=== PATIENT | female | born 1935 | race Caucasian/White ===

== ENCOUNTER → 2018-01-26 14:17 | Outpatient (CLI) | payer MEDICARE, SELFPAY ==
[2018-01-26 15:56] LABS: Absolute Lymphocyte Count 1.21 X10^3/ul (0.83-4.51); Absolute Neutrophil Count 6.6 X10^3/uL (2.0-7.7); Basophil# 0.01 X10^3/uL; Basophil% 0.1 % (0-1); Eosinophil# 0.02 X10^3/uL; Eosinophils% 0.2 % (0-5); Hematocrit 36.7 % (37-47); Hemoglobin 11.7 g/dl (12.0-15.0); Lymphocyte # 1.21 X10^3/ul (4.0); Mean Corp Hgb Conc 31.9 g/gl (32-36); Mean Corpuscular Hgb 29.4 pg (27.0-32.0); Mean Corpuscular Volume 92.2 fL (81-99); Mean Platelet Vol. 10.3 fl (6.2-12.0); Monocyte# 0.74 X10^3/uL; Monocyte% 8.6 % (0-10); Neutrophil # 6.63 X10^3/uL (2.7-7.7); Platelet Count 291 K/mm3 (150-450); RBC Distribution Width CV 13.8 % (11.6-14.6); RBC Distribution Width SD 46.2 fl (35.1-43.9); Red Blood Count 3.98 M/mm3 (4.2-5.4); White Blood Count 8.6 K/mm3 (4.4-11.0)
[2018-01-26 15:58] LABS: POSITIVE COUNT NO; POSITIVE DIFFERENTIAL NO; POSITIVE MORPHOLOGY NO
[2018-01-26 16:18] LABS: Erythrocyte Sedimentation Rate 49 mm/hr (0-30)
[2018-01-26 16:23] LABS: Ferritin 195 ng/mL (8-252); Iron 18 ug/dL (50-170); Thyroid Stim Hormone (TSH) 1.46 uIU/mL (0.358-3.74)
[2018-01-27 08:32] LABS: Vitamin B12 414 pg/mL (211-911); Vitamin D,25 Hydroxy 24.6 ng/mL (29.95-100.01)
[2018-01-28 12:09] LABS: ANTINUCLEAR ANTIBODIES DIRECT Positive (Negative); Anti-Centromere B Ab <0.2 AI (0.0-0.9); Anti-Chromatin 0.2 AI (0.0-0.9); Anti-Jo <0.2 AI (0.0-0.9); Anti-Scleroderma-70 AB <0.2 AI (0.0-0.9); RNP Ab <0.2 AI (0.0-0.9); SJOGREN'S Anti-SS-A test > 8.0 AI (0.0-0.9); SJOGREN'S Anti-SS-B test < 0.2 AI (0.0-0.9); Smith Ab <0.2 AI (0.0-0.9)
[2018-01-28 15:00] LABS: Anti-dsDNA Ab <1 IU/mL (0-9)
== END ==
PROVIDERS: Family Provider Family Medicine; PCP Family Medicine; Visit Provider Family Medicine
DX: D64.9 Anemia, unspecified (principal); E03.9 Hypothyroidism, unspecified; E55.9 Vitamin D deficiency, unspecified; E78.5 Hyperlipidemia, unspecified; R53.83 Other fatigue
CPT/HCPCS: 36415; 82306; 82607; 82728; 83540; 84443; 85025; 85652; 86038; 86140; 86225; 86235

== ENCOUNTER → 2018-02-17 | Outpatient (CLI) | payer MEDICARE, SELFPAY ==
[2018-02-17 14:34] LABS: Bacteria 0 SEEN /hpf (None Seen); Mucous, Urine 0 SEEN /hpf (<or=2+); Red Blood Cells-Urine 0 SEEN /hpf (0-5)
[2018-02-17 15:56] LABS: Absolute Lymphocyte Count 1.19 X10^3/ul (0.83-4.51); Absolute Neutrophil Count 2.5 X10^3/uL (2.0-7.7); Basophil# 0.02 X10^3/uL; Basophil% 0.5 % (0-1); Eosinophil# 0.06 X10^3/uL; Eosinophils% 1.4 % (0-5); Hematocrit 36.2 % (37-47); Hemoglobin 11.8 g/dl (12.0-15.0); Lymphocyte # 1.19 X10^3/ul (4.0); Lymphocyte % 27.8 % (19-41); Mean Corp Hgb Conc 32.6 g/gl (32-36); Mean Corpuscular Hgb 30.1 pg (27.0-32.0); Mean Corpuscular Volume 92.3 fL (81-99); Mean Platelet Vol. 10.9 fl (6.2-12.0); Monocyte% 11.7 % (0-10); Neutrophil # 2.51 X10^3/uL (2.7-7.7); Neutrophil % 58.6 % (47-70); Platelet Count 234 K/mm3 (150-450); RBC Distribution Width CV 13.9 % (11.6-14.6); RBC Distribution Width SD 46.1 fl (35.1-43.9); Red Blood Count 3.92 M/mm3 (4.2-5.4); White Blood Count 4.3 K/mm3 (4.4-11.0)
[2018-02-17 15:57] LABS: POSITIVE COUNT NO; POSITIVE DIFFERENTIAL NO; POSITIVE MORPHOLOGY NO
[2018-02-17 16:05] LABS: Erythrocyte Sedimentation Rate 27 mm/hr (0-30)
[2018-02-17 16:17] LABS: AST(SGOT) 32 U/L (15-37); Alanine Aminotransfer ALT/SGPT 24 U/L (13-56); Albumin, Serum 3.7 g/dL (3.2-5.0); Alkaline Phosphatase 60 U/L (45-117); Bilirubin, Direct 0.11 mg/dL (0.00-0.30); CRP < 2.90 mg/L (0.0-3.0); Globulin 3.6 g/dL (2.2-4.2); Protein, Total 7.3 g/dL (6.4-8.2)
[2018-02-17 17:10] LABS: Color, Urine Yellow (Yellow); Glucose, Dipstick Normal (Normal); Ketone-Dipstick Negative (Negative); Leukocyte Esterase-Dipstick 500 /ul (Negative); Nitrite-Dipstick Negative (Negative); Occult Blood-Urine Negative /ul (Negative); Protein-Dipstick Negative (Negative); Urine Bilirubin Dipstick Negative (Negative); Urine Clarity Clear (Clear); Urine Urobilinogen Normal (Normal)
[2018-02-17 17:39] LABS: Squamous Epithelial Cells - UA 0-5 SEEN /hpf (5-10); White Blood Cells 0-5 SEEN /hpf (0-5)
[2018-02-19 14:09] LABS: ANTINUCLEAR ANTIBODIES DIRECT Positive (Negative); Anti-Centromere B Ab <0.2 AI (0.0-0.9); Anti-Chromatin 0.2 AI (0.0-0.9); Anti-Jo <0.2 AI (0.0-0.9); Anti-Scleroderma-70 AB <0.2 AI (0.0-0.9); RNP Ab <0.2 AI (0.0-0.9); SJOGREN'S Anti-SS-A test > 8.0 AI (0.0-0.9); SJOGREN'S Anti-SS-B test < 0.2 AI (0.0-0.9); Smith Ab <0.2 AI (0.0-0.9)
[2018-02-20 08:40] LABS: Anti-dsDNA Ab <1 IU/mL (0-9)
== END | disposition home or self-care (01) ==
PROVIDERS: Family Provider Family Medicine; PCP Family Medicine; Visit Provider Family Medicine
DX: R53.83 Other fatigue (principal); R70.0 Elevated erythrocyte sedimentation rate; R50.9 Fever, unspecified; Z79.899 Other long term (current) drug therapy
CPT/HCPCS: 36415; 80076; 81001; 85025; 85652; 86038; 86140; 86225; 86235; 87040; 87086

== ENCOUNTER 2018-03-10 10:35 | Inpatient (IN) | payer MEDICARE, SELFPAY ==
[2018-02-25 15:21] VITALS: BP 119/60; PULSE 82; RESP 16; TEMP 37.2; O2SAT 98; BMI 28.8
[2018-02-25 17:54] LABS: Anion Gap 5 (5-15); BUN 26 mg/dL (7-18); BUN/Creat Ratio 32.3 RATIO (10-20); Calcium,Total 8.7 mg/dL (8.5-10.1); Chloride 108 mmol/L (98-107); EST Glomerular Filtration Rate 73 mL/min (>60); Est Glom Filt Rate - Afr Amer 88 mL/min (>60); Estimated Creatinine Clearance 45.62 ml/min; Glucose 86 mg/dL (74-106); Sodium Level 143 mmol/L (136-145); Thyroid Stim Hormone (TSH) 1.56 uIU/mL (0.358-3.74)
--- NOTE | 2018-03-05 15:44 | CASEMGMT ---
RN CM called and and attempted to speak with patient regarding discharge needs after upcoming surgery. No answer and voice message left with return contact information. Per preadmission assessment patient has a walker and would like to return home. RN CM will follow up with patient after surgery and will assist with discharge needs.
--- NOTE | 2018-03-08 10:20 | CASEMGMT ---
Social Work Note RN VANESSA Martinez informed this worker that pt is having left total hip surgery on Thursday03/10/2018 and that pt is interested in either inpatient rehab or TCU. SW placed call to Sarah with inpatient rehab to provide referral. Per Sarah, pt's insurance won't approve for pt to go to inpatient rehab and pt will have to go to TCU. This worker will update pt of this when she arrives to floor for surgery. Plan: TCU pending pre-cert Tangela Fernandez TILE GRADER, BUCKLE INSPECTOR
[2018-03-10] VITALS (9 sets, daily range): BP systolic 111–155; BP diastolic 54–88; PULSE 73–100; RESP 16–20; TEMP 36–36.9; O2SAT 84–100; BMI 28.8
[2018-03-10] MEDS: oxyCODONE HCl Cr 10 MG Tablet PO (11:25)
[2018-03-10] MEDS: Acetaminophen 500 MG Tablet 1000 MG PO ×2 (11:25→18:11)
[2018-03-10] MEDS: Lactated Ringers 1,000 ML 999 ML IV (11:47)
--- NOTE | 2018-03-10 12:45 | RAD_ITS ---
STUDY: X-RAY - PELVIS AND LEFT HIP REASON FOR EXAM: Female, 82 years old. Left anterior total hip. TECHNIQUE: Fluoroscopic assistance was provided to Dr. Raymond. A frontal view of the low pelvis/bilateral hips as well as an additional film centered over the left hip are submitted. COMPARISON: None. FINDINGS: There is a non-specific bowel gas pattern. There are calcified phleboliths in the pelvic soft tissues. Normal bilateral superior and inferior pubic rami. Normal pubic symphysis. Normal bilateral ischial tuberosities. There is an indwelling right bipolar metal hip prosthesis. The patient has undergone left total hip arthroplasty. The left femoral head and neck have been resected. A metal bipolar hip prosthesis appears well seated, and in anatomic alignment. There is no demonstrated acute fracture. Lateral soft tissue lucency consistent with an open surgical wound. RAD/Hip 1 view with Pelvis IMPRESSION: Intraprocedural images demonstrate left total hip arthroplasty. Electronically Signed: Mundo Sweeney MD at 17:01 EDT , Service support ,
[2018-03-10] MEDS: Cefazolin 2 GM in 0.9% Normal Saline 100 ML IV (14:58)
--- NOTE | 2018-03-10 16:11 | PCM.IMDPSTOP ---
Immediate Post-Op Note Date of Procedure: 03/10/18 Primary Surgeon/Physician: Ritchie Child M.D. health education director: Rivas Raymond health education director: Tawanda Merida Pre-Operative Diagnosis: OA left hip Post-Operative Diagnosis: same Surgery/Procedure Performed:: Left THR--Anterior approach Description of Surgical Findings:: see dictation Estimated Blood Loss: 150cc Specimen's removed: none Type of Anesthesia:: General ASA Class: ASA3 Severe Disease - Admit VTE Documentation VTE Present on Admission: No VTE Mechan Device Prophylaxis: SCD's, Thigh High NERI Hose VTE Pharm Prophylaxis ordered?: Yes
--- NOTE | 2018-03-10 16:14 | OP.PN_ITS ---
Immediate Post-Op Note Date of Procedure: 03/10/18 Primary Surgeon/Physician: Ritchie Child M.D. setter automatic spinning lathe: Rivas Raymond setter automatic spinning lathe: Tawanda Merida Pre-Operative Diagnosis: OA left hip Post-Operative Diagnosis: same Surgery/Procedure Performed:: Left THR--Anterior approach Description of Surgical Findings:: see dictation Estimated Blood Loss: 150cc Specimen's removed: none Type of Anesthesia:: General ASA Class: ASA3 Severe Disease - Admit VTE Documentation VTE Present on Admission: No VTE Mechan Device Prophylaxis: SCD's, Thigh High NERI Hose VTE Pharm Prophylaxis ordered?: Yes
--- NOTE | 2018-03-10 16:16 | PCM.OPRPT ---
Report of Operation Date of Procedure: 03/10/18 Pre-Operative Diagnosis: OA left hip Post-Operative Diagnosis: same Surgery/Procedure Performed:: Left THR--Anterior approach Description of Surgical Findings:: Stable hip with equal leg lengths detective bureau chief: Rivas Raymond detective bureau chief: Tawanda Merida Type of Anesthesia:: General Anesthesiologist: Gama Mitchell Special Medications: 2 g Ancef, 1 g TXA at incision, 1 g TXA closure, 10 mg Decadron, joint cocktail (5 mg Duramorph, 30 mL of 0.5% Ropivicaine, 1000 units of epinephrine, 30 mg of Toradol) Specimen's removed: none Estimated Blood Loss (mL): 150cc Fluids Replaced: 1500 ml Description of Procedure: Components used: 1. Accolade 2 Marcie femoral stem size 3 132? 2. [place] trident acetabular shell size 48 mm 3. Marcie X3 polyethylene d 4. [place] Biolox delta 36mm, -5mm femoral head Brief history operative indications: 82 yo F who failed conservative measures for their hip osteoarthritis. X-rays were consistent with osteoarthritis including joint space narrowing, osteophyte formation and subchondral cysts. Total hip replacement was discussed with the patient with risks and benefits including but not limited to blood loss, DVTs, PEs, neurovascular damage, dislocation, general risks of anesthesia including loss of life. Patient demonstrated an understanding medical clearance is obtained the patient was consented for surgery. Procedure: On the date of procedure the patient's L hip was marked in the preoperative area. Patient was then taken back to the operating room where anesthesia assumed control of the C-spine and airway and administered anesthetic. Patient was transferred to the operating table and placed in the supine position. The hips were placed at the break of the bed and a sacral bump was placed. The L lower extremity was then prepped out in a sterile fashion using chlorhexidine while the surgeon scrubbed. The PA was vital in the positioning of the patient. Upon reentering the room the L lower extremity was draped in the standard orthopedic fashion and the incision was marked. A timeout was called and everyone agreed upon the side, the site, the procedure be performed, antibody given, and patient's identity. At this time incision was made through skin, subcutaneous tissue, and fat down to fascia. The fascia was then incised and the TFL was retracted laterally. A retractor was placed on the lateral border of the femoral neck. Attention was directed to the inferior portion of the approach and all crossing vessels were identified and appropriately coagulated. A retractor was then placed on the medial portion of the femoral neck. The anterior capsule was then cleared of all soft tissue and then H shaped capsulotomy was made. The retractors were then placed inside the capsule. The femoral neck was identified and a cleanup cut was made. At this time a power corkscrew was used to remove the femoral head. Attention was then turned toward the acetabulum where the soft tissues were appropriately retracted and the acetabulum was sequentially reamed to 47 mm. A 48 mm cup was then selected and impacted into place. Acetabular liner was impacted into place and locking mechanism was verified. The position of the acetabular cup was then verified under live fluoroscopy. Attention was then turned to the femur. Soft tissue releases on the medial and lateral femoral neck were appropriately done, the leg was externally rotated and lateralized. A Vasquez retractor was placed medially and proximally to the greater trochanter this allowed appropriate visualization and exposure of the femoral canal. Rongeour was then used to remove excess lateral bone. A canal finder and entry broach were used to open the proximal canal. Once we verified we were down the femoral canal we subsequently broached up to a size 3 femur. The appropriate neck was placed in the previously selected head was trialed with a -5 mm neck. Traction was pulled and the hip was reduced with internal rotation. Once it was appropriately reduced and stability was checked. There was minimal shuck, equal leg lengths and appropriate stability with hyperextension and external rotation as well as with 90? flexion and internal rotation. Fluoroscopy was then also used to verify the position of the components and leg lengths using the contralateral side for comparison. The trial components were then dislocated the proximal femur was again exposed and the components were removed from the wound. The final components were verified and opened. The wound was copiously irrigated out with normal saline. The acetabulum was checked for any residual debris. The final components were placed and impacted. Traction and internal rotation were again used to reduce the hip. After adequate reduction the hip remained stable with appropriate leg lengths. The final components were once again checked with live fluoroscopy and were found to be satisfactory. The wound was then copiously irrigated with normal saline once more, and hemostasis was obtained. Closure was then done using #1 Vicryl runner to close the fascia. A 2-0 vicryl interuppted sutures were used to close the subcutaneous skin. A 3-0 Monocryl and Steri-Strips were used for final skin closure. A Silverlon dressing was placed. Patient was awakened by anesthesia and transferred to the [facility]. Patient was then transferred to the PACU for recovery. Postoperative plan: Patient will get 24 hours postop antibiotics. Patient will get in-house physical therapy and will be weight-bear as tolerated. Patient will follow up in office in 2 weeks for a wound check and x-rays. During the course of the procedure the Dr. Raymond played a vital role in assisting. His intimate knowledge of my steps in the procedure aided in safe and expedient completion of the procedure. The community program assistant played a vital rolls in positioning particularly in obtaining the appropriate positioning of the sacral bump. The community program assistant was also vital in the retraction of soft tissues during the exposure and especially the femoral work as this is a vital part of the procedure to prevent complications and fractures. The community program assistant was also vital and protecting soft tissues during times of bony cuts and reaming. The community program assistant was also important during reduction and dislocation of the joint and trials intraoperatively. Grafts/Implants Used: Marcie - Complications None - Admit VTE Documentation VTE Present on Admission: No VTE Mechan Device Prophylaxis: SCD's, Thigh High NERI Hose VTE Pharm Prophylaxis ordered?: Yes
--- NOTE | 2018-03-10 16:20 | OP.PCM_ITS ---
Report of Operation Date of Procedure: 03/10/18 Pre-Operative Diagnosis: OA left hip Post-Operative Diagnosis: same Surgery/Procedure Performed:: Left THR--Anterior approach Description of Surgical Findings:: Stable hip with equal leg lengths phlebotomy lab assistant: Rivas Raymond phlebotomy lab assistant: Tawanda Merida Type of Anesthesia:: General Anesthesiologist: Gama Mitcehll Special Medications: 2 g Ancef, 1 g TXA at incision, 1 g TXA closure, 10 mg Decadron, joint cocktail (5 mg Duramorph, 30 mL of 0.5% Ropivicaine, 1000 units of epinephrine, 30 mg of Toradol) Specimen's removed: none Estimated Blood Loss (mL): 150cc Fluids Replaced: 1500 ml Description of Procedure: Components used: 1. Accolade 2 Marcie femoral stem size 3 132? 2. [place] trident acetabular shell size 48 mm 3. Marcie X3 polyethylene d 4. [place] Biolox delta 36mm, -5mm femoral head Brief history operative indications: 82 yo F who failed conservative measures for their hip osteoarthritis. X-rays were consistent with osteoarthritis including joint space narrowing, osteophyte formation and subchondral cysts. Total hip replacement was discussed with the patient with risks and benefits including but not limited to blood loss, DVTs, PEs, neurovascular damage, dislocation, general risks of anesthesia including loss of life. Patient demonstrated an understanding medical clearance is obtained the patient was consented for surgery. Procedure: On the date of procedure the patient's L hip was marked in the preoperative area. Patient was then taken back to the operating room where anesthesia assumed control of the C-spine and airway and administered anesthetic. Patient was transferred to the operating table and placed in the supine position. The hips were placed at the break of the bed and a sacral bump was placed. The L lower extremity was then prepped out in a sterile fashion using chlorhexidine while the surgeon scrubbed. The PA was vital in the positioning of the patient. Upon reentering the room the L lower extremity was draped in the standard orthopedic fashion and the incision was marked. A timeout was called and everyone agreed upon the side, the site, the procedure be performed, antibody given, and patient's identity. At this time incision was made through skin, subcutaneous tissue, and fat down to fascia. The fascia was then incised and the TFL was retracted laterally. A retractor was placed on the lateral border of the femoral neck. Attention was directed to the inferior portion of the approach and all crossing vessels were identified and appropriately coagulated. A retractor was then placed on the medial portion of the femoral neck. The anterior capsule was then cleared of all soft tissue and then H shaped capsulotomy was made. The retractors were then placed inside the capsule. The femoral neck was identified and a cleanup cut was made. At this time a power corkscrew was used to remove the femoral head. Attention was then turned toward the acetabulum where the soft tissues were appropriately retracted and the acetabulum was sequentially reamed to 47 mm. A 48 mm cup was then selected and impacted into place. Acetabular liner was impacted into place and locking mechanism was verified. The position of the acetabular cup was then verified under live fluoroscopy. Attention was then turned to the femur. Soft tissue releases on the medial and lateral femoral neck were appropriately done, the leg was externally rotated and lateralized. A Vasquez retractor was placed medially and proximally to the greater trochanter this allowed appropriate visualization and exposure of the femoral canal. Rongeour was then used to remove excess lateral bone. A canal finder and entry broach were used to open the proximal canal. Once we verified we were down the femoral canal we subsequently broached up to a size 3 femur. The appropriate neck was placed in the previously selected head was trialed with a -5 mm neck. Traction was pulled and the hip was reduced with internal rotation. Once it was appropriately reduced and stability was checked. There was minimal shuck, equal leg lengths and appropriate stability with hyperextension and external rotation as well as with 90? flexion and internal rotation. Fluoroscopy was then also used to verify the position of the components and leg lengths using the contralateral side for comparison. The trial components were then dislocated the proximal femur was again exposed and the components were removed from the wound. The final components were verified and opened. The wound was copiously irrigated out with normal saline. The acetabulum was checked for any residual debris. The final components were placed and impacted. Traction and internal rotation were again used to reduce the hip. After adequate reduction the hip remained stable with appropriate leg lengths. The final components were once again checked with live fluoroscopy and were found to be satisfactory. The wound was then copiously irrigated with normal saline once more, and hemostasis was obtained. Closure was then done using #1 Vicryl runner to close the fascia. A 2-0 vicryl interuppted sutures were used to close the subcutaneous skin. A 3-0 Monocryl and Steri-Strips were used for final skin closure. A Silverlon dressing was placed. Patient was awakened by anesthesia and transferred to the [facility]. Patient was then transferred to the PACU for recovery. Postoperative plan: Patient will get 24 hours postop antibiotics. Patient will get in-house physical therapy and will be weight-bear as tolerated. Patient will follow up in office in 2 weeks for a wound check and x-rays. During the course of the procedure the Dr. Raymond played a vital role in assisting. His intimate knowledge of my steps in the procedure aided in safe and expedient completion of the procedure. The head start assistant teacher played a vital rolls in positioning particularly in obtaining the appropriate positioning of the sacral bump. The head start assistant teacher was also vital in the retraction of soft tissues during the exposure and especially the femoral work as this is a vital part of the procedure to prevent complications and fractures. The head start assistant teacher was also vital and protecting soft tissues during times of bony cuts and reaming. The head start assistant teacher was also important during reduction and dislocation of the joint and trials intraoperatively. Grafts/Implants Used: Marcie - Complications None - Admit VTE Documentation VTE Present on Admission: No VTE Mechan Device Prophylaxis: SCD's, Thigh High NERI Hose VTE Pharm Prophylaxis ordered?: Yes
--- NOTE | 2018-03-10 16:55 | RAD_ITS ---
STUDY: X-RAY - PELVIS AND LEFT HIP REASON FOR EXAM: Female, 82 years old. Postop left hip. TECHNIQUE: Radiological exam, hip, unilateral, with pelvis when performed; 2 or 3 views. COMPARISON: None. FINDINGS: There is a non-specific bowel gas pattern. There are multiple calcified phleboliths in the pelvic soft tissues. There is narrowing with cortical sclerosis of the bilateral sacroiliac joints, consistent with degenerative osteoarthritic changes. Normal bilateral superior and inferior pubic rami. Normal pubic symphysis. Normal bilateral ischial tuberosities. There is an indwelling right bipolar metal hip prosthesis. Patient has undergone left total hip arthroplasty. Phone resection of the femoral head and neck, a metal bipolar hip prosthesis was placed. The acetabular and femoral components appear well seated, and in anatomic alignment. Gas lucencies in the tissue surrounding the hip are consistent with recent surgery. There is no demonstrated acute fracture. RAD/Hip Min 2 Views (Portable) IMPRESSION: 1. Status post left total hip arthroplasty. 2. Indwelling metal bipolar right hip prosthesis. 3. 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 Electronically Signed: Mundo Sweeney MD at 17:33 EDT , Service support ,
[2018-03-10 17:21] LABS: Hematocrit 31.8 % (37-47); Hemoglobin 10.4 g/dl (12.0-15.0); Mean Corp Hgb Conc 32.7 g/gl (32-36); Mean Corpuscular Volume 91.6 fL (81-99); Mean Platelet Vol. 10.1 fl (6.2-12.0); Platelet Count 209 K/mm3 (150-450); RBC Distribution Width CV 13.9 % (11.6-14.6); RBC Distribution Width SD 45.9 fl (35.1-43.9); Red Blood Count 3.47 M/mm3 (4.2-5.4); White Blood Count 12.7 K/mm3 (4.4-11.0)
[2018-03-10 17:22] LABS: Scan Indicated on CBC? Y/N NO
--- NOTE | 2018-03-10 17:55 | NURSING ---
PT PLACED ON O2 2L VIA NC
[2018-03-10] MEDS: Aspirin 325 MG Tablet PO (18:11)
[2018-03-10] MEDS: Atorvastatin Calcium 20 MG Tablet PO (21:10)
[2018-03-10] MEDS: oxyCODONE 5 MG Tablet PO (22:24)
[2018-03-10] MEDS: Cefazolin 1 GM/50 ML BAG IV (22:25)
[2018-03-10] MEDS: Zolpidem Tartrate 5 MG Tablet PO (23:38)
[2018-03-11 04:52] VITALS: BP 148/62; PULSE 75; RESP 18; TEMP 36.7; O2SAT 99
[2018-03-11] MEDS: Levothyroxine 100 MCG Tablet PO (05:01)
[2018-03-11] MEDS: Acetaminophen 500 MG Tablet 1000 MG PO ×3 (05:01→21:58)
--- NOTE | 2018-03-11 05:59 | NURSING ---
tavo here to start iv.
[2018-03-11] MEDS: Cefazolin 1 GM/50 ML BAG IV (06:06)
[2018-03-11 07:01] LABS: Hematocrit 32.9 % (37-47); Mean Corp Hgb Conc 33.4 g/gl (32-36); Mean Corpuscular Hgb 30.6 pg (27.0-32.0); Mean Corpuscular Volume 91.4 fL (81-99); Mean Platelet Vol. 10.7 fl (6.2-12.0); Platelet Count 191 K/mm3 (150-450); RBC Distribution Width CV 13.5 % (11.6-14.6); White Blood Count 9.2 K/mm3 (4.4-11.0)
[2018-03-11 07:04] LABS: Scan Indicated on CBC? Y/N NO
[2018-03-11 07:12] LABS: Anion Gap 7 (5-15); BUN 11 mg/dL (7-18); BUN/Creat Ratio 18.4 RATIO (10-20); Calcium,Total 8.8 mg/dL (8.5-10.1); Chloride 100 mmol/L (98-107); EST Glomerular Filtration Rate 102 mL/min (>60); Est Glom Filt Rate - Afr Amer 124 mL/min (>60); Glucose 105 mg/dL (74-106); Potassium 3.7 mmol/L (3.5-5.1); Sodium Level 136 mmol/L (136-145)
[2018-03-11 08:47] VITALS: O2SAT 99
--- NOTE | 2018-03-11 08:57 | PN.ORTHO_ITS ---
Subjective: Patient doing well. Rates pain at 0/10 when resting, 4/10 when up. Denies N/T/ P. Plans an going to TCU tomorrow. - Physical Exam General: Alert, Oriented x3, No apparent distress Extremities: No clubbing, No cyanosis, Capillary Refill Less than 3 Seconds Skin: Incision - stable Neurological: Motor Exam 5/5 strength throughout, Sensory exam intact to light touch and pain Vital Signs Temp Pulse Resp BP Pulse Ox 98.1 F 75 18 148/62 H 99 03/11/18 04:52 03/11/18 04:52 03/11/18 04:52 03/11/18 04:52 03/11/18 08:47 Oxygen Flow Rate (L/min) 2 Oxygen Delivery Method Room Air Weight: 164 lb 14.492 oz Body Mass Index (BMI) 28.8 Intake and Output for Last 24 Hours 03/09/18 03/10/18 03/11/18 23:59 23:59 23:59 Intake Total 2674 / 2674 244 / 244 Output Total 300 / 300 650 / 650 Balance 2374 / 2374 -406 / -406 Laboratory Tests Past 24 Hrs 03/10/18 03/11/18 03/11/18 17:10 06:24 06:24 WBC 12.7 H 9.2 RBC 3.47 L 3.60 L Hgb 10.4 L 11.0 L Hct 31.8 L 32.9 L MCV 91.6 91.4 MCH 30.0 30.6 MCHC 32.7 33.4 RDW 13.9 13.5 RDW Differential 45.9 H 44.0 H Plt Count 209 191 MPV 10.1 10.7 Sodium 136 Potassium 3.7 Chloride 100 Carbon Dioxide 29.0 Anion Gap 7 BUN 11 Creatinine 0.60 Estim Creat Clear Calc 36.50 Est GFR (MDRD) Af Amer 124 Est GFR (MDRD) Non-Af 102 BUN/Creatinine Ratio 18.4 Glucose 105 Calcium 8.8 Medical Necessity - Tobacco Use Smoking Status: Never smoker Tobacco Use: Non-smoker Assessment/Plan s/p Left THR PT today, TCU tomorrow
[2018-03-11] MEDS: Iron Polysaccharide Complex 150 MG CAPSULE PO (09:09)
[2018-03-11] MEDS: Aspirin 325 MG Tablet PO ×2 (09:09→17:49)
[2018-03-11] MEDS: Hydroxychloroquine 200 MG Tablet PO (09:10)
--- NOTE | 2018-03-11 09:12 | CASEMGMT ---
Social Work Note SW met with pt to confirm discharge plans. Pt confirms that her plan is to go to TCU at discharge. SW informed pt that she will need pre-cert from her insurance and explained pre-cert process. PT states understanding. STEPHANIE received message from [place]on, typing secretary, that pt's friend Noemí Gutierrez called asking for this worker to call her back. Pt gave this worker permission to call Noemí. Pt denied additional needs or concerns at this time. SW placed a call to Noemí Gutierrez. Per Noemí she is wanting an update on pt and on discharge plan and to set up a meeting with this worker and pt to confirm discharge plans. SW informed her that this worker just met with pt to confirm discharge plans and that this worker can provide a verbal update to her if she would like. Noemí was receptive and agreeable to this. SW informed Noemí that the plan is for the pt to discharge to TCU when medically cleared and when pre-cert is obtained. SW informed Noemí that the pt is agreeable to this plan and that pt has been updated of this. STEPHANIE explained to Noemí the pre-cert process and Noemí states understanding. Noemí denied any other questions or concerns at this time and denied wanting a meeting with this SW after update was provided. SW encouraged Noemí to call this worker back if any other questions or concerns arise or if she would like a meeting set up at a later time to call this worker back or to let staff know if she comes into the hospital. Noemí states understanding and thanked this worker for the update. SW informed Noemí that this worker will keep her updated. Noemí thanked this worker for the call. Plan: TCU pending pre-cert Tangela Fernandez MSW, [employer]
[2018-03-11 10:00] VITALS: BP 111/54; PULSE 81; RESP 16; TEMP 36.6; O2SAT 99
--- NOTE | 2018-03-11 10:03 | CASEMGMT ---
Addendum entered by Tangela Fernandez 03/11/18 14:57: SW received call from Sarah with TCU stating that she submitted pre-cert to [facility] and that she is waiting to hear back from nurse reviewer for her to submit clinicals. Sarah states that she is leaving at 3:00 but if she were to receive the call from the nurse reviewer she has someone who will fax the clinical information to [facility]. Sarah states that she is hoping to get pre-cert back tomorrow. Original Note: Addendum entered by Tangela Fernandez 03/11/18 10:59: SW received call from Sarah that she will submit pre-cert today. Original Note: Social Work Note SW placed call to Sarah with inpatient rehab/TCU and left her a message to inform her that pt is still agreeable to go to TCU and that PT/OT have evaluated pt and to go ahead and start pre-cert. Plan: TCU pending pre-cert Tangela Fernandez WATCH CRYSTAL EDGE GRINDER, CREDIT ASSESSMENT ANALYST
[2018-03-11] MEDS: amLODIPine 10 MG Tablet PO (10:19)
[2018-03-11] MEDS: Fluticasone 0.05% 1 SPRAY NASAL.SRY 2 SPRAY NASAL (10:19)
[2018-03-11] MEDS: Calcium Carb/Vitamin D 1 TABLET Tablet PO (10:20)
[2018-03-11] MEDS: Pantoprazole Sodium 40 MG Tablet PO (10:20)
[2018-03-11] MEDS: oxyCODONE 5 MG Tablet PO ×2 (10:22→16:12)
[2018-03-11 17:50] VITALS: BP 106/88; PULSE 96; RESP 18; TEMP 36.7; O2SAT 95
[2018-03-11 21:50] VITALS: BP 127/60; PULSE 89; RESP 20; TEMP 36.9; O2SAT 97
[2018-03-11] MEDS: Atorvastatin Calcium 20 MG Tablet PO (22:10)
[2018-03-11] MEDS: Zolpidem Tartrate 5 MG Tablet PO (23:37)
[2018-03-12 06:15] VITALS: BP 146/70; PULSE 102; RESP 18; TEMP 37; O2SAT 97
--- NOTE | 2018-03-12 06:30 | PCM.PN.ORT ---
Subjective: The patient was resting in bed upon examination. Patient denies any chest pain, shortness of breath, dizziness, lightheadedness, nausea or vomiting, or calf pain. Pain is controlled on medications. No adverse overnight events. Overall doing well. We are waiting on precertification for patient to go to transitional care unit possibly today. Objective: Vital signs stable and afebrile. Patient is able to plantarflex and dorsiflex actively. Sensation is intact to light touch to saphenous, sural, superficial and deep peroneal, and tibial distribution. Dressing is clean dry and intact. Negative Homans bilaterally, negative signs and symptoms of DVT. - Physical Exam Vital Signs Temp Pulse Resp BP Pulse Ox 98.4 F 89 20 H 127/60 H 97 03/11/18 21:50 03/11/18 21:50 03/11/18 21:50 03/11/18 21:50 03/11/18 21:50 Oxygen Flow Rate (L/min) 2 Oxygen Delivery Method Room Air Weight: 74.8 kg Body Mass Index (BMI) 28.8 Intake and Output for Last 24 Hours 03/10/18 03/11/18 03/12/18 23:59 23:59 23:59 Intake Total 2674 / 2674 974 / 974 Output Total 300 / 300 1750 / 1750 500 / 500 Balance 2374 / 2374 -776 / -776 -500 / -500 Laboratory Tests Past 24 Hrs 03/11/18 03/11/18 06:24 06:24 WBC 9.2 RBC 3.60 L Hgb 11.0 L Hct 32.9 L MCV 91.4 MCH 30.6 MCHC 33.4 RDW 13.5 RDW Differential 44.0 H Plt Count 191 MPV 10.7 Sodium 136 Potassium 3.7 Chloride 100 Carbon Dioxide 29.0 Anion Gap 7 BUN 11 Creatinine 0.60 Estim Creat Clear Calc 36.50 Est GFR (MDRD) Af Amer 124 Est GFR (MDRD) Non-Af 102 BUN/Creatinine Ratio 18.4 Glucose 105 Calcium 8.8 Medical Necessity - Tobacco Use Smoking Status: Never smoker Tobacco Use: Non-smoker Assessment/Plan 1. S/P left direct anterior total hip arthroplasty POD #1 2. Continue Pain Medications: Tylenol and OxyIR 3. DVT Prophylaxis: Aspirin 325 mg twice daily 4. PT/OT: Weightbearing as tolerated 5. Encouraged Incentive Spirometry 6. Disposition: Orthopedically stable, plan is for possible discharge to the transitional care unit at [facility] today pending precertification. Patient will follow-up per postop instructions. Prescriptions are attached to chart.
[2018-03-12] MEDS: oxyCODONE 5 MG Tablet PO ×3 (06:39→18:09)
[2018-03-12] MEDS: Acetaminophen 500 MG Tablet 1000 MG PO ×2 (06:40→13:19)
[2018-03-12] MEDS: Levothyroxine 100 MCG Tablet PO (06:40)
--- NOTE | 2018-03-12 06:41 | PCM.DC.THR ---
Discharge Diet: No Restrictions Discharge Activity: May Not Drive - while taking narcotic pain medications. May shower in (days): 1 - only if incision is dry and without drainage. Do NOT soak/submerge in tub/pool/cortes/stream/hot tub. Ice area for (Minutes): 20 - Every 1-2 hours while awake Weight Bearing Status: Weight bearing as tolerated Additional Activity Instructions:: Wear elastic stockings for 2 weeks. DO NOT use alcohol with narcotic pain medication. DO NOT make important decisions while taking narcotic medication. If you have problems with taking your medication (rash, itching, nausea, etc.) call the office at once. Call your doctor if your incision/area has: Increased Pain/ Swelling, Increased Redness, Foul Smelling Discharge Call your doctor if you observe: Fever of 101 or Higher Remove Dressing in (days):: 3 - Okay to remove on March 15, 2018 Additional Instructions: Follow [facility] postop instructions Allergies/Adverse Reactions: Allergies Sulfa (Sulfonamide Antibiotics) Allergy (Verified 02/25/18 15:10) Hives tape Adverse Reaction (Uncoded 09/14/17 14:29) Other removes skin, needs paper tape Medications to take at Discharge Cholecalciferol (VIT D3) [Vitamin D3] 1,000 unit PO DAILY 02/09/15 Citalopram [Celexa] 20 mg PO DAILY 02/09/15 Hydroxychloroquine Sulfate [Plaquenil] 200 mg PO DAILY 02/09/15 Levothyroxine [Synthroid] 100 mcg PO DAILY 02/09/15 Pantoprazole Sodium [Protonix] 40 mg PO DAILY 02/09/15 Ropinirole HCl [Requip] 1 mg PO PRN PRN 02/09/15 Simvastatin 40 mg PO QHS 02/09/15 Zaleplon [Sonata] 10 mg PO QHS PRN PRN 02/09/15 Vit C/E/Zn/Coppr/Lutein/Zeaxan [Preservision Areds 2 Softgel] 1 each PO BID 08/17/15 Amlodipine [Norvasc] 10 mg PO DAILY 04/24/16 Calcium Carbonate/Vitamin D3 [Calcium 600-Vit D3 800 Caplet] 1 each PO DAILY 04/24/16 Triamcinolone Acetonide [Nasacort Aq Nasal [place]] 1 spray NASAL BID 10/17/16 Ubidecarenone [Co Q-10] 100 mg PO DAILY 10/17/16 Uniretic 1 tab PO DAILY 10/17/16 Senna/Docusate Sodium [Senokot-S] 2 tablet PO BID PRN #20 tablet 10/29/16 B,C/Folic/Zinc/Copper Ox/Vit E [Stress B-Complex Tablet] 1 each PO DAILY 02/25/18 Iron Polysaccharide Complex [Ferrex 150] 150 mg PO DAILYCM 02/25/18 Acetaminophen [Tylenol] 1,000 mg PO Q8 14 Days tablet 03/12/18 Aspirin 325 mg PO BIDCM 30 Days tablet 03/12/18 Atorvastatin Calcium [Lipitor] 20 mg PO QHS tablet 03/12/18 Oxycodone [Oxyir] 5 - 10 mg PO Q4H PRN PRN 5 Days #60 tab 03/12/18 The following prescriptions were given: Oxycodone [Oxyir] 5 - 10 mg PO Q4H PRN PRN 5 Days #60 tab PRN Reason: Mod-Severe Pain (-08/18) Primary Care Physician: Nikki Abbott DO [Primary Care Provider] - Please Follow Up With: [facility]: Tiffany Olivo When: 03/22/18 @ 2:00 pm
[2018-03-12 06:58] VITALS: O2SAT 97
[2018-03-12] MEDS: Calcium Carb/Vitamin D 1 TABLET Tablet PO (09:14)
[2018-03-12] MEDS: Aspirin 325 MG Tablet PO ×2 (09:14→18:07)
[2018-03-12] MEDS: Iron Polysaccharide Complex 150 MG CAPSULE PO (09:14)
[2018-03-12] MEDS: Hydroxychloroquine 200 MG Tablet PO (09:15)
[2018-03-12] MEDS: Fluticasone 0.05% 1 SPRAY NASAL.SRY 2 SPRAY NASAL (09:15)
[2018-03-12] MEDS: amLODIPine 10 MG Tablet PO (09:15)
[2018-03-12] MEDS: Pantoprazole Sodium 40 MG Tablet PO (09:15)
[2018-03-12 09:30] VITALS: BP 183/111; PULSE 111; RESP 20; TEMP 37.5; O2SAT 98
--- NOTE | 2018-03-12 09:34 | NURSING ---
Vital Signs taken after pt ambulating from sink to bed. Gave approx 2 min rest. This will recheck Vitals this morning after done with therapy.
--- NOTE | 2018-03-12 10:13 | CASEMGMT ---
Addendum entered by Tangela Fernandez 03/12/18 13:38: Correction: [employer] not [employer]ir Original Note: Social Work Note SW received call from Sarah that she hasn't heard from [employer] yet but will let this worker know as soon as she does. SW will continue to follow to assist with discharge planning. Plan: TCU pending pre-cert Tangela Fernandez GEOSPATIAL EXTRACTOR ANALYSIS, FERMENTATION OPERATOR
[2018-03-12 13:28] VITALS: BP 101/50; PULSE 93; RESP 16; TEMP 36.9; O2SAT 96
--- NOTE | 2018-03-12 15:10 | CASEMGMT ---
Addendum entered by Tangela Fernandez 03/12/18 15:49: SW placed note on pt's green sheet to have staff call pt's friend Noemí Gutierrez [phone] if pt discharges to TCU. STEPHANIE also updated Charge Nurse Jessy of this as well. Original Note: Social Work Note SW received call from Sarah with TCU stating that she just heard from [facility] to submit clinicals. Sarah states that she submitted clinicals to [facility] and how it has to go to [facility] with [facility]na. Sarah states that she told [employer] that pt is ready for discharge and that Sarah will be available till 8:00 tonight if they get authorization. Sarah states that she will call the floor if authorization is obtained tonight. STEPHANIE updated Charge Nurse Jessy of this. Plan: TCU when pre-cert is obtained Tangela Fernandez COMMERCIAL REAL ESTATE ASSISTANT, WIRELESS TEAM MEMBER
[2018-03-12] MEDS: 0.9% NaCl Peripheral Flush Adult/Peds IV (18:09)
--- NOTE | 2018-03-12 19:55 | NURSING ---
Report given to arpit in TCU at this time. okay to send over.
--- NOTE | 2018-03-15 08:39 | CASEMGMT ---
Social Work Note SW placed call to pt's friend Noemí Gutierrez to confirm that she knew that pt discharged to TCU on Thursday. Per Noemí she was aware of this. Noemí thanked this worker for calling her to update her of this. Tangela Fernandez MICA PARTS SPRAYER, RESOURCE ANALYST
== END 2018-03-12 20:15 | DRG 470 ==
LOC: ACINP 10:37 → MS3 12:21
PROVIDERS: Admitting Provider Specialist; Family Provider Family Medicine; PCP Family Medicine; Visit Provider Orthopaedic Surgery
PROC: (CPT 27284; principal; 2018-03-10 12:20)
DX: M16.12 Unilateral primary osteoarthritis, left hip (principal); I10 Essential (primary) hypertension; G25.81 Restless legs syndrome; K21.9 Gastro-esophageal reflux disease without esophagitis; E78.00 Pure hypercholesterolemia, unspecified; E06.9 Thyroiditis, unspecified; L93.0 Discoid lupus erythematosus; Z86.73 Personal history of transient ischemic attack (TIA), and cerebral infarction without residual deficits; Z96.641 Presence of right artificial hip joint; Z79.82 Long term (current) use of aspirin; Z79.899 Other long term (current) drug therapy
CPT/HCPCS: 36415; 73501; 73502; 76000; 80048; 84443; 85027; 87081; 97110; 97162; 97166; 97530; 97535; C1776; J7120; A4216

== ENCOUNTER 2018-03-12 20:21 | Inpatient (IN) | payer MEDICARE, SELFPAY ==
--- NOTE | 2018-03-12 20:24 | NURSING ---
Patient arrived on this unit from [facility] via Bed at 2014. Patient acclimated to room and call light.
[2018-03-12 20:25] VITALS: BP 111/47; PULSE 89; RESP 18; TEMP 37.2; O2SAT 95
--- NOTE | 2018-03-12 21:10 | PCM.HP.STD ---
Problem List (1) Osteoarthritis of left hip Status: Chronic (2) Allergic rhinitis Status: Chronic (3) Iron deficiency anemia Status: Chronic (4) GERD (gastroesophageal reflux disease) Status: Chronic (5) Restless legs syndrome Status: Chronic (6) Insomnia Status: Chronic (7) Stroke Status: Chronic (8) Hypertension Status: Chronic (9) Discoid lupus Status: Chronic (10) Kidney stones Status: Chronic (11) Hypothyroidism Status: Chronic (12) Hyperlipidemia Status: Chronic History of Present Illness Date of Admission: 03/12/18 Chief Complaint: Here for rehabilitation, strengthening, prior to discharge home alone. The patient is a 82 year old Female with below past medical history hospitalized for left total hip arthroplasty 03/10/[address] Silas Child, admitted to TCU for rehabilitation, strengthening, prior to discharge home alone. Past Medical History Past Medical History (Chronic Problems): Chronic Problems Osteoarthritis of left hip (Chronic) Allergic rhinitis (Chronic) Iron deficiency anemia (Chronic) GERD (gastroesophageal reflux disease) (Chronic) Restless legs syndrome (Chronic) Insomnia (Chronic) Stroke (Chronic) Hypertension (Chronic) Discoid lupus (Chronic) Kidney stones (Chronic) Hypothyroidism (Chronic) Hyperlipidemia (Chronic) Osteoarthritis of right hip (Chronic) Allergies Sulfa (Sulfonamide Antibiotics) Allergy (Verified 02/25/18 15:10) Hives tape Adverse Reaction (Uncoded 09/14/17 14:29) Other removes skin, needs paper tape Home Medications: Ambulatory Orders Medication Instructions Recorded Cholecalciferol (VIT D3) [Vitamin 1,000 unit PO DAILY 02/09/15 D3] Citalopram [Celexa] 20 mg PO DAILY 02/09/15 Hydroxychloroquine Sulfate 200 mg PO DAILY 02/09/15 [Plaquenil] Levothyroxine [Synthroid] 100 mcg PO DAILY 02/09/15 Pantoprazole Sodium [Protonix] 40 mg PO DAILY 02/09/15 Ropinirole HCl [Requip] 1 mg PO PRN PRN 02/09/15 Simvastatin 40 mg PO QHS 02/09/15 Zaleplon [Sonata] 10 mg PO QHS PRN PRN 02/09/15 Vit C/E/Zn/Coppr/Lutein/Zeaxan 1 each PO BID 08/17/15 [Preservision Areds 2 Softgel] Amlodipine [Norvasc] 10 mg PO DAILY 04/24/16 Calcium Carbonate/Vitamin D3 1 each PO DAILY 04/24/16 [Calcium 600-Vit D3 800 Caplet] Triamcinolone Acetonide [Nasacort 1 spray NASAL BID 10/17/16 Aq Nasal [place]] Ubidecarenone [Co Q-10] 100 mg PO DAILY 10/17/16 Uniretic 1 tab PO DAILY 10/17/16 B,C/Folic/Zinc/Copper Ox/Vit E 1 each PO DAILY 02/25/18 [Stress B-Complex Tablet] Iron Polysaccharide Complex 150 mg PO DAILYCM 02/25/18 [Ferrex 150] Acetaminophen [Tylenol] 1,000 mg PO Q8 03/12/18 Aspirin 325 mg PO BIDCM 03/12/18 Atorvastatin Calcium [Lipitor] 20 mg PO QHS 03/12/18 Oxycodone [Oxyir] 5 - 10 mg PO Q4H PRN PRN 5 Days 03/12/18 #60 tab Senna/Docusate Sodium [Senokot-S] 2 tablet PO BID PRN 03/12/18 Trospium Chloride [Sanctura Xr] 60 mg PO DAILY 03/12/18 Surgical History: cholecystectomy, herniorrhaphy, hysterectomy, total knee arthroplasty - Right, - - Foot, hand, carpal tunnel release, right total reverse shoulder replacement. Psychiatric History: No pertinent psych hx ATTENDING PSYCHIATRIST History: No pertinent ATTENDING PSYCHIATRIST history Lives: Alone Smoking Status: Never smoker Tobacco Use: Non-smoker, Pipe Alcohol: None Drugs: None - *Family History Maternal History Items: No pertinent history Paternal History Items: No pertinent history Review of Systems Constitutional: Denies: Chills, Fever, Weight Change HEENT: Denies: Head Aches, Sinus Congestion, Sinus Drainage Cardiovascular: Denies: Chest Pain, Palpitations Respiratory: Denies: Cough, Shortness of breath at rest, Sputum production Gastrointestinal: Denies: Abdominal Pain, Nausea, Vomiting Genitourinary: Denies: Dysuria Musculoskeletal: Denies: Joint Pain, Joint Tenderness Skin: Denies: Rash, Wounds Neurological: Denies: Numbness, Tingling, Focal weakness Psychiatric: Denies: Anxiety, Depression, Homicidal Ideations, Suicidal Ideations Hematologic/ Lymphatic: Denies: Easy Bruising, Easy Bleeding VTE Information - Inpt Only VTE Present on Admission: No VTE Mechan Device Prophylaxis: Knee High NERI Kelly VTE Pharm Prophylaxis ordered?: Yes - Physical Exam General: Alert, Oriented x3, Cooperative HEENT: Atraumatic, PERRLA, EOMI, Normocephalic Neck: Supple, No JVD, Negative Carotid Bruits Lungs: Clear to auscultation, Normal air movement Cardiovascular: Regular rate, No murmurs Abdomen: Bowel Sounds Present, Soft, Non Tender Extremities: No edema, Capillary Refill Less than 3 Seconds Skin: No rashes, No breakdown Musculoskeletal: No Tenderness to Palpation of Joints or Extremities Neurological: Cranial nerves II-XII grossly intact Psych/Mental Status: Normal Affect, Appropriate Vital Signs Temp Pulse Resp BP Pulse Ox 98.9 F 89 18 111/47 L 95 03/12/18 20:25 03/12/18 20:25 03/12/18 20:25 03/12/18 20:25 03/12/18 20:25 Oxygen Delivery Method Room Air Weight: 72.2 kg Assessment/Plan 82 year old female with below past medical history underwent left total hip arthroplasty 03/10/[address] Silas Child, admitted to TCU for rehabilitation, strengthening, prior to discharge home alone. Debility - PT/OT. Pain - Tylenol 1000MG Q8H, Oxycodone 5-10MG Q4H PRN. Bowel - Miralax 17GM daily, Senna/colace 2 tablets BID, Dulcolax 10MG PO daily PRN. Pneumonia vaccination - Administer Prevnar 13 and/or Pneumovax 23 as necessary. DVT prophylaxis - Aspirin 325MG BID. Hypertension - Lisinopril 20MG daily, HCTZ 25MG daily, Amlodipine 10MG daily. Hyperlipidemia - Atorvastatin 20MG QHS. Vitamin D deficiency - D3 1000IU daily. Allergic Rhinitis - Flonase 2 spray daily. Discoid Lupus - Plaquenil 200MG daily. Iron Deficiency Anemia - Ferrex 150MG daily. Hypothyroidism - Levothyroxine 100MCG daily. GERD - Pantoprazole 40MG daily. Insomnia - Zolpidem 5MG QHS PRN (Beer's List Drug due to chronic skilled nursing use). OAB - Tolterodine 4MG daily. Depression - Celexa 20MG daily.
--- NOTE | 2018-03-12 21:17 | HP.PCM_ITS ---
Problem List (1) Osteoarthritis of left hip Status: Chronic (2) Allergic rhinitis Status: Chronic (3) Iron deficiency anemia Status: Chronic (4) GERD (gastroesophageal reflux disease) Status: Chronic (5) Restless legs syndrome Status: Chronic (6) Insomnia Status: Chronic (7) Stroke Status: Chronic (8) Hypertension Status: Chronic (9) Discoid lupus Status: Chronic (10) Kidney stones Status: Chronic (11) Hypothyroidism Status: Chronic (12) Hyperlipidemia Status: Chronic History of Present Illness Date of Admission: 03/12/18 Chief Complaint: Here for rehabilitation, strengthening, prior to discharge home alone. The patient is a 82 year old Female with below past medical history hospitalized for left total hip arthroplasty 03/10/[address] Silas Child, admitted to TCU for rehabilitation, strengthening, prior to discharge home alone. Past Medical History Past Medical History (Chronic Problems): Chronic Problems Osteoarthritis of left hip (Chronic) Allergic rhinitis (Chronic) Iron deficiency anemia (Chronic) GERD (gastroesophageal reflux disease) (Chronic) Restless legs syndrome (Chronic) Insomnia (Chronic) Stroke (Chronic) Hypertension (Chronic) Discoid lupus (Chronic) Kidney stones (Chronic) Hypothyroidism (Chronic) Hyperlipidemia (Chronic) Osteoarthritis of right hip (Chronic) Allergies Sulfa (Sulfonamide Antibiotics) Allergy (Verified 02/25/18 15:10) Hives tape Adverse Reaction (Uncoded 09/14/17 14:29) Other removes skin, needs paper tape Home Medications: Ambulatory Orders Medication Instructions Recorded Cholecalciferol (VIT D3) [Vitamin 1,000 unit PO DAILY 02/09/15 D3] Citalopram [Celexa] 20 mg PO DAILY 02/09/15 Hydroxychloroquine Sulfate 200 mg PO DAILY 02/09/15 [Plaquenil] Levothyroxine [Synthroid] 100 mcg PO DAILY 02/09/15 Pantoprazole Sodium [Protonix] 40 mg PO DAILY 02/09/15 Ropinirole HCl [Requip] 1 mg PO PRN PRN 02/09/15 Simvastatin 40 mg PO QHS 02/09/15 Zaleplon [Sonata] 10 mg PO QHS PRN PRN 02/09/15 Vit C/E/Zn/Coppr/Lutein/Zeaxan 1 each PO BID 08/17/15 [Preservision Areds 2 Softgel] Amlodipine [Norvasc] 10 mg PO DAILY 04/24/16 Calcium Carbonate/Vitamin D3 1 each PO DAILY 04/24/16 [Calcium 600-Vit D3 800 Caplet] Triamcinolone Acetonide [Nasacort 1 spray NASAL BID 10/17/16 Aq Nasal [place]] Ubidecarenone [Co Q-10] 100 mg PO DAILY 10/17/16 Uniretic 1 tab PO DAILY 10/17/16 B,C/Folic/Zinc/Copper Ox/Vit E 1 each PO DAILY 02/25/18 [Stress B-Complex Tablet] Iron Polysaccharide Complex 150 mg PO DAILYCM 02/25/18 [Ferrex 150] Acetaminophen [Tylenol] 1,000 mg PO Q8 03/12/18 Aspirin 325 mg PO BIDCM 03/12/18 Atorvastatin Calcium [Lipitor] 20 mg PO QHS 03/12/18 Oxycodone [Oxyir] 5 - 10 mg PO Q4H PRN PRN 5 Days 03/12/18 #60 tab Senna/Docusate Sodium [Senokot-S] 2 tablet PO BID PRN 03/12/18 Trospium Chloride [Sanctura Xr] 60 mg PO DAILY 03/12/18 Surgical History: cholecystectomy, herniorrhaphy, hysterectomy, total knee arthroplasty - Right, - - Foot, hand, carpal tunnel release, right total reverse shoulder replacement. Psychiatric History: No pertinent psych hx OPERA SINGER History: No pertinent OPERA SINGER history Lives: Alone Smoking Status: Never smoker Tobacco Use: Non-smoker, Pipe Alcohol: None Drugs: None - *Family History Maternal History Items: No pertinent history Paternal History Items: No pertinent history Review of Systems Constitutional: Denies: Chills, Fever, Weight Change HEENT: Denies: Head Aches, Sinus Congestion, Sinus Drainage Cardiovascular: Denies: Chest Pain, Palpitations Respiratory: Denies: Cough, Shortness of breath at rest, Sputum production Gastrointestinal: Denies: Abdominal Pain, Nausea, Vomiting Genitourinary: Denies: Dysuria Musculoskeletal: Denies: Joint Pain, Joint Tenderness Skin: Denies: Rash, Wounds Neurological: Denies: Numbness, Tingling, Focal weakness Psychiatric: Denies: Anxiety, Depression, Homicidal Ideations, Suicidal Ideations Hematologic/ Lymphatic: Denies: Easy Bruising, Easy Bleeding VTE Information - Inpt Only VTE Present on Admission: No VTE Mechan Device Prophylaxis: Knee High NERI Kelly VTE Pharm Prophylaxis ordered?: Yes - Physical Exam General: Alert, Oriented x3, Cooperative HEENT: Atraumatic, PERRLA, EOMI, Normocephalic Neck: Supple, No JVD, Negative Carotid Bruits Lungs: Clear to auscultation, Normal air movement Cardiovascular: Regular rate, No murmurs Abdomen: Bowel Sounds Present, Soft, Non Tender Extremities: No edema, Capillary Refill Less than 3 Seconds Skin: No rashes, No breakdown Musculoskeletal: No Tenderness to Palpation of Joints or Extremities Neurological: Cranial nerves II-XII grossly intact Psych/Mental Status: Normal Affect, Appropriate Vital Signs Temp Pulse Resp BP Pulse Ox 98.9 F 89 18 111/47 L 95 03/12/18 20:25 03/12/18 20:25 03/12/18 20:25 03/12/18 20:25 03/12/18 20:25 Oxygen Delivery Method Room Air Weight: 72.2 kg Assessment/Plan 82 year old female with below past medical history underwent left total hip arthroplasty 03/10/[address] Silas Child, admitted to TCU for rehabilitation, strengthening, prior to discharge home alone. * Debility - PT/OT. * Pain - Tylenol 1000MG Q8H, Oxycodone 5-10MG Q4H PRN. * Bowel - Miralax 17GM daily, Senna/colace 2 tablets BID, Dulcolax 10MG PO daily PRN. * Pneumonia vaccination - Administer Prevnar 13 and/or Pneumovax 23 as necessary. * DVT prophylaxis - Aspirin 325MG BID. * Hypertension - Lisinopril 20MG daily, HCTZ 25MG daily, Amlodipine 10MG daily. * Hyperlipidemia - Atorvastatin 20MG QHS. * Vitamin D deficiency - D3 1000IU daily. * Allergic Rhinitis - Flonase 2 spray daily. * Discoid Lupus - Plaquenil 200MG daily. * Iron Deficiency Anemia - Ferrex 150MG daily. * Hypothyroidism - Levothyroxine 100MCG daily. * GERD - Pantoprazole 40MG daily. * Insomnia - Zolpidem 5MG QHS PRN (Beer's List Drug due to chronic [facility] use ). * OAB - Tolterodine 4MG daily. * Depression - Celexa 20MG daily.
[2018-03-12] MEDS: Atorvastatin Calcium 20 MG Tablet PO (22:33)
[2018-03-12] MEDS: Acetaminophen 500 MG Tablet 1000 MG PO (22:33)
[2018-03-12] MEDS: oxyCODONE 5 MG Tablet PO (22:36)
[2018-03-12 22:48] VITALS: BMI 28.2
[2018-03-12 22:51] VITALS: BMI 28.2
--- NOTE | 2018-03-12 23:26 | NURSING ---
Discussed code status with patient, patient wishes to be a full code.
[2018-03-13] MEDS: Pantoprazole Sodium 40 MG Tablet PO (04:50)
[2018-03-13] MEDS: Senna/Docusate Sodium 1 Tablet 2 TABLET PO ×2 (04:50→16:21)
[2018-03-13] MEDS: Polyethylene Glycol 3350 17 GM PACKET PO (04:50)
[2018-03-13] MEDS: Levothyroxine 100 MCG Tablet PO (04:51)
[2018-03-13] MEDS: Acetaminophen 500 MG Tablet 1000 MG PO ×3 (04:51→21:16)
[2018-03-13] MEDS: hydroCHLOROthiazide 25 MG Tablet PO (04:51)
[2018-03-13] MEDS: Tolterodine Tartrate 4 MG CAP.SA PO (04:51)
[2018-03-13] MEDS: Lisinopril 20 MG Tablet PO (04:52)
[2018-03-13] MEDS: amLODIPine 10 MG Tablet PO (04:52)
[2018-03-13] MEDS: Citalopram 20 MG Tablet PO (04:53)
[2018-03-13] MEDS: Hydroxychloroquine 200 MG Tablet PO (04:53)
[2018-03-13] MEDS: Fluticasone 0.05% 1 SPRAY NASAL.SRY NASAL ×2 (04:53→16:21)
[2018-03-13] MEDS: oxyCODONE 5 MG Tablet PO (04:56)
[2018-03-13 05:00] VITALS: BP 125/66; PULSE 91
[2018-03-13 08:18] LABS: Absolute Lymphocyte Count 0.76 X10^3/ul (0.83-4.51); Absolute Neutrophil Count 5.1 X10^3/uL (2.0-7.7); Basophil# 0.01 X10^3/uL; Basophil% 0.1 % (0-1); Eosinophil# 0.05 X10^3/uL; Eosinophils% 0.7 % (0-5); Hematocrit 30.5 % (37-47); Lymphocyte # 0.76 X10^3/ul (4.0); Lymphocyte % 11.4 % (19-41); Mean Corp Hgb Conc 32.8 g/gl (32-36); Mean Corpuscular Volume 91.6 fL (81-99); Mean Platelet Vol. 10.2 fl (6.2-12.0); Neutrophil # 5.05 X10^3/uL (2.7-7.7); Neutrophil % 75.7 % (47-70); Platelet Count 178 K/mm3 (150-450); RBC Distribution Width CV 14.2 % (11.6-14.6); RBC Distribution Width SD 47.9 fl (35.1-43.9); Red Blood Count 3.33 M/mm3 (4.2-5.4); White Blood Count 6.7 K/mm3 (4.4-11.0)
[2018-03-13 08:19] LABS: POSITIVE COUNT NO; POSITIVE DIFFERENTIAL NO; POSITIVE MORPHOLOGY NO
[2018-03-13] MEDS: Aspirin 325 MG Tablet PO ×2 (08:30→16:21)
[2018-03-13] MEDS: Iron Polysaccharide Complex 150 MG CAPSULE PO (08:30)
[2018-03-13 08:58] LABS: Anion Gap 7 (5-15); BUN 21 mg/dL (7-18); BUN/Creat Ratio 27.6 RATIO (10-20); Calcium,Total 8.6 mg/dL (8.5-10.1); Chloride 105 mmol/L (98-107); Creatinine, Serum 0.76 mg/dL (0.55-1.02); EST Glomerular Filtration Rate 77 mL/min (>60); Est Glom Filt Rate - Afr Amer 94 mL/min (>60); Glucose 109 mg/dL (74-106); Potassium 3.7 mmol/L (3.5-5.1); Sodium Level 141 mmol/L (136-145)
[2018-03-13] MEDS: Tuberculin,Purif.prot.deriv. 50 TU/ML Vial 5 ML ID (11:24)
--- NOTE | 2018-03-13 13:57 | NURSING ---
Patient c/o difficulty having BM, has not had BM since surgery, NO for 300mL mag citrate x1 now.
[2018-03-13 14:05] VITALS: BP 127/49; PULSE 70; RESP 16; TEMP 36.6; O2SAT 98
[2018-03-13] MEDS: Magnesium Citrate 300 ML PO (16:17)
[2018-03-13] MEDS: Atorvastatin Calcium 20 MG Tablet PO (21:16)
[2018-03-13] MEDS: Zolpidem Tartrate 5 MG Tablet PO (21:31)
[2018-03-14] MEDS: Pantoprazole Sodium 40 MG Tablet PO (05:02)
[2018-03-14] MEDS: Hydroxychloroquine 200 MG Tablet PO (05:02)
[2018-03-14] MEDS: hydroCHLOROthiazide 25 MG Tablet PO (05:02)
[2018-03-14] MEDS: Levothyroxine 100 MCG Tablet PO (05:02)
[2018-03-14] MEDS: amLODIPine 10 MG Tablet PO (05:02)
[2018-03-14] MEDS: Acetaminophen 500 MG Tablet 1000 MG PO ×3 (05:03→20:41)
[2018-03-14] MEDS: Citalopram 20 MG Tablet PO (05:03)
[2018-03-14] MEDS: Lisinopril 20 MG Tablet PO (05:03)
[2018-03-14] MEDS: Tolterodine Tartrate 4 MG CAP.SA PO (05:03)
[2018-03-14] MEDS: Fluticasone 0.05% 1 SPRAY NASAL.SRY NASAL ×2 (05:06→16:14)
[2018-03-14] MEDS: Aspirin 325 MG Tablet PO ×2 (07:55→16:14)
[2018-03-14] MEDS: Iron Polysaccharide Complex 150 MG CAPSULE PO (07:55)
[2018-03-14 10:00] VITALS: PULSE 70; RESP 16
[2018-03-14 15:26] VITALS: BP 103/50; PULSE 89; RESP 18; TEMP 36.6; O2SAT 93
--- NOTE | 2018-03-14 19:00 | NURSING ---
Dressing to patient's left hip fell off during care. Area cleansed with NS and covered with CDD. Incision well approximated with steri strips intact, slight redness around incision with SSRS DEVELOPER edema. Small amount of dried blood noted. Will continue to monitor.
[2018-03-14] MEDS: Pramipexole Di-HCl 0.5 MG Tablet PO (20:41)
[2018-03-14] MEDS: Atorvastatin Calcium 20 MG Tablet PO (20:42)
[2018-03-14] MEDS: Zolpidem Tartrate 5 MG Tablet PO (21:58)
[2018-03-15] MEDS: Polyethylene Glycol 3350 17 GM PACKET PO (05:27)
[2018-03-15] MEDS: Senna/Docusate Sodium 1 Tablet 2 TABLET PO ×2 (05:28→16:22)
[2018-03-15] MEDS: Citalopram 20 MG Tablet PO (05:28)
[2018-03-15] MEDS: Hydroxychloroquine 200 MG Tablet PO (05:28)
[2018-03-15] MEDS: Pantoprazole Sodium 40 MG Tablet PO (05:28)
[2018-03-15] MEDS: hydroCHLOROthiazide 25 MG Tablet PO (05:28)
[2018-03-15] MEDS: Tolterodine Tartrate 4 MG CAP.SA PO (05:28)
[2018-03-15] MEDS: Levothyroxine 100 MCG Tablet PO (05:28)
[2018-03-15] MEDS: Acetaminophen 500 MG Tablet 1000 MG PO ×3 (05:28→21:42)
[2018-03-15] MEDS: amLODIPine 10 MG Tablet PO (05:28)
[2018-03-15] MEDS: Lisinopril 20 MG Tablet PO (05:28)
[2018-03-15] MEDS: Fluticasone 0.05% 1 SPRAY NASAL.SRY NASAL ×2 (05:29→16:22)
--- NOTE | 2018-03-15 08:12 | RAD_ITS ---
STUDY: X-RAY - LUMBAR SPINE REASON FOR EXAM: Female, 82 years old. Low back pain TECHNIQUE: 3 view(s) of the lumbar spine were obtained. COMPARISON: None FINDINGS: Normal lumbar lordosis. There is a levoscoliosis of the lumbar spine. There is a normal alignment of the vertebrae. There is multilevel endplate spondylosis of the lumbar vertebrae. There is multi-level degenerative disc disease with multi-level disc space narrowing. There is no demonstrated fracture. There is atherosclerotic calcification of the abdominal aorta without a demonstrated aneurysm. Bilateral hip arthroplasty RAD/Lumbar Spine 2 or 3 Views IMPRESSION: Levoscoliosis with degenerative changes. No acute findings Electronically Signed: Gabriel Srinivasan DO at 9:11 EDT Tel , Service support ,
[2018-03-15] MEDS: Iron Polysaccharide Complex 150 MG CAPSULE PO (08:13)
[2018-03-15] MEDS: Aspirin 325 MG Tablet PO ×2 (08:13→16:22)
[2018-03-15] MEDS: oxyCODONE 5 MG Tablet PO (08:15)
--- NOTE | 2018-03-15 08:31 | NURSING ---
Addendum entered by Renay Subramanian 03/15/18 13:02: Dr byrd updated on lumbar xray. no new orders. Original Note: Addendum entered by Renay Subramanian 03/15/18 08:55: medicated with oxyir Original Note: pt c/o back pain, DR Byrd was in room rating 8. new order for lumbar xray.
[2018-03-15 10:00] VITALS: PULSE 74; RESP 16
--- NOTE | 2018-03-15 13:13 | PCM.PN.RX ---
Progress Note - Pharmacy Subjective: [] Objective: Allergies Sulfa (Sulfonamide Antibiotics) Allergy (Verified 02/25/18 15:10) Hives tape Adverse Reaction (Uncoded 09/14/17 14:29) Other removes skin, needs paper tape Home Medications Medication Instructions Recorded Cholecalciferol (VIT D3) [Vitamin 1,000 unit PO DAILY 02/09/15 D3] Citalopram [Celexa] 20 mg PO DAILY 02/09/15 Hydroxychloroquine Sulfate 200 mg PO DAILY 02/09/15 [Plaquenil] Levothyroxine [Synthroid] 100 mcg PO DAILY 02/09/15 Pantoprazole Sodium [Protonix] 40 mg PO DAILY 02/09/15 Ropinirole HCl [Requip] 1 mg PO PRN PRN 02/09/15 Simvastatin 40 mg PO QHS 02/09/15 Zaleplon [Sonata] 10 mg PO QHS PRN PRN 02/09/15 Vit C/E/Zn/Coppr/Lutein/Zeaxan 1 each PO BID 08/17/15 [Preservision Areds 2 Softgel] Amlodipine [Norvasc] 10 mg PO DAILY 04/24/16 Calcium Carbonate/Vitamin D3 1 each PO DAILY 04/24/16 [Calcium 600-Vit D3 800 Caplet] Triamcinolone Acetonide [Nasacort 1 spray NASAL BID 10/17/16 Aq Nasal [place]] Ubidecarenone [Co Q-10] 100 mg PO DAILY 10/17/16 Uniretic 1 tab PO DAILY 10/17/16 B,C/Folic/Zinc/Copper Ox/Vit E 1 each PO DAILY 02/25/18 [Stress B-Complex Tablet] Iron Polysaccharide Complex 150 mg PO DAILYCM 02/25/18 [Ferrex 150] Acetaminophen [Tylenol] 1,000 mg PO Q8 03/12/18 Aspirin 325 mg PO BIDCM 03/12/18 Atorvastatin Calcium [Lipitor] 20 mg PO QHS 03/12/18 Oxycodone [Oxyir] 5 - 10 mg PO Q4H PRN PRN 5 Days 03/12/18 #60 tab Senna/Docusate Sodium [Senokot-S] 2 tablet PO BID PRN 03/12/18 Trospium Chloride [Sanctura Xr] 60 mg PO DAILY 03/12/18 Current Medications Generic Name Dose Route Start Last Admin Trade Name Freq PRN Reason Stop Dose Admin Acetaminophen 1,000 mg 03/12/18 22:00 03/15/18 12:37 Tylenol PO 1,000 mg Q8 [facility] Administration Amlodipine Besylate 10 mg 03/13/18 06:00 03/15/18 05:28 Norvasc PO 10 mg DAILY [facility] Administration Aspirin 325 mg 03/13/18 08:00 03/15/18 08:13 Aspirin PO 325 mg BIDCM [facility] Administration Atorvastatin Calcium 20 mg 03/12/18 22:00 03/14/18 20:42 Lipitor PO 20 mg QHS [facility] Administration Bisacodyl 10 mg 03/12/18 21:24 Dulcolax PO DAILY PRN Constipation Cholecalciferol 1,000 unit 03/13/18 06:00 03/15/18 05:28 Vitamin D PO 1,000 unit DAILY [facility] Administration Citalopram Hydrobromide 20 mg 03/13/18 06:00 03/15/18 05:28 Celexa PO 20 mg DAILY [facility] Administration Fluticasone Propionate 1 spray 03/13/18 06:00 03/15/18 05:29 Flonase Nasal [place] NASAL 1 spray BID [facility] Administration Hydrochlorothiazide 25 mg 03/13/18 06:00 03/15/18 05:28 Hctz PO 25 mg DAILY [facility] Administration Hydroxychloroquine Sulfate 200 mg 03/13/18 06:00 03/15/18 05:28 Plaquenil PO 200 mg DAILY [facility] Administration Levothyroxine Sodium 100 mcg 03/13/18 06:00 03/15/18 05:28 Synthroid PO 100 mcg DAILY [facility] Administration Lisinopril 20 mg 03/13/18 06:00 03/15/18 05:28 Zestril PO 20 mg DAILY [facility] Administration Oxycodone HCl 5 - 10 mg 03/12/18 20:42 03/15/18 08:15 Oxyir PO 10 mg Q4H PRN PRN Administration MOD-SEVERE PAIN (4-10/10) Pantoprazole Sodium 40 mg 03/13/18 06:00 03/15/18 05:28 Protonix PO 40 mg DAILY [facility] Administration Polyethylene Glycol 17 gm 03/13/18 06:00 03/15/18 05:27 Miralax PO 17 gm DAILY [facility] Administration Polysaccharide Iron Complex 150 mg 03/13/18 08:00 03/15/18 08:13 Ferrex 150 PO 150 mg DAILYCM [facility] Administration Pramipexole Dihydrochloride 0.5 mg 03/14/18 22:00 03/14/18 20:41 Mirapex PO 0.5 mg QHS [facility] Administration Senna/Docusate Sodium 2 tablet 03/13/18 06:00 03/15/18 05:28 Senokot-S, Maribell-Colace PO 2 tablet BID [facility] Administration Tolterodine Tartrate 4 mg 03/13/18 06:00 03/15/18 05:28 Detrol La PO 4 mg DAILY [facility] Administration Tuberculin PPD 5 tu 03/20/18 10:00 Tubersol, Aplisol, Ppd ID 03/20/18 10:01 X1 ONE Zolpidem Tartrate 5 mg 03/12/18 20:49 03/14/18 21:58 Ambien (Generic) PO 5 mg QHS PRN Administration SLEEP Problem List Osteoarthritis of left hip (Chronic) Allergic rhinitis (Chronic) Iron deficiency anemia (Chronic) GERD (gastroesophageal reflux disease) (Chronic) Restless legs syndrome (Chronic) Insomnia (Chronic) Vital Signs Temp Pulse Resp BP Pulse Ox 97.9 F 89 18 103/50 L 93 03/14/18 15:26 03/14/18 15:26 03/14/18 15:26 03/14/18 15:26 03/14/18 15:26 Oxygen Delivery Method Room Air Weight: 72.2 kg Body Mass Index (BMI) 28.2 Sodium 141 mmol/L (136-145) 03/13/18 07:50 Potassium 3.7 mmol/L (3.5-5.1) 03/13/18 07:50 Chloride 105 mmol/L (98-107) 03/13/18 07:50 Carbon Dioxide 29.0 mmol/L (21.0-32.0) 03/13/18 07:50 Anion Gap 7 (5-15) 03/13/18 07:50 BUN 21 mg/dL (7-18) H 03/13/18 07:50 Creatinine 0.76 mg/dL (0.55-1.02) 03/13/18 07:50 Est GFR (MDRD) Af Amer 94 mL/min (>60) 03/13/18 07:50 Est GFR (MDRD) Non-Af 77 mL/min (>60) 03/13/18 07:50 BUN/Creatinine Ratio 27.6 RATIO (10-20) H 03/13/18 07:50 Glucose 109 mg/dL (74-106) H 03/13/18 07:50 Assessment/Plan: Psychotropic Medications: Unnecessary Medications: Bowel Regimen: - Provider Comments Provider responsibility: Provider responsible to enter orders to implement recommendations
--- NOTE | 2018-03-15 13:16 | PCM.PN.RX ---
<David Domínguez D - Last Filed: 03/15/18 13:16> Progress Note - Pharmacy Subjective: [facility] Admission Objective: Allergies Sulfa (Sulfonamide Antibiotics) Allergy (Verified 02/25/18 15:10) Hives tape Adverse Reaction (Uncoded 09/14/17 14:29) Other removes skin, needs paper tape Home Medications Medication Instructions Recorded Cholecalciferol (VIT D3) [Vitamin 1,000 unit PO DAILY 02/09/15 D3] Citalopram [Celexa] 20 mg PO DAILY 02/09/15 Hydroxychloroquine Sulfate 200 mg PO DAILY 02/09/15 [Plaquenil] Levothyroxine [Synthroid] 100 mcg PO DAILY 02/09/15 Pantoprazole Sodium [Protonix] 40 mg PO DAILY 02/09/15 Ropinirole HCl [Requip] 1 mg PO PRN PRN 02/09/15 Simvastatin 40 mg PO QHS 02/09/15 Zaleplon [Sonata] 10 mg PO QHS PRN PRN 02/09/15 Vit C/E/Zn/Coppr/Lutein/Zeaxan 1 each PO BID 08/17/15 [Preservision Areds 2 Softgel] Amlodipine [Norvasc] 10 mg PO DAILY 04/24/16 Calcium Carbonate/Vitamin D3 1 each PO DAILY 04/24/16 [Calcium 600-Vit D3 800 Caplet] Triamcinolone Acetonide [Nasacort 1 spray NASAL BID 10/17/16 Aq Nasal [place]] Ubidecarenone [Co Q-10] 100 mg PO DAILY 10/17/16 Uniretic 1 tab PO DAILY 10/17/16 B,C/Folic/Zinc/Copper Ox/Vit E 1 each PO DAILY 02/25/18 [Stress B-Complex Tablet] Iron Polysaccharide Complex 150 mg PO DAILYCM 02/25/18 [Ferrex 150] Acetaminophen [Tylenol] 1,000 mg PO Q8 03/12/18 Aspirin 325 mg PO BIDCM 03/12/18 Atorvastatin Calcium [Lipitor] 20 mg PO QHS 03/12/18 Oxycodone [Oxyir] 5 - 10 mg PO Q4H PRN PRN 5 Days 03/12/18 #60 tab Senna/Docusate Sodium [Senokot-S] 2 tablet PO BID PRN 03/12/18 Trospium Chloride [Sanctura Xr] 60 mg PO DAILY 03/12/18 Current Medications Generic Name Dose Route Start Last Admin Trade Name Freq PRN Reason Stop Dose Admin Acetaminophen 1,000 mg 03/12/18 22:00 03/15/18 12:37 Tylenol PO 1,000 mg Q8 [facility] Administration Amlodipine Besylate 10 mg 03/13/18 06:00 03/15/18 05:28 Norvasc PO 10 mg DAILY [facility] Administration Aspirin 325 mg 03/13/18 08:00 03/15/18 08:13 Aspirin PO 325 mg BIDCM [facility] Administration Atorvastatin Calcium 20 mg 03/12/18 22:00 03/14/18 20:42 Lipitor PO 20 mg QHS [facility] Administration Bisacodyl 10 mg 03/12/18 21:24 Dulcolax PO DAILY PRN Constipation Cholecalciferol 1,000 unit 03/13/18 06:00 03/15/18 05:28 Vitamin D PO 1,000 unit DAILY [facility] Administration Citalopram Hydrobromide 20 mg 03/13/18 06:00 03/15/18 05:28 Celexa PO 20 mg DAILY [facility] Administration Fluticasone Propionate 1 spray 03/13/18 06:00 03/15/18 05:29 Flonase Nasal [place] NASAL 1 spray BID [facility] Administration Hydrochlorothiazide 25 mg 03/13/18 06:00 03/15/18 05:28 Hctz PO 25 mg DAILY [facility] Administration Hydroxychloroquine Sulfate 200 mg 03/13/18 06:00 03/15/18 05:28 Plaquenil PO 200 mg DAILY [facility] Administration Levothyroxine Sodium 100 mcg 03/13/18 06:00 03/15/18 05:28 Synthroid PO 100 mcg DAILY [facility] Administration Lisinopril 20 mg 03/13/18 06:00 03/15/18 05:28 Zestril PO 20 mg DAILY [facility] Administration Oxycodone HCl 5 - 10 mg 03/12/18 20:42 03/15/18 08:15 Oxyir PO 10 mg Q4H PRN PRN Administration MOD-SEVERE PAIN (4-10/10) Pantoprazole Sodium 40 mg 03/13/18 06:00 03/15/18 05:28 Protonix PO 40 mg DAILY [facility] Administration Polyethylene Glycol 17 gm 03/13/18 06:00 03/15/18 05:27 Miralax PO 17 gm DAILY [facility] Administration Polysaccharide Iron Complex 150 mg 03/13/18 08:00 03/15/18 08:13 Ferrex 150 PO 150 mg DAILYCM [facility] Administration Pramipexole Dihydrochloride 0.5 mg 03/14/18 22:00 03/14/18 20:41 Mirapex PO 0.5 mg QHS [facility] Administration Senna/Docusate Sodium 2 tablet 03/13/18 06:00 03/15/18 05:28 Senokot-S, Maribell-Colace PO 2 tablet BID [facility] Administration Tolterodine Tartrate 4 mg 03/13/18 06:00 03/15/18 05:28 Detrol La PO 4 mg DAILY [facility] Administration Tuberculin PPD 5 tu 03/20/18 10:00 Tubersol, Aplisol, Ppd ID 03/20/18 10:01 X1 ONE Zolpidem Tartrate 5 mg 03/12/18 20:49 03/14/18 21:58 Ambien (Generic) PO 5 mg QHS PRN Administration SLEEP Problem List Osteoarthritis of left hip (Chronic) Allergic rhinitis (Chronic) Iron deficiency anemia (Chronic) GERD (gastroesophageal reflux disease) (Chronic) Restless legs syndrome (Chronic) Insomnia (Chronic) Vital Signs Temp Pulse Resp BP Pulse Ox 97.9 F 89 18 103/50 L 93 03/14/18 15:26 03/14/18 15:26 03/14/18 15:26 03/14/18 15:26 03/14/18 15:26 Oxygen Delivery Method Room Air Weight: 72.2 kg Body Mass Index (BMI) 28.2 Sodium 141 mmol/L (136-145) 03/13/18 07:50 Potassium 3.7 mmol/L (3.5-5.1) 03/13/18 07:50 Chloride 105 mmol/L (98-107) 03/13/18 07:50 Carbon Dioxide 29.0 mmol/L (21.0-32.0) 03/13/18 07:50 Anion Gap 7 (5-15) 03/13/18 07:50 BUN 21 mg/dL (7-18) H 03/13/18 07:50 Creatinine 0.76 mg/dL (0.55-1.02) 03/13/18 07:50 Est GFR (MDRD) Af Amer 94 mL/min (>60) 03/13/18 07:50 Est GFR (MDRD) Non-Af 77 mL/min (>60) 03/13/18 07:50 BUN/Creatinine Ratio 27.6 RATIO (10-20) H 03/13/18 07:50 Glucose 109 mg/dL (74-106) H 03/13/18 07:50 Assessment/Plan: 1) Pain APAP scheduled, oxycodone prn for pain, hydroxychloroquine. Continue to monitor daily pain scores. 2) HTN Amlodipine, HCTZ, lisinopril. BUN/SCt at baseline, K wnl, avg BP/HR within goal ranges. Continue to monitor BP/HR, renal function, electrolytes. 3) DVT PPx ASA twice daily. Continue to monitor s/s bleeding/clot. 4) HLD Atorvastatin at HS. Continue to monitor lipids, enzymes. 5) Hypothyroidism Levothyroxine daily. Continue to monitor s/s hyper/hypothyroidism. 6) Depression Citalopram daily. Continue to monitor s/s depression/anxiety. 7) GI Pantoprazole daily. Continue to monitor s/s GI distress. 8) Tolterodine daily. Continue to monitor symptoms. 9) RLS Pramipexole at HS. Continue to monitor RLS. 10) Nutrition D, Fe. Continue to monitor clinically. Psychotropic Medications: 11) Insomnia Zolpidem at HS as needed. Continue to monitor prn medication use, prn medication use. Unnecessary Medications: None Bowel Regimen: 12) Senna/s, PEG, prn bisacodyl. Continue to monitor prn medication use, for constipation/diarrhea. Date of Note:: 03/15/18 - Provider Comments Provider responsibility: Provider responsible to enter orders to implement recommendations <Jimmy Byrd Chi - Last Filed: 03/15/18 17:40> Progress Note - Pharmacy Subjective: [] Objective: Allergies Sulfa (Sulfonamide Antibiotics) Allergy (Verified 02/25/18 15:10) Hives tape Adverse Reaction (Uncoded 09/14/17 14:29) Other removes skin, needs paper tape Home Medications Medication Instructions Recorded Cholecalciferol (VIT D3) [Vitamin 1,000 unit PO DAILY 02/09/15 D3] Citalopram [Celexa] 20 mg PO DAILY 02/09/15 Hydroxychloroquine Sulfate 200 mg PO DAILY 02/09/15 [Plaquenil] Levothyroxine [Synthroid] 100 mcg PO DAILY 02/09/15 Pantoprazole Sodium [Protonix] 40 mg PO DAILY 02/09/15 Ropinirole HCl [Requip] 1 mg PO PRN PRN 02/09/15 Simvastatin 40 mg PO QHS 02/09/15 Zaleplon [Sonata] 10 mg PO QHS PRN PRN 02/09/15 Vit C/E/Zn/Coppr/Lutein/Zeaxan 1 each PO BID 08/17/15 [Preservision Areds 2 Softgel] Amlodipine [Norvasc] 10 mg PO DAILY 04/24/16 Calcium Carbonate/Vitamin D3 1 each PO DAILY 04/24/16 [Calcium 600-Vit D3 800 Caplet] Triamcinolone Acetonide [Nasacort 1 spray NASAL BID 10/17/16 Aq Nasal [place]] Ubidecarenone [Co Q-10] 100 mg PO DAILY 10/17/16 Uniretic 1 tab PO DAILY 10/17/16 B,C/Folic/Zinc/Copper Ox/Vit E 1 each PO DAILY 02/25/18 [Stress B-Complex Tablet] Iron Polysaccharide Complex 150 mg PO DAILYCM 02/25/18 [Ferrex 150] Acetaminophen [Tylenol] 1,000 mg PO Q8 03/12/18 Aspirin 325 mg PO BIDCM 03/12/18 Atorvastatin Calcium [Lipitor] 20 mg PO QHS 03/12/18 Oxycodone [Oxyir] 5 - 10 mg PO Q4H PRN PRN 5 Days 03/12/18 #60 tab Senna/Docusate Sodium [Senokot-S] 2 tablet PO BID PRN 03/12/18 Trospium Chloride [Sanctura Xr] 60 mg PO DAILY 03/12/18 Current Medications Generic Name Dose Route Start Last Admin Trade Name Freq PRN Reason Stop Dose Admin Acetaminophen 1,000 mg 03/12/18 22:00 03/15/18 12:37 Tylenol PO 1,000 mg Q8 [facility] Administration Amlodipine Besylate 10 mg 03/13/18 06:00 03/15/18 05:28 Norvasc PO 10 mg DAILY [facility] Administration Aspirin 325 mg 03/13/18 08:00 03/15/18 16:22 Aspirin PO 325 mg BIDCM [facility] Administration Atorvastatin Calcium 20 mg 03/12/18 22:00 03/14/18 20:42 Lipitor PO 20 mg QHS [facility] Administration Bisacodyl 10 mg 03/12/18 21:24 Dulcolax PO DAILY PRN Constipation Cholecalciferol 1,000 unit 03/13/18 06:00 03/15/18 05:28 Vitamin D PO 1,000 unit DAILY [facility] Administration Citalopram Hydrobromide 20 mg 03/13/18 06:00 03/15/18 05:28 Celexa PO 20 mg DAILY [facility] Administration Fluticasone Propionate 1 spray 03/13/18 06:00 03/15/18 16:22 Flonase Nasal [place] NASAL 1 spray BID [facility] Administration Hydrochlorothiazide 25 mg 03/13/18 06:00 03/15/18 05:28 Hctz PO 25 mg DAILY [facility] Administration Hydroxychloroquine Sulfate 200 mg 03/13/18 06:00 03/15/18 05:28 Plaquenil PO 200 mg DAILY [facility] Administration Levothyroxine Sodium 100 mcg 03/13/18 06:00 03/15/18 05:28 Synthroid PO 100 mcg DAILY [facility] Administration Lisinopril 20 mg 03/13/18 06:00 03/15/18 05:28 Zestril PO 20 mg DAILY [facility] Administration Oxycodone HCl 5 - 10 mg 03/12/18 20:42 03/15/18 08:15 Oxyir PO 10 mg Q4H PRN PRN Administration MOD-SEVERE PAIN (4-10/10) Pantoprazole Sodium 40 mg 03/13/18 06:00 03/15/18 05:28 Protonix PO 40 mg DAILY [facility] Administration Polyethylene Glycol 17 gm 03/13/18 06:00 03/15/18 05:27 Miralax PO 17 gm DAILY [facility] Administration Polysaccharide Iron Complex 150 mg 03/13/18 08:00 03/15/18 08:13 [facility] Pramipexole Dihydrochloride 0.5 mg 03/14/18 22:00 03/14/18 20:41 Mirapex PO 0.5 mg QHS [facility] Administration Senna/Docusate Sodium 2 tablet 03/13/18 06:00 03/15/18 16:22 Senokot-S, Maribell-Colace PO 1 tablet BID [facility] Administration Tolterodine Tartrate 4 mg 03/13/18 06:00 03/15/18 05:28 Detrol La PO 4 mg DAILY [facility] Administration Tuberculin PPD 5 tu 03/20/18 10:00 Tubersol, Aplisol, Ppd ID 03/20/18 10:01 X1 ONE Zolpidem Tartrate 5 mg 03/12/18 20:49 03/14/18 21:58 Ambien (Generic) PO 5 mg QHS PRN Administration SLEEP Problem List Osteoarthritis of left hip (Chronic) Allergic rhinitis (Chronic) Iron deficiency anemia (Chronic) GERD (gastroesophageal reflux disease) (Chronic) Restless legs syndrome (Chronic) Insomnia (Chronic) Vital Signs Temp Pulse Resp BP Pulse Ox 98.2 F 74 18 116/60 97 03/15/18 15:56 03/15/18 15:56 03/15/18 15:56 03/15/18 15:56 03/15/18 15:56 Oxygen Delivery Method Room Air Weight: 72.2 kg Body Mass Index (BMI) 28.2 Sodium 141 mmol/L (136-145) 03/13/18 07:50 Potassium 3.7 mmol/L (3.5-5.1) 03/13/18 07:50 Chloride 105 mmol/L (98-107) 03/13/18 07:50 Carbon Dioxide 29.0 mmol/L (21.0-32.0) 03/13/18 07:50 Anion Gap 7 (5-15) 03/13/18 07:50 BUN 21 mg/dL (7-18) H 03/13/18 07:50 Creatinine 0.76 mg/dL (0.55-1.02) 03/13/18 07:50 Est GFR (MDRD) Af Amer 94 mL/min (>60) 03/13/18 07:50 Est GFR (MDRD) Non-Af 77 mL/min (>60) 03/13/18 07:50 BUN/Creatinine Ratio 27.6 RATIO (10-20) H 03/13/18 07:50 Glucose 109 mg/dL (74-106) H 03/13/18 07:50 Assessment/Plan: Psychotropic Medications: Unnecessary Medications: Bowel Regimen: - Provider Comments Provider responsibility: Provider responsible to enter orders to implement recommendations Provider Comments to Recommendations by Pharmacy: Agree
--- NOTE | 2018-03-15 13:29 | PHA.CONS_ITS ---
Progress Note - Pharmacy Subjective: [] Objective: Allergies Sulfa (Sulfonamide Antibiotics) Allergy (Verified 02/25/18 15:10) Hives tape Adverse Reaction (Uncoded 09/14/17 14:29) Other removes skin, needs paper tape Home Medications Medication Instructions Recorded Cholecalciferol (VIT D3) [Vitamin 1,000 unit PO DAILY 02/09/15 D3] Citalopram [Celexa] 20 mg PO DAILY 02/09/15 Hydroxychloroquine Sulfate 200 mg PO DAILY 02/09/15 [Plaquenil] Levothyroxine [Synthroid] 100 mcg PO DAILY 02/09/15 Pantoprazole Sodium [Protonix] 40 mg PO DAILY 02/09/15 Ropinirole HCl [Requip] 1 mg PO PRN PRN 02/09/15 Simvastatin 40 mg PO QHS 02/09/15 Zaleplon [Sonata] 10 mg PO QHS PRN PRN 02/09/15 Vit C/E/Zn/Coppr/Lutein/Zeaxan 1 each PO BID 08/17/15 [Preservision Areds 2 Softgel] Amlodipine [Norvasc] 10 mg PO DAILY 04/24/16 Calcium Carbonate/Vitamin D3 1 each PO DAILY 04/24/16 [Calcium 600-Vit D3 800 Caplet] Triamcinolone Acetonide [Nasacort 1 spray NASAL BID 10/17/16 Aq Nasal [place]] Ubidecarenone [Co Q-10] 100 mg PO DAILY 10/17/16 Uniretic 1 tab PO DAILY 10/17/16 B,C/Folic/Zinc/Copper Ox/Vit E 1 each PO DAILY 02/25/18 [Stress B-Complex Tablet] Iron Polysaccharide Complex 150 mg PO DAILYCM 02/25/18 [Ferrex 150] Acetaminophen [Tylenol] 1,000 mg PO Q8 03/12/18 Aspirin 325 mg PO BIDCM 03/12/18 Atorvastatin Calcium [Lipitor] 20 mg PO QHS 03/12/18 Oxycodone [Oxyir] 5 - 10 mg PO Q4H PRN PRN 5 Days 03/12/18 #60 tab Senna/Docusate Sodium [Senokot-S] 2 tablet PO BID PRN 03/12/18 Trospium Chloride [Sanctura Xr] 60 mg PO DAILY 03/12/18 Current Medications Generic Name Dose Route Start Last Admin Trade Name Freq PRN Reason Stop Dose Admin Acetaminophen 1,000 mg 03/12/18 22:00 03/15/18 12:37 Tylenol PO 1,000 mg Q8 [facility] Administration Amlodipine Besylate 10 mg 03/13/18 06:00 03/15/18 05:28 Norvasc PO 10 mg DAILY [facility] Administration Aspirin 325 mg 03/13/18 08:00 03/15/18 08:13 Aspirin PO 325 mg BIDCM [facility] Administration Atorvastatin Calcium 20 mg 03/12/18 22:00 03/14/18 20:42 Lipitor PO 20 mg QHS [facility] Administration Bisacodyl 10 mg 03/12/18 21:24 Dulcolax PO DAILY PRN Constipation Cholecalciferol 1,000 unit 03/13/18 06:00 03/15/18 05:28 Vitamin D PO 1,000 unit DAILY [facility] Administration Citalopram Hydrobromide 20 mg 03/13/18 06:00 03/15/18 05:28 Celexa PO 20 mg DAILY [facility] Administration Fluticasone Propionate 1 spray 03/13/18 06:00 03/15/18 05:29 Flonase Nasal [place] NASAL 1 spray BID [facility] Administration Hydrochlorothiazide 25 mg 03/13/18 06:00 03/15/18 05:28 Hctz PO 25 mg DAILY [facility] Administration Hydroxychloroquine Sulfate 200 mg 03/13/18 06:00 03/15/18 05:28 Plaquenil PO 200 mg DAILY [facility] Administration Levothyroxine Sodium 100 mcg 03/13/18 06:00 03/15/18 05:28 Synthroid PO 100 mcg DAILY [facility] Administration Lisinopril 20 mg 03/13/18 06:00 03/15/18 05:28 Zestril PO 20 mg DAILY [facility] Administration Oxycodone HCl 5 - 10 mg 03/12/18 20:42 03/15/18 08:15 Oxyir PO 10 mg Q4H PRN PRN Administration MOD-SEVERE PAIN (4-10/10) Pantoprazole Sodium 40 mg 03/13/18 06:00 03/15/18 05:28 Protonix PO 40 mg DAILY [facility] Administration Polyethylene Glycol 17 gm 03/13/18 06:00 03/15/18 05:27 Miralax PO 17 gm DAILY [facility] Administration Polysaccharide Iron Complex 150 mg 03/13/18 08:00 03/15/18 08:13 Ferrex 150 PO 150 mg DAILYCM [facility] Administration Pramipexole Dihydrochloride 0.5 mg 03/14/18 22:00 03/14/18 20:41 Mirapex PO 0.5 mg QHS [facility] Administration Senna/Docusate Sodium 2 tablet 03/13/18 06:00 03/15/18 05:28 Senokot-S, Maribell-Colace PO 2 tablet BID [facility] Administration Tolterodine Tartrate 4 mg 03/13/18 06:00 03/15/18 05:28 Detrol La PO 4 mg DAILY [facility] Administration Tuberculin PPD 5 tu 03/20/18 10:00 Tubersol, Aplisol, Ppd ID 03/20/18 10:01 X1 ONE Zolpidem Tartrate 5 mg 03/12/18 20:49 03/14/18 21:58 Ambien (Generic) PO 5 mg QHS PRN Administration SLEEP Problem List Osteoarthritis of left hip (Chronic) Allergic rhinitis (Chronic) Iron deficiency anemia (Chronic) GERD (gastroesophageal reflux disease) (Chronic) Restless legs syndrome (Chronic) Insomnia (Chronic) Vital Signs Temp Pulse Resp BP Pulse Ox 97.9 F 89 18 103/50 L 93 03/14/18 15:26 03/14/18 15:26 03/14/18 15:26 03/14/18 15:26 03/14/18 15:26 Oxygen Delivery Method Room Air Weight: 72.2 kg Body Mass Index (BMI) 28.2 Sodium 141 mmol/L (136-145) 03/13/18 07:50 Potassium 3.7 mmol/L (3.5-5.1) 03/13/18 07:50 Chloride 105 mmol/L (98-107) 03/13/18 07:50 Carbon Dioxide 29.0 mmol/L (21.0-32.0) 03/13/18 07:50 Anion Gap 7 (5-15) 03/13/18 07:50 BUN 21 mg/dL (7-18) H 03/13/18 07:50 Creatinine 0.76 mg/dL (0.55-1.02) 03/13/18 07:50 Est GFR (MDRD) Af Amer 94 mL/min (>60) 03/13/18 07:50 Est GFR (MDRD) Non-Af 77 mL/min (>60) 03/13/18 07:50 BUN/Creatinine Ratio 27.6 RATIO (10-20) H 03/13/18 07:50 Glucose 109 mg/dL (74-106) H 03/13/18 07:50 Assessment/Plan: Psychotropic Medications: Unnecessary Medications: Bowel Regimen: - Provider Comments Provider responsibility: Provider responsible to enter orders to implement recommendations
--- NOTE | 2018-03-15 13:31 | PHA.CONS_ITS ---
<David Domínguez D - Last Filed: 03/15/18 13:16> Progress Note - Pharmacy Subjective: TCU Admission Objective: Allergies Sulfa (Sulfonamide Antibiotics) Allergy (Verified 02/25/18 15:10) Hives tape Adverse Reaction (Uncoded 09/14/17 14:29) Other removes skin, needs paper tape Home Medications Medication Instructions Recorded Cholecalciferol (VIT D3) [Vitamin 1,000 unit PO DAILY 02/09/15 D3] Citalopram [Celexa] 20 mg PO DAILY 02/09/15 Hydroxychloroquine Sulfate 200 mg PO DAILY 02/09/15 [Plaquenil] Levothyroxine [Synthroid] 100 mcg PO DAILY 02/09/15 Pantoprazole Sodium [Protonix] 40 mg PO DAILY 02/09/15 Ropinirole HCl [Requip] 1 mg PO PRN PRN 02/09/15 Simvastatin 40 mg PO QHS 02/09/15 Zaleplon [Sonata] 10 mg PO QHS PRN PRN 02/09/15 Vit C/E/Zn/Coppr/Lutein/Zeaxan 1 each PO BID 08/17/15 [Preservision Areds 2 Softgel] Amlodipine [Norvasc] 10 mg PO DAILY 04/24/16 Calcium Carbonate/Vitamin D3 1 each PO DAILY 04/24/16 [Calcium 600-Vit D3 800 Caplet] Triamcinolone Acetonide [Nasacort 1 spray NASAL BID 10/17/16 Aq Nasal [place]] Ubidecarenone [Co Q-10] 100 mg PO DAILY 10/17/16 Uniretic 1 tab PO DAILY 10/17/16 B,C/Folic/Zinc/Copper Ox/Vit E 1 each PO DAILY 02/25/18 [Stress B-Complex Tablet] Iron Polysaccharide Complex 150 mg PO DAILYCM 02/25/18 [Ferrex 150] Acetaminophen [Tylenol] 1,000 mg PO Q8 03/12/18 Aspirin 325 mg PO BIDCM 03/12/18 Atorvastatin Calcium [Lipitor] 20 mg PO QHS 03/12/18 Oxycodone [Oxyir] 5 - 10 mg PO Q4H PRN PRN 5 Days 03/12/18 #60 tab Senna/Docusate Sodium [Senokot-S] 2 tablet PO BID PRN 03/12/18 Trospium Chloride [Sanctura Xr] 60 mg PO DAILY 03/12/18 Current Medications Generic Name Dose Route Start Last Admin Trade Name Freq PRN Reason Stop Dose Admin Acetaminophen 1,000 mg 03/12/18 22:00 03/15/18 12:37 Tylenol PO 1,000 mg Q8 DAMEON Administration Amlodipine Besylate 10 mg 03/13/18 06:00 03/15/18 05:28 Norvasc PO 10 mg DAILY DAMEON Administration Aspirin 325 mg 03/13/18 08:00 03/15/18 08:13 Aspirin PO 325 mg BIDCM [facility] Administration Atorvastatin Calcium 20 mg 03/12/18 22:00 03/14/18 20:42 Lipitor PO 20 mg QHS DAMEON Administration Bisacodyl 10 mg 03/12/18 21:24 Dulcolax PO DAILY PRN Constipation Cholecalciferol 1,000 unit 03/13/18 06:00 03/15/18 05:28 Vitamin D PO 1,000 unit DAILY DAMEON Administration Citalopram Hydrobromide 20 mg 03/13/18 06:00 03/15/18 05:28 Celexa PO 20 mg DAILY [facility] Administration Fluticasone Propionate 1 spray 03/13/18 06:00 03/15/18 05:29 Flonase Nasal [place] NASAL 1 spray BID [facility] Administration Hydrochlorothiazide 25 mg 03/13/18 06:00 03/15/18 05:28 Hctz PO 25 mg DAILY [facility] Administration Hydroxychloroquine Sulfate 200 mg 03/13/18 06:00 03/15/18 05:28 Plaquenil PO 200 mg DAILY [facility] Administration Levothyroxine Sodium 100 mcg 03/13/18 06:00 03/15/18 05:28 Synthroid PO 100 mcg DAILY [facility] Administration Lisinopril 20 mg 03/13/18 06:00 03/15/18 05:28 Zestril PO 20 mg DAILY [facility] Administration Oxycodone HCl 5 - 10 mg 03/12/18 20:42 03/15/18 08:15 Oxyir PO 10 mg Q4H PRN PRN Administration MOD-SEVERE PAIN (4-10/10) Pantoprazole Sodium 40 mg 03/13/18 06:00 03/15/18 05:28 Protonix PO 40 mg DAILY [facility] Administration Polyethylene Glycol 17 gm 03/13/18 06:00 03/15/18 05:27 Miralax PO 17 gm DAILY [facility] Administration Polysaccharide Iron Complex 150 mg 03/13/18 08:00 03/15/18 08:13 Ferrex 150 PO 150 mg DAILYCM [facility] Administration Pramipexole Dihydrochloride 0.5 mg 03/14/18 22:00 03/14/18 20:41 Mirapex PO 0.5 mg QHS [facility] Administration Senna/Docusate Sodium 2 tablet 03/13/18 06:00 03/15/18 05:28 Senokot-S, Maribell-Colace PO 2 tablet BID [facility] Administration Tolterodine Tartrate 4 mg 03/13/18 06:00 03/15/18 05:28 Detrol La PO 4 mg DAILY [facility] Administration Tuberculin PPD 5 tu 03/20/18 10:00 Tubersol, Aplisol, Ppd ID 03/20/18 10:01 X1 ONE Zolpidem Tartrate 5 mg 03/12/18 20:49 03/14/18 21:58 Ambien (Generic) PO 5 mg QHS PRN Administration SLEEP Problem List Osteoarthritis of left hip (Chronic) Allergic rhinitis (Chronic) Iron deficiency anemia (Chronic) GERD (gastroesophageal reflux disease) (Chronic) Restless legs syndrome (Chronic) Insomnia (Chronic) Vital Signs Temp Pulse Resp BP Pulse Ox 97.9 F 89 18 103/50 L 93 03/14/18 15:26 03/14/18 15:26 03/14/18 15:26 03/14/18 15:26 03/14/18 15:26 Oxygen Delivery Method Room Air Weight: 72.2 kg Body Mass Index (BMI) 28.2 Sodium 141 mmol/L (136-145) 03/13/18 07:50 Potassium 3.7 mmol/L (3.5-5.1) 03/13/18 07:50 Chloride 105 mmol/L (98-107) 03/13/18 07:50 Carbon Dioxide 29.0 mmol/L (21.0-32.0) 03/13/18 07:50 Anion Gap 7 (5-15) 03/13/18 07:50 BUN 21 mg/dL (7-18) H 03/13/18 07:50 Creatinine 0.76 mg/dL (0.55-1.02) 03/13/18 07:50 Est GFR (MDRD) Af Amer 94 mL/min (>60) 03/13/18 07:50 Est GFR (MDRD) Non-Af 77 mL/min (>60) 03/13/18 07:50 BUN/Creatinine Ratio 27.6 RATIO (10-20) H 03/13/18 07:50 Glucose 109 mg/dL (74-106) H 03/13/18 07:50 Assessment/Plan: 1) Pain APAP scheduled, oxycodone prn for pain, hydroxychloroquine. Continue to monitor daily pain scores. 2) HTN Amlodipine, HCTZ, lisinopril. BUN/SCt at baseline, K wnl, avg BP/HR within goal ranges. Continue to monitor BP/HR, renal function, electrolytes. 3) DVT PPx ASA twice daily. Continue to monitor s/s bleeding/clot. 4) HLD Atorvastatin at HS. Continue to monitor lipids, enzymes. 5) Hypothyroidism Levothyroxine daily. Continue to monitor s/s hyper/hypothyroidism. 6) Depression Citalopram daily. Continue to monitor s/s depression/anxiety. 7) GI Pantoprazole daily. Continue to monitor s/s GI distress. 8) Tolterodine daily. Continue to monitor symptoms. 9) RLS Pramipexole at HS. Continue to monitor RLS. 10) Nutrition D, Fe. Continue to monitor clinically. Psychotropic Medications: 11) Insomnia Zolpidem at HS as needed. Continue to monitor prn medication use, prn medication use. Unnecessary Medications: None Bowel Regimen: 12) Senna/s, PEG, prn bisacodyl. Continue to monitor prn medication use, for constipation/diarrhea. Date of Note:: 03/15/18 - Provider Comments Provider responsibility: Provider responsible to enter orders to implement recommendations <Jimmy Byrd Chi - Last Filed: 03/15/18 17:40> Progress Note - Pharmacy Subjective: [] Objective: Allergies Sulfa (Sulfonamide Antibiotics) Allergy (Verified 02/25/18 15:10) Hives tape Adverse Reaction (Uncoded 09/14/17 14:29) Other removes skin, needs paper tape Home Medications Medication Instructions Recorded Cholecalciferol (VIT D3) [Vitamin 1,000 unit PO DAILY 02/09/15 D3] Citalopram [Celexa] 20 mg PO DAILY 02/09/15 Hydroxychloroquine Sulfate 200 mg PO DAILY 02/09/15 [Plaquenil] Levothyroxine [Synthroid] 100 mcg PO DAILY 02/09/15 Pantoprazole Sodium [Protonix] 40 mg PO DAILY 02/09/15 Ropinirole HCl [Requip] 1 mg PO PRN PRN 02/09/15 Simvastatin 40 mg PO QHS 02/09/15 Zaleplon [Sonata] 10 mg PO QHS PRN PRN 02/09/15 Vit C/E/Zn/Coppr/Lutein/Zeaxan 1 each PO BID 08/17/15 [Preservision Areds 2 Softgel] Amlodipine [Norvasc] 10 mg PO DAILY 04/24/16 Calcium Carbonate/Vitamin D3 1 each PO DAILY 04/24/16 [Calcium 600-Vit D3 800 Caplet] Triamcinolone Acetonide [Nasacort 1 spray NASAL BID 10/17/16 Aq Nasal [place]] Ubidecarenone [Co Q-10] 100 mg PO DAILY 10/17/16 Uniretic 1 tab PO DAILY 10/17/16 B,C/Folic/Zinc/Copper Ox/Vit E 1 each PO DAILY 02/25/18 [Stress B-Complex Tablet] Iron Polysaccharide Complex 150 mg PO DAILYCM 02/25/18 [Ferrex 150] Acetaminophen [Tylenol] 1,000 mg PO Q8 03/12/18 Aspirin 325 mg PO BIDCM 03/12/18 Atorvastatin Calcium [Lipitor] 20 mg PO QHS 03/12/18 Oxycodone [Oxyir] 5 - 10 mg PO Q4H PRN PRN 5 Days 03/12/18 #60 tab Senna/Docusate Sodium [Senokot-S] 2 tablet PO BID PRN 03/12/18 Trospium Chloride [Sanctura Xr] 60 mg PO DAILY 03/12/18 Current Medications Generic Name Dose Route Start Last Admin Trade Name Freq PRN Reason Stop Dose Admin Acetaminophen 1,000 mg 03/12/18 22:00 03/15/18 12:37 Tylenol PO 1,000 mg Q8 DAMEON Administration Amlodipine Besylate 10 mg 03/13/18 06:00 03/15/18 05:28 Norvasc PO 10 mg DAILY [facility] Administration Aspirin 325 mg 03/13/18 08:00 03/15/18 16:22 Aspirin PO 325 mg BIDCM [facility] Administration Atorvastatin Calcium 20 mg 03/12/18 22:00 03/14/18 20:42 Lipitor PO 20 mg QHS [facility] Administration Bisacodyl 10 mg 03/12/18 21:24 Dulcolax PO DAILY PRN Constipation Cholecalciferol 1,000 unit 03/13/18 06:00 03/15/18 05:28 Vitamin D PO 1,000 unit DAILY [facility] Administration Citalopram Hydrobromide 20 mg 03/13/18 06:00 03/15/18 05:28 Celexa PO 20 mg DAILY [facility] Administration Fluticasone Propionate 1 spray 03/13/18 06:00 03/15/18 16:22 Flonase Nasal [place] NASAL 1 spray BID [facility] Administration Hydrochlorothiazide 25 mg 03/13/18 06:00 03/15/18 05:28 Hctz PO 25 mg DAILY [facility] Administration Hydroxychloroquine Sulfate 200 mg 03/13/18 06:00 03/15/18 05:28 Plaquenil PO 200 mg DAILY [facility] Administration Levothyroxine Sodium 100 mcg 03/13/18 06:00 03/15/18 05:28 Synthroid PO 100 mcg DAILY [facility] Administration Lisinopril 20 mg 03/13/18 06:00 03/15/18 05:28 Zestril PO 20 mg DAILY [facility] Administration Oxycodone HCl 5 - 10 mg 03/12/18 20:42 03/15/18 08:15 Oxyir PO 10 mg Q4H PRN PRN Administration MOD-SEVERE PAIN (4-10/10) Pantoprazole Sodium 40 mg 03/13/18 06:00 03/15/18 05:28 Protonix PO 40 mg DAILY [facility] Administration Polyethylene Glycol 17 gm 03/13/18 06:00 03/15/18 05:27 Miralax PO 17 gm DAILY [facility] Administration Polysaccharide Iron Complex 150 mg 03/13/18 08:00 03/15/18 08:13 [facility] Pramipexole Dihydrochloride 0.5 mg 03/14/18 22:00 03/14/18 20:41 Mirapex PO 0.5 mg QHS [facility] Administration Senna/Docusate Sodium 2 tablet 03/13/18 06:00 03/15/18 16:22 Senokot-S, Maribell-Colace PO 1 tablet BID [facility] Administration Tolterodine Tartrate 4 mg 03/13/18 06:00 03/15/18 05:28 Detrol La PO 4 mg DAILY [facility] Administration Tuberculin PPD 5 tu 03/20/18 10:00 Tubersol, Aplisol, Ppd ID 03/20/18 10:01 X1 ONE Zolpidem Tartrate 5 mg 03/12/18 20:49 03/14/18 21:58 Ambien (Generic) PO 5 mg QHS PRN Administration SLEEP Problem List Osteoarthritis of left hip (Chronic) Allergic rhinitis (Chronic) Iron deficiency anemia (Chronic) GERD (gastroesophageal reflux disease) (Chronic) Restless legs syndrome (Chronic) Insomnia (Chronic) Vital Signs Temp Pulse Resp BP Pulse Ox 98.2 F 74 18 116/60 97 03/15/18 15:56 03/15/18 15:56 03/15/18 15:56 03/15/18 15:56 03/15/18 15:56 Oxygen Delivery Method Room Air Weight: 72.2 kg Body Mass Index (BMI) 28.2 Sodium 141 mmol/L (136-145) 03/13/18 07:50 Potassium 3.7 mmol/L (3.5-5.1) 03/13/18 07:50 Chloride 105 mmol/L (98-107) 03/13/18 07:50 Carbon Dioxide 29.0 mmol/L (21.0-32.0) 03/13/18 07:50 Anion Gap 7 (5-15) 03/13/18 07:50 BUN 21 mg/dL (7-18) H 03/13/18 07:50 Creatinine 0.76 mg/dL (0.55-1.02) 03/13/18 07:50 Est GFR (MDRD) Af Amer 94 mL/min (>60) 03/13/18 07:50 Est GFR (MDRD) Non-Af 77 mL/min (>60) 03/13/18 07:50 BUN/Creatinine Ratio 27.6 RATIO (10-20) H 03/13/18 07:50 Glucose 109 mg/dL (74-106) H 03/13/18 07:50 Assessment/Plan: Psychotropic Medications: Unnecessary Medications: Bowel Regimen: - Provider Comments Provider responsibility: Provider responsible to enter orders to implement recommendations Provider Comments to Recommendations by Pharmacy: Agree
--- NOTE | 2018-03-15 15:21 | CHAPLAIN ---
Type of Pastoral Visit _x__ Initial Visit ___ Follow-up Visit ___ On-call Visit ___ General Patient Visit ___ Spiritual Assessment ___ Family Conference ___ Bereavement ___ Rapid Response ___ Code Blue ___ Other (describe below) Pastoral Care Referral From _x__ Patient ___ Family ___ Nurse ___ Physician ___ Supervisor Fusing Room ___ Wood Cabinetmaker ___ Other (describe below) Sacrament/Intervention _x__ Active listening ___ Anointing ___ Restorationist ___ Bereavement ___ Communion ___ Natasha exploration ___ ___ Life review _x__ Prayer ___ Reconciliation ___ Sacrament of Sick ___ Supportive presence ___ Wedding ___ Other (describe below) Pastoral Comments
[2018-03-15 15:56] VITALS: BP 116/60; PULSE 74; RESP 18; TEMP 36.8; O2SAT 97
[2018-03-15] MEDS: Atorvastatin Calcium 20 MG Tablet PO (21:42)
[2018-03-15] MEDS: Pramipexole Di-HCl 0.5 MG Tablet PO (21:42)
[2018-03-16] MEDS: Fluticasone 0.05% 1 SPRAY NASAL.SRY NASAL ×2 (04:58→17:01)
[2018-03-16] MEDS: Levothyroxine 100 MCG Tablet PO (04:59)
[2018-03-16] MEDS: Lisinopril 20 MG Tablet PO (04:59)
[2018-03-16] MEDS: Acetaminophen 500 MG Tablet 1000 MG PO ×2 (04:59→21:55)
[2018-03-16] MEDS: Senna/Docusate Sodium 1 Tablet 2 TABLET PO (04:59)
[2018-03-16] MEDS: Tolterodine Tartrate 4 MG CAP.SA PO (05:00)
[2018-03-16] MEDS: Hydroxychloroquine 200 MG Tablet PO (05:00)
[2018-03-16] MEDS: Citalopram 20 MG Tablet PO (05:00)
[2018-03-16] MEDS: Polyethylene Glycol 3350 17 GM PACKET PO (05:00)
[2018-03-16] MEDS: amLODIPine 10 MG Tablet PO (05:00)
[2018-03-16] MEDS: Pantoprazole Sodium 40 MG Tablet PO (05:00)
[2018-03-16] MEDS: hydroCHLOROthiazide 25 MG Tablet PO (05:02)
[2018-03-16] MEDS: Iron Polysaccharide Complex 150 MG CAPSULE PO (08:06)
[2018-03-16] MEDS: Aspirin 325 MG Tablet PO ×2 (08:06→17:01)
[2018-03-16 14:23] VITALS: BP 136/63; PULSE 85; RESP 18; TEMP 36.9; O2SAT 97
[2018-03-16] MEDS: Pramipexole Di-HCl 0.5 MG Tablet PO (21:55)
[2018-03-16] MEDS: Atorvastatin Calcium 20 MG Tablet PO (21:55)
[2018-03-17] MEDS: Polyethylene Glycol 3350 17 GM PACKET PO (05:20)
[2018-03-17] MEDS: Levothyroxine 100 MCG Tablet PO (05:23)
[2018-03-17] MEDS: Tolterodine Tartrate 4 MG CAP.SA PO (05:23)
[2018-03-17] MEDS: Citalopram 20 MG Tablet PO (05:23)
[2018-03-17] MEDS: hydroCHLOROthiazide 25 MG Tablet PO (05:23)
[2018-03-17] MEDS: Hydroxychloroquine 200 MG Tablet PO (05:23)
[2018-03-17] MEDS: Senna/Docusate Sodium 1 Tablet 2 TABLET PO ×2 (05:23→17:23)
[2018-03-17] MEDS: Pantoprazole Sodium 40 MG Tablet PO (05:23)
[2018-03-17] MEDS: amLODIPine 10 MG Tablet PO (05:23)
[2018-03-17] MEDS: Lisinopril 20 MG Tablet PO (05:24)
[2018-03-17] MEDS: Acetaminophen 500 MG Tablet 1000 MG PO ×3 (05:24→20:59)
[2018-03-17] MEDS: Fluticasone 0.05% 1 SPRAY NASAL.SRY NASAL ×2 (05:24→17:23)
[2018-03-17] MEDS: Aspirin 325 MG Tablet PO ×2 (07:55→17:23)
[2018-03-17] MEDS: Iron Polysaccharide Complex 150 MG CAPSULE PO (07:55)
--- NOTE | 2018-03-17 09:24 | CASEMGMT ---
Plan of care meeting held. Resident present as well as resident friend. Resident plans to discharge home alone at time of discharge with friends for support. Resident does not have a discharge date set at this time and plan is to continue with further care and treatment on the Transitional Care Unit. Resident does have an insurance update due on 03/18/18 and is aware that continued stay is not guaranteed. Support given. Will continue to follow. Laury BARROS, SIGN INSTALLER
--- NOTE | 2018-03-17 15:03 | CASEMGMT ---
Brief interview for mental status (BIMS) and resident mood interview (PHQ-9) completed on this day. BIMS score 15. PHQ-9 score 12/05
[2018-03-17 16:00] VITALS: BP 105/55; PULSE 72; RESP 18; TEMP 36.3; O2SAT 96
[2018-03-17] MEDS: Atorvastatin Calcium 20 MG Tablet PO (20:59)
[2018-03-17] MEDS: Pramipexole Di-HCl 0.5 MG Tablet PO (20:59)
[2018-03-18 05:18] VITALS: BP 151/79; PULSE 92
[2018-03-18] MEDS: Tolterodine Tartrate 4 MG CAP.SA PO (05:20)
[2018-03-18] MEDS: Senna/Docusate Sodium 1 Tablet 2 TABLET PO (05:20)
[2018-03-18] MEDS: Pantoprazole Sodium 40 MG Tablet PO (05:20)
[2018-03-18] MEDS: Hydroxychloroquine 200 MG Tablet PO (05:20)
[2018-03-18] MEDS: Levothyroxine 100 MCG Tablet PO (05:21)
[2018-03-18] MEDS: Lisinopril 20 MG Tablet PO (05:21)
[2018-03-18] MEDS: amLODIPine 10 MG Tablet PO (05:21)
[2018-03-18] MEDS: hydroCHLOROthiazide 25 MG Tablet PO (05:21)
[2018-03-18] MEDS: Citalopram 20 MG Tablet PO (05:21)
[2018-03-18] MEDS: Polyethylene Glycol 3350 17 GM PACKET PO (05:21)
[2018-03-18] MEDS: Acetaminophen 500 MG Tablet 1000 MG PO ×3 (05:22→21:04)
[2018-03-18] MEDS: Fluticasone 0.05% 1 SPRAY NASAL.SRY NASAL ×2 (05:25→17:00)
[2018-03-18] MEDS: Aspirin 325 MG Tablet PO ×2 (08:03→17:01)
[2018-03-18] MEDS: Iron Polysaccharide Complex 150 MG CAPSULE PO (08:03)
--- NOTE | 2018-03-18 13:51 | MDS.RN ---
Pain interview for dennis 03/19/18 completed.
[2018-03-18 15:15] VITALS: BP 109/56; PULSE 56; RESP 18; TEMP 36.7; O2SAT 96
--- NOTE | 2018-03-18 15:22 | CASEMGMT ---
Insurance Clinical information faxed. Pending continued stay approval at this time. Auth#[id number] Laury BARROS, FLAT SCREEN WORKER
[2018-03-18] MEDS: Pramipexole Di-HCl 0.5 MG Tablet PO (21:04)
[2018-03-18] MEDS: Atorvastatin Calcium 20 MG Tablet PO (21:04)
[2018-03-18] MEDS: Zolpidem Tartrate 5 MG Tablet PO (22:15)
[2018-03-19 04:35] VITALS: BP 136/52; PULSE 84
[2018-03-19] MEDS: Hydroxychloroquine 200 MG Tablet PO (04:41)
[2018-03-19] MEDS: Citalopram 20 MG Tablet PO (04:41)
[2018-03-19] MEDS: Tolterodine Tartrate 4 MG CAP.SA PO (04:41)
[2018-03-19] MEDS: Lisinopril 20 MG Tablet PO (04:42)
[2018-03-19] MEDS: Acetaminophen 500 MG Tablet 1000 MG PO ×3 (04:42→20:56)
[2018-03-19] MEDS: amLODIPine 10 MG Tablet PO (04:42)
[2018-03-19] MEDS: hydroCHLOROthiazide 25 MG Tablet PO (04:42)
[2018-03-19] MEDS: Pantoprazole Sodium 40 MG Tablet PO (04:43)
[2018-03-19] MEDS: Levothyroxine 100 MCG Tablet PO (04:43)
[2018-03-19] MEDS: Fluticasone 0.05% 1 SPRAY NASAL.SRY NASAL ×2 (04:45→17:06)
[2018-03-19] MEDS: Iron Polysaccharide Complex 150 MG CAPSULE PO (08:18)
[2018-03-19] MEDS: Aspirin 325 MG Tablet PO ×2 (08:18→17:05)
--- NOTE | 2018-03-19 15:08 | PCM.DC.SUM ---
Discharge Date and Diagnosis Date of Admission: 03/12/18 Date of Discharge: 03/22/18 - Secondary Discharge Diagnosis Chronic Problems Osteoarthritis of left hip (Chronic) Allergic rhinitis (Chronic) Iron deficiency anemia (Chronic) GERD (gastroesophageal reflux disease) (Chronic) Restless legs syndrome (Chronic) Insomnia (Chronic) Stroke (Chronic) Hypertension (Chronic) Discoid lupus (Chronic) Kidney stones (Chronic) Hypothyroidism (Chronic) Hyperlipidemia (Chronic) Osteoarthritis of right hip (Chronic) Hospital Course and Treatment Operations: None Procedures: None Summary of Care Provided: The patient is a 82 year old Female with below past medical history underwent left total hip arthroplasty 03/10/[address] Silas Child, admitted to TCU for rehabilitation, strengthening, prior to discharge home alone. Discharge home alone, with outpatient physical therapy. Discharge Diet: No Restrictions Discharge Activity: Return to Normal Activity, May Shower, Use Walker Weight Bearing Status: Weight bearing as tolerated Call your doctor if you observe: Fever of 101 or Higher, Inability to urinate, Inability to have a bowel movement, Shortness of breath, Chest pain, Uncontrolled pain Home Medications: Medications to take at Discharge Cholecalciferol (VIT D3) [Vitamin D3] 1,000 unit PO DAILY 02/09/15 Citalopram [Celexa] 20 mg PO DAILY 02/09/15 Hydroxychloroquine Sulfate [Plaquenil] 200 mg PO DAILY 02/09/15 Levothyroxine [Synthroid] 100 mcg PO DAILY 02/09/15 Pantoprazole Sodium [Protonix] 40 mg PO DAILY 02/09/15 Ropinirole HCl [Requip] 1 mg PO PRN PRN 02/09/15 Simvastatin 40 mg PO QHS 02/09/15 Zaleplon [Sonata] 10 mg PO QHS PRN PRN 02/09/15 Vit C/E/Zn/Coppr/Lutein/Zeaxan [Preservision Areds 2 Softgel] 1 each PO BID 08/17/15 Amlodipine [Norvasc] 10 mg PO DAILY 04/24/16 Calcium Carbonate/Vitamin D3 [Calcium 600-Vit D3 800 Caplet] 1 each PO DAILY 04/24/16 Triamcinolone Acetonide [Nasacort Aq Nasal [place]] 1 spray NASAL BID 10/17/16 Ubidecarenone [Co Q-10] 100 mg PO DAILY 10/17/16 Uniretic 1 tab PO DAILY 10/17/16 B,C/Folic/Zinc/Copper Ox/Vit E [Stress B-Complex Tablet] 1 each PO DAILY 02/25/18 Iron Polysaccharide Complex [Ferrex 150] 150 mg PO DAILYCM 02/25/18 Acetaminophen [Tylenol] 1,000 mg PO Q8 03/12/18 Senna/Docusate Sodium [Senokot-S] 2 tablet PO BID PRN 03/12/18 Trospium Chloride [Sanctura Xr] 60 mg PO DAILY 03/12/18 Aspirin 325 mg PO BIDCM #36 tab 03/19/18 Polyethylene Glycol 3350 [Miralax] 17 gm PO DAILY packet 03/19/18 Following Prescrptions Were Given to Patient: Aspirin 325 mg PO BIDCM #36 tab Primary Care Physician: Nikki Abbott DO [Primary Care Provider] - Please follow up with your Primary Care Physician in: 1 week. Please Follow Up With: Tiffany Olivo When: 2 weeks. Please Follow Up With: Rivas Raymond DO When: 2 weeks. Disposition: Home Minutes spent on discharge:: 30 Patient Condition:: Good Medical Necessity - Tobacco Use Smoking Status: Never smoker Tobacco Use: Non-smoker, Pipe Meaningful Use Info Meaningful Use Diagnoses (Choose all that apply): None applicable
--- NOTE | 2018-03-19 15:09 | DCINST_ITS ---
- Discharge Diagnoses Current Active Problems: Current Active and Chronic Problems Osteoarthritis of left hip (Chronic) Allergic rhinitis (Chronic) Iron deficiency anemia (Chronic) GERD (gastroesophageal reflux disease) (Chronic) Restless legs syndrome (Chronic) Insomnia (Chronic) You will use the following diet at home:: No restrictions, Regular Your food should be the consistency of: Regular Your liquids should be the consistency of: Regular/Thin Discharge Activity: Return to Normal Activity, May Shower, Use Walker Weight Bearing Status: Weight bearing as tolerated Call your doctor if you observe: Fever of 101 or Higher, Inability to urinate, Inability to have a bowel movement, Shortness of breath, Chest pain, Uncontrolled pain Allergies/Adverse Reactions: Allergies Sulfa (Sulfonamide Antibiotics) Allergy (Verified 02/25/18 15:10) Hives tape Adverse Reaction (Uncoded 09/14/17 14:29) Other removes skin, needs paper tape Medications to take at Discharge Cholecalciferol (VIT D3) [Vitamin D3] 1,000 unit PO DAILY 02/09/15 Citalopram [Celexa] 20 mg PO DAILY 02/09/15 Hydroxychloroquine Sulfate [Plaquenil] 200 mg PO DAILY 02/09/15 Levothyroxine [Synthroid] 100 mcg PO DAILY 02/09/15 Pantoprazole Sodium [Protonix] 40 mg PO DAILY 02/09/15 Ropinirole HCl [Requip] 1 mg PO PRN PRN 02/09/15 Simvastatin 40 mg PO QHS 02/09/15 Zaleplon [Sonata] 10 mg PO QHS PRN PRN 02/09/15 Vit C/E/Zn/Coppr/Lutein/Zeaxan [Preservision Areds 2 Softgel] 1 each PO BID 07/24 Amlodipine [Norvasc] 10 mg PO DAILY 04/24/16 Calcium Carbonate/Vitamin D3 [Calcium 600-Vit D3 800 Caplet] 1 each PO DAILY Triamcinolone Acetonide [Nasacort Aq Nasal [place]] 1 spray NASAL BID 10/17/16 Ubidecarenone [Co Q-10] 100 mg PO DAILY 10/17/16 Uniretic 1 tab PO DAILY 10/17/16 B,C/Folic/Zinc/Copper Ox/Vit E [Stress B-Complex Tablet] 1 each PO DAILY Iron Polysaccharide Complex [Ferrex 150] 150 mg PO DAILYCM 02/25/18 Acetaminophen [Tylenol] 1,000 mg PO Q8 03/12/18 Senna/Docusate Sodium [Senokot-S] 2 tablet PO BID PRN 03/12/18 Trospium Chloride [Sanctura Xr] 60 mg PO DAILY 03/12/18 Aspirin 325 mg PO BIDCM #36 tab 03/19/18 Polyethylene Glycol 3350 [Miralax] 17 gm PO DAILY packet 03/19/18 The following prescriptions were given: Aspirin 325 mg PO BIDCM #36 tab Primary Care Physician: Nikki Abbott DO [Primary Care Provider] - Please follow up with your Primary Care Physician in: 1 week. Please Follow Up With: Tiffany Olivo When: 2 weeks. Please Follow Up With: Rivas Raymond DO When: 2 weeks. Proposed Discharge Date: 03/22/18
--- NOTE | 2018-03-19 15:31 | CASEMGMT ---
Insurance Continued stay denied with last cover day being 03/21/18 and resident to discharge or financial responsibility to begin on 03/22/18. Auth#[id number] Laury BARROS, VISUALIZER
--- NOTE | 2018-03-19 15:31 | CASEMGMT ---
Social Work Spoke with resident in room. This delinquency prevention social worker communicating that continued stay has been denied with last cover day being 03/21/18 and resident to discharge or financial responsibility to begin on 03/22/18. Resident planning to discharge home alone on 03/22/18. Resident has a friend for support and assistance with transportation. Resident reporting to have needed durable medical equipment already set up within the home. Physical therapy recommending for resident to have outpatient physical therapy, resident is agreeable to recommendation and requesting for outpatient therapy to be set up through [facility]. Resident friend to provide transportation home for resident at time of discharge. Resident declining for this delinquency prevention social worker to contact resident friend in regards to discharge. Support given. Telephone call to [facility] Roldan, Outpatient physica therapy appointment set up for 03/24/18 @ 3:30. Elba reporting to already have an order. Proposed discharge date: 03/22/18 PLAN: Discharge home alone with outpatient physical therapy. Laury BARROS, GRAVE DIGGER
[2018-03-19 15:40] VITALS: BP 114/62; PULSE 75; RESP 18; TEMP 36.6; O2SAT 96
[2018-03-19] MEDS: Senna/Docusate Sodium 1 Tablet 2 TABLET PO (17:05)
[2018-03-19] MEDS: Pramipexole Di-HCl 0.5 MG Tablet PO (20:56)
[2018-03-19] MEDS: Atorvastatin Calcium 20 MG Tablet PO (20:56)
--- NOTE | 2018-03-20 03:54 | NURSING ---
pt asst to bathroom. pt said she needs help getting legs into bed. pt said she is just not stronng enough. asst given
[2018-03-20] MEDS: Hydroxychloroquine 200 MG Tablet PO ×2 (05:40→05:41)
[2018-03-20] MEDS: Tolterodine Tartrate 4 MG CAP.SA PO (05:40)
[2018-03-20] MEDS: Acetaminophen 500 MG Tablet 1000 MG PO ×3 (05:40→21:18)
[2018-03-20] MEDS: Pantoprazole Sodium 40 MG Tablet PO (05:41)
[2018-03-20] MEDS: Lisinopril 20 MG Tablet PO (05:41)
[2018-03-20] MEDS: Levothyroxine 100 MCG Tablet PO (05:41)
[2018-03-20] MEDS: amLODIPine 10 MG Tablet PO (05:41)
[2018-03-20] MEDS: Citalopram 20 MG Tablet PO (05:41)
[2018-03-20] MEDS: Fluticasone 0.05% 1 SPRAY NASAL.SRY NASAL ×2 (05:43→16:33)
[2018-03-20] MEDS: hydroCHLOROthiazide 25 MG Tablet PO (05:44)
[2018-03-20 07:00] LABS: Absolute Lymphocyte Count 1.34 X10^3/ul (0.83-4.51); Basophil# 0.02 X10^3/uL; Basophil% 0.3 % (0-1); Eosinophil# 0.18 X10^3/uL; Eosinophils% 2.9 % (0-5); Hematocrit 30.4 % (37-47); Hemoglobin 9.8 g/dl (12.0-15.0); Lymphocyte # 1.34 X10^3/ul (4.0); Lymphocyte % 21.4 % (19-41); Mean Corp Hgb Conc 32.2 g/gl (32-36); Mean Corpuscular Hgb 29.7 pg (27.0-32.0); Mean Corpuscular Volume 92.1 fL (81-99); Mean Platelet Vol. 8.7 fl (6.2-12.0); Monocyte# 0.71 X10^3/uL; Monocyte% 11.3 % (0-10); Neutrophil # 3.99 X10^3/uL (2.7-7.7); Neutrophil % 63.8 % (47-70); Platelet Count 360 K/mm3 (150-450); RBC Distribution Width SD 46.6 fl (35.1-43.9); White Blood Count 6.3 K/mm3 (4.4-11.0)
[2018-03-20 07:30] LABS: Anion Gap 6 (5-15); BUN 18 mg/dL (7-18); BUN/Creat Ratio 25.1 RATIO (10-20); Calcium,Total 8.8 mg/dL (8.5-10.1); Chloride 104 mmol/L (98-107); Creatinine, Serum 0.72 mg/dL (0.55-1.02); EST Glomerular Filtration Rate 83 mL/min (>60); Est Glom Filt Rate - Afr Amer 100 mL/min (>60); Glucose 91 mg/dL (74-106); Potassium 4.2 mmol/L (3.5-5.1); Sodium Level 139 mmol/L (136-145)
[2018-03-20 07:32] LABS: POSITIVE COUNT NO; POSITIVE DIFFERENTIAL NO; POSITIVE MORPHOLOGY NO
[2018-03-20] MEDS: Aspirin 325 MG Tablet PO ×2 (08:00→16:33)
[2018-03-20] MEDS: Iron Polysaccharide Complex 150 MG CAPSULE PO (08:00)
[2018-03-20] MEDS: Tuberculin,Purif.prot.deriv. 50 TU/ML Vial 5 ML ID (11:19)
--- NOTE | 2018-03-20 13:51 | CASEMGMT ---
Social Work Resident now wanting to appeal decision by insurance. Resident initiating appeal a this time. Proposed discharge date: 03/22/18 pending appeal. PLAN: Discharge home alone with outpatient physical therapy pending appeal. Laury BARROS, DRY CELL BATTERY ASSEMBLER
[2018-03-20 15:27] VITALS: BP 104/51; PULSE 78; RESP 16; TEMP 36.7; O2SAT 97
[2018-03-20] MEDS: Pramipexole Di-HCl 0.5 MG Tablet PO (21:18)
[2018-03-20] MEDS: Atorvastatin Calcium 20 MG Tablet PO (21:18)
[2018-03-20] MEDS: Zolpidem Tartrate 5 MG Tablet PO (23:58)
[2018-03-21] MEDS: amLODIPine 10 MG Tablet PO (06:36)
[2018-03-21] MEDS: Levothyroxine 100 MCG Tablet PO (06:36)
[2018-03-21] MEDS: Fluticasone 0.05% 1 SPRAY NASAL.SRY NASAL ×2 (06:36→16:42)
[2018-03-21] MEDS: Pantoprazole Sodium 40 MG Tablet PO (06:36)
[2018-03-21] MEDS: Tolterodine Tartrate 4 MG CAP.SA PO (06:36)
[2018-03-21] MEDS: hydroCHLOROthiazide 25 MG Tablet PO (06:36)
[2018-03-21] MEDS: Acetaminophen 500 MG Tablet 1000 MG PO ×3 (06:36→21:24)
[2018-03-21] MEDS: Senna/Docusate Sodium 1 Tablet 2 TABLET PO (06:36)
[2018-03-21] MEDS: Citalopram 20 MG Tablet PO (06:36)
[2018-03-21] MEDS: Lisinopril 20 MG Tablet PO (06:36)
[2018-03-21] MEDS: Iron Polysaccharide Complex 150 MG CAPSULE PO (08:25)
[2018-03-21] MEDS: Aspirin 325 MG Tablet PO ×2 (08:25→16:42)
[2018-03-21 15:04] VITALS: BP 107/44; PULSE 65; RESP 16; TEMP 37; O2SAT 96
[2018-03-21] MEDS: Atorvastatin Calcium 20 MG Tablet PO (21:24)
[2018-03-21] MEDS: Pramipexole Di-HCl 0.5 MG Tablet PO (21:24)
[2018-03-22] MEDS: Fluticasone 0.05% 1 SPRAY NASAL.SRY NASAL (06:15)
[2018-03-22] MEDS: Tolterodine Tartrate 4 MG CAP.SA PO (06:15)
[2018-03-22] MEDS: Lisinopril 20 MG Tablet PO (06:15)
[2018-03-22] MEDS: Levothyroxine 100 MCG Tablet PO (06:15)
[2018-03-22] MEDS: Acetaminophen 500 MG Tablet 1000 MG PO (06:15)
[2018-03-22] MEDS: Pantoprazole Sodium 40 MG Tablet PO (06:15)
[2018-03-22] MEDS: hydroCHLOROthiazide 25 MG Tablet PO (06:15)
[2018-03-22] MEDS: amLODIPine 10 MG Tablet PO (06:15)
[2018-03-22] MEDS: Hydroxychloroquine 200 MG Tablet PO (06:15)
[2018-03-22] MEDS: Citalopram 20 MG Tablet PO (06:15)
[2018-03-22 06:20] VITALS: O2SAT 99
[2018-03-22] MEDS: Aspirin 325 MG Tablet PO (07:56)
[2018-03-22] MEDS: Iron Polysaccharide Complex 150 MG CAPSULE PO (07:56)
--- NOTE | 2018-03-22 10:43 | CASEMGMT ---
Social Work Telephone call from [employer]. Resident lost appeal. Resident with continues with last cover day being 03/21/18 and resident to discharge on or private pay begin on 03/22/18. Resident planning to discharge home 03/22/18. Resident friend to provide transportation home for resident at time of discharge. Support given. Proposed discharge date: 03/22/18 PLAN: Discharge home alone with outpatient physical therapy. Laury BARROS, INDUSTRIAL GREEN SYSTEMS DESIGNER
[2018-03-22 12:35] VITALS: BP 117/95; PULSE 88; RESP 16; TEMP 37.2; O2SAT 96
[2018-03-22 12:36] VITALS: BP 117/95; PULSE 88; RESP 16; TEMP 37.2; O2SAT 96
--- NOTE | 2018-03-22 14:46 | CASEMGMT ---
Insurance Notified insurance of resident discharge on 03/22/18 to home alone with outpatient physical therapy. Auth#[id number] Laury BARROS, BATTERY WRECKER OPERATOR
--- NOTE | 2018-03-25 13:16 | MDS.RN ---
Information for the mds was obtained from review of the clinical record, interview of resident, staff, and direct observation of resident's care.
== END 2018-03-22 12:37 | disposition home or self-care (01) | DRG 561 ==
PROVIDERS: Admitting Provider Family Medicine Geriatric Medicine; Family Provider Family Medicine; PCP Family Medicine; Visit Provider Family Medicine Geriatric Medicine
DX: Z47.1 Aftercare following joint replacement surgery (principal); Z96.642 Presence of left artificial hip joint; E78.5 Hyperlipidemia, unspecified; F32.9 Major depressive disorder, single episode, unspecified; K21.9 Gastro-esophageal reflux disease without esophagitis; E03.9 Hypothyroidism, unspecified; D50.9 Iron deficiency anemia, unspecified; L93.0 Discoid lupus erythematosus; N32.81 Overactive bladder; E55.9 Vitamin D deficiency, unspecified; I10 Essential (primary) hypertension; Z79.899 Other long term (current) drug therapy; G25.81 Restless legs syndrome; Z23 Encounter for immunization; G47.00 Insomnia, unspecified; J30.9 Allergic rhinitis, unspecified
CPT/HCPCS: 36415; 72100; 80048; 85025; 97110; 97116; 97162; 97166; 97530; 97535; 97802; 90670

== ENCOUNTER → 2018-04-21 15:10 | Outpatient (CLI) | payer MEDICARE, SELFPAY ==
[2018-04-21 17:30] LABS: Absolute Lymphocyte Count 1.84 X10^3/ul (0.83-4.51); Absolute Neutrophil Count 4.2 X10^3/uL (2.0-7.7); Basophil# 0.02 X10^3/uL; Basophil% 0.3 % (0-1); Eosinophil# 0.11 X10^3/uL; Eosinophils% 1.7 % (0-5); Hematocrit 34.8 % (37-47); Hemoglobin 11.1 g/dl (12.0-15.0); Lymphocyte # 1.84 X10^3/ul (4.0); Mean Corp Hgb Conc 31.9 g/gl (32-36); Mean Corpuscular Hgb 29.9 pg (27.0-32.0); Mean Corpuscular Volume 93.8 fL (81-99); Mean Platelet Vol. 10.1 fl (6.2-12.0); Monocyte# 0.35 X10^3/uL; Monocyte% 5.3 % (0-10); Neutrophil # 4.24 X10^3/uL (2.7-7.7); Neutrophil % 64.7 % (47-70); Platelet Count 333 K/mm3 (150-450); RBC Distribution Width CV 14.2 % (11.6-14.6); RBC Distribution Width SD 48.8 fl (35.1-43.9); Red Blood Count 3.71 M/mm3 (4.2-5.4); White Blood Count 6.6 K/mm3 (4.4-11.0)
[2018-04-21 17:33] LABS: POSITIVE COUNT NO; POSITIVE DIFFERENTIAL NO; POSITIVE MORPHOLOGY NO
[2018-04-21 18:16] LABS: ALB/GLOB Ratio 0.9 RATIO (0.9-2.4); AST(SGOT) 19 U/L (15-37); Alanine Aminotransfer ALT/SGPT 24 U/L (13-56); Albumin, Serum 3.6 g/dL (3.2-5.0); Alkaline Phosphatase 76 U/L (45-117); Anion Gap 10 (5-15); BUN 19 mg/dL (7-18); BUN/Creat Ratio 28.5 RATIO (10-20); Calcium,Total 9.4 mg/dL (8.5-10.1); Chloride 102 mmol/L (98-107); Creatinine, Serum 0.67 mg/dL (0.55-1.02); EST Glomerular Filtration Rate 90 mL/min (>60); Est Glom Filt Rate - Afr Amer 109 mL/min (>60); Glucose 74 mg/dL (74-106); Potassium 3.9 mmol/L (3.5-5.1); Protein, Total 7.6 g/dL (6.4-8.2); Sodium Level 140 mmol/L (136-145); T4 Free Direct 1.42 ng/dL (0.76-1.46); Thyroid Stim Hormone (TSH) 2.95 uIU/mL (0.358-3.74)
== END ==
PROVIDERS: Family Provider Family Medicine; PCP Family Medicine; Visit Provider Family Medicine
DX: E03.9 Hypothyroidism, unspecified (principal); D64.9 Anemia, unspecified; R53.83 Other fatigue
CPT/HCPCS: 36415; 80053; 84439; 84443; 85025

== ENCOUNTER → 2018-05-05 14:47 | Outpatient (CLI) | payer MEDICARE, SELFPAY ==
--- NOTE | 2018-05-05 14:53 | CT_ITS ---
STUDY: CT BRAIN WITH AND WITHOUT CONTRAST REASON FOR EXAM: Female, 82 years old. Infusion. Memory loss. History of TIA. RADIATION DOSAGE (If Supplied By Facility): CTDIvol = ( 44.99 ) mGy, DLP = ( 1490.98 ) mGycm TECHNIQUE: Transaxial CT imaging of the brain was performed pre and post contrast administration. The examination was performed with intravenous administration of 50ML ml of Isovue 370 contrast material. Individualized dose optimization techniques were used for this CT. COMPARISON: None. FINDINGS: Normal soft tissue structures. Normal calvarium. There is mild cerebral atrophy with widening of the extra-axial spaces and ventricular dilatation. There are areas of decreased attenuation within the white matter tracts of the supratentorial brain, consistent with microvascular disease changes. Normal basal ganglia and thalami. Normal brainstem. Normal cerebellum. There is no intracranial hemorrhage. There are no findings of an acute ischemic infarction. There is no evidence of abnormal contrast enhancement. The visualized vasculature appears grossly normal. Normal visualized paranasal sinuses. CT/Brain/Head W/WO Contrast IMPRESSION: Mild chronic evolutionary changes. There is no evidence of acute intracranial or calvarial abnormality or evidence of abnormal contrast enhancement. Electronically Signed: Blaise Early DO at 15:41 EDT Tel [phone], Service support ,
== END ==
PROVIDERS: Family Provider Family Medicine; PCP Family Medicine; Visit Provider Family Medicine
DX: R41.0 Disorientation, unspecified (principal)
CPT/HCPCS: 70470; Q9967

== ENCOUNTER → 2018-08-06 10:29 | Outpatient (CLI) | payer MEDICARE, SELFPAY ==
[2018-08-06 12:10] LABS: Absolute Lymphocyte Count 1.15 X10^3/ul (0.83-4.51); Absolute Neutrophil Count 3.4 X10^3/uL (2.0-7.7); Basophil# 0.01 X10^3/uL; Basophil% 0.2 % (0-1); Eosinophil# 0.05 X10^3/uL; Hematocrit 37.9 % (37-47); Hemoglobin 12.4 g/dl (12.0-15.0); Lymphocyte # 1.15 X10^3/ul (4.0); Lymphocyte % 22.1 % (19-41); Mean Corp Hgb Conc 32.7 g/gl (32-36); Mean Corpuscular Volume 91.8 fL (81-99); Mean Platelet Vol. 10.9 fl (6.2-12.0); Monocyte# 0.59 X10^3/uL; Monocyte% 11.3 % (0-10); Neutrophil % 65.4 % (47-70); Platelet Count 236 K/mm3 (150-450); RBC Distribution Width CV 13.6 % (11.6-14.6); RBC Distribution Width SD 45.2 fl (35.1-43.9); Red Blood Count 4.13 M/mm3 (4.2-5.4); White Blood Count 5.2 K/mm3 (4.4-11.0)
[2018-08-06 12:22] LABS: POSITIVE COUNT NO; POSITIVE DIFFERENTIAL NO; POSITIVE MORPHOLOGY NO
[2018-08-06 12:37] LABS: AST(SGOT) 16 U/L (15-37); Alanine Aminotransfer ALT/SGPT 22 U/L (13-56); Albumin, Serum 3.8 g/dL (3.2-5.0); Alkaline Phosphatase 59 U/L (45-117); Anion Gap 6 (5-15); BUN 20 mg/dL (7-18); BUN/Creat Ratio 26.4 RATIO (10-20); Calcium,Total 9.1 mg/dL (8.5-10.1); Chloride 105 mmol/L (98-107); Creatinine, Serum 0.76 mg/dL (0.55-1.02); EST Glomerular Filtration Rate 78 mL/min (>60); Est Glom Filt Rate - Afr Amer 94 mL/min (>60); Globulin 3.8 g/dL (2.2-4.2); Glucose 89 mg/dL (74-106); Potassium 4.2 mmol/L (3.5-5.1); Protein, Total 7.6 g/dL (6.4-8.2); Sodium Level 139 mmol/L (136-145)
== END ==
PROVIDERS: Family Provider Family Medicine; PCP Family Medicine; Visit Provider Family Medicine
DX: R42 Dizziness and giddiness (principal)
CPT/HCPCS: 36415; 80053; 85025

== ENCOUNTER → 2019-06-21 10:47 | Outpatient (CLI) | payer MEDICARE, SELFPAY ==
[2019-05-05 12:28] VITALS: BMI 28.2
[2019-06-21 12:23] LABS: Absolute Lymphocyte Count 1.24 X10^3/uL (0.83-4.51); Basophil# 0.03 X10^3/uL; Basophil% 0.4 % (0-1); Eosinophil# 0.05 X10^3/uL; Eosinophils% 0.7 % (0-5); Hematocrit 37.5 % (37-47); Hemoglobin 12.1 g/dL (12.0-15.0); Lymphocyte # 1.24 X10^3/ul (4.0); Lymphocyte % 17.5 % (19-41); Mean Corp Hgb Conc 32.3 g/dL (32-36); Mean Corpuscular Hgb 30.1 pg (27.0-32.0); Mean Corpuscular Volume 93.3 fL (81-99); Monocyte# 0.76 X10^3/uL; Monocyte% 10.7 % (0-10); NRBC Flagged by Analyzer 0 % (0-5); Neutrophil # 5.01 X10^3/uL (2.7-7.7); Neutrophil % 70.6 % (47-70); Platelet Count 211 K/mm3 (150-450); RBC Distribution Width CV 13.4 % (11.6-14.6); RBC Distribution Width SD 45.7 fl (35.1-43.9); Red Blood Count 4.02 M/mm3 (4.2-5.4); White Blood Count 7.1 K/mm3 (4.4-11.0)
[2019-06-21 12:36] LABS: AST(SGOT) 13 U/L (15-37); Alanine Aminotransfer ALT/SGPT 20 U/L (13-56); Albumin, Serum 3.5 g/dL (3.2-5.0); Alkaline Phosphatase 61 U/L (45-117); Bilirubin, Direct 0.07 mg/dL (0.00-0.30); Globulin 3.5 g/dL (2.2-4.2)
== END ==
PROVIDERS: Family Provider Family Medicine; PCP Family Medicine; Visit Provider Family Medicine
DX: Z79.899 Other long term (current) drug therapy (principal); D69.2 Other nonthrombocytopenic purpura; T49.0X5A Adverse effect of local antifungal, anti-infective and anti-inflammatory drugs, initial encounter; L93.1 Subacute cutaneous lupus erythematosus; L71.8 Other rosacea
CPT/HCPCS: 36415; 80076; 85025

== ENCOUNTER → 2019-07-13 11:54 | Outpatient (CLI) | payer MEDICARE, SELFPAY ==
[2019-05-05 12:28] VITALS: BMI 28.2
[2019-07-13 16:01] LABS: Vitamin B12 419 pg/mL (211-911); Vitamin D,25 Hydroxy 22.8 ng/mL (29.95-100.01)
[2019-07-13 16:08] LABS: ALB/GLOB Ratio 0.9 RATIO (0.9-2.4); AST(SGOT) 18 U/L (15-37); Alanine Aminotransfer ALT/SGPT 22 U/L (13-56); Albumin, Serum 3.7 g/dL (3.2-5.0); Alkaline Phosphatase 59 U/L (45-117); Anion Gap 8 (5-15); BUN 21 mg/dL (7-18); BUN/Creat Ratio 28.1 RATIO (10-20); Chloride 106 mmol/L (98-107); Creatinine, Serum 0.75 mg/dL (0.55-1.02); EST Glomerular Filtration Rate 79 mL/min (>60); Est Glom Filt Rate - Afr Amer 95 mL/min (>60); Glucose 79 mg/dL (74-106); Iron 30 ug/dL (50-170); Protein, Total 7.7 g/dL (6.4-8.2); Sodium Level 141 mmol/L (136-145); T4 Free Direct 1.11 ng/dL (0.76-1.46); Thyroid Stim Hormone (TSH) 1.82 uIU/mL (0.358-3.74)
== END ==
PROVIDERS: Family Provider Family Medicine; PCP Family Medicine; Visit Provider Family Medicine
DX: E03.9 Hypothyroidism, unspecified (principal); R53.83 Other fatigue; E53.8 Deficiency of other specified B group vitamins; D64.9 Anemia, unspecified; E55.9 Vitamin D deficiency, unspecified
CPT/HCPCS: 36415; 80053; 82306; 82607; 83540; 84439; 84443; 84481

== ENCOUNTER → 2019-08-27 11:21 | Outpatient (CLI) | payer MEDICARE, SELFPAY ==
[2019-05-05 12:28] VITALS: BMI 28.2
== END ==
PROVIDERS: Family Provider Family Medicine; PCP Family Medicine; Referring Provider Otolaryngology Otolaryngology/Facial Plastic Surgery; Visit Provider Otolaryngology Otolaryngology/Facial Plastic Surgery
DX: J32.9 Chronic sinusitis, unspecified (principal)
CPT/HCPCS: 87070; 87205

== ENCOUNTER → 2019-09-08 15:38 | Outpatient (CLI) | payer MEDICARE, SELFPAY ==
[2019-05-05 12:28] VITALS: BMI 28.2
[2019-09-08 17:56] LABS: Vitamin D,25 Hydroxy 30.5 ng/mL (29.95-100.01)
== END ==
PROVIDERS: Family Provider Family Medicine; PCP Family Medicine; Visit Provider Family Medicine
DX: E55.9 Vitamin D deficiency, unspecified (principal)
CPT/HCPCS: 36415; 82306

== ENCOUNTER → 2019-10-04 13:13 | Outpatient (CLI) | payer MEDICARE, SELFPAY ==
[2019-05-05 12:28] VITALS: BMI 28.2
== END ==
PROVIDERS: Family Provider Family Medicine; PCP Family Medicine; Referring Provider Dermatology; Visit Provider Dermatology
DX: L30.9 Dermatitis, unspecified (principal)
CPT/HCPCS: 87070; 87205

== ENCOUNTER → 2019-11-04 16:29 | Outpatient (CLI) | payer MEDICARE, SELFPAY ==
[2019-05-05 12:28] VITALS: BMI 28.2
--- NOTE | 2019-11-04 16:33 | CT_ITS ---
STUDY: CT BRAIN WITH AND WITHOUT CONTRAST REASON FOR EXAM: Female, 84 years old. TIA x several different times. HTN-rx controlled. No hx cancer or diabetes. RADIATION DOSAGE (If Supplied By Facility): CTDIvol = ( 44.99 ) mGy, DLP = ( 1468.48 ) mGycm TECHNIQUE: Transaxial CT imaging of the brain was performed pre and post contrast administration. The examination was performed with intravenous administration of Isovue 300 75ml. Individualized dose optimization techniques were used for this CT. COMPARISON: 05/05/2018 FINDINGS: Normal soft tissue structures. Normal calvarium. There is mild cerebral atrophy with widening of the extra-axial spaces and ventricular dilatation. There are areas of decreased attenuation within the white matter tracts of the supratentorial brain, consistent with microvascular disease changes. Normal basal ganglia and thalami. Normal brainstem. Normal cerebellum. There is no intracranial hemorrhage. There are no findings of an acute ischemic infarction. No abnormal contrast enhancement. Normal visualized paranasal sinuses. CT/Brain/Head W/WO Contrast IMPRESSION: 1. No intracranial hemorrhage or enhancing abnormality. No mass effect. 2. Central parenchymal volume loss. White matter changes that are nonspecific but most commonly associated with chronic small vessel ischemic disease. Electronically Signed: Eusebio Beltrán MD (Brooks) at 17:04 EST , Service support ,
[2019-11-04 16:45] LABS: CREATININE FINGERSTICK 0.7 mg/dL (0.55-1.02); EGFR FINGERSTICK > 60.0000 mL/min (>60)
== END ==
PROVIDERS: Family Provider Family Medicine; PCP Family Medicine; Referring Provider Family Medicine; Visit Provider Family Medicine
DX: Z86.73 Personal history of transient ischemic attack (TIA), and cerebral infarction without residual deficits (principal)
CPT/HCPCS: 70470; Q9967

== ENCOUNTER → 2020-01-17 10:20 | Outpatient (CLI) | payer MEDICARE, SELFPAY ==
[2019-05-05 12:28] VITALS: BMI 28.2
[2020-01-17 12:22] LABS: Absolute Lymphocyte Count 1.98 X10^3/uL (0.83-4.51); Absolute Neutrophil Count 3.8 X10^3/uL (2.0-7.7); Basophil# 0.03 X10^3/uL; Basophil% 0.5 % (0-1); Eosinophil# 0.07 X10^3/uL; Eosinophils% 1.1 % (0-5); Hematocrit 37.1 % (37-47); Lymphocyte # 1.98 X10^3/ul (4.0); Lymphocyte % 30.9 % (19-41); Mean Corp Hgb Conc 32.3 g/dL (32-36); Mean Corpuscular Hgb 30.1 pg (27.0-32.0); Mean Platelet Vol. 10.2 fl (6.2-12.0); Monocyte# 0.48 X10^3/uL; Monocyte% 7.5 % (0-10); NRBC Flagged by Analyzer 0 % (0-5); Neutrophil # 3.82 X10^3/uL (2.7-7.7); Neutrophil % 59.5 % (47-70); Platelet Count 306 K/mm3 (150-450); RBC Distribution Width CV 12.5 % (11.6-14.6); RBC Distribution Width SD 42.8 fl (35.1-43.9); Red Blood Count 3.99 M/mm3 (4.2-5.4); White Blood Count 6.4 K/mm3 (4.4-11.0)
[2020-01-17 12:30] LABS: Vitamin B12 529 pg/mL (211-911); Vitamin D,25 Hydroxy 41.5 ng/mL
[2020-01-17 12:43] LABS: ALB/GLOB Ratio 0.9 RATIO (0.9-2.4); AST(SGOT) 14 U/L (15-37); Alanine Aminotransfer ALT/SGPT 27 U/L (13-56); Albumin, Serum 3.3 g/dL (3.2-5.0); Alkaline Phosphatase 46 U/L (45-117); Anion Gap 6 (5-15); BUN 15 mg/dL (7-18); BUN/Creat Ratio 17.7 RATIO (10-20); Calcium,Total 8.8 mg/dL (8.5-10.1); Chloride 106 mmol/L (98-107); Cholesterol 129 mg/dL (200); Creatinine, Serum 0.85 mg/dL (0.55-1.02); EST Glomerular Filtration Rate 68 mL/min (>60); Est Glom Filt Rate - Afr Amer 83 mL/min (>60); Free T3 2.7 pg/mL (2.18-3.98); Globulin 3.8 g/dL (2.2-4.2); Glucose 86 mg/dL (74-106); High Density Lipoprotein 55 mg/dL; Iron 104 ug/dL (50-170); Potassium 3.6 mmol/L (3.5-5.1); Protein, Total 7.1 g/dL (6.4-8.2); Sodium Level 141 mmol/L (136-145); Triglycerides 87 mg/dL; Very Low Density Lipoprotein 17 mg/dL (5-40)
== END ==
PROVIDERS: Family Provider Family Medicine; PCP Family Medicine; Visit Provider Family Medicine
DX: E03.9 Hypothyroidism, unspecified (principal); E53.8 Deficiency of other specified B group vitamins; E55.9 Vitamin D deficiency, unspecified; E61.1 Iron deficiency; I10 Essential (primary) hypertension; D64.9 Anemia, unspecified; R53.83 Other fatigue; Z51.81 Encounter for therapeutic drug level monitoring
CPT/HCPCS: 36415; 80053; 80061; 82306; 82607; 83540; 84439; 84443; 84481; 85025

== ENCOUNTER → 2020-05-21 15:06 | Outpatient (CLI) | payer MEDICARE, SELFPAY ==
[2019-05-05 12:28] VITALS: BMI 28.2
== END ==
PROVIDERS: PCP Family Medicine; Visit Provider Family Medicine
DX: R30.0 Dysuria (principal)
CPT/HCPCS: 87086; 87088

== ENCOUNTER → 2020-05-25 14:01 | Outpatient (CLI) | payer MEDICARE, SELFPAY ==
[2019-05-05 12:28] VITALS: BMI 28.2
[2020-05-25 17:41] LABS: Absolute Lymphocyte Count 1.37 X10^3/uL (0.83-4.51); Absolute Neutrophil Count 3.1 X10^3/uL (2.0-7.7); Basophil# 0.02 X10^3/uL; Basophil% 0.4 % (0-1); Eosinophil# 0.07 X10^3/uL; Eosinophils% 1.4 % (0-5); Hematocrit 38.9 % (37-47); Hemoglobin 12.4 g/dL (12.0-15.0); Lymphocyte # 1.37 X10^3/ul (4.0); Mean Corp Hgb Conc 31.9 g/dL (32-36); Mean Corpuscular Hgb 30.8 pg (27.0-32.0); Mean Corpuscular Volume 96.5 fL (81-99); Monocyte# 0.52 X10^3/uL; Monocyte% 10.3 % (0-10); NRBC Flagged by Analyzer 0 % (0-5); Neutrophil # 3.08 X10^3/uL (2.7-7.7); Neutrophil % 60.7 % (47-70); Platelet Count 227 K/mm3 (150-450); RBC Distribution Width CV 12.8 % (11.6-14.6); RBC Distribution Width SD 45.6 fl (35.1-43.9); Red Blood Count 4.03 M/mm3 (4.2-5.4); White Blood Count 5.1 K/mm3 (4.4-11.0)
[2020-05-25 17:50] LABS: Erythrocyte Sedimentation Rate 11 mm/hr (0-30)
[2020-05-25 18:10] LABS: ALB/GLOB Ratio 1.1 RATIO (0.9-2.4); AST(SGOT) 13 U/L (15-37); Alanine Aminotransfer ALT/SGPT 19 U/L (13-56); Albumin, Serum 3.6 g/dL (3.2-5.0); Alkaline Phosphatase 50 U/L (45-117); Anion Gap 4 (5-15); BUN 20 mg/dL (7-18); BUN/Creat Ratio 27.6 RATIO (10-20); Calcium,Total 8.9 mg/dL (8.5-10.1); Chloride 109 mmol/L (98-107); Creatinine, Serum 0.72 mg/dL (0.55-1.02); EST Glomerular Filtration Rate 81 mL/min (>60); Est Glom Filt Rate - Afr Amer 99 mL/min (>60); Globulin 3.4 g/dL (2.2-4.2); Glucose 99 mg/dL (74-106); Potassium 3.9 mmol/L (3.5-5.1); Sodium Level 143 mmol/L (136-145); T4 Free Direct 1.08 ng/dL (0.76-1.46); Thyroid Stim Hormone (TSH) 2.18 uIU/mL (0.358-3.74)
[2020-05-30 09:33] LABS: Immunoglobulin A 304 mg/dL (64-422); Immunoglobulin G 951 mg/dL (586-1602); PROEL- A/G Ratio 1.2 (0.7-1.7); PROEL- Albumin 3.4 g/dL (2.9-4.4); PROEL- Alpha-1 Globulin 0.2 g/dL (0.0-0.4); PROEL- Alpha-2 Globulin 0.8 g/dL (0.4-1.0); PROEL- Beta Globulin 0.9 g/dL (0.7-1.3); PROEL- Gamma Globulin 0.9 g/dL (0.4-1.8); PROEL- Globulin, Total 2.8 g/dL (2.2-3.9); PROEL- TOTAL PROTEIN 6.2 g/dL (6.0-8.5)
[2020-05-30 09:34] LABS: Immunoglobulin E 38 IU/mL (6-495); Immunoglobulin M 16 mg/dL (26-217)
== END ==
PROVIDERS: PCP Family Medicine; Referring Provider Dermatology Pediatric Dermatology; Visit Provider Dermatology Pediatric Dermatology
DX: L40.8 Other psoriasis (principal); L29.8 Other pruritus; L20.89 Other atopic dermatitis; Z79.899 Other long term (current) drug therapy
CPT/HCPCS: 36415; 80053; 82784; 82785; 84165; 84439; 84443; 84480; 85025; 85652

== ENCOUNTER → 2020-11-16 17:30 | Outpatient (CLI) | payer MEDICARE, SELFPAY ==
[2019-05-05 12:28] VITALS: BMI 28.2
== END ==
PROVIDERS: PCP Family Medicine; Referring Provider Family Medicine; Visit Provider Family Medicine
DX: Z20.828 Contact with and (suspected) exposure to other viral communicable diseases (principal)
CPT/HCPCS: 87635; C9803; U0005; U0003

== ENCOUNTER 2020-12-06 08:54 | Outpatient (RCR) | payer MEDICARE, SELFPAY ==
[2020-12-05 10:51] VITALS: BMI 31.4
== END 2020-12-06 23:59 ==
LOC: IMMUN 08:54
PROVIDERS: PCP Family Medicine; Visit Provider Family Medicine
DX: Z23 Encounter for immunization (principal)
CPT/HCPCS: 0011A; 0012A; 91301

== ENCOUNTER → 2020-12-13 13:16 | Outpatient (CLI) | payer MEDICARE, SELFPAY ==
[2020-12-05 10:51] VITALS: BMI 31.4
--- NOTE | 2020-12-13 13:19 | CT_ITS ---
STUDY: CT CHEST WITH CONTRAST REASON FOR EXAM: Female, 85 years old. NEW DX TCELL LYMPHOMA -- RADIATION DOSAGE (If Supplied By Facility): CTDIvol = ( 17.59 ) mGy, DLP = ( 1427.87 ) mGycm TECHNIQUE: Transaxial imaging was performed following intravenous administration of Oral and amp; IV Readi-CAT and amp; 100mL Isovue-300. Individualized dose optimization techniques were used for this CT. COMPARISON: None. FINDINGS: The lungs demonstrate minimal groundglass opacities which may be secondary to hypoventilation. There is a 2 mm nodule within the left lower lobe series 6 image 56 and a 3 mm pleurally based nodule within the right lower lobe series 6 image 46. There is no demonstrated pleural abnormality. There are calcifications of the coronary arteries. Scattered small mediastinal lymph nodes are identified measuring less than a centimeter in short axis dimension, nonspecific. Normal hilar regions. Normal enhanced pulmonary arteries. Normal aorta arch and descending thoracic aorta. Normal osseous structures. Please see same day CT abdomen report for details regarding that anatomy. CT/Chest WITH Contrast IMPRESSION: Small less than 4 mm pulmonary nodules as described above as well as subcentimeter mediastinal lymph nodes are nonspecific however given recent malignancy diagnosis further evaluation may be considered with PET/CT or close interval follow-up. Electronically Signed: Jose Scott MD at 19:00 EST Tel , Service support ,
--- NOTE | 2020-12-13 13:19 | CT_ITS ---
STUDY: CT ABDOMEN AND PELVIS WITH CONTRAST REASON FOR EXAM: Female, 85 years old. Abdominal pain, nausea, history of lymphoma RADIATION DOSAGE (If Supplied By Facility): CTDIvol = ( 17.59 ) mGy, DLP = ( 1427.87 ) mGycm TECHNIQUE: Transaxial images were obtained from the dome of the diaphragm to the symphysis pubis with oral contrast. Oral and amp; IV Read i-CAT and amp; 100mL Isovue-300 was administered. Sagittal and coronal images were reconstructed. Individualized dose optimization techniques were used for this CT. COMPARISON: 2014 FINDINGS: There are chronic interstitial fibrotic changes of the lung bases. The visualized portions of the heart are within normal limits. Normal liver. There are surgical clips in the gallbladder fossa consistent with a prior cholecystectomy. Normal spleen. Normal pancreas. Normal bilateral adrenal glands. Normal right kidney. Normal left kidney. There is a small hiatal hernia. There are nondistended fluid-filled small bowel loops throughout all 4 quadrants of the abdomen consistent with ileus. This is likely due to retained stool noted throughout the entirety of the colon which may be impacted. Scattered diverticulosis, particularly in the sigmoid colon noted without CT evidence of acute diverticulitis. There is non-visualization of the appendix. There is diffuse atherosclerotic calcification of the abdominal aorta, without a demonstrated aneurysm. Normal inferior vena cava. Normal retroperitoneum. Normal urinary bladder. There is absence of the uterus consistent with a prior hysterectomy. Normal abdominal wall. There are diffuse degenerative changes of the visualized lumbar spine, and pelvis. 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 Bilateral hip replacements are free of complication CT/Abdomen/Pelvis WITH Contrast IMPRESSION: No suspicious solid organ abnormality Retained stool noted throughout the colon which may be impacted. Scattered diverticulosis, particularly in the sigmoid colon also noted. No CT evidence of acute diverticulitis. Small bowel ileus, likely due to the retained stool in the colon Degenerative bony changes with rotatory scoliosis Bilateral hip replacements free of complication Electronically Signed: Mundo Culp MD at 16:46 EST , Service support ,
== END ==
PROVIDERS: PCP Family Medicine; Referring Provider Internal Medicine Medical Oncology; Visit Provider Internal Medicine Medical Oncology
DX: C84.A0 Cutaneous T-cell lymphoma, unspecified, unspecified site (principal)
CPT/HCPCS: 71260; 74177; Q9967

== ENCOUNTER 2022-02-03 12:56 | Outpatient (CLI) | payer MEDICARE, SELFPAY ==
--- NOTE | 2022-02-03 13:00 | CT_ITS ---
STUDY: CT Chest W/ Contrast Injection 02/03/2022 5:25 PM REASON FOR EXAM: Female, 86 years old. SURVEILLANCE OF T-CELL LYMPHOMA/LUNG NODULES History: SURVEILLANCE OF T-CELL LYMPHOMA/LUNG NODULES LUNG NODULES, HTN Individualized dose optimization techniques were used for this CT. TECHNIQUE: Transaxial imaging was performed withoutIV contrast material. COMPARISON: 2.4 FINDINGS: There are degenerative changes of the shoulders. There is no pneumothorax. There is no demonstrated pleural abnormality. Stable 2.6 mm nodule in the right lower lobe subpleural space. Series 2 image 40. Prior left lower lobe nodule has resolved. There are calcifications of the coronary arteries. Normal mediastinum. Normal hilar regions. Normal pulmonary arteries. There is atherosclerotic calcification of the aortic arch with tortuosity and elongation of the aortic arch and descending thoracic aorta. There are multi-level degenerative changes of the thoracic spine. There is scoliosis of the thoracic spine. There are no acute findings of the upper abdomen. CT/Chest WITH Contrast IMPRESSION: Stable 2.6 mm nodule in the right lower lobe subpleural space. Series 2 image 40. Prior left lower lobe nodule has resolved. Electronically Signed: Truman Mendez MD at 17:29 EDT ,
[2022-02-03 13:20] LABS: CREATININE FINGERSTICK 0.6 mg/dL (0.55-1.02); EGFR FINGERSTICK > 60.0000 mL/min (>60)
== END 2022-02-03 23:59 | disposition home or self-care (01) ==
LOC: CT 12:58
PROVIDERS: PCP Family Medicine; Referring Provider Internal Medicine Medical Oncology; Visit Provider Internal Medicine Medical Oncology
DX: C84.00 Mycosis fungoides, unspecified site (principal)
CPT/HCPCS: 71260; Q9967

== ENCOUNTER 2022-03-21 22:58 | Emergency (ER) | payer MEDICARE, SELFPAY ==
[2022-03-21 22:59] VITALS: BP 168/106; PULSE 81; RESP 16; TEMP 36.8; O2SAT 93; BMI 29.2
--- NOTE | 2022-03-21 23:08 | CT_ITS ---
STUDY: CT BRAIN WITHOUT CONTRAST REASON FOR EXAM: Female, 86 years old. Fall tonight, pain RADIATION DOSAGE (If Supplied By Facility): CTDIvol = ( 44.99 ) mGy, DLP = ( 779.24 ) mGycm TECHNIQUE: Transaxial CT imaging of the brain was performed without administration of intravenous contrast material. Individualized dose optimization techniques were used for this CT. COMPARISON: 11/04/2019 FINDINGS: Normal soft tissue structures. Normal calvarium. There is mild cerebral atrophy with widening of the extra-axial spaces and ventricular dilatation. There are areas of decreased attenuation within the white matter tracts of the supratentorial brain, consistent with microvascular disease changes. Normal basal ganglia and thalami. Normal brainstem. 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 There is no intracranial hemorrhage. There are no findings of an acute ischemic infarction. Normal visualized paranasal sinuses. CT/Brain/Head without Contrast IMPRESSION: 1. No acute intracranial hemorrhage or mass effect. 2. Central parenchymal volume loss. White matter changes that are nonspecific but most commonly associated with chronic small vessel ischemic disease. 3. Stable cerebellar lacunar infarctions. Electronically Signed: Eusebio Beltárn MD (Bro[facility]) at 23:40 EDT Reading Location ID and State: [facility] / [place] , Service support ,
--- NOTE | 2022-03-21 23:08 | CT_ITS ---
We are attempting to reach an attending provider to discuss findings. An addendum with communication details will be sent when the communication is complete. STUDY: CT CERVICAL SPINE WITHOUT CONTRAST REASON FOR EXAM: Female, 86 years old. neck pain RADIATION DOSAGE (If Supplied By Facility): CTDIvol = ( 17.08 ) mGy, DLP = ( 278.26 ) mGycm TECHNIQUE: High resolution transaxial imaging was performed without contrast material. Sagittal and coronal images were reconstructed. Individualized dose optimization techniques were used for this CT. COMPARISON: None FINDINGS: Fractures: C4: Fracture at the tip of the spinous process. Subtle more focal decreased attenuation along the superior vertebral body is likely osteopenia, difficult to exclude horizontal fracture. C5: Bilateral laminar fractures, on the right extends to the superior articulating facet. Not significantly displaced. C3: Right lamina linear defect nondisplaced fracture versus vascular channel. ALIGNMENT: Anterior subluxation C3 on C4 of 3 mm. Straightening of the normal curvature. MINERALIZATION: Osteopenic. VERTEBRAL BODIES: Fusion C4, C5 and C6 vertebral bodies. DISC SPACES: Marked narrowing with osteophytes especially at C6-7 and C7-T1, more mild at C3-4. POSTERIOR ELEMENTS: Mild facet arthropathy at multiple levels. SPINAL CANAL: Maintained. PARASPINAL SOFT TISSUES: Unremarkable. OTHER: None. CT/Spine Cervical without Contras IMPRESSION: Acute fractures C5 bilateral laminar fractures, C4 spinous process fracture. Difficult to exclude C4 vertebral body fracture although this is more likely due to the marked osteopenia. Questionable C3 right lamina fracture. Minimal anterolisthesis at C3-4. Potentially unstable fractures. MRI may be helpful for further evaluation. Electronically Signed: Cha Hunter MD at 23:53 EDT ,
--- NOTE | 2022-03-21 23:09 | CT_ITS ---
INDICATION: fall EXAMINATION: CT CHEST WITHOUT CONTRAST - CT Chest W/O Contrast Injection TECHNIQUE: Helically acquired images were obtained of the chest. A radiation dose optimization technique was used for this scan. IV Contrast dosage and agent: None. COMPARISON: None. FINDINGS: LUNGS, PLEURA AND LARGE AIRWAYS: No masses, consolidation, or edema. No pleural effusion or thickening. No pneumothorax. Granuloma in the right lower lobe. Lungs are underexpanded with patchy areas of peribronchial and basilar atelectasis. THYROID: No thyroid lesions. HEART AND PERICARDIUM: Heart size is mildly enlarged. No pericardial effusion. Small pericardial recess is noted, normal variant. CORONARY ARTERIES: Coronary artery calcification is seen. VESSELS: Atherosclerosis of the thoracic aorta and great vessel origins. MEDIASTINUM AND LESLIE: No mediastinal or hilar adenopathy. Esophagus is unremarkable. No hiatal hernia. UPPER ABDOMEN: No acute pathology. BONES: No suspicious lytic or blastic abnormality. Bilateral shoulder replacement. CT/Chest without Contrast IMPRESSION: 1. No pneumothorax or demonstrated rib fracture. 2. Hypoinflation with bibasilar peribronchial atelectasis. 3. Cardiomegaly. Electronically Signed: Eusebio Beltrán MD (Brooks) at 23:42 EDT Reading Location ID and State: [facility] / [place] , Service support ,
--- NOTE | 2022-03-21 23:10 | EDS_ITS ---
HPI HPI - Fall History of Present Illness Chief Complaint: Fall Narrative Narrative: 86-year-old female presenting with upper back pain. She also complains of neck pain and mild headache. She states she was reaching for a pajama top above her head and she had a mechanical fall backwards landing mostly on her shoulders. She complains of bilateral shoulder pain. She states his neck is mildly sore after the fall. She states she thinks she might of lost consciousness. Currently she has no complaint of dizziness, nausea, vomiting, unsteady gait. She states he is not on blood thinners. No paresthesias. [facility] Medical History Arthritis HTN (hypertension) Incontinence Stroke Thyroid disease Home Medications hydroxychloroquine 200 mg PO DAILY 02/09/15 [History Last Taken 03/12/18 09:15] levothyroxine 100 mcg PO DAILY 02/09/15 [History Last Taken 03/11/18 05:01] ropinirole 1 mg PO PRN PRN 02/09/15 [History Last Taken 10/28/16 06:00] simvastatin 40 mg PO QHS 02/09/15 [History Last Taken 05/01/16 22:35] coenzyme Q10 100 mg PO DAILY 10/17/16 [History Last Taken 10/15/16] acetaminophen 1,000 mg PO Q8 PRN 03/12/18 [History Last Taken 03/12/18 13:19] amlodipine 10 mg tablet 10 mg PO DAILY 05/05/19 [History Last Taken Unknown] mirabegron 25 mg tablet,extended release 24 hr 25 mg PO DAILY 05/05/19 [History Last Taken Unknown] moexipril 15 mg-hydrochlorothiazide 25 mg tablet 1 tab PO DAILY #90 tab 05/05/19 [History Last Taken Unknown] pantoprazole 40 mg tablet,delayed release 40 mg PO DAILY 05/05/19 [History Last Taken Unknown] clotrimazole-betamethasone 1 applic TOPICAL BID 10 Days #1 tube 12/05/20 [Rx Last Taken Unknown] fluoxetine 20 mg PO DAILY 12/05/20 [History Last Taken Unknown] vit B,S-MS-tevv-copper oxide-E 1 ea PO DAILY 12/05/20 [History Last Taken Unknown] Allergy/AdvReac Type Severity Reaction Status Date / Time Sulfa (Sulfonamide Allergy Hives Verified 03/21/22 22:59 Antibiotics) tape AdvReac Other Uncoded 03/21/22 22:59 Family History Father Cancer of Lung Cancer Mother Cancer type unknown Brother Dementia Surgical History History of hand surgery History of hip replacement History of hysterectomy History of inguinal hernia repair History of knee surgery Hx of shoulder surgery Social History Smoking Status: Never smoker second hand exposure: No alcohol intake: never substance use type: does not use ROS ROS ED Constitutional Constitutional ED: Denies chills or fever(s) Eyes Eyes: Denies blurry vision or change in vision ENT ENT ED: Denies rhinorrhea or sore throat Cardiovascular Cardiovascular: Reports other; Denies chest pain or palpitations Respiratory/Chest Respiratory/Chest: Denies cough or dyspnea Gastrointestinal Gastrointestinal: Denies abdominal pain, nausea or vomiting Genitourinary Genitourinary ED: Denies dysuria or hematuria Musculoskeletal Musculoskeletal: Reports back pain and neck pain Integumentary Denies rash Neurologic Neurologic: Reports headache(s); Denies paresthesias or weakness Psychiatric Psychiatric: Denies anxiety or depression Endocrine Endocrinology: Denies polydipsia or polyuria EXAM Physical Exam Const Vital Signs: 03/21/22 22:59 03/21/22 23:27 03/22/22 00:17 Temperature 98.2 F Temperature Source Oral Pulse Rate 81 90 Respiratory Rate 16 15 Respiratory Effort Normal Non-Labored Respiratory Depth Normal Respiratory Pattern Normal Blood Pressure 168/106 H 161/99 H Blood Pressure Mean 126 119 Pulse Ox 93 95 Oxygen Delivery Method Room Air Room Air Room Air 03/22/22 00:42 Temperature 98.2 F Temperature Source Pulse Rate 90 Respiratory Rate 15 Respiratory Effort Respiratory Depth Respiratory Pattern Blood Pressure 161/99 H Blood Pressure Mean 119 Pulse Ox 95 Oxygen Delivery Method Positive well nourished General Appearance ED: NAD HEENT Reports normocephalic and TM's clear atraumatic Tympanic Membrane ED: Yes TM's clear Eyes PERRL and EOMs intact bilaterally Neck full ROM Neck Narrative: Mild diffuse tenderness of the cervical spine. No obvious midline deformities or step-off. Resp normal respiratory effort and clear to auscultation bilaterally Cardio regular rate and regular rhythm Back/Spine Thoracic Spine / Upper Back: Negative for thoracic spinal tenderness Lumbar Spine / Lower Back: Negative for lumbar spinal tenderness Extremity Extremity Narrative: Tenderness palpation of the bilateral shoulder blades. No obvious deformities. Equal symmetric breath sounds and chest wall rise. Patient has full range of motion of the bilateral shoulders. Neuro oriented x3, CN's II-XII intact bilaterally, moves all extremities, no focal motor deficits and no sensory deficits noted Sensorium / Orientation: alert Psych mental status grossly normal and thought process normal Skin Lesions: no lesions Rashes: no rashes MDM MDM MDM Narrative Medical decision making narrative: Patient presenting after mechanical fall. She complains of mild headache, mild neck pain, upper back pain which she really describes as bilateral shoulder blades. There is no obvious midline deformities of the cervical or thoracic spine. I offered the patient something for pain and she requested to drink water. I obtained CT of the brain, cervical spine, chest CT given her symptoms. The CT brain showed no acute findings. There are stable cerebellar lacunar infarcts. CT of the chest did not show any pneumothorax or rib fracture. There were no noted thoracic fractures. The cervical spine shows acute C5 bilateral laminar fractures, C4 spinous process fracture. The radiologist did call me to discuss the questionable C3 right laminar fracture as well as a C4 vertebral body fracture and had concerned that this was unstable given some anterior listhesis. Patient counseled on findings and she is placed in a c-collar. I discussed the patient's case with Dr. Dunlap at [facility]. He accepted transfer ER to ER to be evaluated by trauma. Patient was transported in stabilized condition. Impression: 1. Mechanical fall 2. Bilateral C5 laminar fractures 3. C4 spinous process fracture 4. C4 vertebral body fracture 5. C3 right laminar fracture 6. C3 on C4 anterolisthesis 7. Closed head injury Lab Data Attestation: I reviewed the patient's lab results. Radiography Diagnostic Testing: Clinical Impression(s) from Imaging Studies Brain CT 03/21/22 23:08 IMPRESSION: 1. No acute intracranial hemorrhage or mass effect. 2. Central parenchymal volume loss. White matter changes that are nonspecific but most commonly associated with chronic small vessel ischemic disease. 3. Stable cerebellar lacunar infarctions. Electronically Signed: Eusebio Beltrán MD (Brooks) at 23:40 EDT , Cervical Spine CT 03/21/22 23:08 IMPRESSION: Acute fractures C5 bilateral laminar fractures, C4 spinous process fracture. Difficult to exclude C4 vertebral body fracture although this is more likely due to the marked osteopenia. Questionable C3 right lamina fracture. Minimal anterolisthesis at C3-4. Potentially unstable fractures. MRI may be helpful for further evaluation. Electronically Signed: Cha Hunter MD at 23:53 EDT , ADDENDUM: 03/22/22 0003 IMPRESSION: Acute fractures C5 bilateral laminar fractures, C4 spinous process fracture. Difficult to exclude C4 vertebral body fracture although this is more likely due to the marked osteopenia. Questionable C3 right lamina fracture. Minimal anterolisthesis at C3-4. Potentially unstable fractures. MRI may be helpful for further evaluation. N.B. : The above Results were Read Back by Cha Hunter MD to Saúl Basilio DO, and understanding confirmed on 03/21/2022 23:55:56 (ET). Electronically Signed: Cha Hunter MD at 23:53 EDT , Chest CT 03/21/22 23:09 IMPRESSION: 1. No pneumothorax or demonstrated rib fracture. 2. Hypoinflation with bibasilar peribronchial atelectasis. 3. Cardiomegaly. Electronically Signed: Eusebio Beltrán MD (Brooks) at 23:42 EDT , Discharge Plan Triage Chief Complaint: Fall ED Provider: Saúl Basilio Dx/Rx/DC Orders Prescriptions: No Action moexipril 15 mg-hydrochlorothiazide 25 mg tablet 15-25 mg tablet 1 tab PO DAILY Qty: 90 RF: 0 Myrbetriq 25 mg tablet extended release 24 hr 25 mg PO DAILY RF: 0 ropinirole 1 mg concentrate 1 mg PO PRN PRN (Reason: RESTLESS LEGS) RF: 0 simvastatin 40 mg concentrate 40 mg PO QHS RF: 0 levothyroxine 100 MCG tablet 100 mcg PO DAILY RF: 0 hydroxychloroquine 200 mg concentrate 200 mg PO DAILY RF: 0 pantoprazole 40 mg tablet,delayed release (DR/EC) 40 mg PO DAILY RF: 0 amlodipine 10 mg tablet 10 mg PO DAILY RF: 0 coenzyme Q10 100 MG capsule 100 mg PO DAILY RF: 0 acetaminophen 500 MG tablet 1,000 mg PO Q8 PRN (Reason: Pain 1-10 Or Fever) RF: 0 fluoxetine 20 MG capsule 20 mg PO DAILY RF: 0 vit B,E-XZ-jtjk-copper oxide-E 1 EACH tablet 1 ea PO DAILY RF: 0 clotrimazole-betamethasone 1 APPLIC cream 1 applic TOPICAL BID 10 Days Qty: 1 RF: 1 Primary Care Provider: Nikki Abbott Referrals: Nikki Abbott DO [Primary Care Provider] - Disposition Discharge Date/Time: 03/22/22 01:00
[2022-03-22 00:17] VITALS: BP 161/99; PULSE 90; RESP 15; O2SAT 95
--- NOTE | 2022-03-22 00:17 | ED.RN ---
Patients queenie Leon called per patient request to update on patients condition and pending transfer to [facility].
[2022-03-22 00:42] VITALS: BP 161/99; PULSE 90; RESP 15; TEMP 36.8; O2SAT 95
== END 2022-03-22 01:00 | disposition home or self-care (01) ==
LOC: ED 23:42
PROVIDERS: Emergency Provider Student in an Organized Health Care Education/Training Program; PCP Family Medicine; Visit Provider Student in an Organized Health Care Education/Training Program
DX: S12.200A Unspecified displaced fracture of third cervical vertebra, initial encounter for closed fracture (principal); S12.300A Unspecified displaced fracture of fourth cervical vertebra, initial encounter for closed fracture; S12.400A Unspecified displaced fracture of fifth cervical vertebra, initial encounter for closed fracture; S09.90XA Unspecified injury of head, initial encounter; W19.XXXA Unspecified fall, initial encounter; Z86.73 Personal history of transient ischemic attack (TIA), and cerebral infarction without residual deficits
CPT/HCPCS: 70450; 71250; 72125; 99285

== ENCOUNTER → 2022-03-26 | Outpatient (REF) | payer MEDICARE, SELFPAY ==
[2022-03-26 09:22] LABS: Hematocrit 36.5 % (37-47); Mean Corp Hgb Conc 32.9 g/dL (32-36); Mean Corpuscular Hgb 30.3 pg (27.0-32.0); Mean Corpuscular Volume 92.2 fL (81-99); Mean Platelet Vol. 11.7 fl (6.2-12.0); Platelet Count 194 K/mm3 (150-450); RBC Distribution Width CV 13.6 % (11.6-14.6); RBC Distribution Width SD 46.5 fl (35.1-43.9); Red Blood Count 3.96 M/mm3 (4.2-5.4); White Blood Count 4.7 K/mm3 (4.4-11.0)
[2022-03-26 09:27] LABS: Anion Gap 4 (5-15); BUN 17 mg/dL (7-18); BUN/Creat Ratio 23.8 RATIO (10-20); Calcium,Total 8.8 mg/dL (8.5-10.1); Chloride 104 mmol/L (98-107); Creatinine, Serum 0.71 mg/dL (0.55-1.02); EST Glomerular Filtration Rate 83 mL/min (>60); Est Glom Filt Rate - Afr Amer 100 mL/min (>60); Glucose 99 mg/dL (74-106); Potassium 3.8 mmol/L (3.5-5.1); Sodium Level 136 mmol/L (136-145)
== END | disposition home or self-care (01) ==
LOC: OLS.SW300 05:00
PROVIDERS: PCP Family Medicine; Visit Provider Internal Medicine
DX: I10 Essential (primary) hypertension (principal)
CPT/HCPCS: 36415; 80048; 85027

== ENCOUNTER → 2022-04-01 | Outpatient (REF) | payer MEDICARE, SELFPAY ==
[2022-04-01 07:34] LABS: Absolute Neutrophil Count 3.1 X10^3/uL (2.0-7.7); Basophil# 0.02 X10^3/uL; Basophil% 0.4 % (0-1); Eosinophil# 0.04 X10^3/uL; Eosinophils% 0.8 % (0-5); Hemoglobin 12.2 g/dL (12.0-15.0); Lymphocyte % 28.4 % (19-41); Mean Corpuscular Hgb 30.2 pg (27.0-32.0); Mean Corpuscular Volume 91.6 fL (81-99); Mean Platelet Vol. 11.1 fl (6.2-12.0); Monocyte# 0.64 X10^3/uL; Monocyte% 12.1 % (0-10); NRBC Flagged by Analyzer 0 % (0-5); Neutrophil # 3.06 X10^3/uL (2.7-7.7); Neutrophil % 57.9 % (47-70); Platelet Count 230 K/mm3 (150-450); RBC Distribution Width SD 43.6 fl (35.1-43.9); Red Blood Count 4.04 M/mm3 (4.2-5.4); White Blood Count 5.3 K/mm3 (4.4-11.0)
[2022-04-01 07:51] LABS: Anion Gap 5 (5-15); BUN 22 mg/dL (7-18); Chloride 102 mmol/L (98-107); Creatinine, Serum 0.92 mg/dL (0.55-1.02); EST Glomerular Filtration Rate 62 mL/min (>60); Est Glom Filt Rate - Afr Amer 75 mL/min (>60); Glucose 98 mg/dL (74-106); Magnesium 2.1 mg/dL (1.6-2.6); Potassium 4.4 mmol/L (3.5-5.1); Sodium Level 136 mmol/L (136-145); Thyroid Stim Hormone (TSH) 1.29 uIU/mL (0.358-3.74)
[2022-04-01 09:34] LABS: Vitamin B12 342 pg/mL (211-911); Vitamin D,25 Hydroxy 35.6 ng/mL
== END | disposition home or self-care (01) ==
LOC: OLS.SW300 05:00
PROVIDERS: PCP Family Medicine; Visit Provider Internal Medicine
DX: I10 Essential (primary) hypertension (principal); E03.9 Hypothyroidism, unspecified
CPT/HCPCS: 36415; 80048; 82306; 82607; 83735; 84443; 85025

== ENCOUNTER 2023-01-14 17:08 | Emergency (ER) | payer MEDICARE, SELFPAY ==
[2023-01-14 17:09] VITALS: BP 153/65; PULSE 116; RESP 18; TEMP 36.6; O2SAT 98; BMI 29.7
--- NOTE | 2023-01-14 17:18 | EDS_ITS ---
HPI History of Present Illness Chief Complaint: Dizziness Narrative Narrative: 87-year-old female presenting with dizziness. She states its been very bad for about 1 week but notes it started about 2 weeks ago. She is from assisted living. She supposed to have a follow-up with her primary care doctor tomorrow as well as hematology secondary to a history of lupus. Patient states her dizziness feels like lightheadedness sometimes and other times it feels like spinning. She states it can happen when she is sitting but is definitely worse when she stands and she feels off balance. She denies any recent falls. He does not have a headache or visual complaints. She does not have nausea or vomiting. No fevers or chills. Patient does report that she only like to drink about 1 glass of water a day because he only likes flavored water. She does deny chest pain and shortness of breath to me. [facility] Medical History Anxiety Arthritis Cellulitis of left ankle HTN (hypertension) Incontinence Major depressive disorder Stroke Thyroid disease Home Medications hydroxychloroquine 200 mg tablet 200 mg PO DAILY 02/09/15 [History Last Taken 03/12/18 09:15] levothyroxine 100 mcg tablet 100 mcg PO DAILY THYROID 02/09/15 [History Last Taken 03/11/18 05:01] ropinirole 1 mg tablet 1 mg PO PRN PRN RESTLESS LEGS 02/09/15 [History Last Taken 10/28/16 06:00] simvastatin 40 mg tablet 40 mg PO QHS CHOLESTEROL 02/09/15 [History Last Taken 05/01/16 22:35] coenzyme Q10 100 mg capsule 100 mg PO DAILY SUPPLEMENT 10/17/16 [History Last Taken 10/15/16] acetaminophen 500 mg tablet 1,000 mg PO Q8 PRN Pain 1-10 Or Fever 03/12/18 [History Last Taken 03/12/18 13:19] amlodipine 10 mg tablet 10 mg PO DAILY BP 05/05/19 [History Last Taken Unknown] mirabegron 25 mg tablet,extended release 24 hr (Myrbetriq) 50 mg PO DAILY 05/05/19 [History Last Taken Unknown] moexipril 15 mg-hydrochlorothiazide 25 mg tablet 1 tab PO DAILY #90 tabs 05/05/19 [History Last Taken Unknown] pantoprazole 40 mg tablet,delayed release 40 mg PO DAILY [facility] 05/05/19 [History Last Taken Unknown] B complex-C 500 mg-folic 400 mcg-zinc 23.9 mg-copper 3 mg-vit E tablet 1 ea PO DAILY 12/05/20 [History Last Taken Unknown] fluoxetine 20 mg capsule 20 mg PO DAILY 12/05/20 [History Last Taken Unknown] clotrimazole-betamethasone 1 %-0.05 % topical cream 1 applic topical BID 10 days #1 tube 07/03/22 [Rx Last Taken Unknown] citalopram 20 mg tablet 20 mg PO DAILY 01/14/23 [History Last Taken Unknown] cyanocobalamin (vitamin B-12) 1,000 mcg tablet 1,000 mcg PO DAILY 01/14/23 [History Last Taken Unknown] diclofenac potassium 50 mg tablet 50 mg PO Q8H PRN PRN Pain 01/14/23 [History Last Taken Unknown] donepezil 10 mg tablet 10 mg PO DAILY 01/14/23 [History Last Taken Unknown] ferrous sulfate 325 mg (65 mg iron) tablet 325 mg PO DAILY 01/14/23 [History Last Taken Unknown] melatonin 3 mg tablet 3 mg PO QHS 01/14/23 [History Last Taken Unknown] mv-mn-folic 200 mcg-vit K 15 mcg-lutein 5 mg-zeaxanthin 1 mg capsule (PreserVision AREDS 2 Plus Multivit) 1 cap PO BID 01/14/23 [History Last Taken Unknown] Allergy/AdvReac Type Severity Reaction Status Date / Time Sulfa (Sulfonamide Allergy Hives Verified 01/14/23 17:14 Antibiotics) adhesive tape [tape] AdvReac TEARS SKIN Verified 01/14/23 17:14 Family History Father Cancer of Lung Cancer Mother Cancer type unknown Brother Dementia Surgical History History of hand surgery History of hip replacement History of hysterectomy History of inguinal hernia repair History of knee surgery Hx of shoulder surgery Social History Smoking Status: Never smoker second hand exposure: No alcohol intake: never substance use type: does not use ROS ROS ED Constitutional Constitutional ED: Denies chills or fever(s) Eyes Eyes: Denies change in vision or diplopia ENT ENT ED: Denies rhinorrhea or sore throat Cardiovascular Cardiovascular: Denies chest pain or palpitations Respiratory/Chest Respiratory/Chest: Denies cough or dyspnea Gastrointestinal Gastrointestinal: Denies abdominal pain, melena or nausea Genitourinary Genitourinary ED: Denies dysuria or hematuria Musculoskeletal Musculoskeletal: Denies arthralgias Integumentary Denies Abrasions or rash Neurologic Neurologic: Denies headache(s) or paresthesias Psychiatric Psychiatric: Denies anxiety or depression EXAM Physical Exam Const Vital Signs: 01/14/23 17:09 01/14/23 17:12 01/14/23 18:15 Temperature 97.9 F Temperature Source Oral Pulse Rate 116 H Pulse Rate [Lying] 75 Pulse Rate [Sitting (for 1 minute prior to obtaining)] 82 Pulse Rate [Standing (for 1 minute prior to obtaining)] 88 Respiratory Rate 18 Respiratory Effort Normal Respiratory Pattern Normal Blood Pressure 153/65 H Blood Pressure [Lying] 104/70 Blood Pressure [Sitting (for 1 minute prior to obtaining)] 146/75 H Blood Pressure [Standing (for 1 minute prior to obtaining)] 149/73 H Blood Pressure Mean 94 Blood Pressure Mean [Lying] 81 Blood Pressure Mean [Sitting (for 1 minute prior to obtaining)] 98 Blood Pressure Mean [Standing (for 1 minute prior to obtaining)] 98 Pulse Ox 98 Oxygen Delivery Method Room Air 01/14/23 19:59 01/14/23 22:11 Temperature Temperature Source Pulse Rate 74 80 Pulse Rate [Lying] Pulse Rate [Sitting (for 1 minute prior to obtaining)] Pulse Rate [Standing (for 1 minute prior to obtaining)] Respiratory Rate 19 H 20 H Respiratory Effort Respiratory Pattern Blood Pressure 138/76 H 148/82 H Blood Pressure [Lying] Blood Pressure [Sitting (for 1 minute prior to obtaining)] Blood Pressure [Standing (for 1 minute prior to obtaining)] Blood Pressure Mean 96 Blood Pressure Mean [Lying] Blood Pressure Mean [Sitting (for 1 minute prior to obtaining)] Blood Pressure Mean [Standing (for 1 minute prior to obtaining)] Pulse Ox 95 92 Oxygen Delivery Method Room Air Positive well nourished General Appearance ED: NAD; Negative for pallor HEENT Reports moist mucous membranes and dry mucous membranes HEENT Narrative: Negative [place]-Hallpike Mouth ED: Yes dry mucous membranes Mouth: dry mucous membranes Eyes PERRL and EOMs intact bilaterally General Eye ED: Negative for pale conjunctiva or scleral icterus Chest Wall inspection of chest normal Resp normal respiratory effort and clear to auscultation bilaterally Auscultation: Negative for rales, rhonchi or wheezes Cardio regular rate and regular rhythm GI normal to inspection, nondistended, normoactive bowel sounds Extremity normal to inspection General Extremety ED: Yes edema General Extremity: edema Neuro oriented x3 and CN's II-XII intact bilaterally Psych mental status grossly normal Skin no rashes or lesions noted and no wounds General Skin Exam: Negative for jaundice or pallor MDM MDM MDM Narrative Medical decision making narrative: Patient presenting with lightheadedness/dizziness. This is worse when standing and ambulating. She reports no falls. On examination she has no focal neurologic deficits. She has no lateralizing signs or symptoms. She does have a negative [place]-Hallpike. Will obtain orthostatics as she reports a history of not drinking very much fluids throughout the day. She is a little tachycardic so after I obtain these I will give her some IV fluids. CBC to assess white blood cell count, hemoglobin, differential. CMP to assess liver function, renal function, glucose, anion gap. EKG to assess for dysrhythmia. High-sensitivity phone will also be added as well as a chest x-ray. Urinalysis to assess for urinary tract infection. CBC shows white blood cell count of 4.7. Hemoglobin 11.3, platelets 355. Renal function, electrolytes are normal. Slightly dehydrated with the patient with azotemia. She was given a liter of IV fluids. High-sensitivity troponin is 10. EKG on my interpretation shows sinus rhythm 75 bpm without sign ischemic change or dysrhythmia. Left bundle branch block pattern noted. Chest x-ray my interpretation shows no acute process. Radiologist are present and agrees. After IV fluids were given the patient appears to be doing much better. States her dizziness is improved. I recommended she increase her water intake. I do not believe she needs further work-up or imaging at this time. She was discharged back to her retirement. Impression: 1. Dizziness 2. Dehydration Lab Data Attestation: I reviewed the patient's lab results. Labs: Laboratory Results - last 24 hr 01/14/23 01/14/23 01/14/23 17:14 17:14 18:30 WBC 4.7 RBC 3.76 L Hgb 11.3 L Hct 34.7 L MCV 92.3 MCH 30.1 MCHC 32.6 RDW Std Deviation 40.9 RDW Coeff of Jos 12.1 Plt Count 355 MPV 9.4 Immature Gran % (Auto) 0.400 Neut % (Auto) 58.8 Lymph % (Auto) 28.1 [place] % (Auto) 10.6 H Eos % (Auto) 1.7 Baso % (Auto) 0.4 Absolute Neuts (auto) 2.8 Absolute Lymphs (auto) 1.32 Nucleated RBC % 0 Sodium 139 Potassium 4.3 Chloride 106 Carbon Dioxide 28.0 Anion Gap 5 BUN 21 H Creatinine 0.92 Estim Creat Clear Calc 36.31 Est GFR (MDRD) Af Amer 74 Est GFR (MDRD) Non-Af 61 BUN/Creatinine Ratio 22.8 H Glucose 104 Calcium 8.8 Total Bilirubin 0.40 AST 20 ALT 23 Alkaline Phosphatase 61 Troponin I High Sens 10 Total Protein 7.1 Albumin 3.1 L Globulin 4.0 Albumin/Globulin Ratio 0.8 L Urine Color Yellow Urine Clarity Clear Urine pH 6.5 Ur Specific [place] 1.010 Urine Protein Negative Urine Glucose (UA) Normal Urine Ketones Negative Urine Occult Blood Negative Urine Nitrite Negative Urine Bilirubin Negative Urine Urobilinogen Normal Ur Leukocyte Esterase Negative Urine RBC 0 SEEN Urine WBC 0 SEEN Ur Squamous Epith Cells 0 SEEN Urine Bacteria 0 SEEN Urine Mucus 0 SEEN Radiography Diagnostic Testing: Clinical Impression(s) from Imaging Studies Chest X-Ray 01/14/23 17:36 IMPRESSION: No acute cardiopulmonary disease. Electronically Signed: Blaise Early DO at 17:55 EST Reading Location ID and State: [address] [place] [address] Tel [phone], Service support , Discharge Plan Triage Chief Complaint: Dizziness ED Provider: Saúl Basilio Dx/Rx/DC Orders Instructions: ED Dizziness, Uncertain Cause Prescriptions: No Action moexipril 15 mg-hydrochlorothiazide 25 mg tablet 15-25 mg tablet 1 tab PO DAILY Qty: 90 Myrbetriq 25 mg tablet extended release 24 hr 50 mg PO DAILY clotrimazole-betamethasone 1-0.05 % cream 1 applic TOPICAL BID 10 Days Qty: 1 5RF ropinirole 1 mg concentrate 1 mg PO PRN PRN (Reason: RESTLESS LEGS) Label Comments: RESTLESS LEG SYNDROME simvastatin 40 mg concentrate 40 mg PO QHS Label Comments: CHOLESTEROL levothyroxine 100 MCG tablet 100 mcg PO DAILY Label Comments: THYROID hydroxychloroquine 200 mg concentrate 200 mg PO DAILY Label Comments: ARTHRITIS pantoprazole 40 mg tablet,delayed release (DR/EC) 40 mg PO DAILY Label Comments: ACID REFLUX amlodipine 10 mg tablet 10 mg PO DAILY Label Comments: BLOOD PRESSURE coenzyme Q10 100 MG capsule 100 mg PO DAILY acetaminophen 500 MG tablet 1,000 mg PO Q8 PRN (Reason: Pain 1-10 Or Fever) Label Comments: Pain fluoxetine 20 MG capsule 20 mg PO DAILY B [id number]-[id number]-[id number] 1 EACH tablet 1 ea PO DAILY donepezil 10 mg tablet 10 mg PO DAILY cyanocobalamin (vitamin B-12) 1,000 mcg Tablet 1,000 mcg PO DAILY melatonin 3 mg Tablet 3 mg PO QHS citalopram 20 mg tablet 20 mg PO DAILY ferrous sulfate 325 mg (65 mg iron) Tablet 325 mg PO DAILY diclofenac potassium 50 mg tablet 50 mg PO Q8H PRN PRN (Reason: Pain) PreserVision AREDS 2 Plus MV 200 mcg-15 mcg- 5 mg-1 mg Capsule 1 cap PO BID Primary Care Provider: Nikki Abbott Referrals: Nikki Abbott DO [Primary Care Provider] - Disposition Disposition: Home, Self Care Discharge Date/Time: 01/14/23 22:17
[2023-01-14 17:26] LABS: Absolute Lymphocyte Count 1.32 X10^3/uL (0.83-4.51); Absolute Neutrophil Count 2.8 X10^3/uL (2.0-7.7); Basophil# 0.02 X10^3/uL; Basophil% 0.4 % (0-1); Eosinophil# 0.08 X10^3/uL; Eosinophils% 1.7 % (0-5); Hematocrit 34.7 % (37-47); Hemoglobin 11.3 g/dL (12.0-15.0); Lymphocyte # 1.32 X10^3/ul (0.83-4.51); Lymphocyte % 28.1 % (19-41); Mean Corp Hgb Conc 32.6 g/dL (32-36); Mean Corpuscular Hgb 30.1 pg (27.0-32.0); Mean Corpuscular Volume 92.3 fL (81-99); Mean Platelet Vol. 9.4 fl (6.2-12.0); Monocyte% 10.6 % (0-10); NRBC Flagged by Analyzer 0 % (0-5); Neutrophil # 2.76 X10^3/uL (2.7-7.7); Neutrophil % 58.8 % (47-70); Platelet Count 355 K/mm3 (150-450); RBC Distribution Width CV 12.1 % (11.6-14.6); RBC Distribution Width SD 40.9 fl (35.1-43.9); Red Blood Count 3.76 M/mm3 (4.2-5.4); White Blood Count 4.7 K/mm3 (4.4-11.0)
--- NOTE | 2023-01-14 17:36 | RAD_ITS ---
STUDY: X-RAY CHEST REASON FOR EXAM: Female, 87 years old. Dizziness. TECHNIQUE: Single AP portable view of the chest. COMPARISON: CT of the chest, March 21, 2022. FINDINGS: The lungs are clear and expanded. There is no demonstrated pleural abnormality. Normal size heart. Normal mediastinum and agustín. Normal visualized pulmonary arteries. There is atherosclerotic calcification of the aortic arch with tortuosity. Dextroscoliosis and degenerative changes of the thoracic spine. Bilateral shoulder replacements. There is no demonstrated abnormality of the visualized soft tissue structures of the upper abdomen. RAD/Chest 1 View (Portable) IMPRESSION: No acute cardiopulmonary disease. Electronically Signed: Blaise Early DO at 17:55 EST ,
[2023-01-14 17:49] LABS: ALB/GLOB Ratio 0.8 RATIO (0.9-2.4); AST(SGOT) 20 U/L (15-37); Alanine Aminotransfer ALT/SGPT 23 U/L (13-56); Albumin, Serum 3.1 g/dL (3.2-5.0); Alkaline Phosphatase 61 U/L (45-117); Anion Gap 5 (5-15); BUN 21 mg/dL (7-18); BUN/Creat Ratio 22.8 RATIO (10-20); Calcium,Total 8.8 mg/dL (8.5-10.1); Chloride 106 mmol/L (98-107); Creatinine, Serum 0.92 mg/dL (0.55-1.02); EST Glomerular Filtration Rate 61 mL/min (>60); Est Glom Filt Rate - Afr Amer 74 mL/min (>60); Estimated Creatinine Clearance 36.31 ml/min; Glucose 104 mg/dL (74-106); Potassium 4.3 mmol/L (3.5-5.1); Protein, Total 7.1 g/dL (6.4-8.2); Sodium Level 139 mmol/L (136-145); Troponin-I HS 10 pg/mL (3.0-54.0)
[2023-01-14 18:15] VITALS: BP 104/70; BP 146/75; BP 149/73; PULSE 75; PULSE 82; PULSE 88
[2023-01-14 18:35] LABS: Bacteria 0 SEEN /hpf (None Seen); Mucous, Urine 0 SEEN /hpf (<or=2+); Red Blood Cells-Urine 0 SEEN /hpf (0-5); Squamous Epithelial Cells - UA 0 SEEN /hpf (5-10); White Blood Cells 0 SEEN /hpf (0-5)
[2023-01-14 19:13] LABS: Color, Urine Yellow (Yellow); Glucose, Dipstick Normal (Normal); Ketone-Dipstick Negative (Negative); Leukocyte Esterase-Dipstick Negative /ul (Negative); Nitrite-Dipstick Negative (Negative); Occult Blood-Urine Negative /ul (Negative); Protein-Dipstick Negative (Negative); Urine Bilirubin Dipstick Negative (Negative); Urine Clarity Clear (Clear); Urine Urobilinogen Normal (Normal); Urine pH 6.5 (5.0 - 8.0)
[2023-01-14 19:59] VITALS: BP 138/76; PULSE 74; RESP 19; O2SAT 95
[2023-01-14] MEDS: 0.9% Normal Saline 1,000 ML 999 ML IV (19:59)
[2023-01-14 22:11] VITALS: BP 148/82; PULSE 80; RESP 20; O2SAT 92
== END 2023-01-14 22:17 | disposition home or self-care (01) ==
PROVIDERS: Emergency Provider Student in an Organized Health Care Education/Training Program; PCP Family Medicine; Visit Provider Student in an Organized Health Care Education/Training Program
DX: R42 Dizziness and giddiness (principal); E86.0 Dehydration; E07.9 Disorder of thyroid, unspecified; Z86.73 Personal history of transient ischemic attack (TIA), and cerebral infarction without residual deficits; Z79.899 Other long term (current) drug therapy
CPT/HCPCS: 71045; 80053; 81001; 84484; 85025; 93005; 99285; J7030; A4216

== ENCOUNTER → 2023-01-28 | Outpatient (CLI) | payer MEDICARE, SELFPAY ==
--- NOTE | 2023-01-28 08:12 | CDU_ITS ---
Reason For Study: Dizziness Rt. Velocities/BP Lt. Velocities/BP Prox CCA 31.6/5.6 cm/sec. Prox CCA 77.7/16.3 cm/sec. Mid CCA 56.4/12.3 cm/sec. Mid CCA 87.6/15.1 cm/sec. Dist CCA 50.0/10.9 cm/sec. Dist CCA 86.3/13.9 cm/sec. Prox ICA 47.5/11.6 cm/sec. Prox ICA 75.3/15.1 cm/sec. Mid ICA 70.2/14.5 cm/sec. Mid ICA 81.4/21.2 cm/sec. Dist ICA 106.0/22.5 cm/sec. Dist ICA 66.7/20.0 cm/sec. Rt. ICA/CCA = 1.9. Lt. ICA/CCA = 0.9. Prox ECA 178.5/13.8 cm/sec. Prox ECA 102.3/7.7 cm/sec. Rt. Vert. 35.8/8.8 cm/sec. Lt. Vert. 37.9/9.7 cm/sec. Right Extracranial There is heterogeneous, irregular atherosclerotic plaque noted in the right common carotid artery. There is heterogeneous, irregular atherosclerotic plaque noted in the right internal carotid artery. The atherosclerotic plaque causes acoustic shadowing. The right internal carotid artery is very tortuous. There is heterogeneous, irregular atherosclerotic plaque noted in the right external carotid artery. Antegrade flow is noted in the right vertebral artery. Left Extracranial There is heterogeneous, irregular atherosclerotic plaque noted in the left common carotid artery. There is heterogeneous, irregular atherosclerotic plaque noted in the left internal carotid artery. The atherosclerotic plaque causes acoustic shadowing. The left internal carotid artery is very tortuous. There is heterogeneous, irregular atherosclerotic plaque noted in the left external carotid artery. Antegrade flow is noted in the left vertebral artery. Procedure Carotid Duplex [id number]. This is a Carotid Duplex examination using B-mode, color flow and specral Doppler. The exam was diagnostic. Exam performed in department. VL/Carotid Duplex Ultrasound Interpretation Summary Calcific plaque with shadowing at the proximal right internal carotid artery wi th less than 50% stenosis Less than 50% stenosis right external carotid artery Calcific plaque with shadowing at the proximal left internal carotid artery wit h less than 50% stenosis Less than 50% stenosis left external carotid artery Patent and antegrade vertebral arteries bilaterally Bilateral internal carotid arteries are noted to be very tortuous. Ordering Physician: Bernard Vazquez Referring Physician: Nikki Abbott Performed By: Romeo Bo RVT
--- NOTE | 2023-01-28 08:12 | ECHOD_ITS ---
Reason For Study: MURMUR Procedure This was a 2D Doppler, Color Flow transthoracic echocardiogram. Technically difficult study due to uncooperative patient. Bubble study declined due to pt feeling dizzy. Exam performed in department. Left Ventricle Normal size and thickness. The left ventricular ejection fraction is 45 %. Diastolic function is indeterminate. Moderate septal hypokinesis. Right Ventricle Normal right ventricle. Atria Normal left atrium. Prominent eustachian valve. Lipomatous hypertrophy of the atrial septum. Cannot rule out tiny PFO. Mitral Valve Moderate focal mitral valve calcification. Mild (1+) mitral valve insufficiency. Tricuspid Valve Mild tricuspid valve insufficiency. Pulmonary artery systolic pressure is 47 mmHg. Moderate pulmonary hypertension. Aortic Valve The aortic valve is not well visualized in the short axis view. Mild focal aortic valve calcification. Mild aortic stenosis. Mild-Moderate (1-2+) aortic valve insufficiency. Pulmonic Valve The pulmonic valve is not well visualized. Mild (1+) pulmonic valve insufficiency. Great Vessels Normal sized aortic root. Pericardium/Pleural No pericardial effusion. MMode/2D Measurements & Calculations RVDd: 4.0 cm LVOT diam: 2.1 cm Ao root diam: 3.2 cm LVOT area: 3.6 cm2 LAV(MOD-bp): 46.8 ml SV(MOD-sp4): 25.9 ml LVAd ap4: 23.8 cm2 LAV(MOD-bp) Indexed: 26.4 ml/m2 LVLd ap4: 7.7 cm LAV(MOD-sp2): 37.0 ml EDV(MOD-sp4): 62.3 ml LAV(MOD-sp4): 53.9 ml EDV(sp4-el): 62.6 ml LVAs ap4: 17.3 cm2 LVLs ap4: 6.9 cm ESV(MOD-sp4): 36.4 ml ESV(sp4-el): 36.6 ml EF(MOD-sp4): 41.6 % EF(sp4-el): 41.4 % SV(sp4-el): 25.9 ml LA A4 area: 21.8 cm2 LA dimension(2D): 4.1 cm RA A4 area: 17.7 cm2 Time Measurements MV dec time: 0.27 sec Doppler Measurements & Calculations MV E max orestes: 83.0 cm/sec Lat Peak E' Orestes: 5.2 cm/sec Med Peak E' Orestes: 5.0 cm/sec MV A max orestes: 131.5 cm/sec E/E' lat: 16.0 E/E' med: 16.7 MV E/A: 0.63 MV V2 max: 154.0 cm/sec MV dec slope: 303.7 cm/sec2 Ao V2 max: 176.8 cm/sec MV max P.5 mmHg Ao max P.5 mmHg MV V2 mean: 79.3 cm/sec Ao V2 mean: 135.2 cm/sec MV mean P.2 mmHg Ao mean P.9 mmHg MV V2 VTI: 28.7 cm Ao V2 VTI: 35.0 cm MVA(VTI): 3.3 cm2 AV (velocity ratio): 0.75 JOCELYN(I,D): 2.7 cm2 JOCELYN(V,D): 2.7 cm2 AI max orestes: 434.6 cm/sec LV V1 max: 134.1 cm/sec MR max orestes: 538.7 cm/sec AI max P.6 mmHg LV V1 max P.2 mmHg MR max P.1 mmHg AI dec slope: 405.0 cm/sec2 LV V1 mean P.4 mmHg AI P1/2t: 314.3 msec LV V1 mean: 97.7 cm/sec LV V1 VTI: 26.4 cm SV(LVOT): 95.7 ml PA V2 max: 110.0 cm/sec TR max orestes: 324.1 cm/sec PA V2 mean: 80.9 cm/sec TR max P.0 mmHg ECHO/Echo Complete Interpretation Summary The left ventricular ejection fraction is 45 %. Diastolic function is indeterminate. Moderate septal hypokinesis Cannot rule out tiny PFO. Lipomatous hypertrophy of the atrial septum. Moderate focal mitral valve calcification. Mild (1+) mitral valve insufficiency. Mild tricuspid valve insufficiency. Moderate pulmonary hypertension. Mild-Moderate (1-2+) aortic valve insufficiency. Mild aortic stenosis. Ordering Physician: Bernard Vazquez Physician: Bernard Vazquez Performed By: Merry Vang RCS
== END | disposition home or self-care (01) ==
LOC: CVS 08:11
PROVIDERS: PCP Family Medicine; Referring Provider Family Medicine; Visit Provider Family Medicine
DX: R42 Dizziness and giddiness (principal); R01.1 Cardiac murmur, unspecified
CPT/HCPCS: 93306; 93880

== ENCOUNTER → 2024-07-06 22:30 | Outpatient (REF) | payer MEDICARE, SELFPAY ==
[2024-07-07 08:03] LABS: Bacteria 0 SEEN /hpf (None Seen); Mucous, Urine 0 SEEN /hpf (<or=2+); Red Blood Cells-Urine 0 SEEN /hpf (0-5); Squamous Epithelial Cells - UA 0 SEEN /hpf (5-10); White Blood Cells 0 SEEN /hpf (0-5)
[2024-07-07 08:31] LABS: Color, Urine Yellow (Yellow); Glucose, Dipstick Normal (Normal); Ketone-Dipstick Negative (Negative); Leukocyte Esterase-Dipstick Negative /ul (Negative); Nitrite-Dipstick Negative (Negative); Occult Blood-Urine Negative /ul (Negative); Protein-Dipstick Negative (Negative); Urine Bilirubin Dipstick Negative (Negative); Urine Clarity Clear (Clear); Urine Urobilinogen Normal (Normal); Urine pH 6.5 (5.0 - 8.0)
== END ==
LOC: OLS.SWAL 22:30
PROVIDERS: PCP Family Medicine; Visit Provider Family Medicine
DX: N39.0 Urinary tract infection, site not specified (principal); R30.0 Dysuria
CPT/HCPCS: 81001; 87086

== ENCOUNTER 2025-01-21 10:45 | Inpatient (IN) | payer MEDICARE, SELFPAY ==
[2025-01-21] VITALS (9 sets, daily range): BP systolic 120–149; BP diastolic 60–87; PULSE 80–105; RESP 16–24; TEMP 36.6–37.2; O2SAT 87–98; BMI 28.7; BMI 27.6
--- NOTE | 2025-01-21 11:02 | RAD_ITS ---
PROCEDURE: Chest radiograph REASON FOR EXAM: SHORTNESS OF BREATH, HYPOXIA TECHNIQUE: Frontal view of the chest. COMPARISON: 01/14/2023 FINDINGS: Mild cardiomegaly. Mild patchy bilateral interstitial and alveolar opacities, slightly greater on the right. No sizable pleural effusion or pneumothorax. Bilateral shoulder prostheses. Degenerative changes of the spine. Dextroscoliosis. RAD/Chest 1 View (Portable) IMPRESSION: Bilateral perihilar interstitial/alveolar opacities which may relate to an infe ctious/inflammatory process and/or edema. Reading Location: [facility]
--- NOTE | 2025-01-21 11:02 | EKG12_ITS ---
Test Reason : Blood Pressure : */* mmHG Vent. Rate : 86 BPM Atrial Rate : 86 BPM P-R Int : 144 ms QRS Dur : 144 ms QT Int : 416 ms P-R-T Axes : -11 -9 121 degrees QTcB Int : 497 ms Sinus rhythm with Premature atrial complexes Left bundle branch block Abnormal ECG Confirmed by RENÉ SANCHEZ, JOY ([id number]), research editor HENRY MONTANO ([id number]) on 01/23/2025 8:16:23 AM Referred By: OSIEL Confirmed By: JOY MERRITT MD
--- NOTE | 2025-01-21 11:03 | EDS_ITS ---
HPI History of Present Illness Chief Complaint: Shortness of Breath Narrative Narrative: 89-year-old female past medical history of hypertension hypothyroid presents via EMS with shortness of breath and hypoxia. She relates history that she is felt fatigued and mildly short of breath over the last few days. She lives in assisted living at [facility] and has been there for 3 years. Her niece who is at the bedside states that last evening, patient became hypoxic. She required oxygen. Per EMS, every time oxygen is removed, patient will desaturate. She denies any fevers or chills but states she has had a cough that is nonproductive for the last few days. No leg swelling. No chest pain, nausea, vomiting, or other symptoms. [facility] Medical History Anxiety Major depressive disorder Cellulitis of left ankle Incontinence Thyroid disease Stroke HTN (hypertension) Arthritis Home Medications ?Medication ?Instructions ?Recorded ?Last Taken ?Type hydroxychloroquine 200 mg tablet 200 mg PO DAILY 02/0903/12/18 09:15 History levothyroxine 100 mcg tablet 100 mcg PO DAILY THYROID 02/09/15 03/11/18 05:01 History ropinirole 1 mg tablet 1 mg PO PRN PRN RESTLESS LEG S 02/09/15 10/28/16 06:00 History simvastatin 40 mg tablet 40 mg PO QHS CHOLESTEROL 01/2105/01/16 22:35 History coenzyme Q10 100 mg capsule 100 mg PO DAILY SUPPLEMENT 10/17/16 10/15/16 History acetaminophen 500 mg tablet 1,000 mg PO Q8 PRN Pain 1- 10 Or 03/12/18 03/12/18 13:19 History Fever amlodipine 10 mg tablet 10 mg PO DAILY BP 05/05/19 U nknown History mirabegron 25 mg tablet,extended 50 mg PO DAILY Unknown History release 24 hr (Myrbetriq) moexipril 15 1 tab PO DAILY #90 tabs 04/10 05/27 Unknown History mg-hydrochlorothiazide 25 mg tablet pantoprazole 40 mg tablet,delayed 40 mg PO DAILY [employer] 05/05/19 Unknown History release B complex-C 500 mg-folic 400 1 ea PO DAILY 12/05/20 Un known History mcg-zinc 23.9 mg-copper 3 mg-vit E tablet fluoxetine 20 mg capsule 20 mg PO DAILY 12/05/20 Unkn own History citalopram 20 mg tablet 20 mg PO DAILY 01/14/23 Unkn own History cyanocobalamin (vitamin B-12) 1,000 mcg PO DAILY 01/14 Unknown History 1,000 mcg tablet diclofenac potassium 50 mg tablet 50 mg PO Q8H PRN PRN Pain 01/14/23 Unknown History donepezil 10 mg tablet 10 mg PO DAILY 01/14/23 Unkn own History ferrous sulfate 325 mg (65 mg 325 mg PO DAILY 01/14/23 Unknown History iron) tablet melatonin 3 mg tablet 3 mg PO QHS 01/14/23 Unknown History mv-mn-folic 200 mcg-vit K 15 1 cap PO BID 01/14/23 Unk nown History mcg-lutein 5 mg-zeaxanthin 1 mg capsule (PreserVision AREDS 2 Plus Multivit) clotrimazole-betamethasone 1 1 applic topical BID 10 d ays #1 05/26/23 Unknown Rx %-0.05 % topical cream tube Allergy/AdvReac Type Severity Reaction Status Date / Time Sulfa (Sulfonamide Allergy Hives Verified 02/04/24 11:21 Antibiotics) adhesive tape (tape) AdvReac TEARS SKIN Verified 02/04/24 11:21 Family History Father Cancer of Lung Cancer Mother Cancer type unknown Brother Dementia Surgical History History of hand surgery History of inguinal hernia repair History of hysterectomy History of hip replacement Hx of shoulder surgery History of knee surgery Social History Smoking Status: Never smoker second hand exposure: No alcohol intake: never substance use type: does not use ROS ROS ED ROS Narrative Review of systems positive for nonproductive cough, shortness of breath, and fatigue. No fevers or chills, no nausea or vomiting, no chest pain. No abdominal pain, no other symptoms. No increased leg swelling. EXAM Physical Exam Narrative Exam Narrative: Afebrile. Vital signs noted. Nontoxic-appearing. Speaking in full sentences. No accessory muscle use. Cardiovascular examination reveals a regular rate and rhythm. On auscultation, positive rhonchi throughout bilateral lung navarrete e specially at the bases. Abdomen is soft and nontender with normoactive bowel sounds. No appreciable pedal edema. Neurological examination is nonfocal and nonlateralizing. Const Vital Signs: 01/21/25 10:46 01/21/25 10:46 01/21/25 11:02 Temperature 98.2 F Temperature Source Oral Pulse Rate 84 Respiratory Rate 16 Respiratory Effort Normal Non-Labored Respiratory Depth Normal Respiratory Pattern Normal Blood Pressure 140/65 H Blood Pressure Mean 90 Pulse Ox 87 96 Oxygen Delivery Method Room Air Nasal Cannula Nasal Cannula Oxygen Flow Rate (L/min) 2 2 01/21/25 11:15 01/21/25 11:46 01/21/25 12:00 Temperature Temperature Source Pulse Rate 82 80 82 Respiratory Rate 20 H 24 H 18 Respiratory Effort Respiratory Depth Respiratory Pattern Normal Blood Pressure 124/60 H 120/70 Blood Pressure Mean 81 86 Pulse Ox 96 96 Oxygen Delivery Method Nasal Cannula Room Air Oxygen Flow Rate (L/min) 01/21/25 12:41 Temperature 98.9 F Temperature Source Pulse Rate 82 Respiratory Rate 18 Respiratory Effort Respiratory Depth Respiratory Pattern Blood Pressure 120/70 Blood Pressure Mean 86 Pulse Ox 96 Oxygen Delivery Method Oxygen Flow Rate (L/min) MDM MDM MDM Narrative Medical decision making narrative: Differential diagnosis includes but not limited to bronchitis versus CHF versus pneumonia. I have low suspicion for pulmonary embolism. Patient is hypoxic here currently. She will be given a DuoNeb aerosolized treatment. Comp rehensive workup was pursued. EKG was obtained and interpreted by myself independently as normal sinus rhythm with PACs at 86 bpm. There is a left bundle branch block. No acute ST changes. No STEMI. I reviewed her laboratory work and she has a normal white count of 5.8 with hemoglobin stable at 9.5, hematocrit 28.8, platelet count normal at 273. Electrolyte panel is significant for a slightly elevated BUN of 22 who with a creatinine of 0.79. BNP is elevated at 1236. Chest x-ray interpreted by myself independently shows bilateral interstitial opacities which could be pneumonia versus edema. I did review her last echocardiogram which was from 2022 and she had an EF of 45%. There was moderate septal hypokinesis and they could not rule out tiny PFO. I tend to favor CHF as a cause of her rhonchi over pneumonia as she does not have a white count or fever here. Additionally, her COVID, influenza, and RSV swabs are negative. As she was hypoxic at 87%, I will discuss patient with the hospitalist for admission. She was given Lasix 40 mg intravenously. I discussed patient with Dr. Montiel. Disposition is admit to the PCU in stable condition. History & Record Review Discussion w/independent historian: Patient and Family Lab Data Attestation: I reviewed the patient's lab results. Labs: Laboratory Results - last 24 hr 01/21/25 11:05 WBC 5.8 RBC 3.13 L Hgb 9.5 L Hct 28.8 L MCV 92.0 MCH 30.4 MCHC 33.0 RDW Std Deviation 44.7 H RDW Coeff of Jos 13.3 Plt Count 273 MPV 9.8 Immature Gran % (Auto) 0.200 Neut % (Auto) 72.8 H Lymph % (Auto) 14.1 L Rains % (Auto) 9.6 Eos % (Auto) 2.6 Baso % (Auto) 0.7 Absolute Neuts (auto) 4.3 Absolute Lymphs (auto) 0.82 L Nucleated RBC % 0 Sodium 143 Potassium 3.3 Chloride 104 Carbon Dioxide 24.3 Anion Gap 14 BUN 22 H Creatinine 0.79 Estim Creat Clear Calc 45.63 L Est GFR (MDRD) Non-Af 72 BUN/Creatinine Ratio 27.6 H Glucose 92 Calcium 7.5 L NT pro BNP II 1236 Radiography Diagnostic Testing: Clinical Impression(s) from Imaging Studies Chest X-Ray 01/21/25 11:02 IMPRESSION: Bilateral perihilar interstitial/alveolar opacities which may relate to an infectious/inflammatory process and/or edema. Reading Location: [facility] Discharge Plan Dx/Rx/DC Orders Clinical Impression: SOB (shortness of breath), Hypoxemia, Congestive heart failure Disposition Disposition: Acute Care Hospital [facility]
[2025-01-21 11:16] LABS: Absolute Lymphocyte Count 0.82 X10^3/uL (0.83-4.51); Absolute Neutrophil Count 4.3 X10^3/uL (2.0-7.7); Basophil# 0.04 X10^3/uL; Basophil% 0.7 % (0-1); Eosinophil# 0.15 X10^3/uL; Eosinophils% 2.6 % (0-5); Hematocrit 28.8 % (37-47); Hemoglobin 9.5 g/dL (12.0-15.0); Lymphocyte # 0.82 X10^3/ul (0.83-4.51); Lymphocyte % 14.1 % (19-41); Mean Corpuscular Hgb 30.4 pg (27.0-32.0); Mean Platelet Vol. 9.8 fl (6.2-12.0); Monocyte# 0.56 X10^3/uL; Monocyte% 9.6 % (0-10); NRBC Flagged by Analyzer 0 % (0-5); Neutrophil # 4.25 X10^3/uL (2.7-7.7); Neutrophil % 72.8 % (47-70); Platelet Count 273 K/mm3 (150-450); RBC Distribution Width CV 13.3 % (11.6-14.6); RBC Distribution Width SD 44.7 fl (35.1-43.9); Red Blood Count 3.13 M/mm3 (4.2-5.4); White Blood Count 5.8 K/mm3 (4.4-11.0)
[2025-01-21] MEDS: Ipratropium/Albuterol Sulfate 3 ML AMPUL.NEB INHALATION (11:24)
[2025-01-21 11:45] LABS: Anion Gap 14 (5-15); BUN 22 mg/dL (4-19); BUN/Creat Ratio 27.6 RATIO (10-20); Calcium,Total 7.5 mg/dL (7.6-11.0); Carbon Dioxide 24.3 mmol/L (21.0-32.0); Chloride 104 mmol/L (98-108); Creatinine, Serum 0.79 mg/dL (0.70-1.20); EST Glomerular Filtration Rate 72 (>60); Estimated Creatinine Clearance 45.63 ml/min (50-250); Glucose 92 mg/dL (70-99); Potassium 3.3 mmol/L (3.3-5.1); Pro- Brain NATRIURETIC PEPTIDE 1236 pg/mL (<=1800); Sodium Level 143 mmol/L (133-145)
[2025-01-21] MEDS: Furosemide 40 MG/4 ML Vial IV (12:50)
--- NOTE | 2025-01-21 13:23 | PCM.HP.STD ---
HPI - General General Date of Admission: 01/21/25 HPI Narrative LILIANA CRUZ, is a 89 F who presents to the hospital with increased shortness of breath. She was found to be hypoxic last evening so she was brought into the hospital today and she was found to be 87% on room air in the ER and placed on 2 L nasal cannula with good response. She states that she has noticed some fatigue and shortness of breath over the last couple of days, she lives at the assisted living at the [facility]. She does have a history of reduced EF to 45% on echo a few years ago and chest x-ray is consistent with edema. She denies any fevers or chills, and there is no leukocytosis on lab work. Her proBNP is not elevated, and she was given a dose of Lasix in the ER. Viral panel in the ER was also negative. [facility] Medical History Anxiety Major depressive disorder Cellulitis of left ankle Incontinence Thyroid disease Stroke HTN (hypertension) Arthritis Home Medications ?Medication ?Instructions ?Recorded ?Last Taken ?Type levothyroxine 100 mcg tablet 100 mcg PO DAILY THYROID 02/09/15 03/11/18 05:01 History ropinirole 1 mg tablet 1 mg PO QHS PRN RESTLESS LEGS 02/09/15 10/28/16 06:00 History simvastatin 40 mg tablet 40 mg PO QHS CHOLESTEROL 02/09/15 05/01/16 22:35 History coenzyme Q10 100 mg capsule 100 mg PO DAILY SUPPLEMENT 10/17/16 10/15/16 History moexipril 15 1 tab PO DAILY #90 tabs 05/05/19 Unknown History mg-hydrochlorothiazide 25 mg tablet pantoprazole 40 mg tablet,delayed 40 mg PO DAILY [employer] 05/05/19 Unknown History release cyanocobalamin (vitamin B-12) 1,000 mcg PO DAILY 01/14/23 Unknown History 1,000 mcg tablet diclofenac potassium 50 mg tablet 50 mg PO Q8H PRN Pain 01/14/23 Unknown History ferrous sulfate 325 mg (65 mg 325 mg PO DAILY 01/14/23 Unknown History iron) tablet melatonin 3 mg tablet 3 mg PO QHS 01/14/23 Unknown History mv-mn-folic 200 mcg-vit K 15 1 cap PO BID 01/14/23 Unknown History mcg-lutein 5 mg-zeaxanthin 1 mg capsule (PreserVision AREDS 2 Plus Multivit) acetaminophen 325 mg tablet 650 mg PO Q4H PRN fever or pain 01/21/25 Unknown History amlodipine 5 mg tablet 5 mg PO DAILY 01/21/25 Unknown History benzonatate 100 mg capsule 100 mg PO TID PRN cough 01/21/25 Unknown History cholecalciferol (vitamin D3) 50 50 mcg PO DAILY 01/21/25 Unknown History mcg (2,000 unit) tablet (D3 DOTS) dibucaine 1 % topical ointment 1 applic topical TID PRN 01/21/25 Unknown History hemorrhoids doxylamine-dextromethorphan 3.125 20 ml PO Q6H PRN cough 01/21/25 Unknown History mg-7.5 mg/5 mL oral liquid (Robitussin Nighttime Cough DM) hydrocortisone 0.5 % topical cream 1 applic topical Q8H PRN rash 01/21/25 Unknown History hydrocortisone 1 %-pramoxine 1 % 1 applic ND TID PRN hemorrhoids 01/21/25 Unknown History rectal foam (Proctofoam HC) loratadine 10 mg tablet 10 mg PO DAILY 01/21/25 Unknown History (Allerclear) meclizine 25 mg tablet 25 mg PO TID PRN dizziness 01/21/25 Unknown History memantine 28 mg capsule 28 mg PO DAILY 01/21/25 Unknown History sprinkle,extended release 24hr mirabegron 50 mg tablet,extended 50 mg PO DAILY 01/21/25 Unknown History release 24 hr (Myrbetriq) nystatin 100,000 unit/gram topical 1 applic topical Q12H PRN skin 01/21/25 Unknown History powder irritation ofloxacin 0.3 % eye drops 1 drp ophthalmic (eye) Q2H 01/21/25 Unknown History triamcinolone acetonide 0.1 % 1 applic topical DAILY PRN rash 01/21/25 Unknown History topical cream triamcinolone acetonide 55 mcg 2 spray intranasal DAILY 01/21/25 Unknown History nasal spray aerosol (24 Hour Nasal Allergy) Allergy/AdvReac Type Severity Reaction Status Date / Time Sulfa (Sulfonamide Allergy Hives Verified 02/04/24 11:21 Antibiotics) adhesive tape (tape) AdvReac TEARS SKIN Verified 02/04/24 11:21 Family History Father Cancer of Lung Cancer Mother Cancer type unknown Brother Dementia Surgical History History of hand surgery History of inguinal hernia repair History of hysterectomy History of hip replacement Hx of shoulder surgery History of knee surgery Social History Smoking Status: Never smoker second hand exposure: No alcohol intake: never substance use type: does not use ROS Constitutional Constitutional: Denies chills, fatigue, fever(s) or malaise Eyes Eyes: Denies blurry vision ENT HEENT: Denies headache(s) or nasal discharge Cardiovascular Cardiovascular: Reports dyspnea on exertion; Denies chest pain or syncope Respiratory/Chest Respiratory/Chest: Reports shortness of breath at rest; Denies cough or shortness of breath with exertion Gastrointestinal Gastrointestinal: Denies constipation, diarrhea, nausea or vomiting Genitourinary Genitourinary: Denies dysuria Neurologic Neurologic: Denies focal weakness, numbness or tremor(s) Psychiatric Psychiatric: Denies anxiety or depression Vital Signs Vital Signs Vital Signs: 01/21/25 10:46 01/21/25 10:46 01/21/25 11:02 Temperature 98.2 F Temperature Source Oral Pulse Rate 84 Respiratory Rate 16 Respiratory Effort Normal Non-Labored Respiratory Depth Normal Respiratory Pattern Normal Blood Pressure 140/65 H Blood Pressure Mean 90 Pulse Ox 87 96 Oxygen Delivery Method Room Air Nasal Cannula Nasal Cannula Oxygen Flow Rate (L/min) 2 2 01/21/25 11:15 01/21/25 11:46 01/21/25 12:00 Temperature Temperature Source Pulse Rate 82 80 82 Respiratory Rate 20 H 24 H 18 Respiratory Effort Respiratory Depth Respiratory Pattern Normal Blood Pressure 124/60 H 120/70 Blood Pressure Mean 81 86 Pulse Ox 96 96 Oxygen Delivery Method Nasal Cannula Room Air Oxygen Flow Rate (L/min) 01/21/25 12:41 01/21/25 13:00 Temperature 98.9 F Temperature Source Pulse Rate 82 84 Respiratory Rate 18 24 H Respiratory Effort Respiratory Depth Respiratory Pattern Blood Pressure 120/70 140/80 H Blood Pressure Mean 86 100 Pulse Ox 96 98 Oxygen Delivery Method Oxygen Flow Rate (L/min) Weight Weight: 162 lb 0.636 oz Body Mass Index (BMI) 28.7 Physical Exam Narrative General: Alert, Oriented x3, Cooperative, No apparent distress HEENT: Atraumatic, PERRLA, EOMI, Normocephalic Oral: Moist Mucosa Neck: Supple, No JVD Lungs: Diminished, Normal air movement, No rhonchi, No wheeze, No rales Cardiovascular: Tachycardic, Regular Rhythm, Normal S1, Normal S2, No murmurs Abdomen: Soft, Non Tender, Non-Distended, No Hepato-splenomegaly Extremities: Trace edema, Capillary Refill Less than 3 Seconds Skin: No rashes, No breakdown Musculoskeletal: No Tenderness to Palpation of Joints or Extremities Neurological: No focal neurological deficits, moves all extremities Psych/Mental Status: Normal Affect, Appropriate Results Lab / Micro Data 01/21/25 11:05 01/21/25 11:05 Labs: Laboratory Results - last 24 hr 01/21/25 11:05: WBC 5.8, RBC 3.13 L, Hgb 9.5 L, Hct 28.8 L, MCV 92.0, MCH 30.4, MCHC 33.0, RDW Std Deviation 44.7 H, RDW Coeff of Jos 13.3, Plt Count 273, MPV 9.8, Immature Gran % (Auto) 0.200, Neut % (Auto) 72.8 H, Lymph % (Auto) 14.1 L, Lyman % (Auto) 9.6, Eos % (Auto) 2.6, Baso % (Auto) 0.7, Absolute Neuts (auto) 4.3, Absolute Lymphs (auto) 0.82 L, Nucleated RBC % 0, Sodium 143, Potassium 3.3, Chloride 104, Carbon Dioxide 24.3, Anion Gap 14, BUN 22 H, Creatinine 0.79, Estim Creat Clear Calc 45.63 L, Est GFR (MDRD) Non-Af 72, BUN/Creatinine Ratio 27.6 H, Glucose 92, Calcium 7.5 L, NT pro BNP II 1236 Micro: Microbiology 01/21/25 11:12 Mucosa - Nose SARS-CoV-2, Influenza & RSV (PCR) - Final Imaging Radiology Impression Chest X-Ray 01/21/25 11:02 IMPRESSION: Bilateral perihilar interstitial/alveolar opacities which may relate to an infectious/inflammatory process and/or edema. Reading Location: [facility] Assessment & Plan Assessment/Plan (1) Congestive heart failure: (2) Hypoxemia: PLAN: Plan 1. Acute hypoxic respiratory insufficiency secondary to acute on chronic systolic CHF/essential HTN/HLD ? Continue with IV Lasix 40 mg daily ? Will recheck an echo ? Can resume her home blood pressure medications ? 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 Continue with Plaquenil ? 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 Hypothyroidism ? Stable ? Continue with Synthroid ? Will check a TSH 4. GERD ? Stable ? Continue with PPI 5. Anxiety/depression/dementia ? Stable ? Continue with her home medications DVT: Lovenox 75 minutes was spent on direct patient care, including documentation as well as chart review and collaboration with colleagues Charges/Coding Visit Charges Inpatient E&M: 09968 Init Hosp L3
--- NOTE | 2025-01-21 13:38 | ECHOD_ITS ---
Reason For Study Reason For Study: CHF Procedure This was a 2D Doppler, Color Flow transthoracic echocardiogram. Exam performed portable in patient room. Left Ventricle Normal LV size. Moderate eccentric left ventricular hypertrophy. Stage 1 diastolic dysfunction. The left ventricular ejection fraction is 30 %. There is moderate to severe global hypokinesis of the left ventricle. Right Ventricle Normal RV size. Normal systolic function. Atria The left atrium is moderately enlarged. Prominent eustachian valve. Mitral Valve There is moderate mitral annular calcification. Bileaflet diffuse mitral valve thickening. Mild (1+) eccentric mitral valve insufficiency. Tricuspid Valve Normal tricuspid valve. Aortic Valve Trisinus/trileaflet aortic valve. Mild (1+) aortic valve insufficiency. Pulmonic Valve Normal pulmonic valve. Great Vessels Normal aortic root. The pulmonary artery is normal size. Inferior vena cava collapse with respiration. Pericardium/Pleural No pericardial effusion. MMode/2D Measurements & Calculations LVIDd: 4.0 cm IVSd: 1.7 cm LVOT diam: 2.0 cm LVIDs: 3.6 cm LVPWd: 1.2 cm LVOT area: 3.3 cm2 RVDd: 3.9 cm FS: 10.2 % Ao root diam: 3.7 cm LAV(MOD-sp2): 28.7 ml LVAd ap4: 30.7 cm2 LVLd ap4: 8.5 cm EDV(MOD-sp4): 90.7 ml EDV(sp4-el): 94.6 ml LVAs ap4: 23.4 cm2 LVLs ap4: 6.9 cm ESV(MOD-sp4): 65.6 ml ESV(sp4-el): 67.3 ml EF(MOD-sp4): 27.6 % EF(sp4-el): 28.8 % LVAd ap2: 24.9 cm2 SV(MOD-sp4): 25.1 ml SV(sp4-el): 27.3 ml LVLd ap2: 6.3 cm SI(MOD-sp4): 14.8 ml/m2 EDV(MOD-sp2): 76.1 ml EDV(sp2-el): 83.5 ml LA A4 area: 24.8 cm2 RA A4 area: 9.8 cm2 Time Measurements MV dec time: 0.14 sec Doppler Measurements & Calculations MV E max orestes: 62.0 cm/sec Lat Peak E' Orestes: 3.5 cm/sec Med Peak E' Orestes: 3.9 cm/sec MV A max orestes: 134.2 cm/sec E/E' lat: 17.5 E/E' med: 16.0 MV E/A: 0.46 MV V2 max: 131.2 cm/sec Ao V2 max: 184.0 cm/sec MV max P.9 mmHg MV dec slope: 436.7 cm/sec2 Ao max P.5 mmHg MV V2 mean: 77.8 cm/sec Ao V2 mean: 134.2 cm/sec MV mean P.7 mmHg Ao mean P.2 mmHg MV V2 VTI: 33.7 cm Ao V2 VTI: 41.4 cm AV (velocity ratio): 0.84 MVA(VTI): 3.4 cm2 JOCELYN(I,D): 2.7 cm2 JOCELYN(V,D): 2.9 cm2 LV V1 max: 162.5 cm/sec SV(LVOT): 113.2 ml PA V2 max: 82.9 cm/sec LV V1 max P.6 mmHg PA V2 mean: 57.2 cm/sec LV V1 mean P.1 mmHg LV V1 mean: 127.4 cm/sec LV V1 VTI: 34.8 cm ECHO/Echo Complete Interpretation Summary Normal LV size. Moderate eccentric left ventricular hypertrophy. The left atrium is moderately enlarged. Stage 1 diastolic dysfunction. The left ventricular ejection fraction is 30 %. There is moderate to severe global hypokinesis of the left ventricle. Ordering Physician: Jose Alejandro Montiel Referring Physician: [facility] PCP Performed By: Merry Vang RCS
[2025-01-21 15:04] LABS: Ferritin 576 ng/mL (22-378); Iron 37 ug/dL (50-170); Iron Binding Capacity,Unsat 137 ug/dL (228-428)
[2025-01-21 15:05] LABS: Iron Binding Capacity,Total 174 ug/dL (250-450); PERCENT IRON SATURATION 21.3 % (13-59)
[2025-01-21] MEDS: Atorvastatin Calcium 20 MG Tablet PO (21:00)
[2025-01-22] VITALS (10 sets, daily range): BP systolic 101–139; BP diastolic 51–61; PULSE 73–84; RESP 16–18; TEMP 36.4–37.4; O2SAT 89–98; BMI 26.8
[2025-01-22 04:19] LABS: Absolute Neutrophil Count 3.3 X10^3/uL (2.0-7.7); Basophil# 0.03 X10^3/uL; Basophil% 0.6 % (0-1); Eosinophil# 0.26 X10^3/uL; Hematocrit 29.7 % (37-47); Hemoglobin 9.9 g/dL (12.0-15.0); Lymphocyte % 17.3 % (19-41); Mean Corp Hgb Conc 33.3 g/dL (32-36); Mean Corpuscular Volume 93.1 fL (81-99); Monocyte# 0.68 X10^3/uL; Monocyte% 13.1 % (0-10); NRBC Flagged by Analyzer 0 % (0-5); Neutrophil % 63.6 % (47-70); Platelet Count 267 K/mm3 (150-450); RBC Distribution Width CV 13.1 % (11.6-14.6); Red Blood Count 3.19 M/mm3 (4.2-5.4); White Blood Count 5.2 K/mm3 (4.4-11.0)
[2025-01-22 04:43] LABS: Anion Gap 14 (5-15); BUN 20 mg/dL (4-19); BUN/Creat Ratio 23.7 RATIO (10-20); Calcium,Total 7.4 mg/dL (7.6-11.0); Carbon Dioxide 27.3 mmol/L (21.0-32.0); Chloride 102 mmol/L (98-108); Creatinine, Serum 0.83 mg/dL (0.70-1.20); EST Glomerular Filtration Rate 68 (>60); Estimated Creatinine Clearance 43.58 ml/min (50-250); Glucose 86 mg/dL (70-99); Potassium 2.8 mmol/L (3.3-5.1); Sodium Level 143 mmol/L (133-145)
[2025-01-22] MEDS: Potassium Chloride Oral Tablet 20 MEQ 60 MEQ PO (05:43)
[2025-01-22] MEDS: Levothyroxine 100 MCG Tablet PO (05:44)
[2025-01-22] MEDS: Cyanocobalamin 500 MCG Tablet 1000 MCG PO (08:27)
[2025-01-22] MEDS: Lisinopril 20 MG Tablet PO (08:28)
[2025-01-22] MEDS: Ferrous Sulfate 325 MG Tablet PO (08:28)
[2025-01-22] MEDS: amLODIPine 5 MG Tablet PO (08:28)
[2025-01-22] MEDS: Memantine Hydrochloride 10 MG Tablet PO ×2 (08:28→21:00)
[2025-01-22] MEDS: Pantoprazole Sodium 40 MG Tablet PO (08:28)
[2025-01-22] MEDS: hydroCHLOROthiazide 25 MG Tablet PO (08:28)
--- NOTE | 2025-01-22 08:34 | PCM.PN.HOSP ---
Reason for Visit Reason for Visit: Diagnoses Heart failure, unspecified (01/21/25) Hypoxemia (01/21/25) Subjective Subjective Still little bit short of breath and swollen but overall improving Objective Data Objective Data Vital Signs: Vital Signs Temp Pulse Resp BP Pulse Ox O2 Del Method O2 Flow Rate 98.1 F 73 16 128/55 H 95 Room Air 2 01/22/25 08:23 01/22/25 08:23 01/22/25 08:23 01/22/25 08:23 01/22/25 08:24 01/22/25 08:24 01/22/25 08:23 Oxygen Flow Rate (L/min) 2 Oxygen Delivery Method Room Air Weight: 68.7 kg Body Mass Index (BMI) 26.8 Intake & Output: Intake and Output for Last 24 Hours 01/20/25 01/21/25 01/22/25 23:59 23:59 23:59 Intake Total 240 / 360 360 / 360 Output Total 700 / 900 200 / 200 Balance -460 / -540 160 / 160 Lab / Micro Data 01/22/25 03:52 01/22/25 11:40 Labs: Laboratory Results - last 24 hr 01/21/25 11:05: WBC 5.8, RBC 3.13 L, Hgb 9.5 L, Hct 28.8 L, MCV 92.0, MCH 30.4, MCHC 33.0, RDW Std Deviation 44.7 H, RDW Coeff of Jos 13.3, Plt Count 273, MPV 9.8, Immature Gran % (Auto) 0.200, Neut % (Auto) 72.8 H, Lymph % (Auto) 14.1 L, [place] % (Auto) 9.6, Eos % (Auto) 2.6, Baso % (Auto) 0.7, Absolute Neuts (auto) 4.3, Absolute Lymphs (auto) 0.82 L, Nucleated RBC % 0, Sodium 143, Potassium 3.3, Chloride 104, Carbon Dioxide 24.3, Anion Gap 14, BUN 22 H, Creatinine 0.79, Estim Creat Clear Calc 45.63 L, Est GFR (MDRD) Non-Af 72, BUN/Creatinine Ratio 27.6 H, Glucose 92, Calcium 7.5 L, Iron 37 L, TIBC 174 L, Iron Saturation 21.3, Unsaturated IBC 137 L, Ferritin 576 H, NT pro BNP II 1236, TSH 1.600 01/22/25 03:52: WBC 5.2, RBC 3.19 L, Hgb 9.9 L, Hct 29.7 L, MCV 93.1, MCH 31.0, MCHC 33.3, RDW Std Deviation 44.0 H, RDW Coeff of Jos 13.1, Plt Count 267, MPV 10.0, Immature Gran % (Auto) 0.400, Neut % (Auto) 63.6, Lymph % (Auto) 17.3 L, [place] % (Auto) 13.1 H, Eos % (Auto) 5.0, Baso % (Auto) 0.6, Absolute Neuts (auto) 3.3, Absolute Lymphs (auto) 0.90, Nucleated RBC % 0, Sodium 143, Potassium 2.8 L, Chloride 102, Carbon Dioxide 27.3, Anion Gap 14, BUN 20 H, Creatinine 0.83, Estim Creat Clear Calc 43.58 L, Est GFR (MDRD) Non-Af 68, BUN/Creatinine Ratio 23.7 H, Glucose 86, Calcium 7.4 L Micro: Microbiology 01/21/25 11:12 Mucosa - Nose SARS-CoV-2, Influenza & RSV (PCR) - Final Radiography Diagnostic Testing: Radiology Impression Chest X-Ray 01/21/25 11:02 IMPRESSION: Bilateral perihilar interstitial/alveolar opacities which may relate to an infectious/inflammatory process and/or edema. Reading Location: [facility] Physical Exam Narrative General: Alert, no acute distress HEENT: Atraumatic, normocephalic Eyes: Anicteric, normal conjunctiva, extraocular movements grossly intact Neck: Supple Respiratory: Somewhat diminished at the bases, normal respiratory effort Cardiovascular: Regular rate and rhythm GI: Soft, nontender, nondistended Extremities: Mild edema in lower extremities Musculoskeletal: Moving all extremities Neuro: No overt focal neurological deficits Skin: No rashes appreciated Psych: Cooperative Assessment & Plan Assessment/Plan (1) Congestive heart failure: (2) Hypoxemia: PLAN: Plan #Acute hypoxic respiratory insufficiency secondary to acute on chronic systolic CHF/essential HTN/HLD ? Continue with IV Lasix 40 mg daily ? Will recheck an echo ? Can resume her home blood pressure medications ? Will monitor her blood pressure and make adjustments as necessary -01/22: CXR:Bilateral perihilar interstitial/alveolar opacities which may relate to an infectious/inflammatory process and/or edema. Given pts presentation and history deemed to be most consistent w/ CHF and fluid overload. Patient 95% on room air this a.m. and seems to be responding well to lasix, improving overall, continue IV Lasix daily, awaiting echocardiogram, last echo 01/28/2023 with EF of 45%, indeterminant diastolic function and moderate septal hypokinesis, Daily weights, I's and O's. Blood pressure also fairly well-controlled, continue losartan and amlodipine, adjust as needed/indicated. Patient continued on IV diuresis, slowly improving n #Hypokalemia -01/22: Replace. 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 Continue with Plaquenil ? 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 Stable ? Continue with Synthroid #GERD ? Stable ? Continue with PPI #Anxiety/depression/dementia ? Stable ? Continue with her home medications DVT: Lovenox Time spent in the patient's overall evaluation,decision-making process, review of diagnostic data, adjustment of management, discussion with other providers, nursing nursing and ancillary staff involved in patient's care documentation, 35 Minutes Charges/Coding Visit Charges Inpatient E&M: 99843 Subs Hosp L2
[2025-01-22] MEDS: 0.9% Saline Lock 10 ML Syringe IV (08:38)
[2025-01-22] MEDS: Enoxaparin 40 MG/0.4 ML Syringe SC (08:39)
[2025-01-22] MEDS: Potassium Chloride Oral Tablet 20 MEQ 40 MEQ PO (08:39)
[2025-01-22] MEDS: Furosemide 40 MG/4 ML Vial IV (08:39)
[2025-01-22 12:29] LABS: Anion Gap 11 (5-15); BUN 19 mg/dL (4-19); BUN/Creat Ratio 21.3 RATIO (10-20); Calcium,Total 7.5 mg/dL (7.6-11.0); Carbon Dioxide 27.7 mmol/L (21.0-32.0); Chloride 101 mmol/L (98-108); Creatinine, Serum 0.89 mg/dL (0.70-1.20); EST Glomerular Filtration Rate 62 (>60); Estimated Creatinine Clearance 40.64 ml/min (50-250); Glucose 84 mg/dL (70-99); Potassium 3.9 mmol/L (3.3-5.1); Sodium Level 140 mmol/L (133-145)
[2025-01-22] MEDS: Atorvastatin Calcium 20 MG Tablet PO (21:00)
[2025-01-23] VITALS (10 sets, daily range): BP systolic 116–138; BP diastolic 58–82; PULSE 82–94; RESP 16–20; TEMP 36.6–37.2; O2SAT 88–98; BMI 26.4
[2025-01-23] MEDS: Levothyroxine 100 MCG Tablet PO (05:00)
[2025-01-23 06:07] LABS: Hematocrit 31.1 % (37-47); Mean Corp Hgb Conc 32.2 g/dL (32-36); Mean Corpuscular Hgb 30.3 pg (27.0-32.0); Mean Corpuscular Volume 94.2 fL (81-99); Mean Platelet Vol. 10.2 fl (6.2-12.0); Platelet Count 293 K/mm3 (150-450); RBC Distribution Width CV 13.1 % (11.6-14.6); RBC Distribution Width SD 44.8 fl (35.1-43.9); White Blood Count 6.2 K/mm3 (4.4-11.0)
[2025-01-23 06:32] LABS: Anion Gap 10 (5-15); BUN 18 mg/dL (4-19); BUN/Creat Ratio 21.2 RATIO (10-20); Calcium,Total 7.4 mg/dL (7.6-11.0); Chloride 103 mmol/L (98-108); Creatinine, Serum 0.84 mg/dL (0.70-1.20); EST Glomerular Filtration Rate 66 (>60); Glucose 88 mg/dL (70-99); Potassium 3.6 mmol/L (3.3-5.1); Sodium Level 142 mmol/L (133-145)
[2025-01-23 06:44] LABS: Scan Indicated on CBC? Y/N NO
--- NOTE | 2025-01-23 07:35 | PCM.PN.HOSP ---
Reason for Visit Reason for Visit: Diagnoses Heart failure, unspecified (01/21/25) Hypoxemia (01/21/25) Objective Data Objective Data Vital Signs: Vital Signs Temp Pulse Resp BP Pulse Ox O2 Del Method O2 Flow Rate 98.4 F 82 18 127/59 H 96 Nasal Cannula 2 01/23/25 03:00 01/23/25 03:00 01/23/25 03:00 01/23/25 03:00 01/23/25 03:00 01/23/25 03:00 01/23/25 03:00 Oxygen Flow Rate (L/min) 2 Oxygen Delivery Method Nasal Cannula Weight: 149 lb 7.574 oz Body Mass Index (BMI) 26.4 Intake & Output: Intake and Output for Last 24 Hours 01/21/25 01/22/25 01/23/25 23:59 23:59 23:59 Intake Total 240 / 360 360 / 480 180 / 180 Output Total 700 / 900 1300 / 1300 400 / 400 Balance -460 / -540 -940 / -820 -220 / -220 Lab / Micro Data 01/23/25 05:18 01/23/25 05:18 Labs: Laboratory Results - last 24 hr 01/22/25 11:40: Sodium 140, Potassium 3.9, Chloride 101, Carbon Dioxide 27.7, Anion Gap 11, BUN 19, Creatinine 0.89, Estim Creat Clear Calc 40.64 L, Est GFR (MDRD) Non-Af 62, BUN/Creatinine Ratio 21.3 H, Glucose 84, Calcium 7.5 L 01/23/25 05:18: WBC 6.2, RBC 3.30 L, Hgb 10.0 L, Hct 31.1 L, MCV 94.2, MCH 30.3, MCHC 32.2, RDW Std Deviation 44.8 H, RDW Coeff of Jos 13.1, Plt Count 293, MPV 10.2, Sodium 142, Potassium 3.6, Chloride 103, Carbon Dioxide 29.0, Anion Gap 10, BUN 18, Creatinine 0.84, Estim Creat Clear Calc 42.80 L, Est GFR (MDRD) Non-Af 66, BUN/Creatinine Ratio 21.2 H, Glucose 88, Calcium 7.4 L Micro: Microbiology 01/21/25 11:12 Mucosa - Nose SARS-CoV-2, Influenza & RSV (PCR) - Final Physical Exam Narrative Seen and examined. No fever. Mild occasional cough. Shortness of breath has gotten better Physical exam General: Alert, Oriented x3, Cooperative. BMI 26.5 kg/m? HEENT: Atraumatic, PERRLA, EOMI, Normocephalic Oral: No Gingival or Mucosal Lesions/ Ulcerations Neck: Supple, No JVD, Negative Carotid Bruits Chest wall/Lungs: Air entry diminished in bilateral lung bases. No crepitation/rhonchi Cardiovascular: Regular rate, Regular Rhythm, Normal S1, Normal S2, systolic murmur Abdomen: Bowel Sounds Present, Soft, Non Tender, Non-Distended : No dysuria. No renal angle tenderness. No suprapubic tenderness. Extremities: Subtle pedal edema, Capillary Refill Less than 3 Seconds Skin: No rashes, No breakdown Musculoskeletal: No Tenderness to Palpation of Joints or Extremities Neurological: Cranial nerves II-XII grossly intact, DTR 2+/4. No acute focal neurological deficit. Psych/Mental Status: Normal Affect, Appropriate. Assessment & Plan Assessment/Plan (1) Congestive heart failure: (2) Hypoxemia: PLAN: Plan #Acute hypoxic respiratory insufficiency secondary to acute on chronic systolic and diastolic CHF/essential HTN/HLD ? Continue with IV Lasix 40 mg daily ? Will recheck an echo ? Can resume her home blood pressure medications ? Will monitor her blood pressure and make adjustments as necessary -01/22: CXR:Bilateral perihilar interstitial/alveolar opacities which may relate to an infectious/inflammatory process and/or edema. Given pts presentation and history deemed to be most consistent w/ CHF and fluid overload. Patient 95% on room air this a.m. and seems to be responding well to lasix, improving overall, continue IV Lasix daily, awaiting echocardiogram, last echo 01/28/2023 with EF of 45%, indeterminant diastolic function and moderate septal hypokinesis, Daily weights, I's and O's. Blood pressure also fairly well-controlled, continue losartan and amlodipine, adjust as needed/indicated. Patient continued on IV diuresis, slowly improving n 01/23: 2D echo reviewed and discussed with the patient. 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 Will add low-dose spironolactone and discontinue potassium supplement #Hypokalemia -01/22: Replace. Repeat BMP at noon within normal limits 01/23: K3.6. 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 Continue with Plaquenil ? 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 Continue with Synthroid #GERD ? Stable ? Continue with PPI #Anxiety/depression/dementia ? Stable ? Continue with her home medications DVT: Lovenox Clinical Impression(s) from Imaging Studies Chest X-Ray 01/21/25 11:02 IMPRESSION: Bilateral perihilar interstitial/alveolar opacities which may relate to an infectious/inflammatory process and/or edema. Reading Location: [facility] Echocardiogram 01/21/25 13:38 Interpretation Summary Normal LV size. Moderate eccentric left ventricular hypertrophy. The left atrium is moderately enlarged. Stage 1 diastolic dysfunction. The left ventricular ejection fraction is 30 %. There is moderate to severe global hypokinesis of the left ventricle. Ordering Physician: Jose Alejandro Montiel Referring Physician: KENNEY PCP Performed By: Merry Vang RCS Charges/Coding Visit Charges Inpatient E&M: 01507 Subs Hosp L2
--- NOTE | 2025-01-23 08:46 | DCINST_ITS ---
Discharge Instructions Follow Up Care Test Results: Test results from this visit will be discussed in further detail at your follow- up appointment, if applicable. Discharge Plan Admission Admit Date/Time: 01/21/25 12:54 Attending Provider: Adrian Sy Consulting Providers: Jose Alejandro Montiel; Jayne Lunsford Discharge Orders/Prescriptions Prescriptions: No Action moexipril-hydrochlorothiazide 15-25 mg tablet 1 tab PO DAILY Qty: 90 ropinirole 1 mg concentrate 1 mg PO QHS PRN (Reason: RESTLESS LEGS) simvastatin 40 mg concentrate 40 mg PO QHS levothyroxine 100 MCG tablet 100 mcg PO DAILY pantoprazole 40 mg tablet,delayed release (DR/EC) 40 mg PO DAILY Patient Comments: ACID REFLUX coenzyme Q10 100 MG capsule 100 mg PO DAILY cyanocobalamin (vitamin B-12) 1,000 mcg Tablet 1,000 mcg PO DAILY melatonin 3 mg Tablet 3 mg PO QHS ferrous sulfate 325 mg (65 mg iron) Tablet 325 mg PO DAILY diclofenac potassium 50 mg tablet 50 mg PO Q8H PRN (Reason: Pain) PreserVision AREDS 2 Plus MV 200 mcg-15 mcg- 5 mg-1 mg Capsule 1 cap PO BID acetaminophen 325 mg tablet 650 mg PO Q4H PRN (Reason: fever or pain) ofloxacin 0.3 % drops 1 drp ophthalmic (eye) Q2H Rx Instructions: INSTILL INTO LEFT EYE EVERY 2 HOURS WHILE AWAKE dibucaine 1 % ointment 1 applic topical TID PRN (Reason: hemorrhoids) Robitussin Nighttime Cough DM 3.125-7.5 mg/5 mL liquid 20 ml PO Q6H PRN (Reason: cough) triamcinolone acetonide 0.1 % cream 1 applic topical DAILY PRN (Reason: rash) benzonatate 100 mg capsule 100 mg PO TID PRN (Reason: cough) amlodipine 5 mg tablet 5 mg PO DAILY meclizine 25 mg tablet 25 mg PO TID PRN (Reason: dizziness) hydrocortisone 0.5 % cream 1 applic topical Q8H PRN (Reason: rash) loratadine [Allerclear] 10 mg tablet 10 mg PO DAILY triamcinolone acetonide [24 Hour Nasal Allergy] 55 mcg aerosol,spray 2 spray intranasal DAILY Rx Instructions: administer into each nostril nystatin 100,000 unit/gram powder 1 applic topical Q12H PRN (Reason: skin irritation) memantine 28 mg capsule,sprinkle,ER 24hr 28 mg PO DAILY Proctofoam HC 1-1 % foam 1 applic GA TID PRN (Reason: hemorrhoids) mirabegron [Myrbetriq] 50 mg tablet extended release 24 hr 50 mg PO DAILY cholecalciferol (vitamin D3) [D3 DOTS] 50 mcg (2,000 unit) tablet 50 mcg PO DAILY Referrals / Follow Up: Nikki Abbott DO [Med Staff - Active Staff] -
--- NOTE | 2025-01-23 10:17 | CASEMGMT ---
Patient is from [facility]. SW met with patient. Introduced self and role at [facility]. Patient said her plan is to return to [facility] at discharge. Patient was unsure if family will be able to transport her back or not. SW will continue to follow and assist with d/c planning. Taylor Griffin TERRAZZO GRINDER HARVEY
[2025-01-23] MEDS: amLODIPine 5 MG Tablet PO (10:21)
[2025-01-23] MEDS: Enoxaparin 40 MG/0.4 ML Syringe SC (10:21)
[2025-01-23] MEDS: Cyanocobalamin 500 MCG Tablet 1000 MCG PO (10:21)
[2025-01-23] MEDS: Furosemide 40 MG/4 ML Vial IV (10:21)
[2025-01-23] MEDS: Memantine Hydrochloride 10 MG Tablet PO ×2 (10:21→21:26)
[2025-01-23] MEDS: Pantoprazole Sodium 40 MG Tablet PO (10:21)
[2025-01-23] MEDS: Ferrous Sulfate 325 MG Tablet PO (10:21)
[2025-01-23] MEDS: 0.9% Saline Lock 10 ML Syringe IV (10:28)
--- NOTE | 2025-01-23 13:38 | CASEMGMT ---
Discharge Planning Updates sent to Ervin Sears with note to reach out with any concerns with pt returning to [place]. Monica Boudreaux DC Planning Asst.
--- NOTE | 2025-01-23 13:45 | CASEMGMT ---
Physician wanted to discharge patient back to [facility] today. However, patient did not do well with therapy and she is on O2. SW spoke with patient and asked how she felt about returning to [place]. Patient said she thinks she is too weak. SW spoke with patient about going somewhere for rehab. Patient said she has a friend at [facility] SW told patient SW can check with [facility] and let her know. SW spoke with Monica who said [facility] full. SW will take patient a list of facilities. Taylor Griffin MSW HARVEY
[2025-01-23] MEDS: Fluticasone 0.05% 1 SPRAY NASAL.SRY NASAL ×2 (13:49→21:27)
[2025-01-23] MEDS: guaiFENesin/D-Methorphan TAB.SR.12H 2 TABLET PO ×2 (13:50→21:27)
--- NOTE | 2025-01-23 13:54 | CASEMGMT ---
Discharge Planning A list of?SNF providers including quality and resource use data and consistent with the patient's preferred geographic region, medical needs, and insurance network was created in [facility] Guide.? This list was provided to the SW. Monica Boudreaux Discharge Planning Asst.
--- NOTE | 2025-01-23 14:02 | CASEMGMT ---
STEPHANIE met with patient again and let her know [facility] is full. STEPHANIE provided patient with a list of facilities that take her insurance. Patient said she will want to talk with her niece about which facility. Patient's visitors looked at the list and thought [facility] be good. Patient was open to STEPHANIE sending a referral to [facility]. STEPHANIE sent a referral to Jen. Taylor GABRIEL
[2025-01-23] MEDS: Acetaminophen 325 MG Tablet 650 MG PO (14:05)
[2025-01-23] MEDS: Spironolactone 25 MG Tablet PO (14:17)
[2025-01-23] MEDS: Atorvastatin Calcium 20 MG Tablet PO (21:27)
[2025-01-24 03:00] VITALS: BP 120/96; PULSE 88; RESP 17; TEMP 36.4; O2SAT 96
[2025-01-24 04:10] VITALS: BMI 25.7
[2025-01-24] MEDS: Levothyroxine 100 MCG Tablet PO (05:14)
--- NOTE | 2025-01-24 07:28 | TREXTCAR_ITS ---
Diet Diet Order/Speech Therapy: 01/21/25 13:38 Diet: Cardiac - Heart Healthy Food consistency:: Regular Liquid Consistency:: Regular/Thin Routine Orders/Code Status Suppository Type: Dulcolax 10mg Suppository Frequency: Daily PRN DC O2, CPAP, BIPAP needs Home O2 Discharge instructions: Yes Type of respiratory needs?: Oxygen Oxygen frequency: Continuous Continuous oxygen liters per minute: 2 Therapies Extremity Affected:: Bilateral Lower Physical Therapy: Eval and Treat Occupational Therapy: Eval and Treat Speech Therapy: Eval and Treat Problem/Diagnosis (1) Congestive heart failure: Status: Acute Code(s): I50.9 - Heart failure, unspecified (2) Hypoxemia: Status: Acute Code(s): R09.02 - Hypoxemia Plan #Acute hypoxic respiratory insufficiency secondary to acute on chronic systolic and diastolic CHF/essential HTN/HLD ? Continue with IV Lasix 40 mg daily ? Will recheck an echo ? Can resume her home blood pressure medications ? Will monitor her blood pressure and make adjustments as necessary -01/22: CXR:Bilateral perihilar interstitial/alveolar opacities which may relate to an infectious/inflammatory process and/or edema. Given pts presentation and history deemed to be most consistent w/ CHF and fluid overload. Patient 95% on room air this a.m. and seems to be responding well to lasix, improving overall, continue IV Lasix daily, awaiting echocardiogram, last echo 01/28/2023 with EF of 45%, indeterminant diastolic function and moderate septal hypokinesis, Daily weights, I's and O's. Blood pressure also fairly well-controlled, continue losartan and amlodipine, adjust as needed/indicated. Patient continued on IV diuresis, slowly improving n 01/23: 2D echo reviewed and discussed with the patient. 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 Will add low-dose spironolactone and discontinue potassium supplement #Hypokalemia -01/22: Replace. Repeat BMP at noon within normal limits 01/23: K3.6. 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 Continue with Plaquenil ? 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 Continue with Synthroid #GERD ? Stable ? Continue with PPI #Anxiety/depression/dementia ? Stable ? Continue with her home medications DVT: Lovenox Clinical Impression(s) from Imaging Studies Chest X-Ray 01/21/25 11:02 IMPRESSION: Bilateral perihilar interstitial/alveolar opacities which may relate to an infectious/inflammatory process and/or edema. Reading Location: [facility] Echocardiogram 01/21/25 13:38 Interpretation Summary Normal LV size. Moderate eccentric left ventricular hypertrophy. The left atrium is moderately enlarged. Stage 1 diastolic dysfunction. The left ventricular ejection fraction is 30 %. There is moderate to severe global hypokinesis of the left ventricle. Ordering Physician: Jose Alejandro Montiel Referring Physician: KENNEY PCP Performed By: Merry Vang RCS Allergies/Procedures Done in Hospital Allergies Sulfa (Sulfonamide Antibiotics) Allergy (Verified 02/04/24 11:21) Hives adhesive tape (tape) Adverse Reaction (Verified 02/04/24 11:21) TEARS SKIN CAN USE PAPER TAPE Type of Care/Length of Stay Estimated LOS: Convalescent Care Less Than 30 days Type of Care Needed: Skilled Rehab Potential: Good Prognosis: Good Additional Orders/Day of Discharge Day of Discharge: 01/24/25 Dietary and Speech Recommendations Dietitian Recommendations/Changes: Continue cardiac diet. Will monitor weight trends. Discharge Plan Admission Admit Date/Time: 01/21/25 12:54 Primary Reason for Your Visit: Acute on chronic HFrEF and HFpEF Attending Provider: Adrian Sy Consulting Providers: Jose Alejandro Montiel; Jayne Lunsford Discharge Orders/Prescriptions Prescriptions: New spironolactone 25 mg Tablet 25 mg PO DAILY 30 Days Qty: 0 0RF Rx Instructions: Hold for serum potassium more than 5.0 furosemide [Lasix] 40 mg tablet 40 mg PO BID Qty: 60 0RF Rx Instructions: Hold for SBP less than 110 mmHg lisinopril 2.5 mg tablet 2.5 mg PO DAILY 30 Days Qty: 30 2RF metoprolol succinate 25 mg tablet extended release 24 hr 25 mg PO DAILY 30 Days Qty: 30 3RF Continued ropinirole 1 mg concentrate 1 mg PO QHS PRN (Reason: RESTLESS LEGS) simvastatin 40 mg concentrate 40 mg PO QHS levothyroxine 100 MCG tablet 100 mcg PO DAILY pantoprazole 40 mg tablet,delayed release (DR/EC) 40 mg PO DAILY Patient Comments: ACID REFLUX coenzyme Q10 100 MG capsule 100 mg PO DAILY cyanocobalamin (vitamin B-12) 1,000 mcg Tablet 1,000 mcg PO DAILY melatonin 3 mg Tablet 3 mg PO QHS ferrous sulfate 325 mg (65 mg iron) Tablet 325 mg PO DAILY PreserVision AREDS 2 Plus MV 200 mcg-15 mcg- 5 mg-1 mg Capsule 1 cap PO BID acetaminophen 325 mg tablet 650 mg PO Q4H PRN (Reason: fever or pain) ofloxacin 0.3 % drops 1 drp ophthalmic (eye) Q2H Rx Instructions: INSTILL INTO LEFT EYE EVERY 2 HOURS WHILE AWAKE dibucaine 1 % ointment 1 applic topical TID PRN (Reason: hemorrhoids) Robitussin Nighttime Cough DM 3.125-7.5 mg/5 mL liquid 20 ml PO Q6H PRN (Reason: cough) triamcinolone acetonide 0.1 % cream 1 applic topical DAILY PRN (Reason: rash) benzonatate 100 mg capsule 100 mg PO TID PRN (Reason: cough) hydrocortisone 0.5 % cream 1 applic topical Q8H PRN (Reason: rash) loratadine [Allerclear] 10 mg tablet 10 mg PO DAILY triamcinolone acetonide [24 Hour Nasal Allergy] 55 mcg aerosol,spray 2 spray intranasal DAILY Rx Instructions: administer into each nostril nystatin 100,000 unit/gram powder 1 applic topical Q12H PRN (Reason: skin irritation) memantine 28 mg capsule,sprinkle,ER 24hr 28 mg PO DAILY Proctofoam HC 1-1 % foam 1 applic UT TID PRN (Reason: hemorrhoids) mirabegron [Myrbetriq] 50 mg tablet extended release 24 hr 50 mg PO DAILY cholecalciferol (vitamin D3) [D3 DOTS] 50 mcg (2,000 unit) tablet 50 mcg PO DAILY Changed diclofenac potassium 50 mg tablet 50 mg PO BID PRN (Reason: Pain) 30 Days Qty: 0 0RF Discontinued moexipril-hydrochlorothiazide 15-25 mg tablet 1 tab PO DAILY Qty: 90 amlodipine 5 mg tablet 5 mg PO DAILY meclizine 25 mg tablet 25 mg PO TID PRN (Reason: dizziness) Referrals / Follow Up: Nikki Abbott DO [Med Staff - Active Staff] - Rivas Frey MD [Med Staff - Active Staff] - Within 2 Weeks (EF 30% acute on chronic combined heart failure) Disposition Disposition (needs filled in before D/C Order can be placed): Detention Facility
[2025-01-24 07:37] LABS: Hemoglobin 10.1 g/dL (12.0-15.0); Mean Corp Hgb Conc 32.6 g/dL (32-36); Mean Corpuscular Hgb 30.6 pg (27.0-32.0); Mean Corpuscular Volume 93.9 fL (81-99); Mean Platelet Vol. 10.2 fl (6.2-12.0); Platelet Count 285 K/mm3 (150-450); RBC Distribution Width CV 12.8 % (11.6-14.6); RBC Distribution Width SD 44.1 fl (35.1-43.9); White Blood Count 5.7 K/mm3 (4.4-11.0)
[2025-01-24 08:08] LABS: Anion Gap 14 (5-15); BUN 22 mg/dL (4-19); BUN/Creat Ratio 25.7 RATIO (10-20); Calcium,Total 7.3 mg/dL (7.6-11.0); Carbon Dioxide 26.8 mmol/L (21.0-32.0); Chloride 102 mmol/L (98-108); Creatinine, Serum 0.84 mg/dL (0.70-1.20); EST Glomerular Filtration Rate 67 (>60); Estimated Creatinine Clearance 42.21 ml/min (50-250); Glucose 99 mg/dL (70-99); Potassium 3.3 mmol/L (3.3-5.1); Sodium Level 143 mmol/L (133-145)
[2025-01-24 09:00] VITALS: BP 142/83; PULSE 75; RESP 18; TEMP 36.6; O2SAT 96; O2SAT 99
[2025-01-24] MEDS: Pantoprazole Sodium 40 MG Tablet PO (09:16)
[2025-01-24] MEDS: Memantine Hydrochloride 10 MG Tablet PO (09:25)
[2025-01-24] MEDS: Cyanocobalamin 500 MCG Tablet 1000 MCG PO (09:25)
[2025-01-24] MEDS: Enoxaparin 40 MG/0.4 ML Syringe SC (09:26)
[2025-01-24] MEDS: amLODIPine 5 MG Tablet PO (09:26)
[2025-01-24] MEDS: Furosemide 40 MG/4 ML Vial IV (09:29)
[2025-01-24] MEDS: 0.9% Saline Lock 10 ML Syringe IV (09:30)
--- NOTE | 2025-01-24 10:03 | CASEMGMT ---
[facility] is able to take patient and Cecilia will start pre-cert. STEPHANIE met with patient. Re-introduced self and role at [facility] as patient is a little forgetful. STEPHANIE told patient that [facility] is able to take her. Patient said it was okay with her, but asked SW to call her niece. STEPHANIE called patient's niece Carolyn and explained therapy's recommendation for short term SNF. [facility] is full, but [facility] can take patient. Carolyn said that would be great. She prefers [facility]. STEPHANIE explained patient will likely be discharged tomorrow once insurance approves. STEPHANIE also explained patient will be able to wear regular clothes while on TCU. Someone will give her a call when patient is ready for discharge. Carolyn thanked STEPHANIE for the phone call. STEPHANIE will let patient know that SW spoke with her niece. Plan: d/c to [facility] pending insurance approval. Taylor Griffin SERVICE SUPPORT REPRESENTATIVE HARVEY
[2025-01-24 11:05] VITALS: O2SAT 87; O2SAT 93; O2SAT 96
--- NOTE | 2025-01-24 11:05 | PCM.DC.SUM ---
Providers Date of Admission: 01/21/25 Date of Discharge: 01/24/25 Reason For Visit: CHF WITH HYPOXIA Diagnosis Discharge Diagnosis (1) Congestive heart failure: Status: Acute Code(s): I50.9 - Heart failure, unspecified (2) Hypoxemia: Status: Acute Code(s): R09.02 - Hypoxemia Plan #Acute hypoxic respiratory insufficiency secondary to acute on chronic systolic and diastolic CHF/essential HTN/HLD ? Continue with IV Lasix 40 mg daily ? Will recheck an echo ? Can resume her home blood pressure medications ? Will monitor her blood pressure and make adjustments as necessary -01/22: CXR:Bilateral perihilar interstitial/alveolar opacities which may relate to an infectious/inflammatory process and/or edema. Given pts presentation and history deemed to be most consistent w/ CHF and fluid overload. Patient 95% on room air this a.m. and seems to be responding well to lasix, improving overall, continue IV Lasix daily, awaiting echocardiogram, last echo 01/28/2023 with EF of 45%, indeterminant diastolic function and moderate septal hypokinesis, Daily weights, I's and O's. Blood pressure also fairly well-controlled, continue losartan and amlodipine, adjust as needed/indicated. Patient continued on IV diuresis, slowly improving n 01/23: 2D echo reviewed and discussed with the patient. 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 Will add low-dose spironolactone and discontinue potassium supplement 01/24: Patient discharged on furosemide 40 mg p.o. twice daily and spironolactone 25 mg once daily to SNF. Prescription also given for metoprolol succinate and lisinopril low-dose. Amlodipine discontinued. Follow-up in [place] cardiology Dr. Rivas Frey in about 2 weeks. #Hypokalemia -01/22: Replace. Repeat BMP at noon within normal limits 01/23: K3.6. 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 Continue with Plaquenil ? 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 Continue with Synthroid #GERD ? Stable ? Continue with PPI #Anxiety/depression/dementia ? Stable ? Continue with her home medications DVT: Lovenox Discharge medication reconciliation done. Discharge follow-up instructions completed. Discharge process discussed with the patient and all questions were answered to patient's satisfaction. Follow with PCP in 1 to 2 weeks Total time spent, exact 35 minutes on discharge meds reconciliation, examination, coordination of care with nurses and ancillary staff, review of imaging and blood test and discussion with the patient on follow-up instructions. Clinical Impression(s) from Imaging Studies Chest X-Ray 01/21/25 11:02 IMPRESSION: Bilateral perihilar interstitial/alveolar opacities which may relate to an infectious/inflammatory process and/or edema. Reading Location: [facility] Echocardiogram 01/21/25 13:38 Interpretation Summary Normal LV size. Moderate eccentric left ventricular hypertrophy. The left atrium is moderately enlarged. Stage 1 diastolic dysfunction. The left ventricular ejection fraction is 30 %. There is moderate to severe global hypokinesis of the left ventricle. 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 05/05/19 cyanocobalamin (vitamin B-12) 1,000 mcg tablet 1,000 mcg PO DAILY 01/14/23 ferrous sulfate 325 mg (65 mg iron) tablet 325 mg PO DAILY 01/14/23 melatonin 3 mg tablet 3 mg PO QHS 01/14/23 mv-mn-folic 200 mcg-vit K 15 mcg-lutein 5 mg-zeaxanthin 1 mg capsule (PreserVision AREDS 2 Plus Multivit) 1 cap PO BID 01/14/23 acetaminophen 325 mg tablet 650 mg PO Q4H PRN fever or pain 01/21/25 benzonatate 100 mg capsule 100 mg PO TID PRN cough 01/21/25 cholecalciferol (vitamin D3) 50 mcg (2,000 unit) tablet (D3 DOTS) 50 mcg PO DAILY 01/21/25 dibucaine 1 % topical ointment 1 applic topical TID PRN hemorrhoids 01/21/25 doxylamine-dextromethorphan 3.125 mg-7.5 mg/5 mL oral liquid (Robitussin Nighttime Cough DM) 20 ml PO Q6H PRN cough 01/21/25 hydrocortisone 0.5 % topical cream 1 applic topical Q8H PRN rash 01/21/25 hydrocortisone 1 %-pramoxine 1 % rectal foam (Proctofoam HC) 1 applic VT TID PRN hemorrhoids 01/21/25 loratadine 10 mg tablet (Allerclear) 10 mg PO DAILY 01/21/25 memantine 28 mg capsule sprinkle,extended release 24hr 28 mg PO DAILY 01/21/25 mirabegron 50 mg tablet,extended release 24 hr (Myrbetriq) 50 mg PO DAILY 01/21/25 nystatin 100,000 unit/gram topical powder 1 applic topical Q12H PRN skin irritation 01/21/25 ofloxacin 0.3 % eye drops 1 drp ophthalmic (eye) Q2H 01/21/25 triamcinolone acetonide 0.1 % topical cream 1 applic topical DAILY PRN rash 01/21/25 triamcinolone acetonide 55 mcg nasal spray aerosol (24 Hour Nasal Allergy) 2 spray intranasal DAILY 01/21/25 diclofenac potassium 50 mg tablet 50 mg PO BID PRN Pain 30 days #0 tabs 01/24/25 furosemide 40 mg tablet (Lasix) 40 mg PO BID #60 tabs 01/24/25 lisinopril 2.5 mg tablet 2.5 mg PO DAILY 1 month #30 tabs 01/24/25 metoprolol succinate 25 mg tablet,extended release 24 hr 25 mg PO DAILY 1 month #30 tabs 01/24/25 spironolactone 25 mg tablet 25 mg PO DAILY 30 days #0 tabs 01/24/25 Physical Exam Narrative Seen and examined. No fever. Shortness of breath better. Physical exam General: Alert, Oriented x3, Cooperative. BMI 26.5 kg/m? HEENT: Atraumatic, PERRLA, EOMI, Normocephalic Oral: No Gingival or Mucosal Lesions/ Ulcerations Neck: Supple, No JVD, Negative Carotid Bruits Chest wall/Lungs: Air entry diminished in bilateral lung bases. No crepitation/rhonchi Cardiovascular: Regular rate, Regular Rhythm, Normal S1, Normal S2, systolic murmur Abdomen: Bowel Sounds Present, Soft, Non Tender, Non-Distended : No dysuria. No renal angle tenderness. No suprapubic tenderness. Extremities: Subtle/mild pedal edema, Capillary Refill Less than 3 Seconds Skin: No rashes, No breakdown Musculoskeletal: No Tenderness to Palpation of Joints or Extremities Neurological: Cranial nerves II-XII grossly intact, DTR 2+/4. Chronic neuropathy bilateral lower legs. No acute focal neurological deficit. Psych/Mental Status: Normal Affect, Appropriate. Weight / BMI Weight Weight: 145 lb 1.027 oz Body Mass Index (BMI) 25.7 ABG / Lab / Microbiology Data 01/24/25 06:31 01/24/25 06:31 Laboratory: Laboratory Results - last 24 hr 01/24/25 06:31: WBC 5.7, RBC 3.30 L, Hgb 10.1 L, Hct 31.0 L, MCV 93.9, MCH 30.6, MCHC 32.6, RDW Std Deviation 44.1 H, RDW Coeff of Jos 12.8, Plt Count 285, MPV 10.2, Sodium 143, Potassium 3.3, Chloride 102, Carbon Dioxide 26.8, Anion Gap 14, BUN 22 H, Creatinine 0.84, Estim Creat Clear Calc 42.21 L, Est GFR (MDRD) Non-Af 67, BUN/Creatinine Ratio 25.7 H, Glucose 99, Calcium 7.3 L Microbiology: Microbiology 01/21/25 11:12 Mucosa - Nose SARS-CoV-2, Influenza & RSV (PCR) - Final D/C Instructions DC O2, CPAP, BIPAP Needs Home O2 Discharge instructions: Yes Type of respiratory needs?: Oxygen Oxygen frequency: Continuous Continuous oxygen liters per minute: 2 DC home with Oxygen: No Meaningful Use Info Meaningful Use Meaningful Use Diagnoses (Choose all that apply): CHF CHF PARUL/ARB ordered at discharge?: Yes Documented LVEF (%): 30 Ischemic Stroke Statin Dosing Therapy Reference: STATIN DOSE THERAPY REFERENCE: * Patients > 75 years receive moderate or high dose statin therapy. * Patients 75 years or YOUNGER should receive HIGH intensity statin dose unless contraindicated. You will be required to document reason for non-treatment if statin daily dose does not meet guidelines. HIGH DOSE STATIN THERAPY DAILY Atorvastatin > than or = to 40 mg Rosuvastatin > than or = to 20 mg Amlodipine + Atorvastatin > than or = to 2.5/40 mg Ezetimibe + Simvastatin 10/80 mg Simvastatin 80mg Discharge Plan Admission Admit Date/Time: 01/21/25 12:54 Primary Reason for Your Visit: Acute on chronic HFrEF and HFpEF Attending Provider: Adrian Sy Consulting Providers: Jose Alejandro Montiel; Jayne Lunsford Discharge Orders/Prescriptions Prescriptions: New spironolactone 25 mg Tablet 25 mg PO DAILY 30 Days Qty: 0 0RF Rx Instructions: Hold for serum potassium more than 5.0 furosemide [Lasix] 40 mg tablet 40 mg PO BID Qty: 60 0RF Rx Instructions: Hold for SBP less than 110 mmHg lisinopril 2.5 mg tablet 2.5 mg PO DAILY 30 Days Qty: 30 2RF metoprolol succinate 25 mg tablet extended release 24 hr 25 mg PO DAILY 30 Days Qty: 30 3RF Continued ropinirole 1 mg concentrate 1 mg PO QHS PRN (Reason: RESTLESS LEGS) simvastatin 40 mg concentrate 40 mg PO QHS levothyroxine 100 MCG tablet 100 mcg PO DAILY pantoprazole 40 mg tablet,delayed release (DR/EC) 40 mg PO DAILY Patient Comments: ACID REFLUX coenzyme Q10 100 MG capsule 100 mg PO DAILY cyanocobalamin (vitamin B-12) 1,000 mcg Tablet 1,000 mcg PO DAILY melatonin 3 mg Tablet 3 mg PO QHS ferrous sulfate 325 mg (65 mg iron) Tablet 325 mg PO DAILY PreserVision AREDS 2 Plus MV 200 mcg-15 mcg- 5 mg-1 mg Capsule 1 cap PO BID acetaminophen 325 mg tablet 650 mg PO Q4H PRN (Reason: fever or pain) ofloxacin 0.3 % drops 1 drp ophthalmic (eye) Q2H Rx Instructions: INSTILL INTO LEFT EYE EVERY 2 HOURS WHILE AWAKE dibucaine 1 % ointment 1 applic topical TID PRN (Reason: hemorrhoids) Robitussin Nighttime Cough DM 3.125-7.5 mg/5 mL liquid 20 ml PO Q6H PRN (Reason: cough) triamcinolone acetonide 0.1 % cream 1 applic topical DAILY PRN (Reason: rash) benzonatate 100 mg capsule 100 mg PO TID PRN (Reason: cough) hydrocortisone 0.5 % cream 1 applic topical Q8H PRN (Reason: rash) loratadine [Allerclear] 10 mg tablet 10 mg PO DAILY triamcinolone acetonide [24 Hour Nasal Allergy] 55 mcg aerosol,spray 2 spray intranasal DAILY Rx Instructions: administer into each nostril nystatin 100,000 unit/gram powder 1 applic topical Q12H PRN (Reason: skin irritation) memantine 28 mg capsule,sprinkle,ER 24hr 28 mg PO DAILY Proctofoam HC 1-1 % foam 1 applic VT TID PRN (Reason: hemorrhoids) mirabegron [Myrbetriq] 50 mg tablet extended release 24 hr 50 mg PO DAILY cholecalciferol (vitamin D3) [D3 DOTS] 50 mcg (2,000 unit) tablet 50 mcg PO DAILY Changed diclofenac potassium 50 mg tablet 50 mg PO BID PRN (Reason: Pain) 30 Days Qty: 0 0RF Discontinued moexipril-hydrochlorothiazide 15-25 mg tablet 1 tab PO DAILY Qty: 90 amlodipine 5 mg tablet 5 mg PO DAILY meclizine 25 mg tablet 25 mg PO TID PRN (Reason: dizziness) Referrals / Follow Up: Nikki Abbott DO [Med Staff - Active Staff] - Rivas Frey MD [Med Staff - Active Staff] - Within 2 Weeks (EF 30% acute on chronic combined heart failure) Disposition Disposition (needs filled in before D/C Order can be placed): [facility] Charges/Coding Visit Charges Inpatient E&M: 82035 Disch Hosp >30min
--- NOTE | 2025-01-24 11:10 | CASEMGMT ---
Patient was approved by insurance to go to TCU. STEPHANIE notified physician and he will send patient today. SW called patient's niece Carolyn and let her know. SW also gave Carolyn the phone number to TCU. SW went to patient's room. Re-introduced self. Patient was saying she doesn't know what is going on. SW re-explained to patient that she is too weak to return to assisted living right now. SW explained she is going to [facility] short term for rehab. Once she is stronger she can hopefully return to her assisted living. SW also made sure patient was aware that SW spoke with her niece and she is aware of all of this and in agreement. Plan: d/[facility] skilled level of care. Taylor GABRIEL
[2025-01-24] MEDS: Spironolactone 25 MG Tablet PO (11:21)
[2025-01-24] MEDS: guaiFENesin/D-Methorphan TAB.SR.12H 2 TABLET PO (11:21)
[2025-01-24] MEDS: Fluticasone 0.05% 1 SPRAY NASAL.SRY NASAL (11:25)
[2025-01-24] MEDS: Ferrous Sulfate 325 MG Tablet PO (11:26)
--- NOTE | 2025-01-24 11:41 | CASEMGMT ---
Discharge Planning Pt will admit to TCU before returning to [facility]. Update sent. Monica Boudreaux DC Planning Asst.
--- NOTE | 2025-01-24 12:13 | PHA.DC_ITS ---
Pharmacy [place] Med Reconciliation Pharmacy Service has performed discharge medication reconciliation for this patient. The patient's discharge medication list was reviewed for discrepancies and discrepancies were resolved. 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 05/05/19 cyanocobalamin (vitamin B-12) 1,000 mcg tablet 1,000 mcg PO DAILY 01/14/23 ferrous sulfate 325 mg (65 mg iron) tablet 325 mg PO DAILY 01/14/23 melatonin 3 mg tablet 3 mg PO QHS 01/14/23 mv-mn-folic 200 mcg-vit K 15 mcg-lutein 5 mg-zeaxanthin 1 mg capsule (PreserVision AREDS 2 Plus Multivit) 1 cap PO BID 01/14/23 acetaminophen 325 mg tablet 650 mg PO Q4H PRN fever or pain 01/21/25 benzonatate 100 mg capsule 100 mg PO TID PRN cough 01/21/25 cholecalciferol (vitamin D3) 50 mcg (2,000 unit) tablet (D3 DOTS) 50 mcg PO DAILY 01/21/25 dibucaine 1 % topical ointment 1 applic topical TID PRN hemorrhoids 01/21/25 doxylamine-dextromethorphan 3.125 mg-7.5 mg/5 mL oral liquid (Robitussin Nighttime Cough DM) 20 ml PO Q6H PRN cough 01/21/25 hydrocortisone 0.5 % topical cream 1 applic topical Q8H PRN rash 01/21/25 hydrocortisone 1 %-pramoxine 1 % rectal foam (Proctofoam HC) 1 applic CA TID PRN hemorrhoids 01/21/25 loratadine 10 mg tablet (Allerclear) 10 mg PO DAILY 01/21/25 memantine 28 mg capsule sprinkle,extended release 24hr 28 mg PO DAILY 01/21/25 mirabegron 50 mg tablet,extended release 24 hr (Myrbetriq) 50 mg PO DAILY 01/21/25 nystatin 100,000 unit/gram topical powder 1 applic topical Q12H PRN skin irritation 01/21/25 ofloxacin 0.3 % eye drops 1 drp ophthalmic (eye) Q2H 01/21/25 triamcinolone acetonide 0.1 % topical cream 1 applic topical DAILY PRN rash 01/21/25 triamcinolone acetonide 55 mcg nasal spray aerosol (24 Hour Nasal Allergy) 2 spray intranasal DAILY 01/21/25 diclofenac potassium 50 mg tablet 50 mg PO BID PRN Pain 30 days #0 tabs 01/24/25 furosemide 40 mg tablet (Lasix) 40 mg PO BID #60 tabs 01/24/25 lisinopril 2.5 mg tablet 2.5 mg PO DAILY 1 month #30 tabs 01/24/25 metoprolol succinate 25 mg tablet,extended release 24 hr 25 mg PO DAILY 1 month #30 tabs 01/24/25 spironolactone 25 mg tablet 25 mg PO DAILY 30 days #0 tabs 01/24/25
[2025-01-24 13:36] VITALS: BP 142/83; PULSE 75; RESP 18; TEMP 36.6; O2SAT 96
== END 2025-01-24 12:58 | disposition skilled nursing facility (03) | DRG 291 ==
LOC: ED 12:55 → PCU 13:23
PROVIDERS: Internal Medicine; Admitting Provider Family Medicine; Emergency Provider Emergency Medicine; Visit Provider Internal Medicine
DX: I11.0 Hypertensive heart disease with heart failure (principal); I50.43 Acute on chronic combined systolic (congestive) and diastolic (congestive) heart failure; F03.93 Unspecified dementia, unspecified severity, with mood disturbance; F03.94 Unspecified dementia, unspecified severity, with anxiety; E03.9 Hypothyroidism, unspecified; F32.9 Major depressive disorder, single episode, unspecified; E78.5 Hyperlipidemia, unspecified; E87.6 Hypokalemia; K21.9 Gastro-esophageal reflux disease without esophagitis; L93.0 Discoid lupus erythematosus; F41.9 Anxiety disorder, unspecified; R09.02 Hypoxemia; Z90.710 Acquired absence of both cervix and uterus; Z79.1 Long term (current) use of non-steroidal anti-inflammatories (NSAID); Z88.2 Allergy status to sulfonamides; Z91.048 Other nonmedicinal substance allergy status; Z79.890 Hormone replacement therapy; Z79.02 Long term (current) use of antithrombotics/antiplatelets; Z79.899 Other long term (current) drug therapy
CPT/HCPCS: 36415; 71045; 80048; 82728; 83540; 83550; 83880; 84443; 85025; 85027; 87631; 93005; 93306; 94640; 97162; 97166; 97535; 97802; 99285; A4216; J1938

== ENCOUNTER 2025-01-24 13:10 | Inpatient (IN) | payer MEDICARE, SELFPAY ==
[2025-01-24 13:39] VITALS: BP 121/64; PULSE 92; RESP 14; TEMP 36.2; O2SAT 93; BMI 25.9
--- NOTE | 2025-01-24 14:36 | NURSING ---
Addendum entered by Liana Lawson 01/24/25 14:40: Per [facility], flu vaccine given 09/19/24. Original Note: Left VM with Dr. Nikki Abbott about pneumonia vaccines, most recent covid vaccine. Per [facility] no pna vaccines on record, last covid in 2021.
[2025-01-24] MEDS: Multivitamin (Healthy Eyes) Capsule 1 CAP PO (16:59)
--- NOTE | 2025-01-24 21:21 | HP.PCM_ITS ---
HPI - General General Date of Admission: 01/24/25 Date of Service: 01/24/25 Chief Complaint: Here for rehabilitation. HPI Narrative LILIANA CRUZ, is a 89 Female who presents with followin01/21/2025 [facility] ED shortness of breath, hypoxia via EMS. Tired, short of breath for few days, hypoxia last night. Desats when off oxygen. covid negative, flu negative, rsv negative. Lasix 40mg iv given for congestive heart failure. 01/21/2025 Admit [facility]. Lasix 40mg IV daily, Echo for acute on chronic HFrEF. Plaquenil for discoid lupus. 01/22/2025 Little bit short of breath and swollen, but feeling better. Continue Lasix IV for acute on chronic HFrEF. 01/23/2025 Mild occasional cough, shortness of breath improved. Add Aldactone, stop KCL. 01/23/2025 Echo Normal LV size. Moderate concentric LVH. EF 30%. Stage 1 diastolic dysfunction. Moderate to severe global hypokinesis of LV. 01/24/2025 Admit to TCU with debility, here for rehabilitation, strengthening, prior to discharge to [facility] Medical History (Updated 01/24/25 @ 21:[address] 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 05/05/19 01/24/25 History release cyanocobalamin (vitamin B-12) 1,000 mcg PO DAILY suppl ement 01/14/23 01/24/25 History 1,000 mcg tablet ferrous sulfate 325 mg (65 mg 325 mg PO DAILY supplemt 01/14/23 01/23/25 History iron) tablet melatonin 3 mg tablet 3 mg PO QHS sleep 01/14/23 U nknown History mv-mn-folic 200 mcg-vit K 15 1 cap PO BID eye health 0 01/14/23 Unknown History mcg-lutein 5 mg-zeaxanthin 1 mg capsule (PreserVision AREDS 2 Plus Multivit) acetaminophen 325 mg tablet 650 mg PO Q4H PRN pain Unknown History benzonatate 100 mg capsule 100 mg PO TID PRN cough Unknown History cholecalciferol (vitamin D3) 50 50 mcg PO DAILY supple ment 01/21/25 Unknown History mcg (2,000 unit) tablet (D3 DOTS) dibucaine 1 % topical ointment 1 applic topical TID PA N 01/21/25 Unknown History hemorrhoids doxylamine-dextromethorphan 3.125 20 ml PO Q6H PRN cou gh 01/21/25 Unknown History mg-7.5 mg/5 mL oral liquid (Robitussin Nighttime Cough DM) hydrocortisone 0.5 % topical cream 1 applic topical Q8 H PRN rash 01/21/25 Unknown History hydrocortisone 1 %-pramoxine 1 % 1 applic PA TID PRN h emorrhoids 01/21/25 Unknown History rectal foam (Proctofoam HC) loratadine 10 mg tablet 10 mg PO DAILY allergies Unknown History (Allerclear) memantine 28 mg capsule 28 mg PO DAILY memory 01/24/25 History sprinkle,extended release 24hr mirabegron 50 mg tablet,extended 50 mg PO DAILY bladde r 01/21/25 Unknown History release 24 hr (Myrbetriq) nystatin 100,000 unit/gram topical 1 applic topical Q1 2H PRN skin 01/21/25 Unknown History powder irritation ofloxacin 0.3 % eye drops 1 drp ophthalmic (eye) Q2H e ye 01/21/25 Unknown History health triamcinolone acetonide 0.1 % 1 applic topical DAILY P RN rash 01/21/25 Unknown History topical cream triamcinolone acetonide 55 mcg 2 spray intranasal LENORE Y nasal 01/21/25 Unknown History nasal spray aerosol (24 Hour Nasal congestion Allergy) diclofenac potassium 50 mg tablet 50 mg PO BID PRN Hank n 30 days #0 01/24/25 Unknown Rx tabs furosemide 40 mg tablet (Lasix) 40 mg PO BID water pil l #60 tabs 01/24/25 Unknown Rx lisinopril 2.5 mg tablet 2.5 mg PO DAILY blood pressu re 1 01/24/25 Unknown Rx month #30 tabs metoprolol succinate 25 mg 25 mg PO DAILY heart 1 trell h #30 01/24/25 Unknown Rx tablet,extended release 24 hr tabs spironolactone 25 mg tablet 25 mg PO DAILY water pill 30 days 01/24/25 01/23/25 Rx #0 tabs Allergy/AdvReac Type Severity Reaction Status Date / Time Sulfa (Sulfonamide Allergy Hives Verified 02/04/24 11:21 Antibiotics) adhesive tape (tape) AdvReac TEARS SKIN Verified 02/04/24 11:21 Family History Father Cancer of Lung Cancer Mother Cancer type unknown Brother Dementia Surgical History History of hand surgery History of inguinal hernia repair History of hysterectomy History of hip replacement Hx of shoulder surgery History of knee surgery Social History (Updated 01/24/25 @ 21:[address] Jimmy Byrd MD) household members: none housing: assisted living facility Smoking Status: Never smoker second hand exposure: No alcohol intake: never substance use type: does not use ROS Constitutional Constitutional: Reports weakness; Denies chills, fever(s) or weight gain ENT HEENT: Denies headache(s), nasal congestion or nasal discharge Cardiovascular Cardiovascular: Denies chest pain or palpitations Respiratory/Chest Respiratory/Chest: Reports shortness of breath at rest and shortness of breath with exertion; Denies cough or excessive phlegm production Gastrointestinal Gastrointestinal: Denies abdominal pain, nausea or vomiting Genitourinary Genitourinary: Denies dysuria Musculoskeletal Musculoskeletal: Denies joint pain or joint swelling Integumentary Integumentary: Denies rash or wounds Neurologic Neurologic: Denies focal weakness, numbness or tingling Psychiatric Psychiatric: Denies anxiety, auditory hallucinations, depression, homicidal ideation or suicidal ideation Vital Signs Vital Signs Vital Signs: 01/24/25 13:39 01/24/25 13:39 Temperature 97.2 F L Temperature Source Temporal Pulse Rate 92 92 Pulse Rhythm Irregular Pulse Strength Normal (2+) Respiratory Rate 14 14 Respiratory Effort Normal Non-Labored Respiratory Depth Normal Respiratory Pattern Normal Blood Pressure 121/64 H Blood Pressure Mean 83 Blood Pressure Source Monitor Blood Pressure Position Semi-Fowlers Blood Pressure Location Left Arm Pulse Ox 93 93 Oxygen Delivery Method Nasal Cannula Nasal Cannula Oxygen Flow Rate (L/min) 2 2 Weight Weight: 64.495 kg Body Mass Index (BMI) 25.9 Physical Exam Const alert General Appearance: cooperative HEENT normocephalic Eyes PERRL and EOMs intact bilaterally Neck supple, no JVD and no carotid bruits Resp normal respiratory effort, normal air movement and clear to auscultation bilaterally Cardio regular rate and regular rhythm GI normal to inspection, nondistended, normoactive bowel sounds, non-tender and non-distended Extremity normal capillary refill General Extremity: Negative for edema Skin no rashes or lesions noted General Skin Exam: no breakdown Psych affect normal Appearance: appropriate Assessment & Plan Assessment/Plan (1) Debility: (2) Acute respiratory failure with hypoxia: (3) Acute on chronic HFrEF (heart failure with reduced ejection fraction): (4) Essential (primary) hypertension: (5) Hypothyroidism: (6) Restless legs syndrome: (7) Hyperlipidemia: (8) Overactive bladder: (9) GERD (gastroesophageal reflux disease): (10) Depression: (11) Alzheimer disease: (12) Discoid lupus: PLAN: Plan 89 year old female with below past medical history hospitalized for acute respiratory failure with hypoxia 2/2 acute on chronic HFrEF, admitted to TCU with debility, here for rehabilitation, strengthening, prior to discharge [facility]. * Debility - PT/OT. * Cognition - ST. * Pain - Tylenol 1000mg q6 prn pain (1-10). * Bowel - senna/colace 1 tablet bid, Magnesium citrate 300mL daily prn. * Adult immunization - Administer pneumonia vaccine, covid vaccine, flu vaccine as appropriate. * DVT prophylaxis - Lovenox 40mg sc daily. * Hyperlipidemia - Atorvastatin 20mg qhs. * Cough - Tessalon perles 100mg tid prn. * Vitamin D deficiency - D3 50mcg daily. * Vitamin B12 deficiency - B12 1000mg daily. * Iron deficiency anemia - Ferrous sulfate 325mg daily. * Allergic rhinitis - Flonase 2 sprays nasal daily, Loratadine 10mg daily. * Acute on chronic HFrEF - Metoprolol succinate 25mg daily, Lisinopril 2.5mg daily, Aldactone 25mg daily, Furosemide 40mg bidlx. * Hypothyroidism - Levothyroxine 100mcg daily. * Insomnia - Melatonin 3mg qhs. * Alzheimer Disease - Memantine 10mg bid. * Skin irritation - Calmoseptine topical bid. * Macular degeneration - Healthy Eyes 1 capsule bidcm. * Tinea Corporis - Nystatin powder topical Q12 prn. * GERD - Pantoprazole 40mg daily. * Restless leg syndrome - Mirapex 0.5mg qhs prn. * Overactive bladder - Gemtesa 75mg daily.
[2025-01-24] MEDS: Atorvastatin Calcium 20 MG Tablet PO (22:14)
[2025-01-24] MEDS: Menthol/Lanolin/Calamine/Znox 113 GM Tube 1 APPLIC TOPICAL (22:14)
[2025-01-24] MEDS: MELATONIN 3 MG TABLET PO (22:15)
[2025-01-24] MEDS: Memantine Hydrochloride 10 MG Tablet PO (22:15)
[2025-01-24] MEDS: Senna/Docusate Sodium 1 Tablet PO (22:18)
[2025-01-24 22:27] VITALS: O2SAT 96
[2025-01-25 05:29] VITALS: BP 143/68; PULSE 88; O2SAT 96
[2025-01-25] MEDS: Furosemide 40 MG Tablet PO (05:31)
[2025-01-25] MEDS: Enoxaparin 40 MG/0.4 ML Syringe SC (05:31)
[2025-01-25] MEDS: Levothyroxine 100 MCG Tablet PO (05:31)
[2025-01-25 05:49] LABS: Absolute Lymphocyte Count 0.96 X10^3/uL (0.83-4.51); Basophil# 0.03 X10^3/uL; Basophil% 0.6 % (0-1); Eosinophil# 0.26 X10^3/uL; Eosinophils% 5.3 % (0-5); Hematocrit 31.2 % (37-47); Hemoglobin 10.5 g/dL (12.0-15.0); Lymphocyte # 0.96 X10^3/ul (0.83-4.51); Lymphocyte % 19.8 % (19-41); Mean Corp Hgb Conc 33.7 g/dL (32-36); Mean Corpuscular Hgb 30.9 pg (27.0-32.0); Mean Corpuscular Volume 91.8 fL (81-99); Mean Platelet Vol. 9.5 fl (6.2-12.0); Monocyte# 0.59 X10^3/uL; Monocyte% 12.1 % (0-10); NRBC Flagged by Analyzer 0 % (0-5); Neutrophil # 3.01 X10^3/uL (2.7-7.7); Platelet Count 299 K/mm3 (150-450); RBC Distribution Width CV 12.6 % (11.6-14.6); RBC Distribution Width SD 41.8 fl (35.1-43.9); White Blood Count 4.9 K/mm3 (4.4-11.0)
[2025-01-25 06:00] VITALS: BMI 25.9
[2025-01-25 06:15] LABS: Anion Gap 12 (5-15); BUN 20 mg/dL (4-19); BUN/Creat Ratio 24.2 RATIO (10-20); Calcium,Total 7.4 mg/dL (7.6-11.0); Carbon Dioxide 27.4 mmol/L (21.0-32.0); Chloride 101 mmol/L (98-108); Creatinine, Serum 0.83 mg/dL (0.70-1.20); EST Glomerular Filtration Rate 68 (>60); Estimated Creatinine Clearance 41.31 ml/min (50-250); Glucose 100 mg/dL (70-99); Potassium 3.3 mmol/L (3.3-5.1); Sodium Level 141 mmol/L (133-145)
[2025-01-25 09:34] VITALS: O2SAT 96
[2025-01-25 10:00] VITALS: BP 128/64; PULSE 81; RESP 16; TEMP 37; O2SAT 96
[2025-01-25] MEDS: Multivitamin (Healthy Eyes) Capsule 1 CAP PO ×2 (10:12→17:18)
[2025-01-25] MEDS: Spironolactone 25 MG Tablet PO (10:12)
[2025-01-25] MEDS: Menthol/Lanolin/Calamine/Znox 113 GM Tube 1 APPLIC TOPICAL ×2 (10:13→22:44)
[2025-01-25] MEDS: Memantine Hydrochloride 10 MG Tablet PO ×2 (10:13→22:38)
[2025-01-25] MEDS: Loratadine 10 MG Tablet PO (10:14)
[2025-01-25] MEDS: Vibegron 75 MG TABLET PO (10:14)
[2025-01-25] MEDS: Fluticasone 0.05% 1 SPRAY NASAL.SRY 2 SPRAY NASAL (10:14)
[2025-01-25 10:15] VITALS: BP 128/64; PULSE 81
[2025-01-25] MEDS: Senna/Docusate Sodium 1 Tablet PO ×2 (10:15→22:38)
[2025-01-25] MEDS: Pantoprazole Sodium 40 MG Tablet PO (10:15)
[2025-01-25] MEDS: Cholecalciferol (VIT D3) 25 MCG TABLET (1,000 UNITS) 50 MCG PO (10:15)
[2025-01-25] MEDS: Metoprolol(XL)Succ 25 MG Tablet PO (10:15)
[2025-01-25] MEDS: Lisinopril 2.5 MG Tablet PO (10:16)
[2025-01-25] MEDS: Cyanocobalamin 500 MCG Tablet 1000 MCG PO (10:16)
[2025-01-25] MEDS: Hydrocortisone 2.5% Crm 1 APPLIC TOPICAL ×3 (10:18→22:42)
[2025-01-25] MEDS: Tuberculin,Purif.prot.deriv. 50 TU/ML Vial 0.1 ML ID (10:35)
--- NOTE | 2025-01-25 10:37 | NURSING ---
PT HAVING PROBLEMS SWALLOWING HOLE PILLS. TAKES 2-3 SWALLOWS BEFORE GETTING THEM DOWN. TRIED ONE AT A TIME, AND HOLE WITH APPLE SAUCE. PT STILL HAD PROBLEMS. THEN TRIED CRUSHED IN APPLE SAUCE AND PT GOT THEM DOWN WITH NO PROBLEM. PUT ORDER IN FOR SPEECH THERAPY FOR SWALLOWING PROBLEMS. RN AWARE
[2025-01-25] MEDS: Ferrous Sulfate 325 MG Tablet PO (11:43)
--- NOTE | 2025-01-25 12:27 | NURSING ---
Needleworker Note; Activity Asset: Andrea Nolan has been a resident in the past and has chose to come back to [facility] for [facility]. both her and son have passed and her friends will come and visit w/her and bring her items she may need. She enjoys reading, tv, word puzzles, dominos and bingo. An welcomes visits from the spoilage worker and therapy dog when available. Staff has given her word puzzles, will encourage social activities, remind her of weekly activities and respect her right to say no.
[2025-01-25] MEDS: 0.9% Saline Lock 10 ML Syringe IV (13:00)
[2025-01-25 13:05] VITALS: BP 108/50; PULSE 70
--- NOTE | 2025-01-25 14:06 | CASEMGMT ---
Social Work- Met with pt to complete initial assessment. Introduced self and role. Verified/updated contacts. Patient confirmed code status as full code. Pt?s goal is to return to [facility]. SW will continue to follow for DC planning. Pt scored 5/15 on BIMS. Pt reports that she does not feel isolated, is not feeling a loss of interest in activities, and has not fell depressed or hopeless. FIORELLA Hall ?
[2025-01-25 15:34] VITALS: O2SAT 96
--- NOTE | 2025-01-25 15:43 | CHAPLAIN ---
Type of Pastoral Visit _x__ Initial Visit ___ Follow-up Visit ___ On-call Visit ___ General Patient Visit ___ Spiritual Assessment ___ Family Conference ___ Bereavement ___ Rapid Response ___ Code Blue ___ Other (describe below) Pastoral Care Referral From _x__ Patient ___ Family ___ Nurse ___ Physician ___ Planer Tailer ___ Coronary Care Unit Nurse ___ Other (describe below) Sacrament/Intervention _x__ Active listening ___ Anointing ___ Sikhism ___ Bereavement ___ Communion _x__ Natasha exploration ___ _x__ Life review _x__ Prayer ___ Reconciliation ___ Sacrament of Sick _x__ Supportive presence ___ Wedding ___ Other (describe below) Pastoral Comments patient is welcoming and gives some life review; 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
[2025-01-25] MEDS: MELATONIN 3 MG TABLET PO (22:38)
[2025-01-25] MEDS: Atorvastatin Calcium 20 MG Tablet PO (22:38)
[2025-01-26 05:27] VITALS: BP 134/59; PULSE 71; RESP 18; O2SAT 94
[2025-01-26] MEDS: Enoxaparin 40 MG/0.4 ML Syringe SC (05:29)
[2025-01-26] MEDS: Furosemide 40 MG Tablet PO ×2 (05:30→12:24)
[2025-01-26] MEDS: Levothyroxine 100 MCG Tablet PO (05:30)
[2025-01-26 06:00] VITALS: BMI 25.8
[2025-01-26 09:34] VITALS: BP 124/50; PULSE 57; RESP 16; TEMP 36.4; O2SAT 99
[2025-01-26] MEDS: Multivitamin (Healthy Eyes) Capsule 1 CAP PO ×2 (09:36→18:01)
[2025-01-26] MEDS: Spironolactone 25 MG Tablet PO (09:36)
[2025-01-26] MEDS: Loratadine 10 MG Tablet PO (09:36)
[2025-01-26 09:37] VITALS: PULSE 57
[2025-01-26] MEDS: Metoprolol(XL)Succ 25 MG Tablet PO (09:37)
[2025-01-26] MEDS: Pantoprazole Sodium 40 MG Tablet PO (09:37)
[2025-01-26] MEDS: Cholecalciferol (VIT D3) 25 MCG TABLET (1,000 UNITS) 50 MCG PO (09:37)
[2025-01-26] MEDS: Lisinopril 2.5 MG Tablet PO (09:37)
[2025-01-26] MEDS: Vibegron 75 MG TABLET PO (09:37)
[2025-01-26] MEDS: Cyanocobalamin 500 MCG Tablet 1000 MCG PO (09:37)
[2025-01-26] MEDS: Memantine Hydrochloride 10 MG Tablet PO ×2 (09:37→20:09)
[2025-01-26] MEDS: Menthol/Lanolin/Calamine/Znox 113 GM Tube 1 APPLIC TOPICAL ×2 (09:38→20:10)
[2025-01-26] MEDS: Fluticasone 0.05% 1 SPRAY NASAL.SRY 2 SPRAY NASAL (09:38)
[2025-01-26 10:00] VITALS: O2SAT 99
--- NOTE | 2025-01-26 10:35 | PHA.CONS_ITS ---
TCU RX Drug Regimen Review Subjective/Objective Subjective/Objective Subjective: 89 YOF admitted to [facility] for hypoxia secondary to acute CHF exacerbation. Admitted to TCU 01/24/25 for strengthening and rehabilitation prior to discharge to an assisted living facility. Objective: Allergies Sulfa (Sulfonamide Antibiotics) Allergy (Verified 02/04/24 11:21) Hives adhesive tape (tape) Adverse Reaction (Verified 02/04/24 11:21) TEARS SKIN CAN USE PAPER TAPE Current Medications Generic Name Dose Route Start Last Admin Trade Name Freq PRN Reason Stop Dose Admin Acetaminophen 1,000 mg 01/24/25 21:30 Acetaminophen 500 Mg Tablet PO Q6H PRN PRN pain 1-10 Atorvastatin Calcium 20 mg 01/24/25 22:00 01/25/25 22:38 Atorvastatin Calcium 20 Mg Tablet PO 20 mg QHS DAMEON Administration Benzonatate 100 mg 01/24/25 14:05 Benzonatate 100 Mg Capsule PO TID PRN cough Calamine/Phenol 1 applic 01/24/25 22:00 01/26/25 09:38 Menthol/Lanolin/Calamine/Znox 113 Gm Tube TOPICAL 1 applic BID DAMEON Administration Protocol Cholecalciferol 50 mcg 01/25/25 10:00 01/26/25 09:37 Cholecalciferol (Vit D3) 25 Mcg Tablet (1,000 Units) PO 50 mcg DAILY DAMEON Administration Cyanocobalamin 1,000 mcg 01/25/25 10:00 01/26/25 09:37 Cyanocobalamin 500 Mcg Tablet PO 1,000 mcg DAILY DAMEON Administration Enoxaparin Sodium 40 mg 01/25/25 06:00 01/26/25 05:29 Enoxaparin 40 Mg/0.4 Ml Syringe SC 40 mg DAILY@0600 DAMEON Administration Ferrous Sulfate 325 mg 01/25/25 12:00 01/25/25 11:43 Ferrous Sulfate 325 Mg Tablet PO 325 mg DAILY@1200 DAMEON Administration Fluticasone Propionate 2 spray 01/25/25 10:00 01/26/25 09:38 Fluticasone 0.05% 1 [place] Nasal.Sry NASAL 2 spray DAILY DAMEON Administration Furosemide 40 mg 01/25/25 06:00 01/26/25 05:30 Furosemide 40 Mg Tablet PO 40 mg BIDLX DAMEON Administration Protocol Hydrocortisone 1 applic 01/25/25 07:36 01/25/25 22:42 Hydrocortisone 2.5% Crm TOPICAL 1 applic TID PRN PRN Administration RASH/TOPICAL IRRITATION Protocol Hydroxyzine HCl 10 mg 01/26/25 07:42 Hydroxyzine 10 Mg Tablet PO TID PRN PRN ITCHING Levothyroxine Sodium 100 mcg 01/25/25 06:00 01/26/25 05:30 Levothyroxine 100 Mcg Tablet PO 100 mcg DAILY@0600 DAMEON Administration Lisinopril 2.5 mg 01/25/25 10:00 01/26/25 09:37 Lisinopril 2.5 Mg Tablet PO 2.5 mg DAILY DAMEON Administration Protocol Loratadine 10 mg 01/25/25 10:00 01/26/25 09:36 Loratadine 10 Mg Tablet PO 10 mg DAILY DAMEON Administration Magnesium Citrate 300 ml 01/24/25 21:30 Magnesium Citrate 300 Ml PO DAILY PRN Constipation Melatonin 3 mg 01/24/25 22:00 01/25/25 22:38 Melatonin 3 Mg Tablet PO 3 mg QHS DAMEON Administration Memantine 10 mg 01/24/25 22:00 01/26/25 09:37 Memantine Hydrochloride 10 Mg Tablet PO 10 mg BID DAMEON Administration Metoprolol Succinate 25 mg 01/25/25 10:00 01/26/25 09:37 Metoprolol(Xl)Succ 25 Mg Tablet PO 25 mg DAILY DAMEON Administration Protocol Multivitamins/Minerals 1 cap 01/24/25 17:00 01/26/25 09:36 Multivitamin (Healthy Eyes) Capsule PO 1 cap BIDCM DAMEON Administration Nystatin 1 applic 01/24/25 14:10 Nystatin Powder 15gm Bottle TOPICAL Q12H PRN skin irritation Protocol Pantoprazole Sodium 40 mg 01/25/25 10:00 01/26/25 09:37 Pantoprazole Sodium 40 Mg Tablet PO 40 mg DAILY DAMEON Administration Pramipexole Dihydrochloride 0.5 mg 01/24/25 14:27 Pramipexole Di-Hcl 0.5 Mg Tablet PO QHS PRN RESTLESS LEGS Senna/Docusate Sodium 1 tablet 01/24/25 22:00 01/26/25 09:38 Senna/Docusate Sodium 1 Tablet PO Not Given BID DAMEON Sodium Chloride 10 - 40 ml 01/24/25 22:11 01/25/25 13:00 0.9% Saline Lock 10 Ml Syringe IV 10 ml UD PRN Administration SALINE FLUSH Spironolactone 25 mg 01/25/25 10:00 01/26/25 09:36 Spironolactone 25 Mg Tablet PO 25 mg DAILY DAMEON Administration Protocol Tuberculin PPD 0.1 ml 02/01/25 10:00 Tuberculin,Purif.Prot.Deriv. 50 Tu/Ml Vial ID 02/01/25 10:01 X1 ONE Problem List Alzheimer disease (Acute) Depression (Acute) Overactive bladder (Acute) Essential (primary) hypertension (Acute) Acute on chronic HFrEF (heart failure with reduced ejection fraction) (Chronic) Acute respiratory failure with hypoxia (Acute) Debility (Acute) Restless legs syndrome (Chronic) GERD (gastroesophageal reflux disease) (Chronic) Discoid lupus (Chronic) Hypothyroidism (Chronic) Hyperlipidemia (Chronic) Vital Signs Temp Pulse Resp BP Pulse Ox O2 Del Method O2 Flow Rate 97.5 F L 57 L 16 124/50 H 99 Nasal Cannula 2 01/26/25 09:34 01/26/25 09:37 01/26/25 09:34 01/26/25 09:34 01/26/25 09:34 01/26/25 09:34 01/26/25 09:34 Oxygen Flow Rate (L/min) 2 Oxygen Delivery Method Nasal Cannula Weight: 64.495 kg Body Mass Index (BMI) 25.9 Sodium 141 mmol/L (133-145) 01/25/25 05:38 Potassium 3.3 mmol/L (3.3-5.1) 01/25/25 05:38 Chloride 101 mmol/L (98-108) 01/25/25 05:38 Carbon Dioxide 27.4 mmol/L (21.0-32.0) 01/25/25 05:38 Anion Gap 12 (5-15) 01/25/25 05:38 BUN 20 mg/dL (4-19) H 01/25/25 05:38 Creatinine 0.83 mg/dL (0.70-1.20) 01/25/25 05:38 Est GFR (MDRD) Non-Af 68 (>60) 01/25/25 05:38 BUN/Creatinine Ratio 24.2 RATIO (10-20) H 01/25/25 05:38 Glucose 100 mg/dL (70-99) H 01/25/25 05:38 Assessment/Plan: 1. Pain: Tylenol 1000mg PO Q6h PRN Pain 1-10. Please continue to monitor for increased/decreased S/S pain, PRN medication usage, liver function with prolonged, frequent use. - To date, the patient has not required any PRN doses of Tylenol. Pain appears managed at this time. 2. CHF/ Hyperlipidemia: Lipitor 20mg PO QHS, Lasix 40mg PO BID, Lisinopril 2.5mg PO Daily, Toprol XL 25mg PO Daily, Aldactone 25mg PO Daily. Please continue to monitor lipid panel annually or sooner if clinically indicated (last done in 2019), BP (last 124/50), pulse (last 57), Renal function (SCr 0.83, CrCl 41 mL/min), K (last 3.3 on 01/25), dizziness. 3. Allergic Rhinitis: Claritin 10mg PO daily, Flonase 2 sprays nasally daily. Please continue to monitor for medication effectiveness, nasal irritation with nasal spray use. 4. GERD: Protonix 40mg PO daily. Please continue to monitor for medication effectiveness, abdominal discomfort, headache. Please also encourage non- pharmacologic treatments to help minimize GERD exacerbations as well, thank you. 5. Hypothyroid: Synthroid 100mcg PO Daily. Please continue to monitor for S/s hyper/hypothyroidism, TSH levels ( TSH 1.6 on 01/21/25). 6. Alzheimer's: Namenda 10mg PO BID. Please continue to monitor for dizziness, confusion, hallucinations, and aggression. 7. RLS: Pramipexole 0.5mg PO QHS PRN. Please continue to monitor for confusion, dizziness, abnormal dreams/ hallucinations, nausea, insomnia. 8. OAB: Gemtesa 75mg PO Daily. Please continue to monitor urinary frequency/bladder emptying, headache, infection. 9. Discoid Lupus/ itching: Hydrocortisone cream topically TID PRN, Hydroxyzine 10mg TID PRN. Please continue to monitor for improvement in skin condition, PRN usage. 10. DVT Prophylaxis: Lovenox 40mg PO Daily. Please continue to monitor for S/S bleeding/bruising, CrCl (last 41mL/min on 01/25), H/H (Hct 31.2, Hgb 10.5 on 01/25). 11. Cough: Tessalon Perles 100mg PO TID PRN. Please continue to monitor PRN use. 12. Insomnia: Melatonin 3mg PO QHS. Please continue to monitor for oversedation, drowsiness/dizziness. Please consider administering medication at least 2 hours prior to desired bedtime fo maximal effect. 13. General Wellness: Vitamin D 50mcg PO Daily, Vitamin B12 1000mg PO Daily, Ferrous sulfate 325mg PO Daily, Eye MVI 1 cap PO BID 14. Skin Integrity: Calmoseptine topically BID, Nystatin powder topically Q12h PRN. Please continue to monitor for skin redness/irritation, ulcer formation. 15. Bowel: Senna/Docusate 1 tab PO BID, Magnesium Citrate 300ml PO Daily PRN. Please continue to monitor for increased/decreased constipation and/or diarrhea. - The patient has not had a documented bowel movement since admission on 01/24/25. Assessment/Plan for indications treated with psychotropic medications: The patient is not currently being maintained on any psychotropic medications at time of medication list review. Medical chart and medication regimen reviewed. The following medication irregularities or issues were identified: *1. Hypokalemia: Patient's potassium level on 01/25 was 3.3 (range 3.5-5). The patient is on Lasix 40mg BID and Aldactone 25mg PO Daily at present. No potassium replacement ordered at this time per chart review. Please consider order potassium replacement for patient if clinically indicated, thank you. 2. Hyperlipidemia: Patient on Lipitor for HLD, last lipid panel on file is from 2019. Please consider obtaining an updated lipid panel if clinically indicated, thank you. Date Date of Note: 01/26/25
[2025-01-26 11:33] VITALS: PULSE 74; RESP 18
[2025-01-26] MEDS: 0.9% Saline Lock 10 ML Syringe IV (11:38)
[2025-01-26] MEDS: Ferrous Sulfate 325 MG Tablet PO (12:24)
[2025-01-26] MEDS: MELATONIN 3 MG TABLET PO (20:09)
[2025-01-26] MEDS: Senna/Docusate Sodium 1 Tablet PO (20:09)
[2025-01-26] MEDS: Atorvastatin Calcium 20 MG Tablet PO (20:09)
[2025-01-26] MEDS: hydrOXYzine 10 MG Tablet PO (20:09)
[2025-01-27] VITALS (10 sets, daily range): BP systolic 97–140; BP diastolic 49–66; PULSE 62–74; RESP 16–18; TEMP 36.4; O2SAT 94–100; BMI 25.7
[2025-01-27] MEDS: 0.9% Saline Lock 10 ML Syringe IV ×2 (05:10→17:06)
[2025-01-27] MEDS: Enoxaparin 40 MG/0.4 ML Syringe SC (05:12)
[2025-01-27] MEDS: hydrOXYzine 10 MG Tablet PO (05:13)
[2025-01-27] MEDS: Furosemide 40 MG Tablet PO ×2 (05:14→14:52)
[2025-01-27] MEDS: Levothyroxine 100 MCG Tablet PO (05:18)
[2025-01-27] MEDS: Multivitamin (Healthy Eyes) Capsule 1 CAP PO ×2 (08:38→17:06)
[2025-01-27] MEDS: Loratadine 10 MG Tablet PO (08:38)
[2025-01-27] MEDS: Menthol/Lanolin/Calamine/Znox 113 GM Tube 1 APPLIC TOPICAL ×2 (08:38→22:09)
[2025-01-27] MEDS: Pantoprazole Sodium 40 MG Tablet PO (08:39)
[2025-01-27] MEDS: Vibegron 75 MG TABLET PO (08:39)
[2025-01-27] MEDS: Cyanocobalamin 500 MCG Tablet 1000 MCG PO (08:39)
[2025-01-27] MEDS: Fluticasone 0.05% 1 SPRAY NASAL.SRY 2 SPRAY NASAL (08:39)
[2025-01-27] MEDS: Memantine Hydrochloride 10 MG Tablet PO ×2 (08:39→22:10)
[2025-01-27] MEDS: Metoprolol(XL)Succ 25 MG Tablet PO (08:40)
[2025-01-27] MEDS: Cholecalciferol (VIT D3) 25 MCG TABLET (1,000 UNITS) 50 MCG PO (08:40)
--- NOTE | 2025-01-27 10:36 | NURSING ---
Addendum entered by Damon Arndt 01/27/25 11:01: Patient 95% on 1L NC. Patient tolerating well. Original Note: Patient's spO2 100% on 2L NC. Decreased O2 to 1L at this time. Will monitor.
[2025-01-27] MEDS: Spironolactone 25 MG Tablet PO (10:40)
[2025-01-27] MEDS: Lisinopril 2.5 MG Tablet PO (10:40)
[2025-01-27] MEDS: Ferrous Sulfate 325 MG Tablet PO (10:41)
[2025-01-27] MEDS: Senna/Docusate Sodium 1 Tablet PO (22:10)
[2025-01-27] MEDS: Atorvastatin Calcium 20 MG Tablet PO (22:10)
[2025-01-27] MEDS: Doxepin Hydrochloride 10 MG Capsule PO (22:10)
[2025-01-28 06:00] VITALS: BP 121/64; RESP 16; BMI 25.4
[2025-01-28] MEDS: Levothyroxine 100 MCG Tablet PO (06:18)
[2025-01-28] MEDS: 0.9% Saline Lock 10 ML Syringe IV ×2 (06:18→12:36)
[2025-01-28] MEDS: Enoxaparin 40 MG/0.4 ML Syringe SC (06:18)
[2025-01-28] MEDS: Furosemide 40 MG Tablet PO ×2 (06:18→12:41)
[2025-01-28 07:38] LABS: Cholesterol 112 mg/dL (<=200); High Density Lipoprotein 31 mg/dL; Low Density Lipoprotein Calc. 63 mg/dL; Triglycerides 91 mg/dL; Very Low Density Lipoprotein 18 mg/dL (5-40)
[2025-01-28 09:20] VITALS: BP 128/65; PULSE 76; RESP 18; TEMP 36.5; O2SAT 97
[2025-01-28] MEDS: Potassium Chloride Oral Tablet 20 MEQ PO (09:40)
[2025-01-28] MEDS: Spironolactone 25 MG Tablet PO (09:40)
[2025-01-28 09:41] VITALS: PULSE 76
[2025-01-28] MEDS: Loratadine 10 MG Tablet PO (09:41)
[2025-01-28] MEDS: Cholecalciferol (VIT D3) 25 MCG TABLET (1,000 UNITS) 50 MCG PO (09:41)
[2025-01-28] MEDS: Vibegron 75 MG TABLET PO (09:41)
[2025-01-28] MEDS: Cyanocobalamin 500 MCG Tablet 1000 MCG PO (09:41)
[2025-01-28] MEDS: Lisinopril 2.5 MG Tablet PO (09:41)
[2025-01-28] MEDS: Memantine Hydrochloride 10 MG Tablet PO ×2 (09:41→22:33)
[2025-01-28] MEDS: Metoprolol(XL)Succ 25 MG Tablet PO (09:41)
[2025-01-28] MEDS: Multivitamin (Healthy Eyes) Capsule 1 CAP PO ×2 (09:41→17:09)
[2025-01-28] MEDS: Fluticasone 0.05% 1 SPRAY NASAL.SRY 2 SPRAY NASAL (09:42)
[2025-01-28] MEDS: Menthol/Lanolin/Calamine/Znox 113 GM Tube 1 APPLIC TOPICAL ×2 (09:43→22:37)
[2025-01-28] MEDS: Ferrous Sulfate 325 MG Tablet PO (12:33)
[2025-01-28 13:31] VITALS: O2SAT 95
[2025-01-28 22:30] VITALS: O2SAT 97
[2025-01-28] MEDS: Atorvastatin Calcium 20 MG Tablet PO (22:32)
[2025-01-28] MEDS: Senna/Docusate Sodium 1 Tablet PO (22:33)
[2025-01-28] MEDS: Doxepin Hydrochloride 10 MG Capsule PO (22:34)
[2025-01-28] MEDS: Acetaminophen 500 MG Tablet 1000 MG PO (22:38)
[2025-01-29] MEDS: Enoxaparin 40 MG/0.4 ML Syringe SC (05:46)
[2025-01-29] MEDS: Levothyroxine 100 MCG Tablet PO (05:48)
[2025-01-29] MEDS: 0.9% Saline Lock 10 ML Syringe IV ×2 (05:51→08:43)
[2025-01-29 06:00] VITALS: BMI 25.2
[2025-01-29 06:44] VITALS: O2SAT 96
[2025-01-29] MEDS: Menthol/Lanolin/Calamine/Znox 113 GM Tube 1 APPLIC TOPICAL ×2 (08:32→19:55)
[2025-01-29] MEDS: Fluticasone 0.05% 1 SPRAY NASAL.SRY 2 SPRAY NASAL (08:33)
[2025-01-29] MEDS: Multivitamin (Healthy Eyes) Capsule 1 CAP PO ×2 (08:34→17:21)
[2025-01-29] MEDS: Potassium Chloride Oral Tablet 20 MEQ PO (08:34)
[2025-01-29] MEDS: Cyanocobalamin 500 MCG Tablet 1000 MCG PO (08:34)
[2025-01-29] MEDS: Spironolactone 25 MG Tablet PO (08:37)
[2025-01-29] MEDS: Memantine Hydrochloride 10 MG Tablet PO ×2 (08:37→19:56)
[2025-01-29] MEDS: Cholecalciferol (VIT D3) 25 MCG TABLET (1,000 UNITS) 50 MCG PO (08:37)
[2025-01-29] MEDS: Lisinopril 2.5 MG Tablet PO (08:37)
[2025-01-29 08:38] VITALS: PULSE 85
[2025-01-29] MEDS: Loratadine 10 MG Tablet PO ×2 (08:38)
[2025-01-29] MEDS: Metoprolol(XL)Succ 25 MG Tablet PO (08:38)
[2025-01-29] MEDS: Senna/Docusate Sodium 1 Tablet PO (08:38)
[2025-01-29] MEDS: Vibegron 75 MG TABLET PO (08:38)
[2025-01-29] MEDS: Ferrous Sulfate 325 MG Tablet PO (10:59)
[2025-01-29 11:37] VITALS: BP 127/63; PULSE 84; RESP 16; TEMP 36.4; O2SAT 98
--- NOTE | 2025-01-29 12:50 | NURSING ---
Patient stated she was feeling short of breath and stated, I can't breathe this nurse assessed patient. Patient was on 2L O2 NC, O2 sat was 99% on the 2L. Lungs were clear through all navarrete. Patient repositioned with another pillow behind her back in the chair to promote lung expansion. Pateint stated she felt better after sitting up. Call light within reach, patient denies additional needs.
--- NOTE | 2025-01-29 13:38 | NURSING ---
Dr. Byrd updated that pt takes pills crushed and unable to crush Protonix. N.O. for Lansoprazole 30mg daily and discontinue Protonix. Order read back.
[2025-01-29] MEDS: Furosemide 40 MG Tablet PO (14:36)
[2025-01-29 19:35] LABS: Bacteria 0 SEEN /hpf (None Seen); Mucous, Urine 0 SEEN /hpf (<or=2+); White Blood Cells 0 SEEN /hpf (0-5)
--- NOTE | 2025-01-29 19:38 | NURSING ---
Dr. Byrd updated d/t pt more confused and anxious this shift per family unable to hold a conversation and unable to hold a cup to drink. N.O. received for Urinalysis and culture. Order Read back.
[2025-01-29] MEDS: Doxepin Hydrochloride 10 MG Capsule PO (19:55)
[2025-01-29] MEDS: Atorvastatin Calcium 20 MG Tablet PO (19:56)
[2025-01-29 20:02] LABS: Color, Urine Yellow (Yellow); Glucose, Dipstick Normal (Normal); Ketone-Dipstick Negative (Negative); Leukocyte Esterase-Dipstick Negative /ul (Negative); Nitrite-Dipstick Negative (Negative); Occult Blood-Urine Negative /ul (Negative); Protein-Dipstick 30 mg/dl (Negative); Specific Gravity, Urine 1.015 (1.002-1.030); Urine Bilirubin Dipstick Negative (Negative); Urine Clarity Clear (Clear); Urine Urobilinogen Normal (Normal)
[2025-01-29 20:20] LABS: Red Blood Cells-Urine 0 SEEN /hpf (0-5); Squamous Epithelial Cells - UA 0-5 SEEN /hpf (5-10)
[2025-01-30 05:51] VITALS: BP 130/62; PULSE 64; RESP 16; TEMP 36.4; O2SAT 97
[2025-01-30] MEDS: Enoxaparin 40 MG/0.4 ML Syringe SC (05:54)
[2025-01-30] MEDS: Levothyroxine 100 MCG Tablet PO (05:54)
[2025-01-30] MEDS: Furosemide 40 MG Tablet PO (05:54)
[2025-01-30 07:50] LABS: Absolute Lymphocyte Count 0.99 X10^3/uL (0.83-4.51); Absolute Neutrophil Count 3.6 X10^3/uL (2.0-7.7); Basophil# 0.03 X10^3/uL; Basophil% 0.5 % (0-1); Eosinophil# 0.19 X10^3/uL; Eosinophils% 3.5 % (0-5); Hematocrit 34.1 % (37-47); Hemoglobin 11.3 g/dL (12.0-15.0); Lymphocyte # 0.99 X10^3/ul (0.83-4.51); Mean Corp Hgb Conc 33.1 g/dL (32-36); Mean Corpuscular Hgb 30.9 pg (27.0-32.0); Mean Corpuscular Volume 93.2 fL (81-99); Mean Platelet Vol. 10.3 fl (6.2-12.0); Monocyte# 0.66 X10^3/uL; NRBC Flagged by Analyzer 0 % (0-5); Neutrophil % 65.6 % (47-70); Platelet Count 266 K/mm3 (150-450); RBC Distribution Width CV 12.4 % (11.6-14.6); RBC Distribution Width SD 42.6 fl (35.1-43.9); Red Blood Count 3.66 M/mm3 (4.2-5.4); White Blood Count 5.5 K/mm3 (4.4-11.0)
[2025-01-30 08:25] LABS: Anion Gap 14 (5-15); BUN 27 mg/dL (4-19); BUN/Creat Ratio 28.2 RATIO (10-20); Calcium,Total 7.2 mg/dL (7.6-11.0); Carbon Dioxide 26.6 mmol/L (21.0-32.0); Chloride 107 mmol/L (98-108); Creatinine, Serum 0.96 mg/dL (0.70-1.20); EST Glomerular Filtration Rate 57 (>60); Estimated Creatinine Clearance 35.22 ml/min (50-250); Glucose 109 mg/dL (70-99); Potassium 3.2 mmol/L (3.3-5.1); Pro- Brain NATRIURETIC PEPTIDE 1208 pg/mL (<=1800); Sodium Level 147 mmol/L (133-145)
--- NOTE | 2025-01-30 08:33 | NURSING ---
Offered covid vaccine, VIS provided. Resident declines at this time.
[2025-01-30 09:27] VITALS: O2SAT 94
[2025-01-30 09:39] VITALS: BP 131/61; PULSE 79; RESP 18; TEMP 36.5; O2SAT 97
[2025-01-30] MEDS: Fluticasone 0.05% 1 SPRAY NASAL.SRY 2 SPRAY NASAL (09:41)
[2025-01-30] MEDS: Lansoprazole 15 MG Capsule.DR 30 MG PO (09:42)
[2025-01-30] MEDS: Cyanocobalamin 500 MCG Tablet 1000 MCG PO (09:42)
[2025-01-30 09:43] VITALS: PULSE 79
[2025-01-30] MEDS: Vibegron 75 MG TABLET PO (09:43)
[2025-01-30] MEDS: Metoprolol(XL)Succ 25 MG Tablet PO (09:43)
[2025-01-30] MEDS: Lisinopril 2.5 MG Tablet PO (09:43)
[2025-01-30] MEDS: Multivitamin (Healthy Eyes) Capsule 1 CAP PO (09:43)
[2025-01-30] MEDS: Memantine Hydrochloride 10 MG Tablet PO (09:43)
[2025-01-30] MEDS: Cholecalciferol (VIT D3) 25 MCG TABLET (1,000 UNITS) 50 MCG PO (09:43)
[2025-01-30] MEDS: Spironolactone 25 MG Tablet PO (09:44)
[2025-01-30] MEDS: Potassium Chloride Oral Tablet 20 MEQ PO (09:44)
[2025-01-30] MEDS: Nystatin Powder 15gm Bottle 1 APPLIC TOPICAL (09:48)
[2025-01-30] MEDS: Menthol/Lanolin/Calamine/Znox 113 GM Tube 1 APPLIC TOPICAL (09:49)
[2025-01-30 10:44] LABS: Bedside Glucose 100 mg/dL (74-106)
--- NOTE | 2025-01-30 11:09 | NURSING ---
~1010 staff in pt room and notifies that pt is off and has slurred speech. stroke alert called @1012. Last known well ~0945 when I passed meds and assessed pt, no slurred speech at that time. A&Ox2 to self and location, baseline. Current vitals: b-143/58, p-79, r-18, sp02-97% on 2L. FSBS 100.
--- NOTE | 2025-01-30 11:13 | CASEMGMT ---
Social Work Stroke Alert initiated. SW responded. Provided pt support at bedside. Pt voiced she was scared. SW held pt's hand and assisted with explanations of what to expect moving forward. SW phoned niece while pt was in radiology. Niece presented to ED. SW updated within this worker's scope. Niece present when [facility]ist was on the robot and assisted with baseline and changes in condition. Niece reported she and pt's friend visited pt yesterday 01/30 and noted a change in cognition and speech. However, the u/a came back negative. Niece also reported to pt's lack of appetite during TCU stay. See further ED reports for additional information and outcome. SW provided ongoing support and introduced family to ED Misty BROWN, if any needs arise while in the ED. Pt/niece appreciative. Catherine Herrera CORE INSERTER [employer] ENGINEERING TEACHER
[2025-01-30 11:42] LABS: Bedside Glucose 96 mg/dL (74-106)
--- NOTE | 2025-01-30 16:40 | DS.PCM_ITS ---
Providers Date of Admission: 01/24/25 Reason For Visit: CHF W/ HYPOXIA Diagnosis Discharge Diagnosis (1) Debility: Status: Acute Code(s): R53.81 - Other malaise (2) Acute respiratory failure with hypoxia: Status: Acute Code(s): J96.01 - Acute respiratory failure with hypoxia (3) Acute on chronic HFrEF (heart failure with reduced ejection fraction): Status: Chronic Code(s): I50.23 - Acute on chronic systolic (congestive) heart failure (4) Essential (primary) hypertension: Status: Acute Code(s): I10 - Essential (primary) hypertension (5) Hypothyroidism: Status: Chronic Code(s): E03.9 - Hypothyroidism, unspecified (6) Restless legs syndrome: Status: Chronic Code(s): G25.81 - Restless legs syndrome (7) Hyperlipidemia: Status: Chronic Code(s): E78.5 - Hyperlipidemia, unspecified (8) Overactive bladder: Status: Acute Code(s): N32.81 - Overactive bladder (9) GERD (gastroesophageal reflux disease): Status: Chronic Code(s): K21.9 - Gastro-esophageal reflux disease without esophagitis (10) Depression: Status: Acute Code(s): F32.A - Depression, unspecified (11) Alzheimer disease: Status: Acute Code(s): G30.9 - Alzheimer's disease, unspecified; F02.80 - Dementia in other diseases classified elsewhere, unspecified severity, without behavioral disturbance, psychotic disturbance, mood disturbance, and anxiety (12) Discoid lupus: Status: Chronic Code(s): L93.0 - Discoid lupus erythematosus Plan 89 year old female with below past medical history hospitalized for acute respiratory failure with hypoxia 2/2 acute on chronic HFrEF, admitted to TCU with debility, here for rehabilitation, strengthening, prior to discharge Ervin CONTEH. * Debility - PT/OT. * Cognition - ST. * Pain - Tylenol 1000mg q6 prn pain (1-10). * Bowel - senna/colace 1 tablet bid, Magnesium citrate 300mL daily prn. * Adult immunization - Administer pneumonia vaccine, covid vaccine, flu vaccine as appropriate. * DVT prophylaxis - Lovenox 40mg sc daily. * Hyperlipidemia - Atorvastatin 20mg qhs. * Cough - Tessalon perles 100mg tid prn. * Vitamin D deficiency - D3 50mcg daily. * Vitamin B12 deficiency - B12 1000mg daily. * Iron deficiency anemia - Ferrous sulfate 325mg daily. * Allergic rhinitis - Flonase 2 sprays nasal daily, Loratadine 10mg daily. * Acute on chronic HFrEF - Metoprolol succinate 25mg daily, Lisinopril 2.5mg daily, Aldactone 25mg daily, Furosemide 40mg bidlx. * Hypothyroidism - Levothyroxine 100mcg daily. * Insomnia - Melatonin 3mg qhs. * Alzheimer Disease - Memantine 10mg bid. * Skin irritation - Calmoseptine topical bid. * Macular degeneration - Healthy Eyes 1 capsule bidcm. * Tinea Corporis - Nystatin powder topical Q12 prn. * GERD - Pantoprazole 40mg daily. * Restless leg syndrome - Mirapex 0.5mg qhs prn. * Overactive bladder - Gemtesa 75mg daily. 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 05/05/19 cyanocobalamin (vitamin B-12) 1,000 mcg tablet 1,000 mcg PO DAILY supplement 01/14/23 ferrous sulfate 325 mg (65 mg iron) tablet 325 mg PO DAILY supplemt 01/14/23 mv-mn-folic 200 mcg-vit K 15 mcg-lutein 5 mg-zeaxanthin 1 mg capsule (PreserVision AREDS 2 Plus Multivit) 1 cap PO BID eye health 01/14/23 benzonatate 100 mg capsule 100 mg PO TID PRN cough 01/21/25 cholecalciferol (vitamin D3) 50 mcg (2,000 unit) tablet (D3 DOTS) 50 mcg PO DAILY supplement 01/21/25 dibucaine 1 % topical ointment 1 applic topical TID PRN hemorrhoids 01/21/25 loratadine 10 mg tablet (Allerclear) 10 mg PO DAILY allergies 01/21/25 memantine 28 mg capsule sprinkle,extended release 24hr 28 mg PO DAILY memory 01/21/25 mirabegron 50 mg tablet,extended release 24 hr (Myrbetriq) 50 mg PO DAILY bladder 01/21/25 nystatin 100,000 unit/gram topical powder 1 applic topical Q12H PRN skin irritation 01/21/25 ofloxacin 0.3 % eye drops 1 drp ophthalmic (eye) Q2H eye health 01/21/25 triamcinolone acetonide 0.1 % topical cream 1 applic topical DAILY PRN rash 01/21/25 furosemide 40 mg tablet (Lasix) 40 mg PO BID water pill #60 tabs 01/24/25 lisinopril 2.5 mg tablet 2.5 mg PO DAILY blood pressure 1 month #30 tabs 01/24/25 metoprolol succinate 25 mg tablet,extended release 24 hr 25 mg PO DAILY heart 1 month #30 tabs 01/24/25 spironolactone 25 mg tablet 25 mg PO DAILY water pill 30 days #0 tabs 01/24/25 acetaminophen 500 mg capsule 1,000 mg PO Q6H PRN pain 01/30/25 atorvastatin 20 mg tablet 20 mg PO QHS 01/30/25 doxepin 10 mg capsule 10 mg PO QHS 01/30/25 enoxaparin 40 mg/0.4 mL subcutaneous syringe 40 mg subcut DAILY 01/30/25 fluticasone propionate 50 mcg/actuation nasal spray,suspension (24 Hour Allergy Relief) 2 spray intranasal DAILY 01/30/25 hydrocortisone 2.5 % topical cream 1 applic topical TID PRN rash 01/30/25 hydroxyzine HCl 10 mg tablet 10 mg PO TID PRN itching 01/30/25 lansoprazole 15 mg capsule,delayed release 30 mg PO DAILY 01/30/25 magnesium citrate (Citrate of Magnesia oral) 300 ml PO DAILY PRN constipation 01/30/25 memantine 10 mg tablet 10 mg PO BID 01/30/25 menthol 0.44 %-zinc oxide 20.6 % topical ointment (CalaSoothe) 1 applic topical BID 01/30/25 potassium chloride 20 mEq tablet,extended release(part/cryst) (Klor-Con M) 20 meq PO DAILY 01/30/25 pramipexole 0.5 mg tablet 0.5 mg PO QHS PRN restless leg(s) 01/30/25 sennosides 8.6 mg-docusate sodium 50 mg tablet (2-in-1 Laxative) 1 tab-cap PO BID 01/30/25 vibegron 75 mg tablet (Gemtesa) 75 mg PO DAILY 01/30/25 Hospital Course Operations None Procedures None Summary of Care Provided Minutes Spent on Discharge: 15 Hospital Course: 89 year old female with below past medical history hospitalized for acute respiratory failure with hypoxia 2/2 acute on chronic HFrEF, admitted to TCU with debility, here for rehabilitation, strengthening, prior to discharge Ervin REGALADO 01/28/2024 Resident confused, no focal neurologic deficits, urinalysis was checked, and it was negative. 01/30/2025 Resident had change in mental status, stroke alert called. Discharge to [facility] ED 01/30/2025 for stroke alert, for evaluation, admission to [facility]. Weight / BMI Weight Weight: 62.55 kg Body Mass Index (BMI) 25.2 ABG / Lab / Microbiology Data 01/30/25 07:41 01/30/25 07:41 Laboratory: Laboratory Results - last 24 hr 01/29/25 18:50: Urine Color Yellow, Urine Clarity Clear, Urine pH 5.0, Ur Specific [place] 1.015, Urine Protein 30 H, Urine Glucose (UA) Normal, Urine Ketones Negative, Urine Occult Blood Negative, Urine Nitrite Negative, Urine Bilirubin Negative, Urine Urobilinogen Normal, Ur Leukocyte Esterase Negative, Urine RBC 0 SEEN, Urine WBC 0 SEEN, Ur Squamous Epith Cells 0-5 SEEN, Urine Bacteria 0 SEEN, Urine Mucus 0 SEEN 01/30/25 07:41: WBC 5.5, RBC 3.66 L, Hgb 11.3 L, Hct 34.1 L, MCV 93.2, MCH 30.9, MCHC 33.1, RDW Std Deviation 42.6, RDW Coeff of Jos 12.4, Plt Count 266, MPV 10.3, Immature Gran % (Auto) 0.400, Neut % (Auto) 65.6, Lymph % (Auto) 18.0 L, M blanca % (Auto) 12.0 H, Eos % (Auto) 3.5, Baso % (Auto) 0.5, Absolute Neuts (auto) 3.6, Absolute Lymphs (auto) 0.99, Nucleated RBC % 0, Sodium 147 H, Potassium 3.2 L, Chloride 107, Carbon Dioxide 26.6, Anion Gap 14, BUN 27 H, Creatinine 0.96, E stim Creat Clear Calc 35.22 L, Est GFR (MDRD) Non-Af 57 L, BUN/Creatinine Ratio 28.2 H, Glucose 109 H, Calcium 7.2 L, NT pro BNP II 1208 01/30/25 10:15: POC Glucose 100 01/30/25 11:24: POC Glucose 96 D/C Instructions Discharge Diet: No restrictions Discharge Activity: Return to Normal Activity, May Shower and Use Walker Weight Bearing Status: Weight bearing as tolerated Call your doctor if you observe: Fever of 101 or Higher, Inability to urinate, Inability to have a bowel movement, Shortness of breath, Dizziness, Fainting spells, Swelling in the ankles, Chest pain and Uncontrolled pain DC O2, CPAP, BIPAP Needs PSN CPAP & BiPAP: BiPAP & CPAP Settings per PSN Fraction of Inspired Oxygen ( 94 01/26/25 11:33 FIO2) Home O2 Discharge instructions: No Additional Instructions: Discharge to [facility] ED 01/30/2025 for stroke alert, for evaluation, admission to [facility]. Meaningful Use Info Meaningful Use Meaningful Use Diagnoses (Choose all that apply): None applicable Ischemic Stroke Statin Dosing Therapy Reference: STATIN DOSE THERAPY REFERENCE: * Patients > 75 years receive moderate or high dose statin therapy. * Patients 75 years or YOUNGER should receive HIGH intensity statin dose unless contraindicated. You will be required to document reason for non-treatment if statin daily dose does not meet guidelines. HIGH DOSE STATIN THERAPY DAILY Atorvastatin > than or = to 40 mg Rosuvastatin > than or = to 20 mg Amlodipine + Atorvastatin > than or = to 2.5/40 mg Ezetimibe + Simvastatin 10/80 mg Simvastatin 80mg Discharge Plan Admission Admit Date/Time: 01/24/25 13:10 Primary Reason for Your Visit: Debility. Attending Provider: Jimmy Byrd Chi Instructions Additional Instructions / Restrictions: Discharge to [facility] ED 01/30/2025 for stroke alert, for evaluation, admission to [facility]. Discharge Orders/Prescriptions Prescriptions: No Action ropinirole 1 mg concentrate 1 mg PO QHS PRN (Reason: RESTLESS LEGS) simvastatin 40 mg concentrate 40 mg PO QHS levothyroxine 100 MCG tablet 100 mcg PO DAILY pantoprazole 40 mg tablet,delayed release (DR/EC) 40 mg PO DAILY Patient Comments: ACID REFLUX cyanocobalamin (vitamin B-12) 1,000 mcg Tablet 1,000 mcg PO DAILY ferrous sulfate 325 mg (65 mg iron) Tablet 325 mg PO DAILY PreserVision AREDS 2 Plus MV 200 mcg-15 mcg- 5 mg-1 mg Capsule 1 cap PO BID ofloxacin 0.3 % drops 1 drp ophthalmic (eye) Q2H Rx Instructions: INSTILL INTO LEFT EYE EVERY 2 HOURS WHILE AWAKE dibucaine 1 % ointment 1 applic topical TID PRN (Reason: hemorrhoids) triamcinolone acetonide 0.1 % cream 1 applic topical DAILY PRN (Reason: rash) benzonatate 100 mg capsule 100 mg PO TID PRN (Reason: cough) loratadine [Allerclear] 10 mg tablet 10 mg PO DAILY nystatin 100,000 unit/gram powder 1 applic topical Q12H PRN (Reason: skin irritation) memantine 28 mg capsule,sprinkle,ER 24hr 28 mg PO DAILY mirabegron [Myrbetriq] 50 mg tablet extended release 24 hr 50 mg PO DAILY cholecalciferol (vitamin D3) [D3 DOTS] 50 mcg (2,000 unit) tablet 50 mcg PO DAILY spironolactone 25 mg Tablet 25 mg PO DAILY 30 Days Qty: 0 0RF Rx Instructions: Hold for serum potassium more than 5.0 furosemide [Lasix] 40 mg tablet 40 mg PO BID Qty: 60 0RF Rx Instructions: Hold for SBP less than 110 mmHg lisinopril 2.5 mg tablet 2.5 mg PO DAILY 30 Days Qty: 30 2RF metoprolol succinate 25 mg tablet extended release 24 hr 25 mg PO DAILY 30 Days Qty: 30 3RF menthol-zinc oxide [CalaSoothe] 0.44-20.6 % ointment 1 applic topical BID fluticasone propionate [24 Hour Allergy Relief] 50 mcg/actuation spray,suspension 2 spray intranasal DAILY Rx Instructions: administer into each nostril Gemtesa 75 mg tablet 75 mg PO DAILY potassium chloride [Klor-Con M20] 20 mEq tablet,ER particles/crystals 20 meq PO DAILY lansoprazole 15 mg capsule,delayed release(DR/EC) 30 mg PO DAILY atorvastatin 20 mg tablet 20 mg PO QHS enoxaparin 40 mg/0.4 mL syringe 40 mg subcut DAILY memantine 10 mg tablet 10 mg PO BID sennosides-docusate sodium [2-in-1 Laxative] 8.6-50 mg tablet 1 tab-cap PO BID doxepin 10 mg capsule 10 mg PO QHS magnesium citrate [Citrate of Magnesia] Solution 300 ml PO DAILY PRN (Reason: constipation) hydrocortisone 2.5 % cream 1 applic topical TID PRN (Reason: rash) pramipexole 0.5 mg tablet 0.5 mg PO QHS PRN (Reason: restless leg(s)) acetaminophen 500 mg capsule 1,000 mg PO Q6H PRN (Reason: pain) hydroxyzine HCl 10 mg tablet 10 mg PO TID PRN (Reason: itching) Disposition Disposition (needs filled in before D/C Order can be placed): Acute Care Hospital [facility]
--- NOTE | 2025-02-02 14:34 | MDS.RN ---
Information for the MDS was obtained from review of the clinical record, interview of resident, staff, and direct observation of resident?s care.
== END 2025-01-30 10:10 | disposition short-term general hospital (02) | DRG 291 ==
PROVIDERS: Admitting Provider Family Medicine Geriatric Medicine; Visit Provider Family Medicine Geriatric Medicine
DX: I11.0 Hypertensive heart disease with heart failure (principal); I50.23 Acute on chronic systolic (congestive) heart failure; D50.9 Iron deficiency anemia, unspecified; G30.9 Alzheimer's disease, unspecified; F32.9 Major depressive disorder, single episode, unspecified; G25.81 Restless legs syndrome; E03.9 Hypothyroidism, unspecified; J30.9 Allergic rhinitis, unspecified; E78.5 Hyperlipidemia, unspecified; H35.30 Unspecified macular degeneration; K21.9 Gastro-esophageal reflux disease without esophagitis; E53.8 Deficiency of other specified B group vitamins; E55.9 Vitamin D deficiency, unspecified; F02.80 Dementia in other diseases classified elsewhere, unspecified severity, without behavioral disturbance, psychotic disturbance, mood disturbance, and anxiety; L93.0 Discoid lupus erythematosus; N32.81 Overactive bladder; Z79.899 Other long term (current) drug therapy; Z79.890 Hormone replacement therapy; G47.00 Insomnia, unspecified; R41.82 Altered mental status, unspecified
CPT/HCPCS: 36415; 80048; 80061; 81001; 82962; 83880; 85025; 87086; 92523; 92526; 92610; 97110; 97116; 97129; 97162; 97166; 97530; 97535; 97802; A4216

== ENCOUNTER 2025-01-30 10:21 | Inpatient (IN) | payer MEDICARE, SELFPAY ==
[2025-01-30] VITALS (21 sets, daily range): BP systolic 111–156; BP diastolic 51–99; PULSE 62–77; RESP 15–22; TEMP 36.3–36.9; O2SAT 92–100; BMI 26.7; BMI 26.6
--- NOTE | 2025-01-30 10:26 | CT_ITS ---
PROCEDURE: STROKE BRAIN/HEAD WITHOUT CONT 01/30/2025 REASON FOR EXAM: NEURO DEFICIT, ACUTE, STROKE SUSPECTED TECHNIQUE: CT head without contrast, with sagittal and coronal reconstructed images. One or more dose reduction techniques were used (e.g., Automated exposure control, adjustment of the mA and/or kV according to patient size, use of iterative reconstruction technique RADIATION DOSE SUMMARY: CTDlvol: 44.99 mGy DLP: 762.36 mGycm COMPARISON: Head CT of 03/21/2022. FINDINGS: A new area of hypodensity, [id number] in size, is seen of the right frontal lobe, centered about axial images 22 through 30 out of 41. This is concerning for infarct, of uncertain age. Prominent calcification is seen of the bilateral vertebral and basilar arteries and of the basilar portions of the internal carotid arteries. No intracranial hemorrhage, mass, or mass effect is seen. No extra-axial fluid collection is noted. Mild generalized cerebral and cerebellar atrophy is seen, with symmetric ventricular enlargement consistent with the degree of atrophy. No orbital pathology is seen. The paranasal sinuses appear clear, as do the mastoid air cells. No acute osseous process is noted. CT/STROKE Brain/Head without Cont IMPRESSION: 1. [id number] sized right frontal hypodensity, most consistent with infa rction, of uncertain age. This is a new finding since the prior CT of 03/21/2022. 2. No intracranial hemorrhage is seen. 3. Mild generalized cerebral and cerebellar atrophy. [place] Alert: No intracranial hemorrhage. Right frontal hypodensity consistent with infarction, of uncertain age. The critical information above was relayed directly by me by telephone to David Burkett on 01/30/2025 at 10:06 am with readback verification. Reading Location: [id number]
--- NOTE | 2025-01-30 10:26 | EKG12_ITS ---
Test Reason : Blood Pressure : */* mmHG Vent. Rate : 74 BPM Atrial Rate : 74 BPM P-R Int : 166 ms QRS Dur : 144 ms QT Int : 442 ms P-R-T Axes : 30 -26 109 degrees QTcB Int : 490 ms Normal sinus rhythm Left bundle branch block Abnormal ECG Confirmed by RENÉ SANCHEZ, JOY ([id number]), greeting card editor SG MUSE ([id number]) on 02/01/2025 8:14:53 AM Referred By: YULISSA Confirmed By: JOY MERRITT MD
--- NOTE | 2025-01-30 10:30 | CT_ITS ---
PROCEDURE: CTA HEAD AND NECK W/ CONTRAST 01/30/2025 REASON FOR EXAM: STROKE TECHNIQUE: CTA imaging of the head and neck from the aortic arch to the skull vertex with intravenous contrast. Coronal and Sagittal reconstruction series were provided. MIP and 3D reconstructions were performed. One or more dose reduction techniques were used (e.g., Automated exposure control, adjustment of the mA and/or kV according to patient size, use of iterative reconstruction technique). COMPARISON: 01/30/2025 FINDINGS: CTA HEAD FINDINGS: Internal carotid arteries: No acute thrombus or dissection.Atherosclerotic calcifications are present without significant stenosis. Vertebrobasilar arteries: No acute thrombus or dissection.Scattered atherosclerotic calcifications are present without significant stenosis. Intracranial arteries: No acute thrombus, dissection, aneurysm or vascular malformation. Venous sinuses: Unremarkable. CTA NECK FINDINGS: Aorta and proximal great vessels: No acute thrombus or dissection.Moderate scattered atherosclerotic calcifications without significant stenosis. Common carotid arteries: No acute thrombosis or dissection.Scattered atherosclerotic calcifications are present without significant stenosis. Internal carotid arteries: No acute thrombosis or dissection.Scattered atherosclerotic calcifications are present without significant stenosis. Vertebral arteries: No acute thrombosis or dissection. Bones: There are severe multilevel degenerative changes present in the cervical spine with reversal of the normal cervical lordosis. Soft tissues: Unremarkable. Visualized chest: Patchy pulmonary opacities present in the visualized lung navarrete. CT/CTA Head AND Neck W/ Contrast IMPRESSION: 1. No acute arterial abnormality of the head and neck. 2. No significant or flow-limiting stenosis. Reading Location: [id number]
--- NOTE | 2025-01-30 10:33 | ED.VIS.STROK ---
HPI History of Present Illness Chief Complaint: Stroke Alert Informant: patient and SNF Narrative Narrative: 89-year-old female presenting to the emergency room from rehab/TCU as a stroke alert. Reportedly at 0945 hrs. a activities personnel was with the patient who noted that her speech was different. Stroke team was called and the patient was brought to CT scanner where I was present before the patient arrived. The nurse from the TCU tells me that she has a history of Alzheimer's and is ANO x 2 which is normal for her. She stated that activities stated that she had slurred speech. From review of the chart I do not see that she is on a blood thinner. I see a history of stroke but no details as to what type when. Because of the patient's movement from TCU to the CT scanner and then into the ED room followed rapidly by the stroke neurologist I was unable to get a complete history and physical performed before stroke neurology's evaluation. Stroke neurology informs me that the family is reporting some confusion since Thursday. PFSH [facility] Medical History Hyperlipidemia Anxiety Major depressive disorder Cellulitis of left ankle Incontinence Thyroid disease Stroke HTN (hypertension) Arthritis Home Medications ?Medication ?Instructions ?Recorded ?Last Taken ?Type levothyroxine 100 mcg tablet 100 mcg PO DAILY THYROID 02/09/15 01/24/25 History ropinirole 1 mg tablet 1 mg PO QHS PRN RESTLESS LEGS 02/09/15 10/28/16 06:00 History simvastatin 40 mg tablet 40 mg PO QHS CHOLESTEROL 02/09/15 01/23/25 History pantoprazole 40 mg tablet,delayed 40 mg PO DAILY ACID CARPENTER RAILCAR 05/05/19 01/24/25 History release cyanocobalamin (vitamin B-12) 1,000 mcg PO DAILY supplement 01/14/23 01/30/25 History 1,000 mcg tablet ferrous sulfate 325 mg (65 mg 325 mg PO DAILY supplemt 01/14/23 01/29/25 History iron) tablet mv-mn-folic 200 mcg-vit K 15 1 cap PO BID eye health 01/14/23 01/30/25 History mcg-lutein 5 mg-zeaxanthin 1 mg capsule (PreserVision AREDS 2 Plus Multivit) benzonatate 100 mg capsule 100 mg PO TID PRN cough 01/21/25 Unknown History cholecalciferol (vitamin D3) 50 50 mcg PO DAILY supplement 01/21/25 01/30/25 History mcg (2,000 unit) tablet (D3 DOTS) dibucaine 1 % topical ointment 1 applic topical TID PRN 01/21/25 Unknown History hemorrhoids loratadine 10 mg tablet 10 mg PO DAILY allergies 01/21/25 Unknown History (Allerclear) memantine 28 mg capsule 28 mg PO DAILY memory 01/21/25 01/24/25 History sprinkle,extended release 24hr mirabegron 50 mg tablet,extended 50 mg PO DAILY bladder 01/21/25 Unknown History release 24 hr (Myrbetriq) nystatin 100,000 unit/gram topical 1 applic topical Q12H PRN skin 01/21/25 01/30/25 History powder irritation ofloxacin 0.3 % eye drops 1 drp ophthalmic (eye) Q2H eye 01/21/25 Unknown History health triamcinolone acetonide 0.1 % 1 applic topical DAILY PRN rash 01/21/25 Unknown History topical cream furosemide 40 mg tablet (Lasix) 40 mg PO BID water pill #60 tabs 01/24/25 01/29/25 Rx lisinopril 2.5 mg tablet 2.5 mg PO DAILY blood pressure 1 01/24/25 01/30/25 Rx month #30 tabs metoprolol succinate 25 mg 25 mg PO DAILY heart 1 month #30 01/24/25 01/30/25 Rx tablet,extended release 24 hr tabs spironolactone 25 mg tablet 25 mg PO DAILY water pill 30 days 01/24/25 01/30/25 Rx #0 tabs acetaminophen 500 mg capsule 1,000 mg PO Q6H PRN pain 01/30/25 Unknown History atorvastatin 20 mg tablet 20 mg PO QHS 01/30/25 01/29/25 History doxepin 10 mg capsule 10 mg PO QHS 01/30/25 01/29/25 History enoxaparin 40 mg/0.4 mL 40 mg subcut DAILY 01/30/25 01/29/25 History subcutaneous syringe fluticasone propionate 50 2 spray intranasal DAILY 01/30/25 01/30/25 History mcg/actuation nasal spray,suspension (24 Hour Allergy Relief) hydrocortisone 2.5 % topical cream 1 applic topical TID PRN rash 01/30/25 Unknown History hydroxyzine HCl 10 mg tablet 10 mg PO TID PRN itching 01/30/25 Unknown History lansoprazole 15 mg capsule,delayed 30 mg PO DAILY 01/30/25 01/30/25 History release magnesium citrate (Citrate of 300 ml PO DAILY PRN constipation 01/30/25 Unknown History Magnesia oral) memantine 10 mg tablet 10 mg PO BID 01/30/25 01/30/25 History menthol 0.44 %-zinc oxide 20.6 % 1 applic topical BID 01/30/25 01/30/25 History topical ointment (CalaSoothe) potassium chloride 20 mEq 20 meq PO DAILY 01/30/25 01/30/25 History tablet,extended release(part/cryst) (Klor-Con M) pramipexole 0.5 mg tablet 0.5 mg PO QHS PRN restless leg(s) 01/30/25 Unknown History sennosides 8.6 mg-docusate sodium 1 tab-cap PO BID 01/30/25 Unknown History 50 mg tablet (2-in-1 Laxative) vibegron 75 mg tablet (Gemtesa) 75 mg PO DAILY 01/30/25 01/30/25 History Allergy/AdvReac Type Severity Reaction Status Date / Time Sulfa (Sulfonamide Allergy Hives Verified 01/30/25 10:44 Antibiotics) adhesive tape (tape) AdvReac TEARS SKIN Verified 01/30/25 10:44 Family History Father Cancer of Lung Cancer Mother Cancer type unknown Brother Dementia Surgical History History of hand surgery History of inguinal hernia repair History of hysterectomy History of hip replacement Hx of shoulder surgery History of knee surgery Social History household members: none housing: assisted living facility Smoking Status: Never smoker second hand exposure: No alcohol intake: never substance use type: does not use ROS ROS ED Constitutional Constitutional ED: Denies chills, fever(s) or weight loss Eyes Eyes: Denies change in vision or diplopia ENT ENT ED: Denies ear pain, rhinorrhea or sore throat Cardiovascular Cardiovascular: Denies chest pain, orthopnea, palpitations or racing heartbeat Respiratory/Chest Respiratory/Chest: Denies cough, dyspnea or orthopnea Gastrointestinal Gastrointestinal: Denies abdominal pain, diarrhea, nausea or vomiting Genitourinary Genitourinary ED: Denies dysuria, hematuria or urinary frequency Musculoskeletal Musculoskeletal: Denies arthralgias or myalgias Integumentary Denies abscess or rash Neurologic Neurologic: Reports other Details: Reported slurred speech ; Denies headache(s) or weakness Psychiatric Psychiatric: Denies anxiety, depression, suicidal ideation or suicidal thoughts Endocrine Endocrinology: Denies polydipsia, polyphagia or polyuria Allergic/Immunologic Allergic/Immunologic ED: Denies mouth swelling, tongue swelling or urticaria EXAM Physical Exam Const Vital Signs: 01/30/25 10:26 01/30/25 10:26 01/30/25 10:38 Temperature 98 F Temperature Source Temporal Pulse Rate 72 68 Respiratory Rate 19 H 20 H Blood Pressure 156/71 H 156/71 H Blood Pressure Mean 99 99 Pulse Ox 94 96 94 Oxygen Delivery Method Nasal Cannula Nasal Cannula Oxygen Flow Rate (L/min) 2 2 01/30/25 10:53 01/30/25 10:56 01/30/25 11:22 Temperature 97.3 F L Temperature Source Temporal Pulse Rate 70 77 Respiratory Rate 22 H 16 Blood Pressure 142/62 H 144/56 H Blood Pressure Mean 88 85 Pulse Ox 95 94 Oxygen Delivery Method Nasal Cannula Oxygen Flow Rate (L/min) 2 01/30/25 11:26 01/30/25 11:30 01/30/25 12:00 Temperature Temperature Source Pulse Rate 72 64 71 Respiratory Rate 20 H 22 H 19 H Blood Pressure 144/52 H 153/75 H Blood Pressure Mean 82 101 Pulse Ox 95 97 97 Oxygen Delivery Method Nasal Cannula Nasal Cannula Nasal Cannula Oxygen Flow Rate (L/min) 2 2 2 01/30/25 12:30 01/30/25 13:00 01/30/25 13:30 Temperature Temperature Source Pulse Rate 69 74 77 Respiratory Rate 18 22 H 17 Blood Pressure 119/55 L 155/72 H 153/99 H Blood Pressure Mean 76 99 117 Pulse Ox 95 95 98 Oxygen Delivery Method Room Air Nasal Cannula Nasal Cannula Oxygen Flow Rate (L/min) 2 2 01/30/25 14:00 01/30/25 14:30 Temperature Temperature Source Pulse Rate 64 62 Respiratory Rate 15 15 Blood Pressure 117/57 L 119/57 L Blood Pressure Mean 77 77 Pulse Ox 97 96 Oxygen Delivery Method Nasal Cannula Nasal Cannula Oxygen Flow Rate (L/min) 2 2 Positive well nourished and well developed General Appearance ED: well developed HEENT Reports normocephalic, head/scalp atraumatic and moist mucous membranes Eyes PERRL and EOMs intact bilaterally Neck no lymphadenopathy, supple and no JVD Resp normal respiratory effort and clear to auscultation bilaterally Cardio regular rate, regular rhythm and no murmurs GI normal to inspection, nondistended, normoactive bowel sounds and non-tender Palpation: soft Back/Spine no CVA tenderness and normal ROM Extremity normal to inspection General Extremety ED: Negative for edema General Extremity: Negative for edema Neuro CN's II-XII intact bilaterally Neuro Narrative: Patient is able to repeat the phrase no ifs, ands or buts, it is a diane day, it is still winter without difficulty Sensorium / Orientation: alert, oriented to person and oriented to place Motor Exam: strength 5/5 throughout Psych mental status grossly normal Mood & Affect: Negative for depressed or tearful Skin no rashes or lesions noted and no wounds MDM MDM MDM Narrative Medical decision making narrative: Differential diagnosis includes hemorrhagic stroke ischemic stroke metabolic encephalopathy UTI electrolyte abnormalities congestive heart failure dysrhythmia dissection aneurysm Stroke neurology states the patient is out of any window. They feel that she does have some slight speech and naming issues as well as a potential left eye vision change. And again the patient has had confusion since reportedly Thursday. CT of the brain noncontrasted does not demonstrate an acute intracranial hemorrhage. There is a new hypodensity in the frontal lobe compared to 2021. Exact timeframe is unknown. Recommendation is that the patient be admitted for MRI and further evaluation with neurology consult. CTA returned with no evidence of dissection or LVO or aneurysm. White count 5.5 hemoglobin 12.3 coags showed an INR 1.2 PTT 27.7. Unfortunately due to lab difficulties a BMP and troponin are not yet readily available. They were drawn this morning and reviewed. She has not been able to produce a urine specimen but again that was checked over the weekend and we will wait on that. Plan of care will be admission I will speak with the hospitalist. History & Record Review Discussion w/independent historian: Patient and Family Lab Data Attestation: I reviewed the patient's lab results. Labs: Laboratory Results - last 24 hr 01/30/25 11:21 WBC 5.5 RBC 4.00 L Hgb 12.3 Hct 37.4 MCV 93.5 MCH 30.8 MCHC 32.9 RDW Std Deviation 43.2 RDW Coeff of Jos 12.6 Plt Count 293 MPV 10.4 Immature Gran % (Auto) 0.500 Neut % (Auto) 66.1 Lymph % (Auto) 18.2 L [place] % (Auto) 11.6 H Eos % (Auto) 2.9 Baso % (Auto) 0.7 Absolute Neuts (auto) 3.7 Absolute Lymphs (auto) 1.01 Nucleated RBC % 0 PT 15.3 H INR 1.2 APTT 27.7 Radiography Diagnostic Testing: Clinical Impression(s) from Imaging Studies Brain CT 01/30/25 10:26 IMPRESSION: 1. [id number] sized right frontal hypodensity, most consistent with infarction, of uncertain age. This is a new finding since the prior CT of 03/21/2022. 2. No intracranial hemorrhage is seen. 3. Mild generalized cerebral and cerebellar atrophy. [place] Alert: No intracranial hemorrhage. Right frontal hypodensity consistent with infarction, of uncertain age. The critical information above was relayed directly by me by telephone to David Pantoja on 01/30/2025 at 10:06 am with readback verification. Reading Location: [address] Head/Neck CTA 01/30/25 10:30 IMPRESSION: 1. No acute arterial abnormality of the head and neck. 2. No significant or flow-limiting stenosis. [facility] 01/30/25 11:22 IMPRESSION: Cardiomegaly with mild congestion. Reading [facility] E[facility] Initial EKG: Attestation: I personally reviewed and interpreted this EKG as follows: Comments: NSR LBBB rate of 74bpm Management Discussion w/another healthcare provider: Hospitalist, Training And Development Coordinator ([facility]) and Radiologist Discharge Plan Dx/Rx/DC Orders Clinical Impression: Dysarthria, Alzheimer disease, Encephalopathy Disposition Disposition: Acute Care Hospital [facility] NIHSS NIHSS 1a. Level of Consciousness: Alert; keenly responsive 1b. LOC Questions: Answers one question correctly. 1c. LOC Commands: Performs both tasks correctly. 2. Best Gaze: Normal 3. Visual: No visual loss 4. Facial Palsy: Normal symmetrical movements 5a. Left Arm: No drift; arm holds 90 (or 45) degrees for full 10 seconds 5b. Right Arm: No drift; arm holds 90 (or 45) degrees for full 10 seconds 6a. Left Leg: No drift; leg holds 30-degree position for full 5 seconds 6b. Right Leg: No drift; leg holds 30-degree position for full 5 seconds 7. Limb Ataxia: Absent 8. Sensory: Normal; no sensory loss 9. Best Language: Xpqf-dr-[id number] aphasia; 10. Dysarthria: Rpvp-hq-ihoblbyh dysarthria; 11. Extinction and Inattention: No abnormality Total: 3
--- NOTE | 2025-01-30 10:34 | ED.RN ---
Stroke alert called from TCU at 1012. Patient arrived to CT at 1022.
--- NOTE | 2025-01-30 11:22 | RAD_ITS ---
EXAM: XR Chest, 1 View CLINICAL INDICATION: NEURO DEFICIT, ACUTE, STROKE SUSPECTED TECHNIQUE: Frontal view of the chest. COMPARISON: XR Chest dated 01/21/2025 FINDINGS: LUNGS AND PLEURAL SPACES: See below. HEART: Cardiomegaly with mild congestion. MEDIASTINUM: Unremarkable. Normal mediastinal contour. BONES/JOINTS: Unremarkable. No acute fracture. RAD/Chest 1 View IMPRESSION: Cardiomegaly with mild congestion. Reading Location: [facility]
[2025-01-30 11:37] LABS: Absolute Lymphocyte Count 1.01 X10^3/uL (0.83-4.51); Absolute Neutrophil Count 3.7 X10^3/uL (2.0-7.7); Basophil# 0.04 X10^3/uL; Basophil% 0.7 % (0-1); Eosinophil# 0.16 X10^3/uL; Eosinophils% 2.9 % (0-5); Hematocrit 37.4 % (37-47); Hemoglobin 12.3 g/dL (12.0-15.0); Lymphocyte # 1.01 X10^3/ul (0.83-4.51); Lymphocyte % 18.2 % (19-41); Mean Corp Hgb Conc 32.9 g/dL (32-36); Mean Corpuscular Hgb 30.8 pg (27.0-32.0); Mean Corpuscular Volume 93.5 fL (81-99); Mean Platelet Vol. 10.4 fl (6.2-12.0); Monocyte# 0.64 X10^3/uL; Monocyte% 11.6 % (0-10); NRBC Flagged by Analyzer 0 % (0-5); Neutrophil # 3.66 X10^3/uL (2.7-7.7); Neutrophil % 66.1 % (47-70); Platelet Count 293 K/mm3 (150-450); RBC Distribution Width CV 12.6 % (11.6-14.6); RBC Distribution Width SD 43.2 fl (35.1-43.9); White Blood Count 5.5 K/mm3 (4.4-11.0)
[2025-01-30 11:42] LABS: International Normalized Ratio 1.2; Prothrombin Time (Protime)PT. 15.3 SECONDS (11.7-14.9)
[2025-01-30 11:43] LABS: Partial Thromboplast Time 27.7 Seconds (24.1-36.2)
[2025-01-30] MEDS: Aspirin 325 MG Tablet PO (13:08)
[2025-01-30 15:37] LABS: Anion Gap 14 (5-15); BUN 26 mg/dL (4-19); BUN/Creat Ratio 28.8 RATIO (10-20); Calcium,Total 7.5 mg/dL (7.6-11.0); Carbon Dioxide 24.4 mmol/L (21.0-32.0); Chloride 104 mmol/L (98-108); Creatinine, Serum 0.89 mg/dL (0.70-1.20); EST Glomerular Filtration Rate 62 (>60); Estimated Creatinine Clearance 39.05 ml/min (50-250); Glucose 101 mg/dL (70-99); Potassium 3.6 mmol/L (3.3-5.1); Sodium Level 143 mmol/L (133-145); Troponin T High Sensitivity 25 ng/L (<=14)
--- NOTE | 2025-01-30 15:55 | CM.ED ---
Social Work Reason for visit: Stroke alert SW introduced self to patient and patients niece and explained role. Niece stated she was uncertain if patient would go back to TCU after hospitalization, that she wanted to see how she does before she makes a decision. SW stated that she can consult the care team on the acute floor with assistance in deciding discharge location. Niece accepting of same. iMsty Hutson, DIE TECHNICIAN, SELLING MANAGER
--- NOTE | 2025-01-30 15:59 | HP.PCM.HOS_ITS ---
HPI - General General Date of Admission: 01/30/25 Date of Service: 01/30/25 Chief Complaint: Abnormal speech HPI Narrative LILIANA CRUZ, is a 89-year-old female history of hypertension, restless leg syndrome, combined heart failure, GERD, hypothyroidism, Alzheimer's disease who presented [facility] ED 01/30/2025 from TCU was a stroke alert. Patient's speech was noted to be different at 0945 and stroke alert was activated. Family reported that patient has been little bit more confused since Thursday and in the ED she did have some slight speech and naming issues as well as potential left eye vision changes. Noncon CT of the brain with no acute hemorrhage but there is new hypodensity in the frontal lobe compared to 2021 but timeframe unknown. Teleneurology evaluated and patient not a candidate for TNK as she was outside the timeframe. Aspirin 81 mg recommended as well as admission for MRI of the brain. If patient has unrevealing MRI and encephalopathy workup they would recommend considering an EEG if she is not back to baseline, also recommended teleneurology consultation on an inpatient basis. In the ED patient vitally stable, CBC unremarkable, BMP unremarkable. Hospitalist contacted for admission. Patient evaluated at bedside with family member present, reportedly when family member saw her on Thursday she was normal but when a friend visited her yesterday she did not seem quite right was having difficulty with her speech, today was a stroke alert due to speech changes, family member at bedside reports her speech is similar to how it was when she initially presented to the ED and has not had any improvement, patient has difficulty answering ROS but denies headache or changes in vision, possible complaint of a cough but had difficulty pinning down any other acute complaints [facility] Medical History Hyperlipidemia Anxiety Major depressive disorder Cellulitis of left ankle Incontinence Thyroid disease Stroke HTN (hypertension) Arthritis Home Medications ?Medication ?Instructions ?Recorded ?Last Taken ?Type levothyroxine 100 mcg tablet 100 mcg PO DAILY THYROID 02/09/15 01/24/25 History ropinirole 1 mg tablet 1 mg PO QHS PRN RESTLESS LEG S 02/09/15 10/28/16 06:00 History simvastatin 40 mg tablet 40 mg PO QHS CHOLESTEROL 01/2101/23/25 History pantoprazole 40 mg tablet,delayed 40 mg PO DAILY ACID VEGETABLE WORKER 05/05/19 01/24/25 History release cyanocobalamin (vitamin B-12) 1,000 mcg PO DAILY suppl ement 01/14/23 01/30/25 History 1,000 mcg tablet ferrous sulfate 325 mg (65 mg 325 mg PO DAILY supplemt 01/14/23 01/29/25 History iron) tablet mv-mn-folic 200 mcg-vit K 15 1 cap PO BID eye health 0 01/14/23 01/30/25 History mcg-lutein 5 mg-zeaxanthin 1 mg capsule (PreserVision AREDS 2 Plus Multivit) benzonatate 100 mg capsule 100 mg PO TID PRN cough Unknown History cholecalciferol (vitamin D3) 50 50 mcg PO DAILY supple ment 01/21/25 01/30/25 History mcg (2,000 unit) tablet (D3 DOTS) dibucaine 1 % topical ointment 1 applic topical TID MS N 01/21/25 Unknown History hemorrhoids loratadine 10 mg tablet 10 mg PO DAILY allergies Unknown History (Allerclear) memantine 28 mg capsule 28 mg PO DAILY memory 01/24/25 History sprinkle,extended release 24hr mirabegron 50 mg tablet,extended 50 mg PO DAILY bladde r 01/21/25 Unknown History release 24 hr (Myrbetriq) nystatin 100,000 unit/gram topical 1 applic topical Q1 2H PRN skin 01/21/25 01/30/25 History powder irritation ofloxacin 0.3 % eye drops 1 drp ophthalmic (eye) Q2H e ye 01/21/25 Unknown History health triamcinolone acetonide 0.1 % 1 applic topical DAILY P RN rash 01/21/25 Unknown History topical cream furosemide 40 mg tablet (Lasix) 40 mg PO BID water pil l #60 tabs 01/24/25 01/29/25 Rx lisinopril 2.5 mg tablet 2.5 mg PO DAILY blood pressu re 1 01/24/25 01/30/25 Rx month #30 tabs metoprolol succinate 25 mg 25 mg PO DAILY heart 1 trell h #30 01/24/25 01/30/25 Rx tablet,extended release 24 hr tabs spironolactone 25 mg tablet 25 mg PO DAILY water pill 30 days 01/24/25 01/30/25 Rx #0 tabs acetaminophen 500 mg capsule 1,000 mg PO Q6H PRN pain 01/30/25 Unknown History atorvastatin 20 mg tablet 20 mg PO QHS 01/30/25 History doxepin 10 mg capsule 10 mg PO QHS 01/30/25 History enoxaparin 40 mg/0.4 mL 40 mg subcut DAILY 01/30/25 01/29/25 History subcutaneous syringe fluticasone propionate 50 2 spray intranasal DAILY 01/30/25 History mcg/actuation nasal spray,suspension (24 Hour Allergy Relief) hydrocortisone 2.5 % topical cream 1 applic topical TI D PRN rash 01/30/25 Unknown History hydroxyzine HCl 10 mg tablet 10 mg PO TID PRN itching 01/30/25 Unknown History lansoprazole 15 mg capsule,delayed 30 mg PO DAILY 01/0801/30/25 History release magnesium citrate (Citrate of 300 ml PO DAILY PRN cons tipation 01/30/25 Unknown History Magnesia oral) memantine 10 mg tablet 10 mg PO BID 01/30/25 History menthol 0.44 %-zinc oxide 20.6 % 1 applic topical BID 01/30/25 01/30/25 History topical ointment (CalaSoothe) potassium chloride 20 mEq 20 meq PO DAILY 01/30/25 History tablet,extended release(part/cryst) (Klor-Con M) pramipexole 0.5 mg tablet 0.5 mg PO QHS PRN restless l eg(s) 01/30/25 Unknown History sennosides 8.6 mg-docusate sodium 1 tab-cap PO BID Unknown History 50 mg tablet (2-in-1 Laxative) vibegron 75 mg tablet (Gemtesa) 75 mg PO DAILY 5 01/30/25 History
--- NOTE | 2025-01-30 15:59 | PCM.HP.STD ---
HPI - General General Date of Admission: 01/30/25 Date of Service: 01/30/25 Chief Complaint: Abnormal speech HPI Narrative LILIANA CRUZ, is a 89-year-old female history of hypertension, restless leg syndrome, combined heart failure, GERD, hypothyroidism, Alzheimer's disease who presented [facility] ED 01/30/2025 from TCU was a stroke alert. Patient's speech was noted to be different at 0945 and stroke alert was activated. Family reported that patient has been little bit more confused since Thursday and in the ED she did have some slight speech and naming issues as well as potential left eye vision changes. Noncon CT of the brain with no acute hemorrhage but there is new hypodensity in the frontal lobe compared to 2021 but timeframe unknown. Teleneurology evaluated and patient not a candidate for TNK as she was outside the timeframe. Aspirin 81 mg recommended as well as admission for MRI of the brain. If patient has unrevealing MRI and encephalopathy workup they would recommend considering an EEG if she is not back to baseline, also recommended teleneurology consultation on an inpatient basis. In the ED patient vitally stable, CBC unremarkable, BMP unremarkable. Hospitalist contacted for admission. Patient evaluated at bedside with family member present, reportedly when family member saw her on Thursday she was normal but when a friend visited her yesterday she did not seem quite right was having difficulty with her speech, today was a stroke alert due to speech changes, family member at bedside reports her speech is similar to how it was when she initially presented to the ED and has not had any improvement, patient has difficulty answering ROS but denies headache or changes in vision, possible complaint of a cough but had difficulty pinning down any other acute complaints [facility] Medical History Hyperlipidemia Anxiety Major depressive disorder Cellulitis of left ankle Incontinence Thyroid disease Stroke HTN (hypertension) Arthritis Home Medications ?Medication ?Instructions ?Recorded ?Last Taken ?Type levothyroxine 100 mcg tablet 100 mcg PO DAILY THYROID 02/09/15 01/24/25 History ropinirole 1 mg tablet 1 mg PO QHS PRN RESTLESS LEGS 02/09/15 10/28/16 06:00 History simvastatin 40 mg tablet 40 mg PO QHS CHOLESTEROL 02/09/15 01/23/25 History pantoprazole 40 mg tablet,delayed 40 mg 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 05/05/19 01/24/25 History release cyanocobalamin (vitamin B-12) 1,000 mcg PO DAILY supplement 01/14/23 01/30/25 History 1,000 mcg tablet ferrous sulfate 325 mg (65 mg 325 mg PO DAILY supplemt 01/14/23 01/29/25 History iron) tablet mv-mn-folic 200 mcg-vit K 15 1 cap PO BID eye health 01/14/23 01/30/25 History mcg-lutein 5 mg-zeaxanthin 1 mg capsule (PreserVision AREDS 2 Plus Multivit) benzonatate 100 mg capsule 100 mg PO TID PRN cough 01/21/25 Unknown History cholecalciferol (vitamin D3) 50 50 mcg PO DAILY supplement 01/21/25 01/30/25 History mcg (2,000 unit) tablet (D3 DOTS) dibucaine 1 % topical ointment 1 applic topical TID PRN 01/21/25 Unknown History hemorrhoids loratadine 10 mg tablet 10 mg PO DAILY allergies 01/21/25 Unknown History (Allerclear) memantine 28 mg capsule 28 mg PO DAILY memory 01/21/25 01/24/25 History sprinkle,extended release 24hr mirabegron 50 mg tablet,extended 50 mg PO DAILY bladder 01/21/25 Unknown History release 24 hr (Myrbetriq) nystatin 100,000 unit/gram topical 1 applic topical Q12H PRN skin 01/21/25 01/30/25 History powder irritation ofloxacin 0.3 % eye drops 1 drp ophthalmic (eye) Q2H eye 01/21/25 Unknown History health triamcinolone acetonide 0.1 % 1 applic topical DAILY PRN rash 01/21/25 Unknown History topical cream furosemide 40 mg tablet (Lasix) 40 mg PO BID water pill #60 tabs 01/24/25 01/29/25 Rx lisinopril 2.5 mg tablet 2.5 mg PO DAILY blood pressure 1 01/24/25 01/30/25 Rx month #30 tabs metoprolol succinate 25 mg 25 mg PO DAILY heart 1 month #30 01/24/25 01/30/25 Rx tablet,extended release 24 hr tabs spironolactone 25 mg tablet 25 mg PO DAILY water pill 30 days 01/24/25 01/30/25 Rx #0 tabs acetaminophen 500 mg capsule 1,000 mg PO Q6H PRN pain 01/30/25 Unknown History atorvastatin 20 mg tablet 20 mg PO QHS 01/30/25 01/29/25 History doxepin 10 mg capsule 10 mg PO QHS 01/30/25 01/29/25 History enoxaparin 40 mg/0.4 mL 40 mg subcut DAILY 01/30/25 01/29/25 History subcutaneous syringe fluticasone propionate 50 2 spray intranasal DAILY 01/30/25 01/30/25 History mcg/actuation nasal spray,suspension (24 Hour Allergy Relief) hydrocortisone 2.5 % topical cream 1 applic topical TID PRN rash 01/30/25 Unknown History hydroxyzine HCl 10 mg tablet 10 mg PO TID PRN itching 01/30/25 Unknown History lansoprazole 15 mg capsule,delayed 30 mg PO DAILY 01/30/25 01/30/25 History release magnesium citrate (Citrate of 300 ml PO DAILY PRN constipation 01/30/25 Unknown History Magnesia oral) memantine 10 mg tablet 10 mg PO BID 01/30/25 01/30/25 History menthol 0.44 %-zinc oxide 20.6 % 1 applic topical BID 01/30/25 01/30/25 History topical ointment (CalaSoothe) potassium chloride 20 mEq 20 meq PO DAILY 01/30/25 01/30/25 History tablet,extended release(part/cryst) (Klor-Con M) pramipexole 0.5 mg tablet 0.5 mg PO QHS PRN restless leg(s) 01/30/25 Unknown History sennosides 8.6 mg-docusate sodium 1 tab-cap PO BID 01/30/25 Unknown History 50 mg tablet (2-in-1 Laxative) vibegron 75 mg tablet (Gemtesa) 75 mg PO DAILY 01/30/25 01/30/25 History Allergy/AdvReac Type Severity Reaction Status Date / Time Sulfa (Sulfonamide Allergy Hives Verified 01/30/25 10:44 Antibiotics) adhesive tape (tape) AdvReac TEARS SKIN Verified 01/30/25 10:44 Family History Father Cancer of Lung Cancer Mother Cancer type unknown Brother Dementia Surgical History History of hand surgery History of inguinal hernia repair History of hysterectomy History of hip replacement Hx of shoulder surgery History of knee surgery Social History household members: none housing: assisted living facility Smoking Status: Never smoker second hand exposure: No alcohol intake: never substance use type: does not use ROS ROS Narrative Difficult to assess ROS, patient with difficulty answering questions, possible slight cough Vital Signs Vital Signs Vital Signs: 01/30/25 10:26 01/30/25 10:26 01/30/25 10:38 Temperature 98 F Temperature Source Temporal Pulse Rate 72 68 Respiratory Rate 19 H 20 H Blood Pressure 156/71 H 156/71 H Blood Pressure Mean 99 99 Pulse Ox 94 96 94 Oxygen Delivery Method Nasal Cannula Nasal Cannula Oxygen Flow Rate (L/min) 2 2 01/30/25 10:53 01/30/25 10:56 01/30/25 11:22 Temperature 97.3 F L Temperature Source Temporal Pulse Rate 70 77 Respiratory Rate 22 H 16 Blood Pressure 142/62 H 144/56 H Blood Pressure Mean 88 85 Pulse Ox 95 94 Oxygen Delivery Method Nasal Cannula Oxygen Flow Rate (L/min) 2 01/30/25 11:26 01/30/25 11:30 01/30/25 12:00 Temperature Temperature Source Pulse Rate 72 64 71 Respiratory Rate 20 H 22 H 19 H Blood Pressure 144/52 H 153/75 H Blood Pressure Mean 82 101 Pulse Ox 95 97 97 Oxygen Delivery Method Nasal Cannula Nasal Cannula Nasal Cannula Oxygen Flow Rate (L/min) 2 2 2 01/30/25 12:30 01/30/25 13:00 01/30/25 13:30 Temperature Temperature Source Pulse Rate 69 74 77 Respiratory Rate 18 22 H 17 Blood Pressure 119/55 L 155/72 H 153/99 H Blood Pressure Mean 76 99 117 Pulse Ox 95 95 98 Oxygen Delivery Method Room Air Nasal Cannula Nasal Cannula Oxygen Flow Rate (L/min) 2 2 01/30/25 14:00 01/30/25 14:30 01/30/25 15:00 Temperature Temperature Source Pulse Rate 64 62 66 Respiratory Rate 15 15 19 H Blood Pressure 117/57 L 119/57 L 142/55 H Blood Pressure Mean 77 77 84 Pulse Ox 97 96 100 Oxygen Delivery Method Nasal Cannula Nasal Cannula Nasal Cannula Oxygen Flow Rate (L/min) 2 2 2 01/30/25 15:30 Temperature Temperature Source Pulse Rate 64 Respiratory Rate 20 H Blood Pressure 111/93 H Blood Pressure Mean 99 Pulse Ox 99 Oxygen Delivery Method Nasal Cannula Oxygen Flow Rate (L/min) 2 Weight Weight: 66.4 kg Body Mass Index (BMI) 26.7 Physical Exam Narrative General: Alert, said the year backwards, said she was at a hospital but mumbled the place, hard to tell if she send [place] HEENT: Atraumatic, normocephalic, dry oral mucosa Eyes: Anicteric, normal conjunctiva, extraocular movements intact, pupils equal Neck: Supple Respiratory: Clear to auscultation bilaterally, normal respiratory effort Cardiovascular: Regular rate and rhythm, does have systolic murmur GI: Soft, nontender, nondistended Extremities: No edema Musculoskeletal: Strength 5 out of 5 in right upper extremity, 5 out of 5 left upper extremity, 5 out of 5 right lower extremity, 5 out of 5 left lower extremity Neuro: Difficulty with words but otherwise cranial nerves II through XII intact Skin: No rashes appreciated Psych: Cooperative Results Lab / Micro Data 01/30/25 11:21 01/30/25 11:21 Labs: Laboratory Results - last 24 hr 01/30/25 11:21: WBC 5.5, RBC 4.00 L, Hgb 12.3, Hct 37.4, MCV 93.5, MCH 30.8, MCHC 32.9, RDW Std Deviation 43.2, RDW Coeff of Jos 12.6, Plt Count 293, MPV 10.4, Immature Gran % (Auto) 0.500, Neut % (Auto) 66.1, Lymph % (Auto) 18.2 L, [place] % (Auto) 11.6 H, Eos % (Auto) 2.9, Baso % (Auto) 0.7, Absolute Neuts (auto) 3.7, Absolute Lymphs (auto) 1.01, Nucleated RBC % 0, PT 15.3 H, INR 1.2, APTT 27.7, Sodium 143, Potassium 3.6, Chloride 104, Carbon Dioxide 24.4, Anion Gap 14, BUN 26 H, Creatinine 0.89, Estim Creat Clear Calc 39.05 L, Est GFR (MDRD) Non-Af 62, BUN/Creatinine Ratio 28.8 H, Glucose 101 H, Calcium 7.5 L, Troponin T High Sens 25 H Imaging Radiology Impression Brain CT 01/30/25 10:26 IMPRESSION: 1. [id number] sized right frontal hypodensity, most consistent with infarction, of uncertain age. This is a new finding since the prior CT of 03/21/2022. 2. No intracranial hemorrhage is seen. 3. Mild generalized cerebral and cerebellar atrophy. [place] Alert: No intracranial hemorrhage. Right frontal hypodensity consistent with infarction, of uncertain age. The critical information above was relayed directly by me by telephone to David Pantoja on 01/30/2025 at 10:06 am with readback verification. Reading Location: [id number] Head/Neck CTA 01/30/25 10:30 IMPRESSION: 1. No acute arterial abnormality of the head and neck. 2. No significant or flow-limiting stenosis. Reading [facility] 01/30/25 11:22 IMPRESSION: Cardiomegaly with mild congestion. Reading [facility] Assessment & Plan Assessment/Plan (1) Alteration in speech: PLAN: Plan # Possible left eye vision changes, slurring of speech -Admit to tele -CT head w/ new hypodensity in the frontal lobe compared to 2021 but timeframe unknown -CTA head and neck no hemodynamic significant stenosis -MRI ordered -NIH q4hr -asa, statin -No echo given patient had recent echo 01/23/2025 and has previous negative bubble -PT/OT/Speech eval -Teleneuro consult ordered -Hold BP medications to allow for permissive hypertension for 24 hours unless SBP greater than 220 or DBP greater than 120 or until stroke is ruled out # Patient with chronic combined heart failure -Did have recent admission for heart failure exacerbation and echo revealed EF of 30% with stage I diastolic dysfunction -Patient with elevated sodium increased BUN this a.m., patient also with dry mucous membranes and reportedly has had very poor p.o. intake -Decreasing diuresis will plan to hold dose tomorrow, will hold off on IV fluids unless absolutely necessary -Daily weights, I's and O's - heart healthy diet #Slight troponin elevation -Unclear etiology, no recent comparison values, will trend, patient not complaining of any chest pain at this time #Hypothyroidism -Continue Synthroid #GERD -Continue PPI #Hypertension -Will hold medication as above #Dementia -Supportive care -Continue home medications # Restless leg syndrome -continue patient's home medication regimen #DVT ppx: Lovenox subcu Jayne Lunsford MD Charges/Coding Visit Charges Inpatient E&M: 39305 Init Hosp L2
[2025-01-30] MEDS: 0.9% Saline Lock 10 ML Syringe IV (22:54)
[2025-01-30 23:48] LABS: Mucous, Urine 0 SEEN /hpf (<or=2+); White Blood Cells 0 SEEN /hpf (0-5)
[2025-01-30 23:54] LABS: Color, Urine Yellow (Yellow); Glucose, Dipstick Normal (Normal); Ketone-Dipstick 5 mg/dl (Negative); Leukocyte Esterase-Dipstick 500 /ul (Negative); Nitrite-Dipstick Negative (Negative); Occult Blood-Urine 10 /ul (Negative); Protein-Dipstick 30 mg/dl (Negative); Urine Bilirubin Dipstick Negative (Negative); Urine Clarity Clear (Clear); Urine Urobilinogen Normal (Normal)
[2025-01-31] VITALS (10 sets, daily range): BP systolic 109–146; BP diastolic 60–69; PULSE 67–86; RESP 14–20; TEMP 36.3–36.8; O2SAT 94–99; BMI 26.6; BMI 27.3
[2025-01-31 00:12] LABS: Bacteria 1+ /hpf (None Seen); Red Blood Cells-Urine 10-25 SEEN /hpf (0-5); Squamous Epithelial Cells - UA 10-25 SEEN /hpf (5-10)
[2025-01-31 00:12] LABS: Troponin T High Sensitivity 28 ng/L (<=14)
[2025-01-31 01:38] LABS: Troponin T High Sens 2 HR 29 ng/L (<=14)
[2025-01-31 03:58] LABS: Absolute Lymphocyte Count 0.89 X10^3/uL (0.83-4.51); Absolute Neutrophil Count 4.2 X10^3/uL (2.0-7.7); Basophil# 0.03 X10^3/uL; Basophil% 0.5 % (0-1); Eosinophil# 0.17 X10^3/uL; Eosinophils% 2.8 % (0-5); Hematocrit 36.2 % (37-47); Hemoglobin 12.1 g/dL (12.0-15.0); Lymphocyte # 0.89 X10^3/ul (0.83-4.51); Lymphocyte % 14.8 % (19-41); Mean Corp Hgb Conc 33.4 g/dL (32-36); Mean Corpuscular Hgb 31.2 pg (27.0-32.0); Mean Corpuscular Volume 93.3 fL (81-99); Mean Platelet Vol. 10.2 fl (6.2-12.0); Monocyte# 0.73 X10^3/uL; Monocyte% 12.1 % (0-10); NRBC Flagged by Analyzer 0 % (0-5); Neutrophil # 4.17 X10^3/uL (2.7-7.7); Neutrophil % 69.3 % (47-70); Platelet Count 283 K/mm3 (150-450); RBC Distribution Width CV 12.7 % (11.6-14.6); Red Blood Count 3.88 M/mm3 (4.2-5.4)
[2025-01-31 04:14] LABS: Troponin T High Sens 4 HR 29 ng/L (<=14)
[2025-01-31 04:15] LABS: Anion Gap 15 (5-15); BUN 25 mg/dL (4-19); BUN/Creat Ratio 26.8 RATIO (10-20); Calcium,Total 7.3 mg/dL (7.6-11.0); Carbon Dioxide 26.3 mmol/L (21.0-32.0); Chloride 108 mmol/L (98-108); Creatinine, Serum 0.94 mg/dL (0.70-1.20); EST Glomerular Filtration Rate 58 (>60); Estimated Creatinine Clearance 34.01 ml/min (50-250); Glucose 99 mg/dL (70-99); Potassium 3.5 mmol/L (3.3-5.1); Sodium Level 149 mmol/L (133-145)
[2025-01-31 04:38] LABS: Cholesterol 109 mg/dL (<=200); High Density Lipoprotein 36 mg/dL; Low Density Lipoprotein Calc. 56 mg/dL; Triglycerides 88 mg/dL; Very Low Density Lipoprotein 18 mg/dL (5-40); cholesterol:hdl ratio screen 3.03
[2025-01-31] MEDS: Enoxaparin 40 MG/0.4 ML Syringe SC (08:06)
--- NOTE | 2025-01-31 10:00 | MRI_ITS ---
EXAM: BRAIN WITHOUT CONTRAST CLINICAL HISTORY: 89 y/o F; CONCERN FOR CVA COMPARISON: 01/30/2025 TECHNIQUE: Multisequence multiplanar brain MRI without IV contrast FINDINGS: There is an area of acute ischemia in the region of the left caudate nucleus and periventricular deep white matter. A chronic area of encephalomalacia is present in the right frontal lobe and the left lobe of the cerebellum. There are patchy areas of T2/FLAIR signal hyperintensity throughout the deep white matter to a moderate degree. No intracranial hemorrhage. Ventricles and sulci are prominent due to global parenchymal volume loss.No extra-axial collection or midline shift. The posterior fossa structures are within normal limits. The orbits and paranasal sinuses are unremarkable.The calvarium and soft tissues are unremarkable. Extensive degenerative changes are present in the partially visualized cervical spine MRI/Brain without Contrast IMPRESSION: 1. Acute infarction at the left caudate nucleus/periventricular deep white patricio er. 2. Chronic encephalomalacia in the right frontal lobe and left cerebellum. 3. Moderate degree of chronic patchy areas of deep white matter disease, which is nonspecific, but most commonly related to chronic ischemic microangiopathy. 4. Moderate global parenchymal volume loss. Reporting initiated through [facility] navigator at 1439 hours on 5 . Reading Location: [facility]
[2025-01-31] MEDS: Lansoprazole 15 MG Capsule.DR 30 MG PO (11:21)
[2025-01-31] MEDS: Memantine Hydrochloride 10 MG Tablet PO ×2 (11:21→22:29)
[2025-01-31] MEDS: Potassium Chloride Oral Tablet 20 MEQ PO (11:21)
[2025-01-31] MEDS: Aspirin 81 MG TAB.CHEW PO (11:21)
[2025-01-31] MEDS: Loratadine 10 MG Tablet PO (11:21)
[2025-01-31] MEDS: Vibegron 75 MG TABLET PO (11:21)
--- NOTE | 2025-01-31 11:57 | PCM.PN.HOSP ---
Subjective Subjective No new issues overnight, maintains NIH with 1-2 for dysarthria and aphasia Objective Data Objective Data Vital Signs: Vital Signs Temp Pulse Resp BP Pulse Ox O2 Del Method O2 Flow Rate 97.8 F 76 16 132/69 H 94 Nasal Cannula 2 01/31/25 11:38 01/31/25 11:38 01/31/25 11:38 01/31/25 11:38 01/31/25 11:38 01/31/25 11:38 01/31/25 11:38 Oxygen Flow Rate (L/min) 2 Oxygen Delivery Method Nasal Cannula Weight: 139 lb 8.842 oz Body Mass Index (BMI) 27.3 Intake & Output: Intake and Output for Last 24 Hours 01/30/25 01/31/25 02/01/25 03:59 03:59 03:59 Intake Total 0 / 0 0 / 0 Output Total 100 / 100 300 / 300 Balance -100 / -100 -300 / -300 Lab / Micro Data 01/31/25 03:42 01/31/25 03:42 Labs: Laboratory Results - last 24 hr 01/30/25 11:21: Sodium 143, Potassium 3.6, Chloride 104, Carbon Dioxide 24.4, Anion Gap 14, BUN 26 H, Creatinine 0.89, Estim Creat Clear Calc 39.05 L, Est GFR (MDRD) Non-Af 62, BUN/Creatinine Ratio 28.8 H, Glucose 101 H, Calcium 7.5 L, Troponin T High Sens 25 H 01/30/25 23:32: Troponin T High Sens 28 H D 01/30/25 23:39: Urine Color Yellow, Urine Clarity Clear, Urine pH 5.0, Ur Specific [place] 1.010, Urine Protein 30 H, Urine Glucose (UA) Normal, Urine Ketones 5 H, Urine Occult Blood 10 H, Urine Nitrite Negative, Urine Bilirubin Negative, Urine Urobilinogen Normal, Ur Leukocyte Esterase 500 H, Urine RBC 10-25 SEEN, Urine WBC 0 SEEN, Ur Squamous Epith Cells 10-25 SEEN, Urine Bacteria 1+, Urine Mucus 0 SEEN 01/31/25 01:06: Troponin T Hi Sens 2 Hr 29 H 01/31/25 03:42: WBC 6.0, RBC 3.88 L, Hgb 12.1, Hct 36.2 L, MCV 93.3, MCH 31.2, MCHC 33.4, RDW Std Deviation 43.0, RDW Coeff of Jos 12.7, Plt Count 283, MPV 10.2, Immature Gran % (Auto) 0.500, Neut % (Auto) 69.3, Lymph % (Auto) 14.8 L, [place] % (Auto) 12.1 H, Eos % (Auto) 2.8, Baso % (Auto) 0.5, Absolute Neuts (auto) 4.2, Absolute Lymphs (auto) 0.89, Nucleated RBC % 0, Sodium 149 H, Potassium 3.5, Chloride 108, Carbon Dioxide 26.3, Anion Gap 15, BUN 25 H, Creatinine 0.94, Estim Creat Clear Calc 34.01 L, Est GFR (MDRD) Non-Af 58 L, BUN/Creatinine Ratio 26.8 H, Glucose 99, Calcium 7.3 L, Troponin T Hi Sens 4Hr 29 H, Triglycerides 88, Cholesterol 109, LDL Cholesterol, Calc 56, VLDL Cholesterol 18, HDL Cholesterol 36 L, Cholesterol/HDL Ratio 3.03 Physical Exam Narrative General: Alert, Oriented x2, Cooperative, No apparent distress HEENT: Atraumatic, PERRLA, EOMI, Normocephalic Oral: Moist Mucosa Neck: Supple, No JVD Lungs: Diminished, Normal air movement, No rhonchi, No wheeze, No rales Cardiovascular: Regular rate, Regular Rhythm, Normal S1, Normal S2, No murmurs Abdomen: Soft, Non Tender, Non-Distended, No Hepato-splenomegaly Extremities: No edema, Capillary Refill Less than 3 Seconds Skin: No rashes, No breakdown Musculoskeletal: No Tenderness to Palpation of Joints or Extremities Neurological: Aphasia and dysarthria, yesterday she was able to tell me the year and her location today she says it is 1950, speech is very garbled Psych/Mental Status: Flat Assessment & Plan Assessment/Plan (1) Alteration in speech: PLAN: Plan 1. Aphasia and dysarthria ? MRI pending ? Continue with aspirin and statin ? She had an echo on 01/23/2025 ? Urine culture is pending from 01/29/2025 and there was a repeat culture on 01/30/2025 given the UA findings it is possible if she has a UTI this could be leading to some of her symptoms ? CT of the head shows a new hypodensity in the frontal lobe unclear as to acuity ? CTA of the head and neck is negative for any type of stenosis 2. Chronic combined systolic and diastolic CHF/essential HTN/HLD ? Echo on 01/23/2025 with an EF of 30% and stage I diastolic dysfunction ? Continue with her home blood pressure medications tomorrow to allow for permissive hypertension ? Lasix was held on admission secondary to poor p.o. intake ? Will monitor and make adjustments as necessary ? She did have a slight troponin elevation of no significance not warranting any further workup 3. Hypothyroidism ? Stable ? Continue with Synthroid 4. GERD ? Stable ? Continue with PPI 5. Anxiety/dementia/depression ? Continue with her home medications ? Stable DVT: Lovenox Charges/Coding Visit Charges Inpatient E&M: 64833 Subs Hosp L2
[2025-01-31] MEDS: Lorazepam 2 MG/ML WCH Syringe 0.25 MG IV (12:11)
[2025-01-31] MEDS: Dextrose 5%-Water (1000mL Bag) 1,000 ML 60 ML IV (13:56)
[2025-01-31] MEDS: 0.9% Saline Lock 10 ML Syringe IV (13:58)
--- NOTE | 2025-01-31 14:41 | CHAPLAIN ---
Type of Pastoral Visit _x__ Initial Visit ___ Follow-up Visit ___ On-call Visit ___ General Patient Visit ___ Spiritual Assessment ___ Family Conference ___ Bereavement ___ Rapid Response ___ Code Blue ___ Other (describe below) Pastoral Care Referral From _x__ Patient _x__ Family ___ Nurse ___ Physician ___ Wrist Closer ___ Assembly Machine Feeder ___ Other (describe below) Sacrament/Intervention ___ Active listening ___ Anointing ___ Latter Day ___ Bereavement ___ Communion ___ Natasha exploration ___ ___ Life review _x__ Prayer ___ Reconciliation ___ Sacrament of Sick _x__ Supportive presence ___ Wedding ___ Other (describe below) Pastoral Comments this patient was seen last week in TCU and was talkative and expressive about her life; pt is slumped down in her chair now in PCU; pt appears to be sleeping but lifts head and appears to be awake when her name is called out; pt has hard time answering questions and mostly gives one word phrases; pt acknowledges that her niece will come to see her this afternoon; otherwise it is apparent that the patient has had some significant changes in her personal health; no further action after a prayer was given
--- NOTE | 2025-01-31 15:35 | NURSING ---
Unable to fully complete NIHSS at this time, pt sedated r/t receiving ativan prior to MRI.
--- NOTE | 2025-01-31 15:59 | CASEMGMT ---
Physician spoke with patient's niece Carolyn regarding diagnosis etc. SW called Carolyn and confirmed the plan is for patient to return to TCU. SW asked Cecilia in TCU to start the pre-cert for patient to return as long as they were planning on taking patient back. Taylor Griffin MATERIAL CONTROL ANALYST [facility]
[2025-01-31] MEDS: Atorvastatin Calcium 40 MG Tablet PO (22:29)
[2025-02-01] VITALS (9 sets, daily range): BP systolic 124–146; BP diastolic 69–86; PULSE 84–103; RESP 16–20; TEMP 36.4–36.8; O2SAT 92–99; BMI 27.3
[2025-02-01 06:03] LABS: Absolute Lymphocyte Count 1.13 X10^3/uL (0.83-4.51); Absolute Neutrophil Count 7.1 X10^3/uL (2.0-7.7); Basophil# 0.03 X10^3/uL; Basophil% 0.3 % (0-1); Eosinophil# 0.15 X10^3/uL; Eosinophils% 1.6 % (0-5); Hematocrit 37.4 % (37-47); Hemoglobin 12.2 g/dL (12.0-15.0); Lymphocyte # 1.13 X10^3/ul (0.83-4.51); Lymphocyte % 12.2 % (19-41); Mean Corp Hgb Conc 32.6 g/dL (32-36); Mean Corpuscular Hgb 30.8 pg (27.0-32.0); Mean Corpuscular Volume 94.4 fL (81-99); Mean Platelet Vol. 10.7 fl (6.2-12.0); Monocyte# 0.76 X10^3/uL; Monocyte% 8.2 % (0-10); NRBC Flagged by Analyzer 0 % (0-5); Neutrophil # 7.13 X10^3/uL (2.7-7.7); Neutrophil % 77.4 % (47-70); Platelet Count 259 K/mm3 (150-450); RBC Distribution Width CV 12.6 % (11.6-14.6); RBC Distribution Width SD 43.8 fl (35.1-43.9); Red Blood Count 3.96 M/mm3 (4.2-5.4); White Blood Count 9.2 K/mm3 (4.4-11.0)
[2025-02-01] MEDS: 0.9% Saline Lock 10 ML Syringe IV ×2 (06:20→21:47)
[2025-02-01] MEDS: Levothyroxine 100 MCG Tablet PO (06:20)
[2025-02-01 06:26] LABS: Anion Gap 14 (5-15); BUN 25 mg/dL (4-19); BUN/Creat Ratio 27.8 RATIO (10-20); Calcium,Total 7.6 mg/dL (7.6-11.0); Carbon Dioxide 26.2 mmol/L (21.0-32.0); Chloride 106 mmol/L (98-108); EST Glomerular Filtration Rate 62 (>60); Estimated Creatinine Clearance 35.95 ml/min (50-250); Glucose 112 mg/dL (70-99); Potassium 3.9 mmol/L (3.3-5.1); Sodium Level 145 mmol/L (133-145)
[2025-02-01] MEDS: Dextrose 5%-Water (1000mL Bag) 1,000 ML 60 ML IV (06:26)
[2025-02-01] MEDS: Senna/Docusate Sodium 1 Tablet PO (09:10)
[2025-02-01] MEDS: Aspirin 81 MG TAB.CHEW PO (09:10)
[2025-02-01] MEDS: Furosemide 40 MG Tablet PO (09:10)
[2025-02-01] MEDS: Memantine Hydrochloride 10 MG Tablet PO ×2 (09:10→21:46)
[2025-02-01] MEDS: Lansoprazole 15 MG Capsule.DR 30 MG PO (09:10)
[2025-02-01] MEDS: Loratadine 10 MG Tablet PO (09:10)
[2025-02-01] MEDS: Enoxaparin 40 MG/0.4 ML Syringe SC (09:10)
[2025-02-01] MEDS: Potassium Chloride Oral Tablet 20 MEQ PO (09:10)
[2025-02-01] MEDS: Vibegron 75 MG TABLET PO (09:10)
--- NOTE | 2025-02-01 10:52 | PCM.PN.HOSP ---
Subjective Subjective Remains unchanged, still has a speech issues. She is weak Objective Data Objective Data Vital Signs: Vital Signs Temp Pulse Resp BP Pulse Ox O2 Del Method O2 Flow Rate 97.5 F L 84 20 H 132/81 H 99 Nasal Cannula 2 02/01/25 08:40 02/01/25 08:40 02/01/25 08:40 02/01/25 08:40 02/01/25 08:40 02/01/25 08:40 02/01/25 08:40 Oxygen Flow Rate (L/min) 2 Oxygen Delivery Method Nasal Cannula Weight: 139 lb 15.896 oz Body Mass Index (BMI) 27.3 Intake & Output: Intake and Output for Last 24 Hours 01/31/25 02/01/25 02/02/25 03:59 03:59 03:59 Intake Total 0 / 0 360 / 360 1102.5 / 1102.5 Output Total 100 / 100 1000 / 1000 100 / 100 Balance -100 / -100 -640 / -640 1002.5 / 1002.5 Lab / Micro Data 02/01/25 05:17 02/01/25 05:17 Labs: Laboratory Results - last 24 hr 02/01/25 05:17: WBC 9.2, RBC 3.96 L, Hgb 12.2, Hct 37.4, MCV 94.4, MCH 30.8, MCHC 32.6, RDW Std Deviation 43.8, RDW Coeff of Jos 12.6, Plt Count 259, MPV 10.7, Immature Gran % (Auto) 0.300, Neut % (Auto) 77.4 H, Lymph % (Auto) 12.2 L, [place] % (Auto) 8.2, Eos % (Auto) 1.6, Baso % (Auto) 0.3, Absolute Neuts (auto) 7.1, Absolute Lymphs (auto) 1.13, Nucleated RBC % 0, Sodium 145, Potassium 3.9, Chloride 106, Carbon Dioxide 26.2, Anion Gap 14, BUN 25 H, Creatinine 0.90, Estim Creat Clear Calc 35.95 L, Est GFR (MDRD) Non-Af 62, BUN/Creatinine Ratio 27.8 H, Glucose 112 H, Calcium 7.6 Radiography Diagnostic Testing: Radiology Impression Brain MRI 01/31/25 10:00 IMPRESSION: 1. Acute infarction at the left caudate nucleus/periventricular deep white matter. 2. Chronic encephalomalacia in the right frontal lobe and left cerebellum. 3. Moderate degree of chronic patchy areas of deep white matter disease, which is nonspecific, but most commonly related to chronic ischemic microangiopathy. 4. Moderate global parenchymal volume loss. Reporting initiated through [facility] navigator at 1439 hours on 01/31/2025 . Reading Location: [facility] Physical Exam Narrative General: Alert, Oriented x3, Cooperative, No apparent distress HEENT: Atraumatic, PERRLA, EOMI, Normocephalic Oral: Moist Mucosa Neck: Supple, No JVD Lungs: Diminished, Normal air movement, No rhonchi, No wheeze, No rales Cardiovascular: Regular rate, Regular Rhythm, Normal S1, Normal S2, No murmurs Abdomen: Soft, Non Tender, Non-Distended, No Hepato-splenomegaly Extremities: No edema, Capillary Refill Less than 3 Seconds Skin: No rashes, No breakdown Musculoskeletal: No Tenderness to Palpation of Joints or Extremities Neurological: Aphasia and dysarthria, speech is very garbled. Some of the neurological testing is challenging with her generalized weakness. She struggled to lift her right arm for me this morning however once I lifted it into position she was able to keep it up without drift Psych/Mental Status: Flat Assessment & Plan Assessment/Plan (1) Alteration in speech: PLAN: Plan 1. CVA with aphasia and dysarthria ?MRI with left caudate nucleus periventricular white matter with acute infarct ? Continue with aspirin and statin ? She had an echo on 01/23/2025 ? urine culture on the was negative culture on the is still pending and the ? CT of the head shows a new hypodensity in the frontal lobe which is chronic ? CTA of the head and neck is negative for any type of stenosis ? I had extensive conversations with the niece who does not want to pursue very aggressive treatments. She would consider transferring back to the transitional care unit for physical therapy however if there is no significant improvement would consider hospice care 2. Chronic combined systolic and diastolic CHF/essential HTN/HLD ? Echo on 01/23/2025 with an EF of 30% and stage I diastolic dysfunction ? Continue with her home blood pressure medications tomorrow to allow for permissive hypertension ? Lasix was held on admission secondary to poor p.o. intake ? Will monitor and make adjustments as necessary ? She did have a slight troponin elevation of no significance not warranting any further workup 3. Hypothyroidism ? Stable ? Continue with Synthroid 4. GERD ? Stable ? Continue with PPI 5. Anxiety/dementia/depression ? Continue with her home medications ? Stable DVT: Lovenox Charges/Coding Visit Charges Inpatient E&M: 59015 Subs Hosp L2
--- NOTE | 2025-02-01 12:47 | NEURO.PNOTE ---
Assessment and Plan: Neuro Assessment/Plan 89 year old female with below past medical history hospitalized for acute respiratory failure with hypoxia 2/2 acute on chronic HFrEF is found to have left caudate/periventricular stroke on MRI Brain. CTA- no LVO or significant stenosis. It seems like family expressed the understanding that no aggressive treatment'. TTE- EF-30% Diagnosis: Left caudate/periventricular stroke Plan: Continue ASA and statin. Consult cardiology for EF-30%. Event monitor on discharge. OT/PT/JOURNALISM INTERN I personally attended this patient and spent a total time of 35 minutes evaluating this patient including clinical assessment, review of chart, medical history imaging, and determining appropriate treatment and workup. Subject: Neurology Subjective Today, she reports feeling better, sitting in a chair, awake, alert, following commands briskly but still has dysarthria. NIHSS-4 NIHSS NIHSS Nursing Documentation NIHSS Nursing Documentation: NIHSS: Ischemic Stroke/TIA Start: 01/30/25 16:52 Text: For PCU Patients: NIH and Neuro Check every 4 Status: Active hours, PRN and with change in RN caregiver. Freq: [id number] Protocol: Activity Type Activity Date Activity User E-sign Co-sign Detail Recorded Client Recorded Date Recorded By Document 02/01/25 12:10 [id number] 02/01/25 12:10 02/01/25 12:10 NIH Stroke Scale [NIHSS] A score of 0 is normal or asymptomatic . Total possible score is 42. Inpatient: RN or Physician to activate a stroke alert for onset of new stroke symptoms or with NIHSS increase >/= 3 points. Following change in neurological status, NIHSS will be performed per physician order or more frequently PRN. -1a. Level of Consciousness Alert; keenly responsive -1b. LOC Questions Answers BOTH questions correctly. -1c. LOC Commands Performs both tasks correctly . -2. Best Gaze Normal -3. Visual No visual loss -4. Facial Palsy Partial paralysis ( total or near- total paralysis of lower face) -5a. Left Arm No drift; arm holds 90 (or 45 ) degrees for full 10 seconds -5b. Right Arm Drift; arm drifts downward but doesn?t hit the bed -6a. Left Leg No drift; leg holds 30-degree position for full 5 seconds -6b. Right Leg No drift; leg holds 30-degree position for full 5 seconds -7. Limb Ataxia Present in 1 limb -8. Sensory Normal; no sensory loss -9. Best Language Mild-to- moderate aphasia; -10. Dysarthria Severe dysarthria; -11. Extinction and Inattention No abnormality -Total 7 Query Text:A score of 0 is normal or asymptomatic. Total possible score is 42 . ED: Notify Physician for NIHSS increase by > / = 3 points. Inpatient: RN or Physician to activate a stroke alert for NIHSS increase of > / = 3 points. Coma Scale [Assess] -Eye Opening Spontaneous -Motor Obeys Commands -Verbal Oriented [Total] -Coma Scale Total 15 NIHSS 1a. Level of Consciousness: Alert; keenly responsive 1b. LOC Questions: Answers BOTH questions correctly. 1c. LOC Commands: Performs both tasks correctly. 2. Best Gaze: Normal 3. Visual: No visual loss 4. Facial Palsy: Minor paralysis (flattened nasolabial fold, asymmetry on smiling) 5a. Left Arm: No drift; arm holds 90 (or 45) degrees for full 10 seconds 5b. Right Arm: Drift; arm drifts downward but doesn?t hit the bed 6a. Left Leg: No drift; leg holds 30-degree position for full 5 seconds 6b. Right Leg: No drift; leg holds 30-degree position for full 5 seconds 7. Limb Ataxia: Absent 8. Sensory: Normal; no sensory loss 9. Best Language: No aphasia; normal 10. Dysarthria: Severe dysarthria; 11. Extinction and Inattention: No abnormality Total: 4 EEG Results Procedure Details EEG Procedure Details: LILIANA CRUZ is a 89 year old F with a past medical history of , who presents for evaluation of Electroencephalogram on DATE at TIME Objective Data Objective Data Vital Signs: Vital Signs Temp Pulse Resp BP Pulse Ox O2 Del Method O2 Flow Rate 97.9 F 103 H 20 H 130/74 H 97 Nasal Cannula 2 02/01/25 12:09 02/01/25 12:09 02/01/25 12:09 02/01/25 12:09 02/01/25 12:09 02/01/25 12:02/01/25 12:09 Oxygen Flow Rate (L/min) 2 Oxygen Delivery Method Nasal Cannula Weight: 63.5 kg Body Mass Index (BMI) 27.3 Intake & Output: Intake and Output for Last 24 Hours 01/30/25 01/31/25 02/01/25 23:59 23:59 23:59 Intake Total 360 / 360 1102.5 / 1102.5 Output Total 800 / 1100 400 / 400 Balance -440 / -740 702.5 / 702.5 Lab / Micro Data 02/02/25 05:24 02/02/25 05:24 Labs: Laboratory Results - last 24 hr 02/01/25 05:17: WBC 9.2, RBC 3.96 L, Hgb 12.2, Hct 37.4, MCV 94.4, MCH 30.8, MCHC 32.6, RDW Std Deviation 43.8, RDW Coeff of Jos 12.6, Plt Count 259, MPV 10.7, Immature Gran % (Auto) 0.300, Neut % (Auto) 77.4 H, Lymph % (Auto) 12.2 L, [place] % (Auto) 8.2, Eos % (Auto) 1.6, Baso % (Auto) 0.3, Absolute Neuts (auto) 7.1, Absolute Lymphs (auto) 1.13, Nucleated RBC % 0, Sodium 145, Potassium 3.9, Chloride 106, Carbon Dioxide 26.2, Anion Gap 14, BUN 25 H, Creatinine 0.90, Estim Creat Clear Calc 35.95 L, Est GFR (MDRD) Non-Af 62, BUN/Creatinine Ratio 27.8 H, Glucose 112 H, Calcium 7.6 Radiography Diagnostic Testing: Radiology Impression Brain MRI 01/31/25 10:00 IMPRESSION: 1. Acute infarction at the left caudate nucleus/periventricular deep white matter. 2. Chronic encephalomalacia in the right frontal lobe and left cerebellum. 3. Moderate degree of chronic patchy areas of deep white matter disease, which is nonspecific, but most commonly related to chronic ischemic microangiopathy. 4. Moderate global parenchymal volume loss. Reporting initiated through [facility] navigator at 1439 hours on 01/31/2025 . Reading Location: [facility]
[2025-02-01] MEDS: Atorvastatin Calcium 40 MG Tablet PO (21:46)
[2025-02-02] VITALS (9 sets, daily range): BP systolic 116–135; BP diastolic 65–83; PULSE 86–107; RESP 15–18; TEMP 35.8–36.8; O2SAT 94–100; BMI 27.3
[2025-02-02 05:58] LABS: Absolute Neutrophil Count 6.2 X10^3/uL (2.0-7.7); Basophil# 0.02 X10^3/uL; Basophil% 0.2 % (0-1); Eosinophil# 0.12 X10^3/uL; Eosinophils% 1.4 % (0-5); Hematocrit 38.3 % (37-47); Hemoglobin 12.5 g/dL (12.0-15.0); Lymphocyte % 14.4 % (19-41); Mean Corp Hgb Conc 32.6 g/dL (32-36); Mean Corpuscular Hgb 30.5 pg (27.0-32.0); Mean Corpuscular Volume 93.4 fL (81-99); Mean Platelet Vol. 10.9 fl (6.2-12.0); Monocyte% 9.6 % (0-10); NRBC Flagged by Analyzer 0 % (0-5); Neutrophil # 6.17 X10^3/uL (2.7-7.7); Neutrophil % 73.9 % (47-70); Platelet Count 230 K/mm3 (150-450); RBC Distribution Width CV 12.5 % (11.6-14.6); RBC Distribution Width SD 43.1 fl (35.1-43.9); White Blood Count 8.4 K/mm3 (4.4-11.0)
[2025-02-02 06:18] LABS: Anion Gap 12 (5-15); BUN 27 mg/dL (4-19); BUN/Creat Ratio 27.4 RATIO (10-20); Calcium,Total 7.5 mg/dL (7.6-11.0); Carbon Dioxide 25.7 mmol/L (21.0-32.0); Chloride 105 mmol/L (98-108); Creatinine, Serum 0.97 mg/dL (0.70-1.20); EST Glomerular Filtration Rate 56 (>60); Estimated Creatinine Clearance 33.38 ml/min (50-250); Glucose 92 mg/dL (70-99); Sodium Level 143 mmol/L (133-145)
[2025-02-02] MEDS: Levothyroxine 100 MCG Tablet PO (06:45)
[2025-02-02] MEDS: Aspirin 81 MG TAB.CHEW PO (08:48)
[2025-02-02] MEDS: Enoxaparin 40 MG/0.4 ML Syringe SC (10:16)
[2025-02-02] MEDS: Lansoprazole 15 MG Capsule.DR 30 MG PO (10:16)
[2025-02-02] MEDS: Memantine Hydrochloride 10 MG Tablet PO ×2 (10:17→22:31)
[2025-02-02] MEDS: Potassium Chloride Oral Tablet 20 MEQ PO (10:17)
[2025-02-02] MEDS: Senna/Docusate Sodium 1 Tablet PO (10:17)
[2025-02-02] MEDS: Nystatin Powder 15gm Bottle 1 APPLIC TOPICAL ×2 (10:18→22:31)
[2025-02-02] MEDS: Loratadine 10 MG Tablet PO (10:18)
--- NOTE | 2025-02-02 10:38 | PCM.PN.HOSP ---
Subjective Subjective No issues overnight, she is still a total feed, I did attempt to give her some of her minced meat she did not do very well with getting it off the spoon. I did discontinue her IV fluids yesterday we will monitor Objective Data Objective Data Vital Signs: Vital Signs Temp Pulse Resp BP Pulse Ox O2 Del Method O2 Flow Rate 97.6 F L 86 17 129/83 H 98 Nasal Cannula 2 02/02/25 08:41 02/02/25 08:41 02/02/25 08:41 02/02/25 08:41 02/02/25 08:41 02/02/25 08:53 02/02/25 08:53 Oxygen Flow Rate (L/min) 2 Oxygen Delivery Method Nasal Cannula Weight: 140 lb 3.424 oz Body Mass Index (BMI) 27.3 Intake & Output: Intake and Output for Last 24 Hours 02/01/25 02/02/25 02/03/25 03:59 03:59 03:59 Intake Total 360 / 360 2100.5 / 2100.5 Output Total 1000 / 1000 200 / 200 75 / 75 Balance -640 / -640 1900.5 / 1900.5 -75 / -75 Lab / Micro Data 02/02/25 05:24 02/02/25 05:24 Labs: Laboratory Results - last 24 hr 02/02/25 05:24: WBC 8.4, RBC 4.10 L, Hgb 12.5, Hct 38.3, MCV 93.4, MCH 30.5, MCHC 32.6, RDW Std Deviation 43.1, RDW Coeff of Jos 12.5, Plt Count 230, MPV 10.9, Immature Gran % (Auto) 0.500, Neut % (Auto) 73.9 H, Lymph % (Auto) 14.4 L, [place] % (Auto) 9.6, Eos % (Auto) 1.4, Baso % (Auto) 0.2, Absolute Neuts (auto) 6.2, Absolute Lymphs (auto) 1.20, Nucleated RBC % 0, Sodium 143, Potassium 4.0, Chloride 105, Carbon Dioxide 25.7, Anion Gap 12, BUN 27 H, Creatinine 0.97, Estim Creat Clear Calc 33.38 L, Est GFR (MDRD) Non-Af 56 L, BUN/Creatinine Ratio 27.4 H, Glucose 92, Calcium 7.5 L Micro: Microbiology 01/30/25 23:39 Urine, Clean Catch Urine Culture - Preliminary GNR lactose pharmacist in charge Proteus mirabilis GNR lactose pharmacist in charge#2 Physical Exam Narrative General: Alert, Oriented x to, Cooperative, No apparent distress HEENT: Atraumatic, PERRLA, EOMI, Normocephalic Oral: Moist Mucosa Neck: Supple, No JVD Lungs: Diminished, Normal air movement, No rhonchi, No wheeze, No rales Cardiovascular: Regular rate, Regular Rhythm, Normal S1, Normal S2, No murmurs Abdomen: Soft, Non Tender, Non-Distended, No Hepato-splenomegaly Extremities: No edema, Capillary Refill Less than 3 Seconds Skin: No rashes, No breakdown Musculoskeletal: No Tenderness to Palpation of Joints or Extremities Neurological: Aphasia and dysarthria, speech is very garbled. Some of the neurological testing is challenging with her generalized weakness. Psych/Mental Status: Flat Assessment & Plan Assessment/Plan (1) Alteration in speech: PLAN: Plan 1. CVA with aphasia and dysarthria ?MRI with left caudate nucleus periventricular white matter with acute infarct ? Continue with aspirin and statin ? She had an echo on 01/23/2025 ? urine culture on the was negative culture on the with Proteus though does not meet the greater than 100,000 CFU threshold. Given her age and her symptoms we will treat with Rocephin ? CT of the head shows a new hypodensity in the frontal lobe which is chronic ? CTA of the head and neck is negative for any type of stenosis ? I had a 20-minute conversation with the niece who does not want to pursue very aggressive treatments. She would consider transferring back to the transitional care unit for physical therapy however if there is no significant improvement would consider hospice care ? Awaiting pre-CERT for return to transitional care unit 2. Chronic combined systolic and diastolic CHF/essential HTN/HLD ? Echo on 01/23/2025 with an EF of 30% and stage I diastolic dysfunction ? Continue with her home blood pressure medications tomorrow to allow for permissive hypertension ? Lasix was held on admission secondary to poor p.o. intake ? Will monitor and make adjustments as necessary ? She did have a slight troponin elevation of no significance not warranting any further workup 3. Hypothyroidism ? Stable ? Continue with Synthroid 4. GERD ? Stable ? Continue with PPI 5. Anxiety/dementia/depression ? Continue with her home medications ? Stable DVT: Lovenox Charges/Coding Visit Charges Inpatient E&M: 26325 Subs Hosp L2
[2025-02-02] MEDS: 0.9% Normal Saline (100mL Bag) 100 ML 15 ML IV (11:33)
[2025-02-02] MEDS: 0.9% Saline Lock 10 ML Syringe IV ×2 (11:33→22:32)
[2025-02-02] MEDS: Ceftriaxone 1 GM/50 ML BAG IV (11:33)
--- NOTE | 2025-02-02 13:54 | CASEMGMT ---
The next bed that will be available in TCU will not be until February 07. Patient is ready for discharge. SW called patient's niece Carolyn. STEPHANIE explained that TCU will not have a bed for patient until and patient is ready for discharge. Carolyn said she is on her way into the hospital and asked if she could talk with SW. SW told her absolutely and to go to the nurses station when she gets to PCU and ask for social work. Taylor GABRIEL
--- NOTE | 2025-02-02 14:47 | CASEMGMT ---
STEPHANIE met with patient's niece Carolyn. Carolyn mentioned hospice. STEPHANIE and Carolyn discussed what it would mean if patient would go on Hospice and how it would effect her discharge plan. STEPHANIE explained how the process works. Carolyn and STEPHANIE felt it would be appropriate to talk with hospice. STEPHANIE let Carolyn know SW will notify physician. SW notified physician and he was in agreement. STEPHANIE called [facility] regarding referral. STEPHANIE also faxed information. Taylor Griffin MSW [place]
--- NOTE | 2025-02-02 15:57 | CASEMGMT ---
SW received a return call from Hospice and they will be meeting with patient's niece tomorrow at 13:30. STEPHANIE notified physician and charge rn. Taylor GABRIEL
[2025-02-02] MEDS: Atorvastatin Calcium 40 MG Tablet PO (22:31)
[2025-02-03 01:54] VITALS: BMI 27.3
[2025-02-03 03:00] VITALS: PULSE 83
[2025-02-03 03:54] VITALS: BP 128/62; PULSE 95; RESP 14; TEMP 36.5; O2SAT 97
[2025-02-03] MEDS: Levothyroxine 100 MCG Tablet PO (05:00)
[2025-02-03 06:00] VITALS: BMI 27.3
[2025-02-03 09:10] VITALS: BP 114/73; PULSE 78; RESP 18; TEMP 36.4; O2SAT 98
[2025-02-03] MEDS: Vibegron 75 MG TABLET PO (09:13)
[2025-02-03] MEDS: Potassium Chloride Oral Tablet 20 MEQ PO (09:13)
[2025-02-03] MEDS: Aspirin 81 MG TAB.CHEW PO (09:13)
[2025-02-03] MEDS: Loratadine 10 MG Tablet PO (09:13)
[2025-02-03] MEDS: Nystatin Powder 15gm Bottle 1 APPLIC TOPICAL ×2 (09:14→21:17)
[2025-02-03] MEDS: Memantine Hydrochloride 10 MG Tablet PO ×2 (09:14→21:16)
[2025-02-03] MEDS: Lansoprazole 15 MG Capsule.DR 30 MG PO (09:14)
[2025-02-03] MEDS: Senna/Docusate Sodium 1 Tablet PO ×2 (09:15→21:16)
[2025-02-03] MEDS: Enoxaparin 40 MG/0.4 ML Syringe SC (09:15)
[2025-02-03] MEDS: 0.9% Saline Lock 10 ML Syringe IV (09:16)
[2025-02-03] MEDS: Ceftriaxone 1 GM/50 ML BAG IV (09:23)
--- NOTE | 2025-02-03 10:53 | CASEMGMT ---
Addendum entered by Taylor Griffin 02/03/25 10:57: STEPHANIE did ask Monica to please send referrals to all 3 facilities. Taylor GABRIEL Original Note: STEPHANIE received a phone call from patient's niece Carolyn. Carolyn said she wants to add [facility] to her list of SNF's. Her complete list would be [facility], [place], and [place] [facility]. Carolyn asked about pricing. STEPHANIE told Carolyn STEPHANIE can give her this information when she comes in at 130 to meet with hospice. Carolyn said that would be fine. Taylor GABRIEL
--- NOTE | 2025-02-03 10:57 | CASEMGMT ---
Addendum entered by Monica Boudreaux 02/03/25 11:34: [facility] declined d/t no bed availability. [facility] and [facility] has accepted. Monica Boudreaux DC Planning Asst. Original Note: Discharge Planning Referral sent to [facility], [facility], and [facility]. Monica Boudreaux DC Planning Asst.
[2025-02-03 14:11] VITALS: BMI 27.3
--- NOTE | 2025-02-03 15:11 | CASEMGMT ---
Discharge Planning Tiffany @ [facility] notified that they are foc and pt will discharge tomorrow. Avenue asked to cancel referral. Monica Boudreaux DC Planning Asst.
[2025-02-03 15:20] VITALS: BP 136/81; PULSE 106; RESP 18; TEMP 36.4; O2SAT 96
--- NOTE | 2025-02-03 15:23 | CASEMGMT ---
STEPHANIE spoke with Carolyn and let her know [place] and [facility] have accepted patient, but [facility] declined as they are full. STEPHANIE also provided Carolyn with private pay pricing for both facilities. Patient and Carolyn met with hospice and signed papers. Patient chose [facility]. Carolyn asked to talk with the physician. STEPHANIE let Carolyn know SW will notify the physician. Monica verified with [facility] that patient can go tomorrow. Plan: d/c to [facility] under intermediate level of care on a [facility] on [facility]. Taylor Grfifin [employer] PROFESSIONAL [employer]ram GABRIEL
--- NOTE | 2025-02-03 15:50 | CASEMGMT ---
SW's niece Carolyn came out to the nurses station and said patient now wants [facility]. SW asked Monica to send a referral to [facility]. They will accept as patient is from their [place]. Physician spoke with Carolyn about hospice vs skilled as she was wavering. Physician answered her questions and Carolyn decided to go with Hospice knowing that she always could revoke if patient improves. Plan: d/c to [facility] on [facility]. Taylor Griffin POWERHOUSE OILER HARVEY
--- NOTE | 2025-02-03 15:54 | CASEMGMT ---
Discharge Planning Per family request, referral sent to [facility]. Monica Boudreaux DC Planning Asst.
--- NOTE | 2025-02-03 17:24 | PCM.PN.HOSP ---
Subjective Subjective Speech is still garbled, was able to use tissue today to blow her nose but still has difficulty feeding herself Objective Data Objective Data Vital Signs: Vital Signs Temp Pulse Resp BP Pulse Ox O2 Del Method O2 Flow Rate 97.6 F L 106 H 18 136/81 H 96 Room Air 2 02/03/25 15:20 02/03/25 15:20 02/03/25 15:20 02/03/25 15:20 02/03/25 15:20 02/03/25 15:21 02/03/25 10:48 Oxygen Flow Rate (L/min) 2 Oxygen Delivery Method Room Air Weight: 139 lb 15.896 oz Body Mass Index (BMI) 27.3 Intake & Output: Intake and Output for Last 24 Hours 02/02/25 02/03/25 02/04/25 03:59 03:59 03:59 Intake Total 2100.5 / 2100.5 185.25 / 185.25 78.5 / 78.5 Output Total 200 / 200 75 / 75 50 / 50 Balance 1900.5 / 1900.5 110.25 / 110.25 28.5 / 28.5 Lab / Micro Data 02/02/25 05:24 02/02/25 05:24 Micro: Microbiology 01/30/25 23:39 Urine, Clean Catch Urine Culture - Final Klebsiella pneumoniae sp pneum Proteus mirabilis Escherichia coli Physical Exam Narrative General: Alert, Oriented x 2, Cooperative, No apparent distress HEENT: Atraumatic, PERRLA, EOMI, Normocephalic Oral: Moist Mucosa Neck: Supple, No JVD Lungs: Diminished, Normal air movement, No rhonchi, No wheeze, No rales Cardiovascular: Regular rate, Regular Rhythm, Normal S1, Normal S2, No murmurs Abdomen: Soft, Non Tender, Non-Distended, No Hepato-splenomegaly Extremities: No edema, Capillary Refill Less than 3 Seconds Skin: No rashes, No breakdown Musculoskeletal: No Tenderness to Palpation of Joints or Extremities Neurological: Aphasia and dysarthria, speech is very garbled. Some of the neurological testing is challenging with her generalized weakness. Psych/Mental Status: Flat Assessment & Plan Assessment/Plan (1) Alteration in speech: PLAN: Plan 1. CVA with aphasia and dysarthria ?MRI with left caudate nucleus periventricular white matter with acute infarct ? Continue with aspirin and statin ? She had an echo on 01/23/2025 ? urine culture on the was negative culture on the with Proteus though does not meet the greater than 100,000 CFU threshold. Given her age and her symptoms we will treat with Rocephin ? CT of the head shows a new hypodensity in the frontal lobe which is chronic ? CTA of the head and neck is negative for any type of stenosis ? Will plan for hospice tomorrow no family did change the senior living they would like for her to go to 2. Chronic combined systolic and diastolic CHF/essential HTN/HLD ? Echo on 01/23/2025 with an EF of 30% and stage I diastolic dysfunction ? Continue with her home blood pressure medications tomorrow to allow for permissive hypertension ? Lasix was held on admission secondary to poor p.o. intake ? Will monitor and make adjustments as necessary ? She did have a slight troponin elevation of no significance not warranting any further workup 3. Hypothyroidism ? Stable ? Continue with Synthroid 4. GERD ? Stable ? Continue with PPI 5. Anxiety/dementia/depression ? Continue with her home medications ? Stable DVT: Lovenox Charges/Coding Visit Charges Inpatient E&M: 29043 Subs Hosp L2
[2025-02-03 21:06] VITALS: BP 146/83; PULSE 107; RESP 16; TEMP 36.6; O2SAT 94
[2025-02-03] MEDS: Atorvastatin Calcium 40 MG Tablet PO (21:16)
[2025-02-03] MEDS: MELATONIN 3 MG TABLET PO (21:17)
[2025-02-03 23:58] VITALS: BMI 27.3
[2025-02-04 03:00] VITALS: BP 111/77; PULSE 89; RESP 16; TEMP 36.5; O2SAT 94
[2025-02-04 05:22] VITALS: BMI 27.4
[2025-02-04] MEDS: Levothyroxine 100 MCG Tablet PO (05:41)
[2025-02-04 09:00] VITALS: BP 132/77; PULSE 88; RESP 18; TEMP 36.4; O2SAT 95
[2025-02-04 09:02] VITALS: BMI 27.4
--- NOTE | 2025-02-04 09:11 | TREXTCAR_ITS ---
Diet Diet Order/Speech Therapy: 01/30/25 16:52 Diet: Cardiac - Heart Healthy Food consistency:: Mechanical (Minced/Moist) Liquid Consistency:: Regular/Thin Type of Dietary Supplement:: [place] w/ L & D Diet Comments: Total feed meds crushed in pudding DC O2, CPAP, BIPAP needs Home O2 Discharge instructions: No Problem/Diagnosis (1) Alteration in speech: Status: Acute Code(s): R47.89 - Other speech disturbances Plan 1. CVA with aphasia and dysarthria ?MRI with left caudate nucleus periventricular white matter with acute infarct ? Continue with aspirin and statin ? She had an echo on 01/23/2025 ? urine culture on the was negative culture on the with Proteus though does not meet the greater than 100,000 CFU threshold. Given her age and her symptoms we will treat with Rocephin ? CT of the head shows a new hypodensity in the frontal lobe which is chronic ? CTA of the head and neck is negative for any type of stenosis ? Will plan for hospice tomorrow no family did change the alf they would like for her to go to 2. Chronic combined systolic and diastolic CHF/essential HTN/HLD ? Echo on 01/23/2025 with an EF of 30% and stage I diastolic dysfunction ? Continue with her home blood pressure medications tomorrow to allow for permissive hypertension ? Lasix was held on admission secondary to poor p.o. intake ? Will monitor and make adjustments as necessary ? She did have a slight troponin elevation of no significance not warranting any further workup 3. Hypothyroidism ? Stable ? Continue with Synthroid 4. GERD ? Stable ? Continue with PPI 5. Anxiety/dementia/depression ? Continue with her home medications ? Stable DVT: Lovenox Allergies/Procedures Done in Hospital Allergies Sulfa (Sulfonamide Antibiotics) Allergy (Verified 01/30/25 10:44) Hives adhesive tape (tape) Adverse Reaction (Verified 01/30/25 10:44) TEARS SKIN CAN USE PAPER TAPE Type of Care/Length of Stay Estimated LOS: More Than 30 Days Type of Care Needed: Intermediate Rehab Potential: Fair Prognosis: Fair Additional Orders/Day of Discharge Day of Discharge: 02/04/25 Dietary and Speech Recommendations Dietitian Recommendations/Changes: Continue cardiac diet with consistency/texture as per DISTRIBUTION ACCOUNTING CLERK. Will add fortified pudding w/ lunch and dinner tray. Additional ONS as needed once PO established with meals. Discharge Plan Admission Admit Date/Time: 01/30/25 16:00 Attending Provider: Jose Alejandro Montiel Primary Care Provider: Nikki Abbott Consulting Providers: Jayne Lunsford; Ortega Escalona; Zohreh Mello; Paula Avendano; Charlene Sánchez; Danielle Mcfadden; Luis Segovia; Lora Francisco; Yvon Torrez; Bill Whelan; Aldo Lemos; Irene Pantoja; Roberto Bailey; Sakina Granados; Page Moore; Luis Valente; Francis Mullen; Josi Alfaro; Garrett Zuluaga; Isha Mac; Raquel Azevedo Discharge Orders/Prescriptions Prescriptions: New atorvastatin 40 mg Tablet 40 mg PO QHS Qty: 0 0RF aspirin 81 mg Tablet,Chewable 81 mg PO BREAKFAST Qty: 0 0RF cefdinir 300 mg capsule 300 mg PO BID Qty: 6 0RF Continued ropinirole 1 mg concentrate 1 mg PO QHS PRN (Reason: RESTLESS LEGS) simvastatin 40 mg concentrate 40 mg PO QHS levothyroxine 100 MCG tablet 100 mcg PO DAILY pantoprazole 40 mg tablet,delayed release (DR/EC) 40 mg PO DAILY Patient Comments: ACID REFLUX cyanocobalamin (vitamin B-12) 1,000 mcg Tablet 1,000 mcg PO DAILY ferrous sulfate 325 mg (65 mg iron) Tablet 325 mg PO DAILY PreserVision AREDS 2 Plus MV 200 mcg-15 mcg- 5 mg-1 mg Capsule 1 cap PO BID ofloxacin 0.3 % drops 1 drp ophthalmic (eye) Q2H Rx Instructions: INSTILL INTO LEFT EYE EVERY 2 HOURS WHILE AWAKE dibucaine 1 % ointment 1 applic topical TID PRN (Reason: hemorrhoids) triamcinolone acetonide 0.1 % cream 1 applic topical DAILY PRN (Reason: rash) benzonatate 100 mg capsule 100 mg PO TID PRN (Reason: cough) loratadine [Allerclear] 10 mg tablet 10 mg PO DAILY nystatin 100,000 unit/gram powder 1 applic topical Q12H PRN (Reason: skin irritation) memantine 28 mg capsule,sprinkle,ER 24hr 28 mg PO DAILY mirabegron [Myrbetriq] 50 mg tablet extended release 24 hr 50 mg PO DAILY cholecalciferol (vitamin D3) [D3 DOTS] 50 mcg (2,000 unit) tablet 50 mcg PO DAILY spironolactone 25 mg Tablet 25 mg PO DAILY 30 Days Qty: 0 0RF Rx Instructions: Hold for serum potassium more than 5.0 furosemide [Lasix] 40 mg tablet 40 mg PO BID Qty: 60 0RF Rx Instructions: Hold for SBP less than 110 mmHg lisinopril 2.5 mg tablet 2.5 mg PO DAILY 30 Days Qty: 30 2RF metoprolol succinate 25 mg tablet extended release 24 hr 25 mg PO DAILY 30 Days Qty: 30 3RF menthol-zinc oxide [CalaSoothe] 0.44-20.6 % ointment 1 applic topical BID fluticasone propionate [24 Hour Allergy Relief] 50 mcg/actuation spray,suspension 2 spray intranasal DAILY Rx Instructions: administer into each nostril Gemtesa 75 mg tablet 75 mg PO DAILY potassium chloride [Klor-Con M20] 20 mEq tablet,ER particles/crystals 20 meq PO DAILY lansoprazole 15 mg capsule,delayed release(DR/EC) 30 mg PO DAILY enoxaparin 40 mg/0.4 mL syringe 40 mg subcut DAILY memantine 10 mg tablet 10 mg PO BID sennosides-docusate sodium [2-in-1 Laxative] 8.6-50 mg tablet 1 tab-cap PO BID doxepin 10 mg capsule 10 mg PO QHS magnesium citrate [Citrate of Magnesia] Solution 300 ml PO DAILY PRN (Reason: constipation) hydrocortisone 2.5 % cream 1 applic topical TID PRN (Reason: rash) pramipexole 0.5 mg tablet 0.5 mg PO QHS PRN (Reason: restless leg(s)) acetaminophen 500 mg capsule 1,000 mg PO Q6H PRN (Reason: pain) hydroxyzine HCl 10 mg tablet 10 mg PO TID PRN (Reason: itching) Discontinued atorvastatin 20 mg tablet 20 mg PO QHS Referrals / Follow Up: Nikki Abbott DO [Primary Care Provider] - Disposition Disposition (needs filled in before D/C Order can be placed): Hospice in Medical Facility
[2025-02-04] MEDS: Enoxaparin 40 MG/0.4 ML Syringe SC (09:14)
[2025-02-04] MEDS: Ceftriaxone 1 GM/50 ML BAG IV (09:14)
[2025-02-04] MEDS: Senna/Docusate Sodium 1 Tablet PO (09:14)
[2025-02-04] MEDS: Potassium Chloride Oral Tablet 20 MEQ PO (09:15)
[2025-02-04] MEDS: Nystatin Powder 15gm Bottle 1 APPLIC TOPICAL (09:15)
[2025-02-04] MEDS: Lansoprazole 15 MG Capsule.DR 30 MG PO (09:15)
[2025-02-04] MEDS: Loratadine 10 MG Tablet PO (09:15)
[2025-02-04] MEDS: Aspirin 81 MG TAB.CHEW PO (09:15)
[2025-02-04] MEDS: Vibegron 75 MG TABLET PO (09:15)
[2025-02-04] MEDS: Memantine Hydrochloride 10 MG Tablet PO (09:15)
[2025-02-04] MEDS: Acetaminophen 325 MG Tablet 650 MG PO (09:27)
[2025-02-04 11:02] VITALS: O2SAT 93
--- NOTE | 2025-02-04 11:16 | CASEMGMT ---
Social Work- STEPHANIE received a message from charge nurse that pt queenie would like to speak with SW prior to pt discharge. STEPHANIE called pt nikajal who reports that she called yesterday to inquire into pricing for [facility]. SW provided 2023 pricing for [facility]. Pt niece reports that pt would enjoy visiting with other residents and would not mind a semi-private room. STEPHANIE updated [facility]. STEPHANIE notified pt niece & [facility] of transport time. Pt niece reports no other questions or concerns at this time. STEPHANIE communicated with PCU manager unit that pt queenie is agreeable to d/c plans. Plan: CC with hospice care [facility]
--- NOTE | 2025-02-04 11:47 | NURSING ---
This RN gave report to OKSANA Zamorano at [facility].
--- NOTE | 2025-02-04 13:10 | CASEMGMT ---
Social Work- Physician feels that pt is medically ready for discharge to [facility]; hospice services at discharge. Green sheet previously completed. Plan: [facility]; with hospice [facility]
--- NOTE | 2025-02-04 15:59 | DS.PCM_ITS ---
Providers Date of Admission: 01/30/25 Primary Care Physician: Dr. Nikki Abbott, DO Consultations 01/31/25 15:20 Tele [Consult: Tele-Neurology] Routine Consulting Provider: [facility] Reason for Consult: CVA EMERGENT Consult: No MD Notified: Yes Date Notified: 01/31/25 Time Notified: 16:00 Method of Notification: Answering Service Nursing Unit Staff Notify [facility] of Tele-Neurology Consult: Yes Reason For Visit: ABNORMAL SPEECH, CVA RULE OUT Diagnosis Discharge Diagnosis (1) Alteration in speech: Status: Acute Code(s): R47.89 - Other speech disturbances Medications at Discharge Home Medications levothyroxine 100 mcg tablet 100 mcg PO DAILY THYROID 02/09/15 ropinirole 1 mg tablet 1 mg PO QHS PRN RESTLESS LEGS 02/09/15 simvastatin 40 mg tablet 40 mg PO QHS CHOLESTEROL 02/09/15 pantoprazole 40 mg tablet,delayed release 40 mg PO DAILY ACID TREATMENT COORDINATOR 05/05/19 cyanocobalamin (vitamin B-12) 1,000 mcg tablet 1,000 mcg PO DAILY supplement 01/14/23 ferrous sulfate 325 mg (65 mg iron) tablet 325 mg PO DAILY supplemt 01/14/23 mv-mn-folic 200 mcg-vit K 15 mcg-lutein 5 mg-zeaxanthin 1 mg capsule (PreserVision AREDS 2 Plus Multivit) 1 cap PO BID eye health 01/14/23 benzonatate 100 mg capsule 100 mg PO TID PRN cough 01/21/25 cholecalciferol (vitamin D3) 50 mcg (2,000 unit) tablet (D3 DOTS) 50 mcg PO DAILY supplement 01/21/25 dibucaine 1 % topical ointment 1 applic topical TID PRN hemorrhoids 01/21/25 loratadine 10 mg tablet (Allerclear) 10 mg PO DAILY allergies 01/21/25 memantine 28 mg capsule sprinkle,extended release 24hr 28 mg PO DAILY memory 01/21/25 mirabegron 50 mg tablet,extended release 24 hr (Myrbetriq) 50 mg PO DAILY bladder 01/21/25 nystatin 100,000 unit/gram topical powder 1 applic topical Q12H PRN skin irritation 01/21/25 ofloxacin 0.3 % eye drops 1 drp ophthalmic (eye) Q2H eye health 01/21/25 triamcinolone acetonide 0.1 % topical cream 1 applic topical DAILY PRN rash 01/21/25 furosemide 40 mg tablet (Lasix) 40 mg PO BID water pill #60 tabs 01/24/25 lisinopril 2.5 mg tablet 2.5 mg PO DAILY blood pressure 1 month #30 tabs 01/24/25 metoprolol succinate 25 mg tablet,extended release 24 hr 25 mg PO DAILY heart 1 month #30 tabs 01/24/25 spironolactone 25 mg tablet 25 mg PO DAILY water pill 30 days #0 tabs 01/24/25 acetaminophen 500 mg capsule 1,000 mg PO Q6H PRN pain 01/30/25 doxepin 10 mg capsule 10 mg PO QHS 01/30/25 enoxaparin 40 mg/0.4 mL subcutaneous syringe 40 mg subcut DAILY 01/30/25 fluticasone propionate 50 mcg/actuation nasal spray,suspension (24 Hour Allergy Relief) 2 spray intranasal DAILY 01/30/25 hydrocortisone 2.5 % topical cream 1 applic topical TID PRN rash 01/30/25 hydroxyzine HCl 10 mg tablet 10 mg PO TID PRN itching 01/30/25 lansoprazole 15 mg capsule,delayed release 30 mg PO DAILY 01/30/25 magnesium citrate (Citrate of Magnesia oral) 300 ml PO DAILY PRN constipation 01/30/25 memantine 10 mg tablet 10 mg PO BID 01/30/25 menthol 0.44 %-zinc oxide 20.6 % topical ointment (CalaSoothe) 1 applic topical BID 01/30/25 potassium chloride 20 mEq tablet,extended release(part/cryst) (Klor-Con M) 20 meq PO DAILY 01/30/25 pramipexole 0.5 mg tablet 0.5 mg PO QHS PRN restless leg(s) 01/30/25 sennosides 8.6 mg-docusate sodium 50 mg tablet (2-in-1 Laxative) 1 tab-cap PO BID 01/30/25 vibegron 75 mg tablet (Gemtesa) 75 mg PO DAILY 01/30/25 aspirin 81 mg chewable tablet 81 mg PO BREAKFAST #0 tabs 02/04/25 atorvastatin 40 mg tablet 40 mg PO QHS #0 tabs 02/04/25 cefdinir 300 mg capsule 300 mg PO BID #6 caps 02/04/25 Hospital Course Operations None Procedures None Summary of Care Provided Minutes Spent on Discharge: 31 Hospital Course: Per HPI: LILIANA CRUZ, is a 89-year-old female history of hypertension, restless leg syndrome, combined heart failure, GERD, hypothyroidism, Alzheimer's disease who presented [facility] ED 01/30/2025 from TCU was a stroke alert. Patient's speech was noted to be different at 0945 and stroke alert was activated. Family reported that patient has been little bit more confused since Thursday and in the ED she did have some slight speech and naming issues as well as potential left eye vision changes. Noncon CT of the brain with no acute hemorrhage but there is new hypodensity in the frontal lobe compared to 2021 but timeframe unknown. Teleneurology evaluated and patient not a candidate for TNK as she was outside the timeframe. Aspirin 81 mg recommended as well as admission for MRI of the brain. If patient has unrevealing MRI and encephalopathy workup they would recommend considering an EEG if she is not back to baseline, also recommended teleneurology consultation on an inpatient basis. In the ED patient vitally stable, CBC unremarkable, BMP unremarkable. Hospitalist contacted for admission. Patient evaluated at bedside with family member present, reportedly when family member saw her on Thursday she was normal but when a friend visited her yesterday she did not seem quite right was having difficulty with her speech, today was a stroke alert due to speech changes, family member at bedside reports her speech is similar to how it was when she initially presented to the ED and has not had any improvement, patient has difficulty answering ROS but denies headache or changes in vision, possible complaint of a cough but had difficulty pinning down any other acute complaints Hospital Course: 1. CVA with aphasia and dysarthria ?MRI with left caudate nucleus periventricular white matter with acute infarct ? Continue with aspirin and statin ? She had an echo on 01/23/2025 ? urine culture on the was negative culture on the with Proteus though does not meet the greater than 100,000 CFU threshold. Given her age and her symptoms we will treat with Rocephin ? CT of the head shows a new hypodensity in the frontal lobe which is chronic ? CTA of the head and neck is negative for any type of stenosis 02/04/2025: Plan for discharge to hospice today. Will continue with cefdinir for treatment of her UTI for 3 more days 2. Chronic combined systolic and diastolic CHF/essential HTN/HLD ? Echo on 01/23/2025 with an EF of 30% and stage I diastolic dysfunction ? Continue with her home blood pressure medications tomorrow to allow for permissive hypertension ? Lasix was held on admission secondary to poor p.o. intake ? Will monitor and make adjustments as necessary ? She did have a slight troponin elevation of no significance not warranting any further workup 3. Hypothyroidism ? Stable ? Continue with Synthroid 4. GERD ? Stable ? Continue with PPI 5. Anxiety/dementia/depression ? Continue with her home medications ? Stable Physical Exam Narrative General: Alert, Oriented x 2, Cooperative, No apparent distress HEENT: Atraumatic, PERRLA, EOMI, Normocephalic Oral: Moist Mucosa Neck: Supple, No JVD Lungs: Diminished, Normal air movement, No rhonchi, No wheeze, No rales Cardiovascular: Regular rate, Regular Rhythm, Normal S1, Normal S2, No murmurs Abdomen: Soft, Non Tender, Non-Distended, No Hepato-splenomegaly Extremities: No edema, Capillary Refill Less than 3 Seconds Skin: No rashes, No breakdown Musculoskeletal: No Tenderness to Palpation of Joints or Extremities Neurological: Aphasia and dysarthria, speech is very garbled. Some of the neurological testing is challenging with her generalized weakness. Psych/Mental Status: Flat Weight / BMI Weight Weight: 140 lb 6.951 oz Body Mass Index (BMI) 27.4 ABG / Lab / Microbiology Data 02/02/25 05:24 02/02/25 05:24 Microbiology: Microbiology 01/30/25 23:39 Urine, Clean Catch Urine Culture - Final Klebsiella pneumoniae sp pneum Proteus mirabilis Escherichia coli D/C Instructions DC O2, CPAP, BIPAP Needs Home O2 Discharge instructions: No Meaningful Use Info Meaningful Use Meaningful Use Diagnoses (Choose all that apply): None applicable Ischemic Stroke Statin Dosing Therapy Reference: STATIN DOSE THERAPY REFERENCE: * Patients > 75 years receive moderate or high dose statin therapy. * Patients 75 years or YOUNGER should receive HIGH intensity statin dose unless contraindicated. You will be required to document reason for non-treatment if statin daily dose does not meet guidelines. HIGH DOSE STATIN THERAPY DAILY Atorvastatin > than or = to 40 mg Rosuvastatin > than or = to 20 mg Amlodipine + Atorvastatin > than or = to 2.5/40 mg Ezetimibe + Simvastatin 10/80 mg Simvastatin 80mg Discharge Plan Admission Admit Date/Time: 01/30/25 16:00 Attending Provider: Jose Alejandro Montiel Primary Care Provider: Nikki Abbott Consulting Providers: Jayne Lunsford; Ortega Escalona; Zohreh Mello; Paula Avendano; Charlene Sánchez; Danielle Mcfadden; Luis Segovia; Lora Francisco; Yvon Torrez; Bill Whelan; Aldo Lemos; Irene Pantoja; Roberto Bailey; Sakina Granados; Page Moore; Luis Valente; Francis Mullen; Josi Alfaro; Garrett Zuluaga; Isha Mac; Raquel Azevedo Discharge Orders/Prescriptions Prescriptions: New atorvastatin 40 mg Tablet 40 mg PO QHS Qty: 0 0RF aspirin 81 mg Tablet,Chewable 81 mg PO BREAKFAST Qty: 0 0RF cefdinir 300 mg capsule 300 mg PO BID Qty: 6 0RF Continued ropinirole 1 mg concentrate 1 mg PO QHS PRN (Reason: RESTLESS LEGS) simvastatin 40 mg concentrate 40 mg PO QHS levothyroxine 100 MCG tablet 100 mcg PO DAILY pantoprazole 40 mg tablet,delayed release (DR/EC) 40 mg PO DAILY Patient Comments: ACID REFLUX cyanocobalamin (vitamin B-12) 1,000 mcg Tablet 1,000 mcg PO DAILY ferrous sulfate 325 mg (65 mg iron) Tablet 325 mg PO DAILY PreserVision AREDS 2 Plus MV 200 mcg-15 mcg- 5 mg-1 mg Capsule 1 cap PO BID ofloxacin 0.3 % drops 1 drp ophthalmic (eye) Q2H Rx Instructions: INSTILL INTO LEFT EYE EVERY 2 HOURS WHILE AWAKE dibucaine 1 % ointment 1 applic topical TID PRN (Reason: hemorrhoids) triamcinolone acetonide 0.1 % cream 1 applic topical DAILY PRN (Reason: rash) benzonatate 100 mg capsule 100 mg PO TID PRN (Reason: cough) loratadine [Allerclear] 10 mg tablet 10 mg PO DAILY nystatin 100,000 unit/gram powder 1 applic topical Q12H PRN (Reason: skin irritation) memantine 28 mg capsule,sprinkle,ER 24hr 28 mg PO DAILY mirabegron [Myrbetriq] 50 mg tablet extended release 24 hr 50 mg PO DAILY cholecalciferol (vitamin D3) [D3 DOTS] 50 mcg (2,000 unit) tablet 50 mcg PO DAILY spironolactone 25 mg Tablet 25 mg PO DAILY 30 Days Qty: 0 0RF Rx Instructions: Hold for serum potassium more than 5.0 furosemide [Lasix] 40 mg tablet 40 mg PO BID Qty: 60 0RF Rx Instructions: Hold for SBP less than 110 mmHg lisinopril 2.5 mg tablet 2.5 mg PO DAILY 30 Days Qty: 30 2RF metoprolol succinate 25 mg tablet extended release 24 hr 25 mg PO DAILY 30 Days Qty: 30 3RF menthol-zinc oxide [CalaSoothe] 0.44-20.6 % ointment 1 applic topical BID fluticasone propionate [24 Hour Allergy Relief] 50 mcg/actuation spray,suspension 2 spray intranasal DAILY Rx Instructions: administer into each nostril Gemtesa 75 mg tablet 75 mg PO DAILY potassium chloride [Klor-Con M20] 20 mEq tablet,ER particles/crystals 20 meq PO DAILY lansoprazole 15 mg capsule,delayed release(DR/EC) 30 mg PO DAILY enoxaparin 40 mg/0.4 mL syringe 40 mg subcut DAILY memantine 10 mg tablet 10 mg PO BID sennosides-docusate sodium [2-in-1 Laxative] 8.6-50 mg tablet 1 tab-cap PO BID doxepin 10 mg capsule 10 mg PO QHS magnesium citrate [Citrate of Magnesia] Solution 300 ml PO DAILY PRN (Reason: constipation) hydrocortisone 2.5 % cream 1 applic topical TID PRN (Reason: rash) pramipexole 0.5 mg tablet 0.5 mg PO QHS PRN (Reason: restless leg(s)) acetaminophen 500 mg capsule 1,000 mg PO Q6H PRN (Reason: pain) hydroxyzine HCl 10 mg tablet 10 mg PO TID PRN (Reason: itching) Discontinued atorvastatin 20 mg tablet 20 mg PO QHS Referrals / Follow Up: Nikki Abbott DO [Primary Care Provider] - Disposition Disposition (needs filled in before D/C Order can be placed): Hospice in Medical Facility Charges/Coding Visit Charges Inpatient E&M: 06086 Disch Hosp >30min
== END 2025-02-04 13:29 | disposition hospice, inpatient (51) | DRG 66 ==
LOC: ED 15:14 → PCU 16:10
PROVIDERS: Admitting Provider Internal Medicine; Emergency Provider Emergency Medicine; PCP Family Medicine; Visit Provider Family Medicine
DX: I63.89 Other cerebral infarction (principal); I69.322 Dysarthria following cerebral infarction; I11.0 Hypertensive heart disease with heart failure; F02.80 Dementia in other diseases classified elsewhere, unspecified severity, without behavioral disturbance, psychotic disturbance, mood disturbance, and anxiety; G25.81 Restless legs syndrome; E03.9 Hypothyroidism, unspecified; F32.A Depression, unspecified; E78.5 Hyperlipidemia, unspecified; G30.9 Alzheimer's disease, unspecified; K21.9 Gastro-esophageal reflux disease without esophagitis; H53.9 Unspecified visual disturbance; M48.02 Spinal stenosis, cervical region; Z79.01 Long term (current) use of anticoagulants; Z81.8 Family history of other mental and behavioral disorders; Z90.710 Acquired absence of both cervix and uterus; Z79.82 Long term (current) use of aspirin
CPT/HCPCS: 36415; 70450; 70496; 70498; 70551; 71045; 80048; 80061; 81001; 84484; 85025; 85610; 85730; 87077; 87086; 87088; 87186; 92526; 92610; 93005; 94668; 94762; 97110; 97116; 97162; 97166; 97530; 97535; 97802; 99252; 99285; Q9967; A4216; G0463